=== PATIENT | male | born 1935 | race Two or more races ===

== ENCOUNTER 2022-12-10 08:25 | Outpatient (OUT) | payer MEDICARE, SELFPAY ==
[2022-12-10 10:14] LABS: Prostate Specific Antigen Dx <0.13 ng/mL (<=4.00)
== END 2022-12-10 08:26 | disposition home or self-care (01) ==
LOC: LAB 08:28
PROVIDERS: PCP Family Medicine; Visit Provider Urology
DX: R97.21 Rising PSA following treatment for malignant neoplasm of prostate (principal); C61 Malignant neoplasm of prostate; N40.1 Benign prostatic hyperplasia with lower urinary tract symptoms
CPT/HCPCS: 36415; 84153

== ENCOUNTER 2023-03-08 08:03 | Outpatient (OUT) | payer MEDICARE, SELFPAY ==
[2023-03-08 08:22] LABS: Basophils Percent Auto 0.7 % (0.2-2.0); Eosinophils Absolute Auto 0.4 10^3/uL (0.0-0.7); Eosinophils Percent Auto 6.9 % (0.9-7.0); Hematocrit 37.5 % (42.0-54.0); Hemoglobin 12.3 g/dL (14.0-18.0); Immature Granulocytes Abs Auto 0.01 10^3/uL (0.00-0.03); Immature Granulocytes Pct Auto 0.2 % (0.0-0.5); Lymphocytes Absolute Auto 2.3 10^3/uL (1.2-3.8); Lymphocytes Percent Auto 39.8 % (20.5-60.0); Mean Corpuscular HGB Conc 32.8 g/dL (29.9-35.2); Mean Corpuscular Hemoglobin 32.2 pg (25.9-34.0); Mean Corpuscular Volume 98.2 fL (80.0-94.0); Mean Platelet Volume 11.1 fL (9.5-13.5); Monocytes Absolute Auto 0.7 10^3/uL (0.3-0.8); Monocytes Percent Auto 11.4 % (1.7-12.0); Neutrophils Absolute Auto 2.4 10^3/uL (1.4-6.5); Platelet Count 177 10^3/uL (150-450); Red Blood Count 3.82 10^6/uL (4.70-6.10); White Blood Count 5.8 10^3/uL (4.0-11.0)
[2023-03-08 09:19] LABS: Estimated Average Glucose 117 mg/dL; Glycohemoglobin A1C 5.7 % (4.5-6.2)
[2023-03-08 09:24] LABS: Alanine Aminotransferase 24 U/L (16-63); Albumin Globulin Ratio 0.9; Albumin Level 3.8 g/dL (3.4-5.0); Alkaline Phosphatase 97 U/L (46-116); Anion Gap 10.1; Aspartate Amino Transferase 20 U/L (15-37); BUN Creatinine Ratio 24.7; Bilirubin Direct 0.2 mg/dL (0.0-0.2); Bilirubin Total 1.2 mg/dL (0.2-1.0); Calcium 9.7 mg/dL (8.5-10.1); Carbon Dioxide 29.9 mmol/L (21.0-32.0); Chloride 104 mmol/L (98-107); Chol HDL Ratio 4.2; Cholesterol 183 mg/dL (<=200); Estimated GFR (African America >60 (>=60); Estimated GFR (Non-African Ame >60 (>=60); Globulin 4.2 g/dL; Glucose 90 mg/dL (74-106); HDL Cholesterol 44 mg/dL (40-60); LDL Cholesterol Calculated 116.4 mg/dL; Sodium 140 mmol/L (136-145); Thyroid Stimulating Hormone 7.015 uIU/mL (0.358-3.740); Triglycerides 113 mg/dL (<=150); VLDL CHOLESTEROL 22.6 mg/dL
== END 2023-03-08 08:04 | disposition home or self-care (01) ==
LOC: LAB 08:04
PROVIDERS: PCP Family Medicine; Visit Provider Family Medicine
DX: R73.03 Prediabetes (principal); I10 Essential (primary) hypertension; Z79.899 Other long term (current) drug therapy; E78.5 Hyperlipidemia, unspecified; I48.0 Paroxysmal atrial fibrillation
CPT/HCPCS: 36415; 80048; 80061; 80076; 83036; 84443; 85025

== ENCOUNTER 2023-06-24 08:23 | Outpatient (OUT) | payer MEDICARE, SELFPAY ==
--- OUTSIDE RECORDS SUMMARY | 2023-06-24 08:29 | XMS_ITS | CCD ---
Author Name Unknown Address [address] [facility] [address] [place] [address] Organization [facility] Care Team Providers Care Licensing Director Name Role Phone ADALBERTO WHEATLEY Primary Care Physician [phone] DIONI, DR ADALBERTO Ramos Primary Care Unavailable JENNIFER, SHAIKH Eryn Admitting Unavailable SHAIKH Eryn RODRIGUEZ Attending Unavailable STEPHENIE, DR NOE Burt Consulting Unavailable DIONI, DR ADALBERTO Ramos Consulting Unavailable ROSALINE HERCULES Consulting Unavailable FABROOKLYNN, SHAIKH Eryn Consulting Unavailable RAVEN BENDER Consulting Unavailable COLIN ., DR ORTEGA Admitting Unavailable COLIN ., DR ORTEGA Attending Unavailable NADEREJaved, DR ADALBERTO Ramos Primary Care Unavailable COLIN ., DR ORTEGA Consulting Unavailable COLIN ., DR ORTEGA Admitting Unavailable COLIN ., DR ORTEGA Attending Unavailable DIONI, DR ADALBERTO Ramos Primary Care Unavailable COLIN ., DR ORTEGA Consulting Unavailable COLIN ., DR ORTEGA Admitting Unavailable COLIN ., DR ORTEGA Attending Unavailable DIONI, DR ADALBERTO Ramos Primary Care Unavailable COLIN ., DR ORTEGA Consulting Unavailable FRANCESHAYDEE FORD Consulting Unavailable COLIN ., DR ORTEGA Admitting Unavailable COLIN ., DR ORTEGA Attending Unavailable DIONI, DR ADALBERTO Ramos Primary Care Unavailable COLIN ., DR ORTEGA Consulting Unavailable COLIN, Felix Burt Attending Unavailable COLIN, Felix Burt Attending Unavailable COLIN, Felix R Attending Unavailable COLIN, Felix R Attending Unavailable COLIN, Felix R Attending Unavailable Allergies Allergy Classification Reported Allergen(s) Allergy Type Date of Onset Reaction(s) Facility (1 source) No Known Medication Allergies; Translations: [No Known Medication Allergies] Propensity to adverse reactions (disorder) [facility] Repository Medications Current Medications Medication Drug Class(es) Dates Sig (Normalized) Sig (Original) apixaban 5 mg oral tablet (3 sources) Factor Xa Inhibitor Start: 06-04-2022 Eliquis 5 mg oral tablet Refills(s) 0 Start Date: 06/04/22 Status: Ordered bicalutamide 50 mg oral tablet (4 sources) Androgen Receptor Inhibitor Start: 12-04-2021 take 1 tablet by mouth once daily Casodex 50 mg Tab 50 mg = 1 tab(s), Oral, Daily, # 90 tab(s), Refills(s) 3, Pharmacy: [id number], 182, cm, 12/04/21 10:02:00 EDT, Height/Length Dosing, 78.1, kg, 12/04/21 10:02:00 EDT, Weight Dosing Start Date: 12/04/21 Status: Ordered Fish Oils (4 sources) Start: 05-12-2020 Fish Oil Oral Start Date: 05/12/20 Status: Ordered Metoprolol (3 sources) beta-Adrenergic Sera Start: 06-04-2022 Metoprolol tartrate 50 mg Tab Refills(s) 0 Start Date: 06/04/22 Status: Ordered Multi Vitamin+ (4 sources) Start: 05-12-2020 Multi Vitamin+ Start Date: 05/12/20 Status: Ordered Completed/Discontinued Medications Medication Drug Class(es) Dates Sig (Normalized) Sig (Original) cephalexin 500 mg oral capsule (2 sources) Cephalosporin Antibacterial Start: 06-04-2022 take 1 capsule by mouth once daily Keflex 500 mg Cap 500 mg = 1 cap(s), Oral, Daily, Take 1 tab day before procedure and 1 after procedure, # 2 cap(s), Refills(s) 0, Pharmacy: [id number], 182, cm, 06/04/22 14:07:00 EST, Height/Length Dosing, 78.1, kg, 06/04/22 14:07:00 EST, Weight Dosing Start Date: 06/04/22 Status: Ordered Problems Problem Classification Problem Date Documented Date Episodic/Chronic Calculus of urinary tract (3 sources) Calculus of kidney; Translations: [Kidney stone] Onset: 06-25-2022 Episodic Cancer of prostate (9 sources) Malignant neoplasm of prostate; Translations: [Carcinoma of prostate] Onset: 12-01-2021 Chronic Cancer of prostate (1 source) Personal history of malignant neoplasm of prostate; Translations: [PERSONAL HX MALIG NEOPLASM PROSTATE] Onset: 07-03-2022 Episodic Cardiac dysrhythmias (1 source) Paroxysmal atrial fibrillation; Translations: [PAROXYSMAL ATRIAL FIBRILLATION] Onset: 05-30-2022 Chronic Diverticulosis and diverticulitis (1 source) Diverticulosis of intestine, part unspecified, without perforation or abscess without bleeding; Translations: [DVRTCLOS PRT UNS NO PERF/ABSC NO BL] Onset: 06-25-2022 Chronic Genitourinary symptoms and ill-defined conditions (15 sources) Microscopic hematuria; Translations: [Nocturia] Onset: 06-04-2022 05-12-2020 Episodic Heart valve disorders (1 source) Nonrheumatic aortic (valve) insufficiency; Translations: [NONRHEUMATIC AORTIC INSUFFICIENCY] Onset: 05-30-2022 Chronic Hyperplasia of prostate (13 sources) Benign prostatic hypertrophy with outflow obstruction; Translations: [Benign prostatic hyperplasia with lower urinary tract symptoms] Onset: 12-01-2021 Chronic Nonspecific chest pain (4 sources) Chest pain, unspecified; Translations: [Other chest pain] Onset: 05-26-2022 Episodic Other aftercare (1 source) long 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 care social worker (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) use of anticoagulants; Translations: [TEST AND BALANCE ENGINEER CURRNT USE ANTICOAGULANTS] Onset: 07-03-2022 Episodic Other aftercare (1 source) 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; Translations: [OTH TEST AND BALANCE ENGINEER CURRENT DRUG THERAPY] Onset: 07-03-2022 Episodic Other and ill-defined heart disease (1 source) Cardiomegaly; Translations: [CARDIOMEGALY] Onset: 05-30-2022 Chronic Other circulatory disease (1 source) Hypotension, unspecified; Translations: [HYPOTENSION UNSPECIFIED] Onset: 05-30-2022 Episodic Other diseases of bladder and urethra (1 source) Other specified disorders of bladder; Translations: [OTHER SPECIFIED DISORDERS BLADDER] Onset: 07-03-2022 Chronic Other diseases of kidney and ureters (1 source) Urinary tract obstruction; Translations: [Other obstructive and reflux uropathy] Onset: 12-01-2021 Episodic Other screening for suspected conditions (not mental disorders or infectious disease) (14 sources) Raised prostate specific antigen; Translations: [Rising PSA following treatment for malignant neoplasm of prostate] Onset: 12-01-2021 Episodic Unclassified (3 sources) Asymptomatic microscopic hematuria 06-04-2022 Unclassified (1 source) CONTACT W/AND (SUSP) EXPOS COVID-19; Translations: [CONTACT W/AND (SUSP) EXPOS COVID-19] Onset: 05-30-2022 Results Test Name Value Interpretation Reference Range Facility [facility] 01-06-2023 Lab Reports [id number] D:127 Normal [facility] Ambulatory Visit Summaryon 0 12-28-2022 Ambulatory Visit Summary TIFFANIE WELLS :1935 Visit Date:12/28/2022 Ambulatory Visit Instructions Your Diagnosis Rising PSA following treatment for malignant neoplasm of prostate Prostate cancer BPH with urinary obstruction Asymptomatic microscopic hematuria Kidney stone Your Care Team Attending Physician - BRANDIN LESLIE, Felix Burt Primary Care Physician - ADALBERTO WHEATLEY MD This Is Your Medications List bicalutamide (Casodex 50 mg Tab) Contact prescribing physician if questions or concerns apixaban (Eliquis 5 mg oral tablet) metoprolol (Metoprolol tartrate 50 mg Tab) multivitamin (Multi Vitamin+) omega-3 polyunsaturated fatty acids (Fish Oil) Procedures Performed Transrectal biopsy of prostate using ultrasound (US) guidance (11/11/2017), Implantation of radioactive seed into prostate (2002), Colonoscopy. Discharge Vitals Temperature (Tympanic) 36.5 ?C Heart Rate (Peripheral) 65 Respiratory Rate 16 Blood Pressure 135/71 Height 183 cm Height 72 in Weight 78 kg Weight 171.6 lb BMI 23.29 What to do next You Need to Schedule the Following Appointments Follow Up with BRANDIN LESLIE, Felix Burt, URL When: In 6 months Comments: w/ Lupron and PSA Where: [facility] [address], [facility] [place] [address]- Medications What How Much When Instructions Unchanged bicalutamide (Casodex 50 mg Tab) 1 Tablets By Mouth Every day Unchanged apixaban (Eliquis 5 mg oral tablet) Contact prescribing physician if questions or concerns Unchanged metoprolol (Metoprolol tartrate 50 mg Tab) Contact prescribing physician if questions or concerns Unchanged multivitamin (Multi Vitamin+) Contact prescribing physician if questions or concerns Unchanged omega-3 polyunsaturated fatty acids (Fish Oil) By Mouth Contact prescribing physician if questions or concerns Medications and Immunizations Administered Given Lupron Depot 45 mg/6 months intramuscular injection, extended release, 45 mg, IntraMuscular. For: Rising PSA following treatment for malignant neoplasm of prostate, Prostate cancer Allergies No Known Medication Allergies Problems Ongoing - Any problem that you are currently receiving treatment for. Asymptomatic microscopic hematuria BPH with urinary obstruction Kidney stone Microscopic hematuria Nocturia Prostate cancer Rising PSA following treatment for malignant neoplasm of prostate Historical - Any problem that you are no longer receiving treatment for. BPH with elevated PSA Education Materials Benign Prostatic Hyperplasia Benign prostatic hyperplasia (BPH) is an enlarged prostate gland that is caused by the normal aging process. The prostate may get bigger as a man gets older. The condition is not caused by cancer. The prostate is a walnut-sized gland that is involved in the production of semen. It is located in front of the rectum and below the bladder. The bladder stores urine. The urethra carries stored urine out of the body. An enlarged prostate can press on the urethra. This can make it harder to pass urine. The buildup of urine in the bladder can cause infection. Back pressure and infection may progress to bladder damage and kidney (renal) failure. What are the causes? This condition is part of the normal aging process. However, not all men develop problems from this condition. If the prostate enlarges away from the urethra, urine flow will not be blocked. If it enlarges toward the urethra and compresses it, there will be problems passing urine. What increases the risk? This condition is more likely to develop in men older than 50 years. What are the signs or symptoms? Symptoms of this condition include: ? Getting up often during the night to urinate. ? Needing to urinate frequently during the day. ? Difficulty starting urine flow. ? Decrease in size and strength of your urine stream. ? Leaking (dribbling) after urinating. ? Inability to pass urine. This needs immediate treatment. ? Inability to completely empty your bladder. ? Pain when you pass urine. This is more common if there is also an infection. ? Urinary tract infection (UTI). How is this diagnosed? This condition is diagnosed based on your medical history, a physical exam, and your symptoms. Tests will also be done, such as: ? A post-void bladder scan. This measures any amount of urine that may remain in your bladder after you finish urinating. ? A digital rectal exam. In a rectal exam, your health care provider checks your prostate by putting a lubricated, gloved finger into your rectum to feel the back of your prostate gland. This exam detects the size of your gland and any abnormal lumps or growths. ? An exam of your urine (urinalysis). ? A prostate specific antigen (PSA) screening. This is a blood test used to screen for prostate cancer. ? An ultrasound. This test uses sound waves to electronically produce a (more content not included)... Normal [facility] Patient Educationon 12-29-19 Patient Education Urology Benign Prostatic Hyperplasia Benign prostatic hyperplasia (BPH) is an enlarged prostate gland that is caused by the normal aging process. The prostate may get bigger as a man gets older. The condition is not caused by cancer. The prostate is a walnut-sized gland that is involved in the production of semen. It is located in front of the rectum and below the bladder. The bladder stores urine. The urethra carries stored urine out of the body. An enlarged prostate can press on the urethra. This can make it harder to pass urine. The buildup of urine in the bladder can cause infection. Back pressure and infection may progress to bladder damage and kidney (renal) failure. What are the causes? This condition is part of the normal aging process. However, not all men develop problems from this condition. If the prostate enlarges away from the urethra, urine flow will not be blocked. If it enlarges toward the urethra and compresses it, there will be problems passing urine. What increases the risk? This condition is more likely to develop in men older than 50 years. What are the signs or symptoms? Symptoms of this condition include: ? Getting up often during the night to urinate. ? Needing to urinate frequently during the day. ? Difficulty starting urine flow. ? Decrease in size and strength of your urine stream. ? Leaking (dribbling) after urinating. ? Inability to pass urine. This needs immediate treatment. ? Inability to completely empty your bladder. ? Pain when you pass urine. This is more common if there is also an infection. ? Urinary tract infection (UTI). How is this diagnosed? This condition is diagnosed based on your medical history, a physical exam, and your symptoms. Tests will also be done, such as: ? A post-void bladder scan. This measures any amount of urine that may remain in your bladder after you finish urinating. ? A digital rectal exam. In a rectal exam, your health care provider checks your prostate by putting a lubricated, gloved finger into your rectum to feel the back of your prostate gland. This exam detects the size of your gland and any abnormal lumps or growths. ? An exam of your urine (urinalysis). ? A prostate specific antigen (PSA) screening. This is a blood test used to screen for prostate cancer. ? An ultrasound. This test uses sound waves to electronically produce a picture of your prostate gland. Your health care provider may refer you to a specialist in kidney and prostate diseases (urologist). How is this treated? Once symptoms begin, your health care provider will monitor your condition (active surveillance or watchful waiting). Treatment for this condition will depend on the severity of your condition. Treatment may include: ? Observation and yearly exams. This may be the only treatment needed if your condition and symptoms are mild. ? Medicines to relieve your symptoms, including: ? Medicines to shrink the prostate. ? Medicines to relax the muscle of the prostate. ? Surgery in severe cases. Surgery may include: ? Prostatectomy. In this procedure, the prostate tissue is removed completely through an open incision or with a laparoscope or robotics. ? Transurethral resection of the prostate (TURP). In this procedure, a tool is inserted through the opening at the tip of the penis (urethra). It is used to cut away tissue of the inner core of the prostate. The pieces are removed through the same opening of the penis. This removes the blockage. ? Transurethral incision (TUIP). In this procedure, small cuts are made in the prostate. This lessens the prostate's pressure on the urethra. ? Transurethral microwave thermotherapy (TUMT). This procedure uses microwaves to create heat. The heat destroys and removes a small amount of prostate tissue. ? Transurethral needle ablation (TUNA). This procedure uses radio frequencies to destroy and remove a small amount of prostate tissue. ? Interstitial laser coagulation (ILC). This procedure uses a laser to destroy and remove a small amount of prostate tissue. ? Transurethral electrovaporization (TUVP). This procedure uses electrodes to destroy and remove a small amount of prostate tissue. ? Prostatic urethral lift. This procedure inserts an implant to push the lobes of the prostate away from the urethra. Follow these instructions at home: ? Take rxqz-thq-brgqtmp and prescription medicines only as told by your health care provider. ? Monitor your symptoms for any changes. Contact your health care provider with any changes. ? Avoid drinking large amounts of liquid before going to bed or out in public. ? Avoid or reduce how much caffeine or alcohol you drink. ? Give yourself time when you urinate. ? Keep all follow-up visits. This is important. Contact a health care provider if: ? You have unexplained back pain. ? Your symptoms do not get better with treatment. ? You develop side effects from the medicine (more content not included)... Normal [facility] Urology Office/Clinic Noteon 12-28-2022 Urology Office/Clinic Note Chief Complaint prostate cancer HPI Staff 6 month f/u with PSA and Lupron injection. Previous dx of rising PSA following treatment for malignant neoplasm of prostate, prostate cancer (Brachytherapy 2002), BPH with urinary obstruction and asymptomatic microhematuria. Continues Casodex 50mg qd therapy. Current PSA done 12/10/22 is <0.13 and previous done 05/24/22 was the same. Dysuria: no Incomplete bladder emptying: no Hematuria: no Frequency: no Urgency: no Nocturia: 1x Stream: no straining or intermittency Leaking: no Post void dripping: no Wearing pads/ Depends: no Urge incontinence: no Stress incontinence: no Incontinence without Sensory Awareness: no Abdominal pain: no Flank pain: no Sexual complaints: no History of Present Illness Tests reviewed: reviewed UA and PSA. I have reviewed the previous health record information and history for this patient from . I have reviewed and verified the staff HPI to be accurate for this encounter. There have been no associated fever, chills, flank pain, or blood in the urine. Denies any urinary infections since last encounter. Review of Systems PHQ Score Initial Depression Screen Score: 0 ROS - Provider Constitutional: denies weight loss, denies hot flashes. Eyes: denies eye problems. Gastrointestinal: denies nausea, denies vomiting. Cardiovascular: denies chest pain or angina. Integumentary: no dryness Musculoskeletal: denies musculoskeletal symptoms. ENMT: denies otolaryngeal symptoms. Respiratory: no shortness of breath. Heme/Lymph: denies easy bleeding tendency, denies easy bruising tendency. Psychiatric: no confusion, no anxiety. Genitourinary: See HPI. Physical Exam Vitals & Measurements T: 36.5 ?C(Tympanic) HR: 65(Peripheral) RR: 16 BP: 135/71 HT: 72 in HT: 183 cm WT: 78 kg WT: 171.6 lb BMI: 23.29 General Appearance: alert, no distress, well nourished, well developed male. Assessment/Plan 1. Rising PSA following treatment for malignant neoplasm of prostate (R97.21: Rising PSA following treatment for malignant neoplasm of prostate) PSA: 11/28/21 - 0.72 05/24/22 - <0.13 12/10/22 - <0.13 Last Lupron given 06/11/22. Pt continues taking Casodex 50 mg QD. Lupron was approved. Lupron 45 mgIM injection given today with no complications. Right glute. Pt. denies side effects at this time. Pt states that he is taking calcium and multi-vitamins. Advised pt that is it important he is getting a dose of Vitamin D. Follow up in 6 mos for Lupron and with PSA or sooner if needed. Pt understands and agrees with plan. -cont Casodex -Will order PSA. 2. Prostate cancer (C61: Malignant neoplasm of prostate) S/p brachytherapy done 2002. Path done 11/14/17 showed: Right mid - adenocarcinoma, Kennard 6 (3+3), tumor measure 0.09 cm in length, 6% of the core involved by tumor, 1/1 core. Right lateral - Kennard 7 (3+4), tumor measure 0.25 cm in length, 20% of the core involved, 1/1 core. Right lateral mid - Timothy 7 (3+4), tumor measure 0.25 cm in length, 19% of the core involved, 1/1 core. Grade group 2. 3. BPH with urinary obstruction (N40.1: Benign prostatic hyperplasia with lower urinary tract symptoms) Pt is not on any BPH medication at this time. Overall pt has no urinary complaints at this time. 4. Asymptomatic microscopic hematuria (R31.21: Asymptomatic microscopic hematuria) S/p Cysto 07/02/22 UA today shows trace-intact blood. Denies gross blood. Pt is on Eliquis therapy. 5. Kidney stone (N20.0: Calculus of kidney) CTU 06/21/22 - a punctate stone in the lower Lt pole of the kidney Discussed findings w/ pt, stone is very small, will continue to monitor. -Will need KUB in 1 yr. Follow-up With When Contact Information Felix COLIN MD, URL In 6 months [facility] [address], [place] [address]- Additional Instructions: w/ Lupron and PSA Patient Education Benign Prostatic Hyperplasia I, Mimi Donaldson , personally scribed for Dr. Colin on 12/28/2022 12:59:18. . Documentation recorded by the scribe, Mimi Donaldson, accurately reflects the services(s) I performed and decisions made by me. Problem List/Past Medical History Ongoing Asymptomatic microscopic hematuria BPH with urinary obstruction Kidney stone Microscopic hematuria Nocturia Prostate cancer Rising PSA following treatment for malignant neoplasm of prostate Historical BPH with elevated PSA Procedure/Surgical History Transrectal biopsy of prostate using ultrasound (US) guidance (11/11/2017), Implantation of radioactive seed into prostate (2002), Colonoscopy. Medications Casodex 50 mg Tab, 50 mg= 1 tab(s), Oral, Daily, 3 refills Eliquis 5 mg oral tablet Fish Oil, Oral Lupron Depot 45 mg/6 months intramuscular injection, extended release, 45 mg, IntraMuscular, Once Metoprolol tartrate 50 mg Tab Multi Vitamin+ Allergies No Known (more content not included)... Normal [facility] Comment on above: Result Comment: Elec tronically Signed By: Felix COLIN MD\.br\Date and Time Signed: 12/28/22 13:00 EDT\.br\Electronically Co-Signed By: Mimi Donaldson\.br\Date and Time Co-Signed: 12/28/22 12:59 EDT Pre-Certification Formon Pre-Certification Form [id number] CD:127 Normal [facility] Operative Reporton 3 Operative Report [id number] D:127 Normal [facility] Operative Reporton 3 Operative Report [id number] D:127 Normal [facility] RAD - CT Reporton 07-01-2022 RAD - CT Report [id number] D:127 Normal [facility] CT ABD/PELV WO W CONon 06-21 CT ABD/PELV WO W CON EXAMINATION: CT ABD/PELV WO W CON HISTORY: Microscopic hematuria COMPARISON: None. TECHNIQUE: Axial CT images were obtained of the abdomen and pelvis without and with intravenous contrast. Postcontrast images were obtained in the delayed phase. Multiplanar reconstructions were performed. Dose reduction techniques were achieved by using automated exposure control and/or adjustment of mA and/or kV according to patient size and/or use of iterative reconstruction technique. ABDOMEN/PELVIS FINDINGS: Lower Chest: Mild fibrotic changes are present in the lung bases. Liver: Normal enhancement and contour. Biliary/Gallbladder: Unremarkable. Pancreas: Unremarkable. Spleen: Unremarkable. Adrenal Glands: Unremarkable. Kidneys: There are a few small bilateral renal cysts present. A punctate calculus is present in the lower pole of the right kidney. There are a couple small parenchymal calcifications in the left kidney. No hydronephrosis. Gastrointestinal/Perito neum: No acute abnormality. Mild colonic diverticulosis is present. The appendix is unremarkable. No free air or free fluid. Vascular: Moderate scattered atherosclerotic calcifications are present. There is an infrarenal aortic aneurysm measuring 3.6 cm in diameter. Lymph Nodes: No enlarged lymph nodes by CT size criteria. Pelvic Organs: Radiation seeds are noted in the prostate gland. Bladder: Unremarkable. Bones: No acute osseous abnormality. Mild multilevel degenerative disc disease is present in the visualized spine. Extensive degenerative facet disease is present at L4-L5 where there is a slight anterolisthesis of L4 on L5. Soft tissues: Unremarkable. IMPRESSION: 1. Punctate calculus in the lower pole of the right kidney. 2. Mild colonic diverticulosis. 3. Infrarenal aortic aneurysm measuring up to 3.6 cm in diameter. 4. Brachytherapy seeds noted in the prostate gland. 5. Mild fibrotic changes in the lung bases. Electronically authenticated by: HAYDEE DANIELS Date: 2022-06-21 14:41 Normal [facility] Consent for Procedure/Surger yon 06-20-2022 Consent for Procedure/Surgery [id number] D:127 [facility] Ambulatory Visit Summaryon 0 06-11-2022 Ambulatory Visit Summary TIFFANIE WELLS :1935 Visit Date:06/11/2022 Ambulatory Visit Instructions Your Diagnosis Rising PSA following treatment for malignant neoplasm of prostate Prostate cancer BPH with urinary obstruction Asymptomatic microscopic hematuria Tests Performed Urnls Dip Stick Auto w/o Microscopy POC 90465 Your Care Team Attending Physician - Felix COLIN MD Primary Care Physician - ADALBERTO WHEATLEY MD This Is Your Medications List bicalutamide (Casodex 50 mg Tab) cephalexin (Keflex 500 mg Cap) Contact prescribing physician if questions or concerns apixaban (Eliquis 5 mg oral tablet) metoprolol (Metoprolol tartrate 50 mg Tab) multivitamin (Multi Vitamin+) omega-3 polyunsaturated fatty acids (Fish Oil) Procedures Performed Transrectal biopsy of prostate using ultrasound (US) guidance (11/11/2017), Implantation of radioactive seed into prostate (2002), Colonoscopy. What to do next Scheduled Follow-Up Appointments Saturday 10:45 AM EDT With: BRANDIN LESLIE, Felxi Burt Where: [facility] Patient Educationon 06-11-19 23 Patient Education Urology Benign Prostatic Hyperplasia Benign prostatic hyperplasia (BPH) is an enlarged prostate gland that is caused by the normal aging process and not by cancer. The prostate is a walnut-sized gland that is involved in the production of semen. It is located in front of the rectum and below the bladder. The bladder stores urine and the urethra is the tube that carries the urine out of the body. The prostate may get bigger as a man gets older. An enlarged prostate can press on the urethra. This can make it harder to pass urine. The build-up of urine in the bladder can cause infection. Back pressure and infection may progress to bladder damage and kidney (renal) failure. What are the causes? This condition is part of a normal aging process. However, not all men develop problems from this condition. If the prostate enlarges away from the urethra, urine flow will not be blocked. If it enlarges toward the urethra and compresses it, there will be problems passing urine. What increases the risk? This condition is more likely to develop in men over the age of 50 years. What are the signs or symptoms? Symptoms of this condition include: ? Getting up often during the night to urinate. ? Needing to urinate frequently during the day. ? Difficulty starting urine flow. ? Decrease in size and strength of your urine stream. ? Leaking (dribbling) after urinating. ? Inability to pass urine. This needs immediate treatment. ? Inability to completely empty your bladder. ? Pain when you pass urine. This is more common if there is also an infection. ? Urinary tract infection (UTI). How is this diagnosed? This condition is diagnosed based on your medical history, a physical exam, and your symptoms. Tests will also be done, such as: ? A post-void bladder scan. This measures any amount of urine that may remain in your bladder after you finish urinating. ? A digital rectal exam. In a rectal exam, your health care provider checks your prostate by putting a lubricated, gloved finger into your rectum to feel the back of your prostate gland. This exam detects the size of your gland and any abnormal lumps or growths. ? An exam of your urine (urinalysis). ? A prostate specific antigen (PSA) screening. This is a blood test used to screen for prostate cancer. ? An ultrasound. This test uses sound waves to electronically produce a picture of your prostate gland. Your health care provider may refer you to a specialist in kidney and prostate diseases (urologist). How is this treated? Once symptoms begin, your health care provider will monitor your condition (active surveillance or watchful waiting). Treatment for this condition will depend on the severity of your condition. Treatment may include: ? Observation and yearly exams. This may be the only treatment needed if your condition and symptoms are mild. ? Medicines to relieve your symptoms, including: ? Medicines to shrink the prostate. ? Medicines to relax the muscle of the prostate. ? Surgery in severe cases. Surgery may include: ? Prostatectomy. In this procedure, the prostate tissue is removed completely through an open incision or with a laparoscope or robotics. ? Transurethral resection of the prostate (TURP). In this procedure, a tool is inserted through the opening at the tip of the penis (urethra). It is used to cut away tissue of the inner core of the prostate. The pieces are removed through the same opening of the penis. This removes the blockage. ? Transurethral incision (TUIP). In this procedure, small cuts are made in the prostate. This lessens the prostate's pressure on the urethra. ? Transurethral microwave thermotherapy (TUMT). This procedure uses microwaves to create heat. The heat destroys and removes a small amount of prostate tissue. ? Transurethral needle ablation (TUNA). This procedure uses radio frequencies to destroy and remove a small amount of prostate tissue. ? Interstitial laser coagulation (ILC). This procedure uses a laser to destroy and remove a small amount of prostate tissue. ? Transurethral electrovaporization (TUVP). This procedure uses electrodes to destroy and remove a small amount of prostate tissue. ? Prostatic urethral lift. This procedure inserts an implant to push the lobes of the prostate away from the urethra. Follow these instructions at home: ? Take sdkn-hrc-bqzdtae and prescription medicines only as told by your health care provider. ? Monitor your symptoms for any changes. Contact your health care provider with any changes. ? Avoid drinking large amounts of liquid before going to bed or out in public. ? Avoid or reduce how much caffeine or alcohol you drink. ? Give yourself time when you urinate. ? Keep all follow-up visits as told by your health care provider. This is important. Contact a health care provider if: ? You have unexplained back pain. ? Your symptoms do not get better with treatment. ? You d (more content not included)... Normal [facility] Pre-Certification Formon Pre-Certification Form [id number] CD:127 Normal [facility] Urine Cytology ([facility])on 0 06-11-2022 Urine Cytology Diagnosis Info Invalid Interpretation Code [facility] Comment on above: Result Comment: A:Ur ine,Urine:Voided Interpretation - MicroScopic Description - Adequacy - Gross Description Site ID:A color Orangeish fixative Alcohol Specimen designated Urine received in alcohol preservative and labeled with the patient?s name, consists of 60ml slightly cloudy orangeish fluid. Electronically signed by : on: 06/11/2022 15:58:32 Performed By: #### 1 [id number] ####[facility] [id number] [place] [address] Urology Office/Clinic Noteon 06-11-2022 Urology Office/Clinic Note HPI Staff 6m Lupron Inj for Tx of Rising PSA following Prostate Cancer. (Authorization has been approved) Last Lupron given 12/04/21. S/P Brachytherapy done in 2002. Current PSA done 05/24/22- <0.13 *Casodex 50mg QD therapy. Pt had microscopic hematuria at last encounter, recently started on Eliquis therapy. Cysto ordered (not yet scheduled), CT is scheduled at [facility] first week of June, Cytology results are not finalized yet. History of Present Illness Tests reviewed: reviewed UA, PSA. I have reviewed the previous health record information and history for this patient from Dr. Colin. I have reviewed and verified the staff HPI to be accurate for this encounter. There have been no associated fever, chills, flank pain, or blood in the urine. Denies any urinary infections since last encounter. Review of Systems ROS - Provider Constitutional: denies weight loss, denies hot flashes. Eyes: denies eye problems. Gastrointestinal: denies nausea, denies vomiting. Cardiovascular: denies chest pain or angina. Integumentary: no dryness Musculoskeletal: denies musculoskeletal symptoms. ENMT: denies otolaryngeal symptoms. Respiratory: no shortness of breath. Heme/Lymph: denies easy bleeding tendency, denies easy bruising tendency. Psychiatric: no confusion, no anxiety. Genitourinary: See HPI. Physical Exam General Appearance: alert, no distress, well nourished, well developed male. Genitourinary: normal scrotum, normal testes, normal urethra, normal epididymis, normal vas deferens/spermatic cord. Flank Pain: none. Bladder: nonpalpable. Assessment/Plan 1. Rising PSA following treatment for malignant neoplasm of prostate (R97.21: Rising PSA following treatment for malignant neoplasm of prostate) PSA: 11/28/21 - 0.72 05/24/22 - <0.13 Last Lupron given 12/04/21. Pt continues taking Casodex 50 mg QD. Lupron was approved. Lupron 45 mgIM injection given today with no complications. Right glute. Pt. denies side effects at this time. Follow up in 6 mos for Lupron and with PSA or sooner if needed. Pt understands and agrees with plan. -cont Casodex 2. Prostate cancer (C61: Malignant neoplasm of prostate) S/p brachytherapy done 2002. Path done 11/14/17 showed: Right mid - adenocarcinoma, Timothy 6 (3+3), tumor measure 0.09 cm in length, 6% of the core involved by tumor, 1/1 core. Right lateral - Kennard 7 (3+4), tumor measure 0.25 cm in length, 20% of the core involved, 1/1 core. Right lateral mid - Timothy 7 (3+4), tumor measure 0.25 cm in length, 19% of the core involved, 1/1 core. Grade group 2. 3. BPH with urinary obstruction (N40.1: Benign prostatic hyperplasia with lower urinary tract symptoms) Pt is not on any BPH medication at this time. Overall pt has no urinary complaints at this time. 4. Asymptomatic microscopic hematuria (R31.21: Asymptomatic microscopic hematuria) UA done 06/04/22 showed small blood. UA today shows small blood. Denies gross blood. Was recently started on Eliquis therapy. Cysto ordered (not yet scheduled), CTU is scheduled at [facility] first week of June, cytology results are not finalized yet. Follow-up With When Contact Information BRANDIN LESLIE, Felix Burt, [facility] [address] [place] [address]- Additional Instructions: f/u 6 mos with Lupron, PSA after cysto and CTU Patient Education Benign Prostatic Hyperplasia IRomy, personally scribed for Dr. Colin on 06/11/2022 10:34:06. . Documentation recorded by the scribRomy howe, accurately reflects the services(s) I performed and decisions made by me. Authenticated by Dr. Colin on 06/11/2022 10:35:00. Problem List/Past Medical History Ongoing Asymptomatic microscopic hematuria BPH with urinary obstruction Microscopic hematuria Nocturia Prostate cancer Rising PSA following treatment for malignant neoplasm of prostate Historical BPH with elevated PSA Procedure/Surgical History Transrectal biopsy of prostate using ultrasound (US) guidance (11/11/2017), Implantation of radioactive seed into prostate (2002), Colonoscopy. Medications Casodex 50 mg Tab, 50 mg= 1 tab(s), Oral, Daily, 3 refills Eliquis 5 mg oral tablet Fish Oil, Oral Keflex 500 mg Cap, 500 mg= 1 cap(s), Oral, Daily Metoprolol tartrate 50 mg Tab Multi Vitamin+ Allergies No Known Medication Allergies Social History Tobacco Never (less than 100 in lifetime) Tobacco Use:. Never Smokeless Tobacco Use:., 06/04/2022 Family History Family history is unknown Immunizations Vaccine Date Status Comments influenza virus vaccine, inactivated 02/20/2022 Recorded SARS-CoV-2 (COVID-19) [id number] 02/20/2022 Recorded SARS-CoV-2 (COVID-19) mRNA-1273 vaccine 08/19/2021 Recorded influenza virus vaccine, inactivated 02/21/2021 Recorded SARS-CoV-2 (COVID-19) mRNA BNT-162b2 vax 01/24/2021 Recorded SARS-CoV-2 (COVID (more content not included)... [facility] Comment on above: Result Comment: Elec tronically Signed By: Felix COLIN MD\.br\Date and Time Signed: 06/11/22 10:35 EST\.br\Electronically Co-Signed By: Romy Angeles\.br\Date and Time Co-Signed: 06/11/22 10:34 EST 36on 06-07-2022 36 Spoke with patient t o schedule a follow up with Dr. Maloney after event monitor per Octavia Velez. He said he is leaving this up to his PCP, Dr. Wheatley. I told him if he needs us or changes his mind, he can always call us. He verbalized understanding. [facility] Historical Records Officeon 06-07-2022 Historical Records Office [id number] D:127 [facility] Ambulatory Visit Summaryon 0 06-04-2022 Ambulatory Visit Summary TIFFANIE WELLS :1935 Visit Date:06/04/2022 Ambulatory Visit Instructions Your Diagnosis Rising PSA following treatment for malignant neoplasm of prostate Prostate cancer BPH with urinary obstruction Asymptomatic microscopic hematuria Tests Performed Urnls Dip Stick Auto w/o Microscopy POC 26340 CT Abdomen/Pelvis w/ Contrast -- Results Pending -- Please visit your patient portal for your results or contact your primary care physician. Your Care Team Attending Physician - BRANDIN LESLIE, Felix Burt Primary Care Physician - ADALBERTO WHEATLEY MD This Is Your Medications List bicalutamide (Casodex 50 mg Tab) cephalexin (Keflex 500 mg Cap) Contact prescribing physician if questions or concerns apixaban (Eliquis 5 mg oral tablet) metoprolol (Metoprolol tartrate 50 mg Tab) multivitamin (Multi Vitamin+) omega-3 polyunsaturated fatty acids (Fish Oil) Procedures Performed Transrectal biopsy of prostate using ultrasound (US) guidance (11/11/2017), Implantation of radioactive seed into prostate (2002), Colonoscopy. Discharge Vitals Heart Rate (Peripheral) 61 Respiratory Rate 16 Blood Pressure 128/62 Height 182 cm Height 72 in Weight 78.1 kg Weight 171.82 lb BMI 23.58 What to do next You Need to Schedule the Following Appointments Follow Up with BRANDIN LESLIE, Felix Burt, RACHID When: Where: [facility] [address], [facility] [place] [address]- [phone] Medications What How Much When Instructions New cephalexin (Keflex 500 mg Cap) 1 Capsules By Mouth Every day Take 1 tab day before procedure and 1 after procedure Pickup at [facility] Unchanged bicalutamide (Casodex 50 mg Tab) 1 Tablets By Mouth Every day Unchanged apixaban (Eliquis 5 mg oral tablet) Contact prescribing physician if questions or concerns Unchanged metoprolol (Metoprolol tartrate 50 mg Tab) Contact prescribing physician if questions or concerns Unchanged multivitamin (Multi Vitamin+) Contact prescribing physician if questions or concerns Unchanged omega-3 polyunsaturated fatty acids (Fish Oil) By Mouth Contact prescribing physician if questions or concerns Pharmacy Information [facility]: [address] [place], [place] [id number] [phone] Test Results Urnls Dip Stick Auto w/o Microscopy POC 34676 (06/04/2022) Bilirubin Urine Dipstick - Negative Blood Urine Dipstick - 1+ Small Glucose Urine Dipstick - Negative Ketones Urine Dipstick - Trace - 5 mg/dl Leukocytes Urine Dipstick - Negative Nitrite Urine Dipstick - Negative Protein Urine Dipstick - Negative Specific [place] Urine Dipstick - >=1.030 Urine Appearance Urine Dipstick - Clear Urine Color Urine Dipstick - Yellow Urobilinogen Urine Dipstick - Normal 0.2-1 EU/dl pH Urine Dipstick - 6 Allergies No Known Medication Allergies Problems Ongoing - Any problem that you are currently receiving treatment for. Asymptomatic microscopic hematuria BPH with urinary obstruction Microscopic hematuria Nocturia Prostate cancer Rising PSA following treatment for malignant neoplasm of prostate Historical - Any problem that you are no longer receiving treatment for. BPH with elevated PSA Education Materials Brachytherapy for Prostate Cancer Brachytherapy for prostate cancer is radiation treatment that is placed inside of the prostate (prostate gland). There are several types of brachytherapy: ? Low-dose rate (LDR) therapy. This may involve temporary implants or permanent radioactive seed or pellet implants. The radiation does not travel far from the prostate, which means that healthy, noncancerous tissues around the prostate receive only a small dose of radiation. This helps to protect those tissues from injury. This type of treatment may be followed by a course of external beam radiation. ? Temporary low-dose implants are left in the prostate for 1?7 days. The implants are needles, applicators, or thin, plastic tubes (catheters) that contain radioactive material. You will need to stay in the hospital while the implant is in place. ? Permanent low-dose implants (seeds or pellets) are injected into the prostate, and they work for up to one year after they are inserted. They are left in place and are not removed. ? High-dose rate (HDR) therapy. This is given through needles, applicators, or catheters that contain radioactive material. The tubes are removed after treatment, and no radiation is left in the prostate. This type of treatment may be followed by a course of external beam radiation. Tell a health care provider about: ? Any allergies you have. ? All medicines you are taking, including vitamins, herbs, eye drops, creams, and yhxt-tjy-hxiekfj medicines. ? Any problems you or family members have had with anesthetic medicines. ? Any surgeries you have had. ? Any blood disorders you have. ? Any medical conditions y (more content not included)... Normal [facility] Patient Educationon 06-04-19 23 Patient Education Oncology Brachytherapy for Prostate Cancer Brachytherapy for prostate cancer is radiation treatment that is placed inside of the prostate (prostate gland). There are several types of brachytherapy: ? Low-dose rate (LDR) therapy. This may involve temporary implants or permanent radioactive seed or pellet implants. The radiation does not travel far from the prostate, which means that healthy, noncancerous tissues around the prostate receive only a small dose of radiation. This helps to protect those tissues from injury. This type of treatment may be followed by a course of external beam radiation. ? Temporary low-dose implants are left in the prostate for 1?7 days. The implants are needles, applicators, or thin, plastic tubes (catheters) that contain radioactive material. You will need to stay in the hospital while the implant is in place. ? Permanent low-dose implants (seeds or pellets) are injected into the prostate, and they work for up to one year after they are inserted. They are left in place and are not removed. ? High-dose rate (HDR) therapy. This is given through needles, applicators, or catheters that contain radioactive material. The tubes are removed after treatment, and no radiation is left in the prostate. This type of treatment may be followed by a course of external beam radiation. Tell a health care provider about: ? Any allergies you have. ? All medicines you are taking, including vitamins, herbs, eye drops, creams, and bbgz-pze-zauxgcl medicines. ? Any problems you or family members have had with anesthetic medicines. ? Any surgeries you have had. ? Any blood disorders you have. ? Any medical conditions you have. What are the risks? Generally, this is a safe procedure. However, problems may occur, including: ? Inflammation of the rectum. ? Problems getting or keeping an erection (erectile dysfunction). ? Trouble urinating. ? Diarrhea. ? Bleeding. ? Loss of bowel control. What happens before the procedure? Staying hydrated Follow instructions from your health care provider about hydration, which may include: ? Up to 2 hours before the procedure ? you may continue to drink clear liquids, such as water, clear fruit juice, black coffee, and plain tea. Eating and drinking Follow instructions from your health care provider about eating and drinking, which may include: ? 8 hours before the procedure ? stop eating heavy meals or foods such as meat, fried foods, or fatty foods. ? 6 hours before the procedure ? stop eating light meals or foods, such as toast or cereal. ? 6 hours before the procedure ? stop drinking milk or drinks that contain milk. ? 2 hours before the procedure ? stop drinking clear liquids. Medicines ? Ask your health care provider about: ? Changing or stopping your regular medicines. This is especially important if you are taking diabetes medicines or blood thinners. ? Taking medicines such as aspirin and ibuprofen. These medicines can thin your blood. Do not take these medicines before your procedure if your health care provider instructs you not to. ? You may be given antibiotic medicine to help prevent infection. General instructions ? Plan to have someone take you home from the hospital or clinic. ? If you will be going home right after the procedure, plan to have someone with you for 24 hours. ? You may have imaging tests done, including an ultrasound, CT scan, or MRI. ? You may have blood tests done. ? You may have a test to check the electrical signals in your heart (electrocardiogram). ? You may need to take medicine to clean out your bowel (bowel prep). What happens during the procedure? ? To lower your risk of infection: ? Your health care team will wash or sanitize their hands. ? Your skin will be washed with soap. ? Hair may be removed from the surgical area. ? An IV will be inserted into one of your veins. ? You will be given one or more of the following: ? A medicine to help you relax (sedative). ? A medicine to numb the area (local anesthetic). ? A medicine to make you fall asleep (general anesthetic). ? You may have a thin, plastic tube (catheter) inserted to drain your bladder. ? If you are receiving brachytherapy with implants: ? A needle, applicator, or catheter will be inserted into the prostate. It will be inserted through a body cavity, such as the rectum, or through the tissue between the testicles and the anus (perineum). ? An X-ray, ultrasound, MRI, or CT scan will be used to guide the catheter or applicator toward the prostate. ? Radioactive seeds, wires, or ribbons will be fed through the catheter or applicator. ? If the high-dose method is used: ? The radioactive wires or ribbons will be left in for a few minutes and then removed. ? Once the treatment is finished, the catheter or applicator will be removed. ? If the low-dose method is used, the implant will stay in place for 1?7 days. ? You w (more content not included)... Normal [facility] Urine Cytology ([facility])on 0 06-04-2022 Method of Extraction Voided Normal [facility] Comment on above: Performed By: #### 1 [id number] ####[facility] [id number] [place] [address] Number of Jars 1 Invalid Interpretation Code [facility] Comment on above: Performed By: #### 1 [id number] ####[facility] [id number] [place] [address] Specimen Urine Normal [facility] Comment on above: Performed By: #### 1 [id number] ####[facility] [id number] [place] [address] Type of Service Technical Only Normal [facility] Comment on above: Performed By: #### 1 [id number] ####[facility] [id number] [place] [address] Urology Office/Clinic Noteon 06-04-2022 Urology Office/Clinic Note Chief Complaint 6m PSA HPI Staff 6m PSA due to Prostate Cancer & Rising PSA following Tx for Prostate Cancer. S/P Brachytherapy done in 2002. PSA done 05/24/22- <0.13 Pt is on the schedule for Lupron Inj, however, no prior authorization was completed for today's encounter. Verified that Lupron will need precert prior to injection. *Casodex 50mg QD therapy. Pt recently DX'd with A fib and is now taking Eliquis therapy daily. Denies any urinary complaints at this time. History of Present Illness I have reviewed and verified the staff HPI to be accurate for this encounter. Review of Systems PHQ Score Initial Depression Screen Score: 0 ROS - Provider Constitutional: denies weight loss, denies hot flashes. Eyes: denies eye problems. Gastrointestinal: denies nausea, denies vomiting. Cardiovascular: denies chest pain or angina. Integumentary: no dryness Musculoskeletal: denies musculoskeletal symptoms. ENMT: denies otolaryngeal symptoms. Respiratory: no shortness of breath. Heme/Lymph: denies easy bleeding tendency, denies easy bruising tendency. Psychiatric: no confusion, no anxiety. Genitourinary: denies dysuria, denies hematuria, denies discharge, denies urinary frequency, denies urinary hesitancy, denies nocturia, denies incontinence, denies genital sores, denies decreased libido, and denies erectile dysfunction. Physical Exam Vitals & Measurements HR: 61(Peripheral) RR: 16 BP: 128/62 HT: 72 in HT: 182 cm WT: 78.1 kg WT: 171.82 lb BMI: 23.58 General Appearance: alert, no distress, well nourished, well developed male. Genitourinary: normal scrotum, normal testes, normal urethra, normal epididymis, normal vas deferens/spermatic cord. Flank Pain: none. Bladder: nonpalpable. Assessment/Plan 1. Rising PSA following treatment for malignant neoplasm of prostate (R97.21: Rising PSA following treatment for malignant neoplasm of prostate) Continue Casodex 50mg qd PSA done 05/24/22- <0.13 PSA done on 11/28/21 was 0.72. Pt's insurance switched and we are waiting for the approval to give him his next Lupron injection. When we receive the approval our office will call pt to schedule his injection. 2. Prostate cancer (C61: Malignant neoplasm of prostate) S/p Brachytherapy 2002. 3. BPH with urinary obstruction (N40.1: Benign prostatic hyperplasia with lower urinary tract symptoms) Pt is not on any BPH medication at this time Overall pt has no urinary complaints at this time. Will continue to monitor 4. Asymptomatic microscopic hematuria (R31.21: Asymptomatic microscopic hematuria) Small on UA today IO Pt just started Eliquis and takes Aspirin 81mg Pt denies Gross hematuria. Will schedule a Cystoscopy and CT of abdomen/Pelvis w/contrast. Discussed options. The patient is aware that a distinct etiology of the hematuria may not be clear upon conclusion of the workup. Will initiate hematuria workup to include upper urinary tract imaging, as well as evaluation of the urinary cells with urine cytology and possible a FISH test. A cystoscopy will be scheduled to rule out lower urinary tract pathology. The rationale for this workup has been discussed, and all questions have been answered. Informed consent will be obtained. Prophylactic antibiotics will be given. The risks and benefits for cystoscopy have been discussed. The risks include bleeding, infection, and irritation of the bladder and urinary channel, among others. The patient, after being informed of procedural details and after questions have been answered, wishes to proceed. Full informed consent has been obtained. Will order Local anesthesia. Follow-up With When Contact Information Felix COLIN MD, [facility] [address] [place] [address]- [phone] Additional Instructions: Pt will f/u after his cystoscopy Patient Education Brachytherapy for Prostate Cancer I, Genevieve Cabello, personally scribed for Dr. Colin on 06/04/2022 15:10:12. . Documentation recorded by the scribe, Genevieve Cabello, accurately reflects the services(s) I performed and decisions made by me. Problem List/Past Medical History Ongoing Asymptomatic microscopic hematuria BPH with urinary obstruction Microscopic hematuria Nocturia Prostate cancer Rising PSA following treatment for malignant neoplasm of prostate Historical BPH with elevated PSA Procedure/Surgical History Transrectal biopsy of prostate using ultrasound (US) guidance (11/11/2017), Implantation of radioactive seed into prostate (2002), Colonoscopy. Medications Casodex 50 mg Tab, 50 mg= 1 tab(s), Oral, Daily, 3 refills Eliquis 5 mg oral tablet Fish Oil, Oral Metoprolol tartrate 50 mg Tab Multi Vitamin+ Allergies No Known Medication Allergies Social History Tobacco Never (less than 100 in lifetime) Tobacco Use:. Never Smokeless Tobacco Use:., 06/04/2022 Family History Family history is unknown Immun (more content not included)... Normal [facility] Comment on above: Result Comment: Elec tronically Signed By: Felix COLIN MD\.br\Date and Time Signed: 06/04/22 15:12 EST\.br\Electronically Co-Signed By: Genevieve Cabello MA\.br\Date and Time Co-Signed: 06/04/22 15:10 EST ECHOCARDIO M/2D COMPLETEon 0 05-28-2022 ECHOCARDIO M/2D COMPLETE Patient: TIFFANIE WELLS Exam Date: 05/28/2022 : 1935 Gender:M Ordering : MITCHELL HJosiah RODRIGUEZ . Admission #: [id number] Family : DR ADALBERTO WHEATLEY . Order #: [id number] CLICK HERE TO VIEW EXAM ECHOCARDIOGRAM REPORT PROCEDURE: CARDIO PULMONARY ECHOCARDIO M/2D COMP INDICATIONS: Chest pain, Shortness of breath COMPARISON: None. DESCRIPTION: COMPLETE ECHOCARDIOGRAM Real-time transthoracic echocardiography with 2D, M-mode, spectral and color flow Doppler performed. QUALITY: Technical quality was good. LEFT VENTRICLE: Normal chamber size. Mild concentric left ventricular hypertrophy. Systolic function is normal. LV EF: Visual estimation of left ventricular ejection fraction is normal at 55-60%. DIASTOLIC: Normal diastolic function. ATRIAL SEPTUM: LEFT ATRIUM: Normal chamber size. RIGHT ATRIUM: Mild dilatation. RIGHT VENTRICLE: Normal chamber size. Normal right ventricular systolic function. TRICUSPID VALVE: Normal mobility and thickness. No stenosis with trivial regurgitation. No evidence of pulmonary hypertension. RVSP 31mmHg MITRAL VALVE: Normal mobility and thickness. No mitral valve prolapse. No evidence of mitral valve stenosis. There is no mitral annular calcification. Trivial mitral regurgitation. AORTIC VALVE: Normal trileaflet appearance. Mildly calcified aortic valve. Normal leaflet mobility. No evidence of aortic valve stenosis. Mild aortic regurgitation. AORTIC ROOT: Normal diameter and appearance. The ascending aorta is normal in diameter. PULMONIC VALVE: Normal thickness and mobility. No stenosis. Trivial regurgitation. PERICARDIUM: No evidence of pericardial effusion. IVC: Collapses with inspirations. Normal size PLEURA: CONCLUSION: 1. Normal ventricular systolic function. LVEF is 55 to 60%. 2. Mild aortic valve regurgitation. 3. Normal right-sided pressures. 4. No pericardial effusion. Adult Echocardiography Procedure Report Left Ventricle LVEDD (3.7 - 5.6 cm): 4.38 cm LVESD (2.2 - 4.0 cm): 3.12 cm LVIVS thickness (0.6 - 1.2 cm): 1.29 cm LVPW thickness (0.5 - 1.0 cm): 1.27 cm e': 0.08 m/s E - e': 7.16 LVOT Max Gradient: 2.66 mm[Hg] Peak Velocity (LVOT): 0.82 m/s Mean Velocity (LVOT): 0.58 m/s LVOT Diameter 2.47 cm Left Ventricular Ejection Fraction: 55-60% Left Atrium LA Volume Index (2D A2C): 63.05 ml, 63.05 ml Left Atrium Systolic Dimension: 3.66 cm Mitral Valve MV E to A Ratio: 0.90 Mitral Valve A-Wave Peak Velocity: 0.66 m/s Mitral Valve E-Wave Peak Velocity: 0.59 m/s Right Ventricle RV Internal Diastolic Dimension: 3.42 cm Aorta AO Root Diam: 3.74 cm Ascending Ao Diam: 3.45 cm Aortic Valve AoV Area (Peak [place]): 2.98 cm2, 2.98 cm2 AoV Area (VTI): 3.24 cm2, 3.24 cm2 Deceleration [place]: 2.89 m/s2 Pressure Half-Time: 532.36 ms Peak Velocity(Antegrade Flow): 1.31 m/s Peak Gradient(Antegrade Flow): 6.87 mm[Hg] Mean Velocity(Antegrade Flow): 0.97 m/s Mean Gradient(Antegrade Flow): 4.07 mm[Hg] Velocity Time Integral: 24.99 cm Tricuspid Valve Peak Velocity (Regurgitant Flow): 2.49 m/s, 2.66 m/s, 2.39 m/s Peak Velocity: 0.59 m/s Pulmonic Valve Peak Velocity: 0.83 m/s, 0.71 m/s Peak Gradient: 2.75 mm[Hg], 2.02 mm[Hg] Right Atrium Right Atrium Systolic Pressure: 28.59 ml, 28.59 ml Dictated by: Olu Royal M.D. on 05/28/2022 at 13:12 Approved by: Olu Royal M.D. on 05/28/2022 at 13:16 Normal [facility] STRESS/REST MULTIon 05-28 MI STRESS/REST MULTI Patient: TIFFANIE WELLS Exam Date: 05/28/2022 : 1935 Gender:M Ordering : SHAIKH Shaan RODRIGUEZ . Admission #: [id number] Family : DR ADALBERTO WHEATLEY . Order #: [id number] CLICK HERE TO VIEW EXAM RADIOLOGY REPORT PROCEDURE: RADIONUCLIDE IMAGING STRESS/REST MULTI COMPARISON: None. INDICATIONS: Chest pain, shortness of breath TECHNIQUE: Exam Description: Stress/Rest one day protocol gated SPECT Rest Imagin.1 mCi Tc-99m Cardiolite IV on 05/28/2022 Stress Imaging 31.4 mCi Tc-99m Cardiolite IV on 05/28/2022 Exercise Protocol: 0.4 mg Lexiscan given IV Heart Rate (bpm): Rest: 99 Max: 148 PMHR: 108 Blood Pressure: Rest: 130/72 Max: 136/58 Symptoms: atrial fibrillation for duration of study Rest and peak stress ECG findings were normal and the exercise portion of the study was normal per attending physician Dr. Stephens . For more details please see separate cardiac stress test report. FINDINGS: QUALITY OF STUDY: Excellent. PERFUSION DEFECT: None. LOCATION: N/A SIZE: N/A. SEVERITY: N/A. TYPE: N/A. WALL MOTION: Normal. LV SIZE: Normal. 76 mL. TID / TCD: Yes; 1.6 LVEF: Normal. Calculated EF 57%. SUMMARY: Myocardial perfusion imaging study has ABNORMAL findings. CONCLUSION: 1. No acute, reversible, or fixed ischemia. 2. Normal wall motion and ejection fraction. 3. Transient ischemic dilation, 1.6. Dictated by: Noe Bernardo M.D. on 05/29/2022 at 07:30 Approved by: Noe Bernardo M.D. on 05/29/2022 at 07:35 Normal [facility] MAGNESIUMon 05-27-2022 Magnesium [Mass/Vol] 1.8 mg/dL Normal 1.8-2.4 [facility] Comment on above: Performed By: #### P SAD #### [facility] [address] [place] [address] Dr. Otilio Rich PROF 14(COMP METB)on 023 Albumin [Mass/Vol] 3.1 g/dL Critically low 3.4-5.0 [facility] Comment on above: Performed By: #### T SH, CMP #### [facility] [address] [place] [address] Dr. Otilio Rich Albumin/Globulin [Mass ratio] 0.7 {ratio} Normal [facility] Comment on above: Performed By: #### T SH, CMP #### [facility] [address] [place] [address] Dr. Otilio Rich ALP [Catalytic activity/Vol] 87 U/L Normal 46-116 [facility] Comment on above: Performed By: #### T SH, CMP #### [facility] [address] [address] [address] Otilio Rich ALT [Catalytic activity/Vol] 26 U/L Normal 16-63 [facility] Comment on above: Performed By: #### T SH, CMP #### [facility] [address] [address] [address] Otilio Rich Anion gap [Moles/Vol] 13.6 mmol/L Normal [facility] Comment on above: Performed By: #### T SH, CMP #### [facility] [address] [place] [address] Dr. Otilio Rich AST [Catalytic activity/Vol] 16 U/L Normal 15-37 [facility] Comment on above: Performed By: #### T KIMMY, CMP #### [facility] [address] [place] [address] Dr. Otilio Rich Bilirubin [Mass/Vol] 1.5 mg/dL Critically high 0.2-1.0 [facility] Comment on above: Performed By: #### T SH, CMP #### [facility] [address] [place] [address] Dr. Otilio Rich Calcium [Mass/Vol] 9.7 mg/dL Normal 8.5-10.1 [facility] Comment on above: Performed By: #### T KIMMY, CMP #### [facility] [address] [place] [address] Dr. Otilio Rich Chloride [Moles/Vol] 102 mmol/L Normal 98-107 [facility] Comment on above: Performed By: #### T SH, CMP #### [facility] [address] [address] [address] Otilio Rich CO2 [Moles/Vol] 26.5 mmol/L Normal 21.0-32.0 [facility] Comment on above: Performed By: #### T SH, CMP #### [facility] [address] [address] [address] Otilio Rich Creatinine [Mass/Vol] 0.88 mg/dL Normal 0.70-1.30 [facility] Comment on above: Performed By: #### T SH, CMP #### [facility] [address] [place] [address] Dr. Otilio Rich EGFR-AF SAO TOMEAN >60 Normal >=60 [facility] Comment on above: Performed By: #### T SH, CMP #### [facility] [address] [address] [address] Otilio Rich EGFR-NON AF SAO TOMEAN >60 Normal >=60 [facility] Comment on above: Performed By: #### T SH, CMP #### [facility] [address] [address] [address] Otilio Rich Globulin (S) [Mass/Vol] 4.2 g/dL Normal [facility] Comment on above: Performed By: #### T SH, CMP #### [facility] [address] [place] [address] Dr. Otilio Rich Glucose [Mass/Vol] 105 mg/dL Normal 74-106 [facility] Comment on above: Performed By: #### T SH, CMP #### [facility] [address] [address] [address] Otilio Rich Potassium [Moles/Vol] 4.1 mmol/L Normal 3.5-5.1 [facility] Comment on above: Performed By: #### T SH, CMP #### [facility] [address] [place] [address] Dr. Otilio Rich Protein [Mass/Vol] 7.3 g/dL Normal 6.4-8.2 [facility] Comment on above: Performed By: #### T SH, CMP #### [facility] [address] [address] [address] Otilio Rich Sodium [Moles/Vol] 138 mmol/L Normal 136-145 [facility] Comment on above: Performed By: #### T SH, CMP #### [facility] [address] [place] [address] Dr. Otilio Rich Urea nitrogen [Mass/Vol] 19.0 mg/dL Critically high 7.0-18.0 [facility] Comment on above: Performed By: #### T SH, CMP #### [facility] [address] [place] [address] Dr. Otilio Rich Urea nitrogen/Creatinine [Mass ratio] 21.6 mg/mg Normal [facility] Comment on above: Performed By: #### T SH, CMP #### [facility] [address] [place] [address] Dr. Otilio Rich TSHon 05-27-2022 TSH 3.344 uIU/mL Normal 0.358-3.740 [facility] Comment on above: Performed By: #### P SAD #### [facility] [address] [place] [address] Dr. Otilio Rich CARDIAC RAMA 3-6on 3 CK [Catalytic activity/Vol] 60 U/L Normal 39-308 [facility] Comment on above: Performed By: #### C MREP #### [facility] [address] [place] [address] Dr. Otilio Rich CK.MB [Mass/Vol] ng/mL Normal <=3.60 [facility] Comment on above: Performed By: #### C MREP #### [facility] [address] [place] [address] Dr. Otilio Rich HSTROP 5.9 pg/mL Normal 4.0-76.1 [facility] Comment on above: Result Comment: CUT- OFF POINTS HAVE BEEN ESTABLISHED BASED ON THE FOURTH UNIVERSAL DEFINITIONS OF MYOCARDIAL INFARCTION. THE UPPER REFERENCE LIMIT (URL) OF TROPONIN, DEFINED THE 99TH PERCENTILE OF cTnI DISTRIBUTION IN A REFERENCE POPULATION, HAS BEEN CONFIRMED THE DECISION THRESHOLD FOR DE DIAGNOSIS. Performed By: #### C MREP #### [facility] [address] [place] [address] Dr. Otilio Rich CK [Catalytic activity/Vol] 65 U/L Normal 39-308 [facility] Comment on above: Performed By: #### C MREP #### [facility] [address] [place] [address] Dr. Otilio Rich CK.MB [Mass/Vol] ng/mL Normal <=3.60 [facility] Comment on above: Performed By: #### C MREP #### [facility] [address] [address] [address] Otilio Rich HSTROP 5.6 pg/mL Normal 4.0-76.1 [facility] Comment on above: Result Comment: CUT- OFF POINTS HAVE BEEN ESTABLISHED BASED ON THE FOURTH UNIVERSAL DEFINITIONS OF MYOCARDIAL INFARCTION. THE UPPER REFERENCE LIMIT (URL) OF TROPONIN, DEFINED THE 99TH PERCENTILE OF cTnI DISTRIBUTION IN A REFERENCE POPULATION, HAS BEEN CONFIRMED THE DECISION THRESHOLD FOR DE DIAGNOSIS. Performed By: #### C MREP #### [facility] [address] [address] [address] Otilio Rich CARDIAC RAMA ADMITon 023 CK [Catalytic activity/Vol] 65 U/L Normal 39-308 [facility] Comment on above: Performed By: #### B CASSIE, CMADM #### [facility] [address] [place] [address] Dr. Otilio Rich CK.MB [Mass/Vol] 0.53 ng/mL Normal <=3.60 [facility] Comment on above: Performed By: #### B CASSIE, CMADM #### [facility] [address] [place] [address] Dr. Otilio Rich HSTROP 6.8 pg/mL Normal 4.0-76.1 [facility] Comment on above: Result Comment: CUT- OFF POINTS HAVE BEEN ESTABLISHED BASED ON THE FOURTH UNIVERSAL DEFINITIONS OF MYOCARDIAL INFARCTION. THE UPPER REFERENCE LIMIT (URL) OF TROPONIN, DEFINED THE 99TH PERCENTILE OF cTnI DISTRIBUTION IN A REFERENCE POPULATION, HAS BEEN CONFIRMED THE DECISION THRESHOLD FOR DE DIAGNOSIS. Performed By: #### B CASSIE, CMADM #### [facility] [address] [place] [address] Dr. Otilio Rich ABNER 56 ng/mL Normal 16-96 [facility] Comment on above: Performed By: #### B CASSIE, CMADM #### [facility] [address] [place] [address] Dr. Otilio Rich CBC AUTO DIFFon 05-26-2022 BASO # 0.0 103/ul Normal 0.0-0.1 [facility] Comment on above: Performed By: #### P SAD #### [facility] [address] [address] [address] Otilio Rich Basophils/100 WBC (Bld) 0.3 % Normal 0.2-2.0 [facility] Comment on above: Performed By: #### P SAD #### [facility] [address] [address] [address] Otilio Rich EO # 0.4 103/ul Normal 0.0-0.7 [facility] Comment on above: Performed By: #### P SAD #### [facility] [address] [address] [address] Otilio Rich Eosinophils/100 WBC (Bld) 4.2 % Normal 0.9-7.0 [facility] Comment on above: Performed By: #### P SAD #### [facility] [address] [place] [address] Dr. Otilio Rich Erythrocyte distribution width (RBC) [Ratio] 11.9 % Normal 11.0-15.0 [facility] Comment on above: Performed By: #### P SAD #### [facility] [address] [place] [address] Dr. Otilio Rich Hematocrit (Bld) [Volume fraction] 37.3 % Critically low 42.0-54.0 [facility] Comment on above: Performed By: #### P SAD #### [facility] [address] [address] [address] Otilio Rich Hemoglobin (Bld) [Mass/Vol] 13.1 g/dL Critically low 14.0-18.0 [facility] Comment on above: Performed By: #### P SAD #### [facility] [address] [address] [address] Otilio Rich IG # 0.03 10e3/ul Normal 0.00-0.03 [facility] Comment on above: Performed By: #### P SAD #### [facility] [address] [address] [address] Otilio Rich IG % 0.3 % Normal 0.0-0.5 [facility] Comment on above: Performed By: #### P SAD #### [facility] [address] [address] [address] Otilio Rich LYMPH # 2.6 103/ul Normal 1.2-3.8 [facility] Comment on above: Performed By: #### P SAD #### [facility] [address] [place] [address] Dr. Otilio Rich Lymphocytes/100 WBC (Bld) 25.9 % Normal 20.5-60.0 [facility] Comment on above: Performed By: #### P SAD #### [facility] [address] [place] [address] Dr. Otilio Rich MANUAL DIFF REQ NO Normal [facility] Comment on above: Performed By: #### P SAD #### [facility] [address] [place] [address] Dr. Otilio Rich MCH (RBC) [Entitic mass] 31.6 pg Normal 25.9-34.0 [facility] Comment on above: Performed By: #### P SAD #### [facility] [address] [place] [address] Dr. Otilio Rich MCHC (RBC) [Mass/Vol] 35.1 g/dL Normal 29.9-35.2 [facility] Comment on above: Performed By: #### P SAD #### [facility] [address] [place] [address] Dr. Otilio Rich MCV (RBC) [Entitic vol] 89.9 fL Normal 80.0-94.0 [facility] Comment on above: Performed By: #### P SAD #### [facility] [address] [place] [address] Dr. Otilio Rich MONO # 1.0 103/ul Critically high 0.3-0.8 [facility] Comment on above: Performed By: #### P SAD #### [facility] [address] [place] [address] Dr. Otilio Rich Monocytes/100 WBC (Bld) 10.4 % Normal 1.7-12.0 [facility] Comment on above: Performed By: #### P SAD #### [facility] [address] [address] [address] Otilio Rich NEUT # 5.8 103/ul Normal 1.4-6.5 [facility] Comment on above: Performed By: #### P SAD #### [facility] [address] [address] [address] Otilio Rich Neutrophils/100 WBC (Bld) 58.9 % Normal 43.0-75.0 [facility] Comment on above: Performed By: #### P SAD #### [facility] [address] [address] [address] Otilio Rich Platelet mean volume (Bld) [Entitic vol] 10.2 fL Normal 9.5-13.5 [facility] Comment on above: Performed By: #### P SAD #### [facility] [address] [place] [address] Dr. Otilio Rich PLT 185 103/ul Normal 150-450 [facility] Comment on above: Performed By: #### P SAD #### [facility] [address] [address] [address] Otilio Rich RBC 4.15 106/ul Critically low 4.70-6.10 [facility] Comment on above: Performed By: #### P SAD #### [facility] [address] [place] [address] Dr. Otilio Rich WBC 9.8 103/ul Normal 4.0-11.0 [facility] Comment on above: Performed By: #### P SAD #### [facility] [address] [place] [address] Dr. Otilio Rihc CTA CHEST WO W CONon 023 CTA CHEST WO W CON EXAMINATION: CTA SHANA ST WO W CON, 05/26/2022 4:59 AM EST HISTORY: CHEST PAIN, UNSPECIFIED COMPARISON: Same day chest x-ray TECHNIQUE: CT angiography of the chest was performed with IV contrast. MIP (maximum intensity projection) images or 3D post processing was performed. CT dose reduction technique was used, including Automated Exposure Control. FINDINGS: PULMONARY ARTERIES: There is excellent opacification of the pulmonary vasculature. No abnormal vascular cutoffs or filling defects seen to suggest the presence of pulmonary emboli. Pulmonary trunk measures 2.8 CM. AORTA: Thoracic aorta appears somewhat tortuous. There is mild to moderate mixed atherosclerotic disease throughout, without evidence of aneurysm or dissection flap. MEDIASTINUM: Heart appears mildly enlarged. There are moderate coronary arterial calcifications throughout. Thyroid is grossly unremarkable. Trachea and central airways are patent. No visible mediastinal or hilar lymphadenopathy. Small sliding hiatal hernia suggested. PLEURAL CAVITY: No pneumothorax. No pleural effusion. LUNGS: Dependent opacities in the lung bases most suggestive of atelectasis. There may be an element of scarring/senescent changes. No acute pulmonary infiltrate is identified. CHEST WALL/AXILLA: No axillary lymphadenopathy. VISUALIZED UPPER ABDOMEN: No acute findings. BONES: No acute osseous abnormality. Mild degenerative changes. IMPRESSION: 1. No evidence of pulmonary embolus. 2. Mildly tortuous aorta, with mild/moderate atherosclerotic disease. No evidence of aortic dissection or aneurysm. 3. Mild cardiomegaly. Moderate atherosclerotic calcifications of the coronary arteries. 4. Mild scarring and/or atelectasis in the lung bases. No acute pulmonary infiltrate is identified. Electronically authenticated by: RAVEN BENDER Date: 2022-05-26 06:14 Normal [facility] Covid-19 PCR (CVDTB)on 04-30 SARS-CoV-2 (COVID-19) RNA MARCY+probe Ql (Unsp spec) Not detected Normal NOT DETECTED [facility] Comment on above: Result Comment: When diagnostic testing is negative, the possibility of a false negative should be considered in the context of a patient's recent exposures and the presence of clinical signs and symptoms consistent with SARS-CoV-2. This test is not yet approved or cleared by the [place] FDA. When there are no FDA-approved or cleared tests available, and other criteria are met, FDA can make tests available under an emergency access mechanism called an Emergency Use Authorization (EUA). The EUA for this test is supported by the Front Desk Agent of Health and Human Service's declaration that circumstances exist to justify the emergency use of in vitro diagnostics for the detection and/or diagnosis of the virus that causes COVID-19. This EUA will remain in effect for the duration of the COVID-19 declaration justifying emergency of IVDs, unless it is terminated or revoked by the FDA (after which the test may no longer be used). Performed By: #### C VDTBH #### [facility] [address] [place] [address] Dr. Otilio Rich D-DIMERon 05-26-2022 D-DIMER 1.05 mg/L FEU Critically high <=0.59 [facility] Comment on above: Performed By: #### P SAD #### [facility] [address] [place] [address] Dr. Otilio Rich D-DIMER COMMENTS SEE BELOW Normal [facility] Comment on above: Result Comment: Incr eases in D-Dimer concentration observed with thromboembolic events can be variable due to localization, size, and age of the thrombus. Therefore, a thromboembolic event cannot be diagnosed with certainty on the basis of the reference range. D-Dimers may also be elevated for a variety of disorders including: advanced age, , coronary disease, cancer, liver disease, infection, inflammation, hematoma, DIC, trauma, post-surgery, diabetes, thrombolytic or anticoagulant therapy, stress, and generalized hospitalization. Performed By: #### P SAD #### [facility] [address] [place] [address] Dr. Otilio Rich GLYCOHEMOGLOBIN A1Con 2022 ADA RECOMMENDATION SEE BELOW Normal [facility] Comment on above: Result Comment: ADA RECOMMENDED LIMIT 4.0 - 6.0 ADA THERAPEUTIC TARGET < 7.0 ACTION SUGGESTED > 7.0 Performed By: #### A 1C #### [facility] [address] [place] [address] Dr. Otilio Rich Glucose [Mass/Vol] 111 mg/dL Normal [facility] Comment on above: Performed By: #### A 1C #### [facility] [address] [place] [address] Dr. Otilio Rich HbA1c (Bld) [Mass fraction] 5.5 % Normal 4.5-6.2 [facility] Comment on above: Performed By: #### A 1C #### [facility] [address] [place] [address] Dr. Otilio Rich LIPID PROFILEon 05-26-2022 CHOL-HDL RATIO NORM SEE BELOW Normal [facility] Comment on above: Result Comment: 3.3 - 4.4 LOW RISK 4.4 - 7.1 AVERAGE RISK 7.1 - 11.0 MODERATE RISK >11.0 HIGH RISK Performed By: #### L IPID #### [facility] [address] [address] [address] Otilio Rich Cholesterol [Mass/Vol] 187 mg/dL Normal <=200 [facility] Comment on above: Performed By: #### L IPID #### [facility] [address] [address] [address] Otilio Rich Cholesterol in HDL [Mass/Vol] 49 mg/dL Normal 40-60 [facility] Comment on above: Performed By: #### L IPID #### [facility] [address] [address] [address] Otilio Rich Cholesterol in LDL [Mass/Vol] 116.2 mg/dL Normal [facility] Comment on above: Performed By: #### L IPID #### [facility] [address] [address] [address] Otilio Rich Cholesterol.total/C holesterol in HDL [Mass ratio] 3.8 {ratio} Normal [facility] Comment on above: Performed By: #### L IPID #### [facility] [address] [address] [address] Otilio Rich HDL NORMAL > or = 60 mg/dl - LO W CARDIOVASCULAR RISK <40 mg/dl - HIGH CARDIOVASCULAR RISK Normal [facility] Comment on above: Performed By: #### L IPID #### [facility] [address] [address] [address] Otilio Rich LDL CALC NORMAL SEE BELOW Normal [facility] Comment on above: Result Comment: <100 mg/dl OPTIMAL 100 - 129 mg/dl NEAR OR ABOVE OPTIMAL 130 - 159 mg/dl BORDERLINE HIGH 160 - 189 mg/dl HIGH >190 mg/dl VERY HIGH Performed By: #### L IPID #### [facility] [address] [address] [address] Otilio Rich Triglyceride [Mass/Vol] 109 mg/dL Normal <=150 [facility] Comment on above: Performed By: #### L IPID #### [facility] [address] [address] [address] Otilio Rich VLDL CALC 21.8 mg/dL Normal [facility] Comment on above: Performed By: #### L IPID #### [facility] [address] [address] [address] Otilio Rich PROF CHEM 8 (BAS METB)on Anion gap [Moles/Vol] 10.3 mmol/L Normal [facility] Comment on above: Performed By: #### B CASSIE, CMADM #### [facility] [address] [place] [address] Dr. Otilio Rich Calcium [Mass/Vol] 10.5 mg/dL Critically high 8.5-10.1 T [facility] Comment on above: Performed By: #### B CASSIE, CMADM #### [facility] [address] [place] [address] Dr. Otilio Rich Chloride [Moles/Vol] 101 mmol/L Normal 98-107 [facility] Comment on above: Performed By: #### B CASSIE, CMADM #### [facility] [address] [place] [address] Dr. Otilio Rich CO2 [Moles/Vol] 29.6 mmol/L Normal 21.0-32.0 [facility] Comment on above: Performed By: #### B CASSIE, CMADM #### [facility] [address] [place] [address] Dr. Otilio Rich Creatinine [Mass/Vol] 0.76 mg/dL Normal 0.70-1.30 [facility] Comment on above: Performed By: #### B CASSIE, CMADM #### [facility] [address] [place] [address] Dr. Otilio Rich EGFR-AF SAO TOMEAN >60 Normal >=60 [facility] Comment on above: Performed By: #### B CASSIE, CMADM #### [facility] [address] [place] [address] Dr. Otilio Rich EGFR-NON AF SAO TOMEAN >60 Normal >=60 [facility] Comment on above: Performed By: #### B MP, CMADM #### [facility] [address] [address] [address] Otilio Rich Glucose [Mass/Vol] 111 mg/dL Critically high 74-106 T [facility] Comment on above: Performed By: #### B MP, CMADM #### [facility] [address] [address] [address] Otilio Rich Potassium [Moles/Vol] 3.9 mmol/L Normal 3.5-5.1 [facility] Comment on above: Performed By: #### B CASSIE, CMADM #### [facility] [address] [address] [address] Otilio Rich Sodium [Moles/Vol] 137 mmol/L Normal 136-145 [facility] Comment on above: Performed By: #### B CASSIE, CMADM #### [facility] [address] [address] [address] Otilio Rich Urea nitrogen [Mass/Vol] 14.0 mg/dL Normal 7.0-18.0 [facility] Comment on above: Performed By: #### B CASSIE, CMADM #### [facility] [address] [address] [address] Otilio Rich Urea nitrogen/Creatinine [Mass ratio] 18.4 mg/mg Normal [facility] Comment on above: Performed By: #### B CASSIE, CMADM #### [facility] [address] [address] [address] Otilio Rich TROPONIN, HIGH SENSITIVITYon 05-26-2022 HSTROP 5.4 pg/mL Normal 4.0-76.1 [facility] Comment on above: Result Comment: CUT- OFF POINTS HAVE BEEN ESTABLISHED BASED ON THE FOURTH UNIVERSAL DEFINITIONS OF MYOCARDIAL INFARCTION. THE UPPER REFERENCE LIMIT (URL) OF TROPONIN, DEFINED THE 99TH PERCENTILE OF cTnI DISTRIBUTION IN A REFERENCE POPULATION, HAS BEEN CONFIRMED THE DECISION THRESHOLD FOR DE DIAGNOSIS. Performed By: #### P SAD #### [facility] [address] [address] [address] Otilio Rich XR CHEST 1 Von 01-28-2023 XR CHEST 1 V EXAM: XR CHEST 1 V HISTORY: CHEST PAIN, UNSPECIFIED COMPARISON: None. TECHNIQUE: Chest single view. FINDINGS: Lines/tubes/devices: EKG leads and other extrinsic structures overlie the chest. Cardiomediastinum: Cardiac silhouette appears upper normal in size. Mildly tortuous aorta with likely some atherosclerotic calcifications. Vasculature: No increased pulmonary vasculature. Lungs/pleura: No focal consolidation, sizeable effusion, or visible pneumothorax. Mildly coarsened interstitial lung markings, likely chronic changes. Bones/soft tissues: Bony thorax appears grossly intact as seen. IMPRESSION: Borderline cardiomegaly. Tortuous aorta. No clearly acute cardiopulmonary findings. FOLLOW-UP: Follow-up as clinically warranted. Electronically authenticated by: RAVEN BENDER Date: 2022-05-26 05:00 Normal [facility] Lab Reportson 05-25-2022 Lab Reports [id number] D:127 Normal [facility] Vital Signs Date Time Vital Sign Value Performing Clinician Sanya murphy 12-28-2022 12:13-0400 Blood Pressure Location Felix COLIN [facility] 12-28-2022 12:13-0400 Body temperature 97.7 [degF] Felix COLIN [facility] 12-28-2022 12:13-0400 Diastolic blood pressure 71 mm[Hg] Felix COLIN [facility] 12-28-2022 12:13-0400 Heart rate 65 /min Felix COLIN [facility] 12-28-2022 12:13-0400 Respiratory rate 16 /min Felix COLIN [facility] 12-28-2022 12:13-0400 Systolic blood pressure 135 mm[Hg] Felix COLIN [facility] 06-04-2022 14:06-0500 Blood Pressure Location Felix COLIN [facility] 06-04-2022 14:06-0500 Diastolic blood pressure 62 mm[Hg] Felix COLIN [facility] 06-04-2022 14:06-0500 Heart rate 61 /min Felix COLIN [facility] 06-04-2022 14:06-0500 Respiratory rate 16 /min Felix COLIN [facility] 06-04-2022 14:06-0500 Systolic blood pressure 128 mm[Hg] Felix COLIN [facility] 12-04-2021 10:00-0400 Blood Pressure Location Felix COLIN [facility] 12-04-2021 10:00-0400 Diastolic blood pressure 76 mm[Hg] Felix COLIN [facility] 12-04-2021 10:00-0400 Heart rate 72 /min Felix COLIN [facility] 12-04-2021 10:00-0400 Respiratory rate 16 /min Felix COLIN [facility] 12-04-2021 10:00-0400 Systolic blood pressure 139 mm[Hg] Felix COLIN [facility] Encounters Encounter Date Encounter Type Care Provider Facility Start: 07-12-2023 ambulatory Felix Gilman ty:[facility] Start: 12-28-2022 End: 12-29-2022 ambulatory Felix COLIN Facility:[facility] Start: 12-28-2022 End: 12-28-2022 Patient encounter procedure Felix COLIN [facility] Start: 07-02-2022 End: 07-03-[address] FELIX COLIN . Facility:[facility] Start: 06-21-2022 End: 06-22-[address] FELIX COLIN . Facility:[facility] Start: 06-11-2022 End: 06-12-2022 ambulatory Felix COLIN Facility:[facility] Start: 06-11-2022 End: 06-11-2022 Patient encounter procedure Felix COLIN [facility] Start: 06-04-2022 End: 06-05-2022 ambulatory Felix COLIN Facility:[facility] Start: 06-04-2022 End: 06-04-2022 Patient encounter procedure Felix COLIN [facility] Start: 05-26-2022 End: 05-28-[address] ADALBERTO WHEATLEY Facility:[facility] Start: 05-24-2022 End: 05-25-[address] FELIX COLIN . Facility:[facility] Start: 12-04-2021 End: 12-04-2021 Patient encounter procedure Felix COLIN [facility] Start: 11-28-2021 End: 11-29-[address] FELIX COLIN . Facility:[facility] Procedures Date Procedure Procedure Detail Performing Clinician Start: 05-24-[address] ADALBERTO DILLON Comment on above: Performed By: #### P SAD #### [facility] [address] [address] [address] Otilio Rich Start: 11-28-[address] ADALBERTO DILLON Comment on above: Performed By: #### P SAD #### [facility] [address] [address] [address] Otilio Rich Start: 11-11-2017 Transrectal biopsy o f prostate using ultrasound guidance Felix COLIN Start: 04-29-2002 Implantation of radioactive seed into prostate Felix COLIN Colonoscopy Felix COLIN Immunizations Immunization Date Immunization Notes Care Provider [facility] 02-20-2022 influenza virus vaccine, unspecified formulation Felix COLIN [facility] 02-20-2022 SARS-CoV-2 (COVID-19 ) [id number] Felix COLIN [facility] 08-19-2021 SARS-CoV-2 (COVID-19 ) mRNA-1273 vaccine Felix COLIN [facility] 02-21-2021 influenza virus vaccine, unspecified formulation Felix COLIN [facility] 01-24-2021 SARS-CoV-2 (COVID-19 ) mRNA BNT-162b2 vax Felix COLIN [facility] 06-15-2020 SARS-CoV-2 (COVID-19 ) mRNA BNT-162b2 vax Felix COLIN [facility] 05-23-2020 SARS-CoV-2 (COVID-19 ) mRNA BNT-162b2 vax Felix COLIN [facility] 04-29-2020 SARS-CoV-2 (COVID-19 ) mRNA BNT-162b2 vax Felix COLIN [facility] Comment on above: Result Comment: 3 sh ots but does not know the dates 02-02-2020 influenza virus vaccine, unspecified formulation Felix COLIN [facility] 02-10-2019 influenza virus vaccine, unspecified formulation Felixchano COLIN [facility] 02-11-2018 influenza virus vaccine, unspecified formulation Felixchano COLIN [facility] 09-20-2017 tetanus toxoid, redu mike diphtheria toxoid, and acellular pertussis vaccine, adsorbed Felix COLIN [facility] 02-19-2017 influenza virus vaccine, unspecified formulation Felixchano COLIN [facility] 12-27-2016 pneumococcal conjuga te vaccine, 13 valent Felix COLIN [facility] 02-07-2016 influenza virus vaccine, unspecified formulation Felixchano COLIN [facility] 02-22-2015 influenza virus vaccine, unspecified formulation Felix COLIN [facility] 02-04-2013 influenza virus vaccine, unspecified formulation Felix COLIN [facility] 02-08-2010 influenza, whole Felix KIM ERS [facility] Payers Date Payer Category Payer Medicare [id number] 1957 Medicare [id number] 1957 Medicare [id number] 1935 Unknown [id number] 2.16.84 [id number] 1935 Unknown [id number] 2.16.84 [id number] 1937 Unknown [id number] 2.16.84 [id number] 1937 Unknown [id number] 2.16.84 [id number] 1937 Unknown [id number] 2.16.84 [id number] 1937 Unknown [id number] 2.16.8 [id number] 1937 Unknown [id number] 2.16.8 [id number] 1937 Unknown [id number] 2.16.8 [id number] 1937 Unknown [id number] 2.16.8 [id number] 1937 Unknown [id number] 2.16.8 [id number] Social History Date Type Detail Facility Start: 12-04-2021 End: 06-04-2022 Tobacco smoking status Never smoked tobacco (finding) [facility] Sex Assigned At Male [facility] Tobacco smoking status Never [facility] Functional Status Date Assessment Result Facility 12-28-2022 Functional Status N/A [facility] 06-04-2022 Functional Status N/A [facility] 12-04-2021 Functional Status N/A [facility] Discharge instructions 12-28-2022 Note Date & Type Note Facility 12-28-2022 Hospital Discharge instructions Patient Education 12/28/2022 12:57:40 Benign Prostatic Hyperplasia Benign Prostatic Hyperplasia Benign prostatic hyperplasia (BPH) is an enlarged prostate gland that is caused by the normal aging process. The prostate may get bigger as a man gets older. The condition is not caused by cancer. The prostate is a walnut-sized gland that is involved in the production of semen. It is located in front of the rectum and below the bladder. The bladder stores urine. The urethra carries stored urine out of the body. An enlarged prostate can press on the urethra. This can make it harder to pass urine. The buildup of urine in the bladder can cause infection. Back pressure and infection may progress to bladder damage and kidney (renal) failure. What are the causes? This condition is part of the normal aging process. However, not all men develop problems from this condition. If the prostate enlarges away from the urethra, urine flow will not be blocked. If it enlarges toward the urethra and compresses it, there will be problems passing urine. What increases the risk? This condition is more likely to develop in men older than 50 years. What are the signs or symptoms? Symptoms of this condition include: Getting up often during the night to urinate. Needing to urinate frequently during the day. Difficulty starting urine flow. Decrease in size and strength of your urine stream. Leaking (dribbling) after urinating. Inability to pass urine. This needs immediate treatment. Inability to completely empty your bladder. Pain when you pass urine. This is more common if there is also an infection. Urinary tract infection (UTI). How is this diagnosed? This condition is diagnosed based on your medical history, a physical exam, and your symptoms. Tests will also be done, such as: A post-void bladder scan. This measures any amount of urine that may remain in your bladder after you finish urinating. A digital rectal exam. In a rectal exam, your health care provider checks your prostate by putting a lubricated, gloved finger into your rectum to feel the back of your prostate gland. This exam detects the size of your gland and any abnormal lumps or growths. An exam of your urine (urinalysis). A prostate specific antigen (PSA) screening. This is a blood test used to screen for prostate cancer. An ultrasound. This test uses sound waves to electronically produce a picture of your prostate gland. Your health care provider may refer you to a specialist in kidney and prostate diseases (urologist). How is this treated? Once symptoms begin, your health care provider will monitor your condition (active surveillance or watchful waiting). Treatment for this condition will depend on the severity of your condition. Treatment may include: Observation and yearly exams. This may be the only treatment needed if your condition and symptoms are mild. Medicines to relieve your symptoms, including: ?Medicines to shrink the prostate. ?Medicines to relax the muscle of the prostate. Surgery in severe cases. Surgery may include: ?Prostatectomy. In this procedure, the prostate tissue is removed completely through an open incision or with a laparoscope or robotics. ?Transurethral resection of the prostate (TURP). In this procedure, a tool is inserted through the opening at the tip of the penis (urethra). It is used to cut away tissue of the inner core of the prostate. The pieces are removed through the same opening of the penis. This removes the blockage. ?Transurethral incision (TUIP). In this procedure, small cuts are made in the prostate. This lessens the prostate's pressure on the urethra. ?Transurethral microwave thermotherapy (TUMT). This procedure uses microwaves to create heat. The heat destroys and removes a small amount of prostate tissue. ?Transurethral needle ablation (TUNA). This procedure uses radio frequencies to destroy and remove a small amount of prostate tissue. ?Interstitial laser coagulation (ILC). This procedure uses a laser to destroy and remove a small amount of prostate tissue. ?Transurethral electrovaporization (TUVP). This procedure uses electrodes to destroy and remove a small amount of prostate tissue. ?Prostatic urethral lift. This procedure inserts an implant to push the lobes of the prostate away from the urethra. Follow these instructions at home: Take shdw-lnh-dasujzy and prescription medicines only as told by your health care provider. Monitor your symptoms for any changes. Contact your health care provider with any changes. Avoid drinking large amounts of liquid before going to bed or out in public. Avoid or reduce how much caffeine or alcohol you drink. Give yourself time when you urinate. Keep all follow-up visits. This is important. Contact a health care provider if: You have unexplained back pain. Your symptoms do not get better with treatment. You develop side effects from the medicine you are taking. Your urine becomes very dark or has a bad smell. Your lower abdomen becomes distended and you have trouble passing urine. Get help right away if: You have a fever or chills. You suddenly cannot urinate. You feel light-headed or very dizzy, or you faint. There are large amounts of blood or clots in your urine. Your urinary problems become hard to manage. You develop moderate to severe low back or flank pain. The flank is the side of your body between the ribs and the hip. These symptoms may be an emergency. Get help right away. Call 911. Do not wait to see if the symptoms will go away. Do not drive yourself to the hospital. Summary Benign prostatic hyperplasia (BPH) is an enlarged prostate that is caused by the normal aging process. It is not caused by cancer. An enlarged prostate can press on the urethra. This can make it hard to pass urine. This condition is more likely to develop in men older than 50 years. Get help right away if you suddenly cannot urinate. This information is not intended to replace advice given to you by your health care provider. Make sure you discuss any questions you have with your health care provider. Document Revised: 11/01/2021 Document Reviewed: 11/01/2021 [employer] Patient Education 2022 [employer]. Follow Up Care 06/11/2022 10:38:13 With:BRANDIN LESLIE, Felix Burt, URL Address: [facility] [address] , [place] [address]- When:Within 6 Month(s) Comments:w/ Emir and JAIDEN [facility] Discharge instructions 06-11-2022 Note Date & Type Note Facility 06-11-2022 Hospital Discharge instructions Patient Education 06/11/2022 08:07:09 Benign Prostatic Hyperplasia Benign Prostatic Hyperplasia Benign prostatic hyperplasia (BPH) is an enlarged prostate gland that is caused by the normal aging process and not by cancer. The prostate is a walnut-sized gland that is involved in the production of semen. It is located in front of the rectum and below the bladder. The bladder stores urine and the urethra is the tube that carries the urine out of the body. The prostate may get bigger as a man gets older. An enlarged prostate can press on the urethra. This can make it harder to pass urine. The build-up of urine in the bladder can cause infection. Back pressure and infection may progress to bladder damage and kidney (renal) failure. What are the causes? This condition is part of a normal aging process. However, not all men develop problems from this condition. If the prostate enlarges away from the urethra, urine flow will not be blocked. If it enlarges toward the urethra and compresses it, there will be problems passing urine. What increases the risk? This condition is more likely to develop in men over the age of 50 years. What are the signs or symptoms? Symptoms of this condition include: Getting up often during the night to urinate. Needing to urinate frequently during the day. Difficulty starting urine flow. Decrease in size and strength of your urine stream. Leaking (dribbling) after urinating. Inability to pass urine. This needs immediate treatment. Inability to completely empty your bladder. Pain when you pass urine. This is more common if there is also an infection. Urinary tract infection (UTI). How is this diagnosed? This condition is diagnosed based on your medical history, a physical exam, and your symptoms. Tests will also be done, such as: A post-void bladder scan. This measures any amount of urine that may remain in your bladder after you finish urinating. A digital rectal exam. In a rectal exam, your health care provider checks your prostate by putting a lubricated, gloved finger into your rectum to feel the back of your prostate gland. This exam detects the size of your gland and any abnormal lumps or growths. An exam of your urine (urinalysis). A prostate specific antigen (PSA) screening. This is a blood test used to screen for prostate cancer. An ultrasound. This test uses sound waves to electronically produce a picture of your prostate gland. Your health care provider may refer you to a specialist in kidney and prostate diseases (urologist). How is this treated? Once symptoms begin, your health care provider will monitor your condition (active surveillance or watchful waiting). Treatment for this condition will depend on the severity of your condition. Treatment may include: Observation and yearly exams. This may be the only treatment needed if your condition and symptoms are mild. Medicines to relieve your symptoms, including: ?Medicines to shrink the prostate. ?Medicines to relax the muscle of the prostate. Surgery in severe cases. Surgery may include: ?Prostatectomy. In this procedure, the prostate tissue is removed completely through an open incision or with a laparoscope or robotics. ?Transurethral resection of the prostate (TURP). In this procedure, a tool is inserted through the opening at the tip of the penis (urethra). It is used to cut away tissue of the inner core of the prostate. The pieces are removed through the same opening of the penis. This removes the blockage. ?Transurethral incision (TUIP). In this procedure, small cuts are made in the prostate. This lessens the prostate's pressure on the urethra. ?Transurethral microwave thermotherapy (TUMT). This procedure uses microwaves to create heat. The heat destroys and removes a small amount of prostate tissue. ?Transurethral needle ablation (TUNA). This procedure uses radio frequencies to destroy and remove a small amount of prostate tissue. ?Interstitial laser coagulation (ILC). This procedure uses a laser to destroy and remove a small amount of prostate tissue. ?Transurethral electrovaporization (TUVP). This procedure uses electrodes to destroy and remove a small amount of prostate tissue. ?Prostatic urethral lift. This procedure inserts an implant to push the lobes of the prostate away from the urethra. Follow these instructions at home: Take cxvr-etr-ibvnsat and prescription medicines only as told by your health care provider. Monitor your symptoms for any changes. Contact your health care provider with any changes. Avoid drinking large amounts of liquid before going to bed or out in public. Avoid or reduce how much caffeine or alcohol you drink. Give yourself time when you urinate. Keep all follow-up visits as told by your health care provider. This is important. Contact a health care provider if: You have unexplained back pain. Your symptoms do not get better with treatment. You develop side effects from the medicine you are taking. Your urine becomes very dark or has a bad smell. Your lower abdomen becomes distended and you have trouble passing your urine. Get help right away if: You have a fever or chills. You suddenly cannot urinate. You feel lightheaded, or very dizzy, or you faint. There are large amounts of blood or clots in the urine. Your urinary problems become hard to manage. You develop moderate to severe low back or flank pain. The flank is the side of your body between the ribs and the hip. These symptoms may represent a serious problem that is an emergency. Do not wait to see if the symptoms will go away. Get medical help right away. Call your local emergency services (911 in the [place] Do not drive yourself to the hospital. Summary Benign prostatic hyperplasia (BPH) is an enlarged prostate that is caused by the normal aging process and not by cancer. An enlarged prostate can press on the urethra. This can make it hard to pass urine. This condition is part of a normal aging process and is more likely to develop in men over the age of 50 years. Get help right away if you suddenly cannot urinate. This information is not intended to replace advice given to you by your health care provider. Make sure you discuss any questions you have with your health care provider. Document Released: 04/15/2006 Document Revised: 03/10/2019 Document Reviewed: 05/20/2017 [employer] Patient Education 2020 [employer]. Follow Up Care 06/04/2022 15:22:48 With:BRANDIN LESLIE, Felix Burt, URL Address: [facility] [address] , [place] [address]- When: Unknown [facility] Hospital Discharge instructions 06-04-2022 Note Date & Type Note Facility 06-04-2022 Hospital Discharg e instructions Patient Education 06/04/2022 08:42:54 Brachytherapy for Prostate Cancer Brachytherapy for Prostate Cancer Brachytherapy for prostate cancer is radiation treatment that is placed inside of the prostate (prostate gland). There are several types of brachytherapy: Low-dose rate (LDR) therapy. This may involve temporary implants or permanent radioactive seed or pellet implants. The radiation does not travel far from the prostate, which means that healthy, noncancerous tissues around the prostate receive only a small dose of radiation. This helps to protect those tissues from injury. This type of treatment may be followed by a course of external beam radiation. ?Temporary low-dose implants are left in the prostate for 1 7 days. The implants are needles, applicators, or thin, plastic tubes (catheters) that contain radioactive material. You will need to stay in the hospital while the implant is in place. ?Permanent low-dose implants (seeds or pellets) are injected into the prostate, and they work for up to one year after they are inserted. They are left in place and are not removed. High-dose rate (HDR) therapy. This is given through needles, applicators, or catheters that contain radioactive material. The tubes are removed after treatment, and no radiation is left in the prostate. This type of treatment may be followed by a course of external beam radiation. Tell a health care provider about: Any allergies you have. All medicines you are taking, including vitamins, herbs, eye drops, creams, and sfdo-ohe-oziiefs medicines. Any problems you or family members have had with anesthetic medicines. Any surgeries you have had. Any blood disorders you have. Any medical conditions you have. What are the risks? Generally, this is a safe procedure. However, problems may occur, including: Inflammation of the rectum. Problems getting or keeping an erection (erectile dysfunction). Trouble urinating. Diarrhea. Bleeding. Loss of bowel control. What happens before the procedure? Staying hydrated Follow instructions from your health care provider about hydration, which may include: Up to 2 hours before the procedure you may continue to drink clear liquids, such as water, clear fruit juice, black coffee, and plain tea. Eating and drinking Follow instructions from your health care provider about eating and drinking, which may include: 8 hours before the procedure stop eating heavy meals or foods such as meat, fried foods, or fatty foods. 6 hours before the procedure stop eating light meals or foods, such as toast or cereal. 6 hours before the procedure stop drinking milk or drinks that contain milk. 2 hours before the procedure stop drinking clear liquids. Medicines Ask your health care provider about: ?Changing or stopping your regular medicines. This is especially important if you are taking diabetes medicines or blood thinners. ?Taking medicines such as aspirin and ibuprofen. These medicines can thin your blood. Do not take these medicines before your procedure if your health care provider instructs you not to. You may be given antibiotic medicine to help prevent infection. General instructions Plan to have someone take you home from the hospital or clinic. If you will be going home right after the procedure, plan to have someone with you for 24 hours. You may have imaging tests done, including an ultrasound, CT scan, or MRI. You may have blood tests done. You may have a test to check the electrical signals in your heart (electrocardiogram). You may need to take medicine to clean out your bowel (bowel prep). What happens during the procedure? To lower your risk of infection: ?Your health care team will wash or sanitize their hands. ?Your skin will be washed with soap. ?Hair may be removed from the surgical area. An IV will be inserted into one of your veins. You will be given one or more of the following: ?A medicine to help you relax (sedative). ?A medicine to numb the area (local anesthetic). ?A medicine to make you fall asleep (general anesthetic). You may have a thin, plastic tube (catheter) inserted to drain your bladder. If you are receiving brachytherapy with implants: ?A needle, applicator, or catheter will be inserted into the prostate. It will be inserted through a body cavity, such as the rectum, or through the tissue between the testicles and the anus (perineum). ?An X-ray, ultrasound, MRI, or CT scan will be used to guide the catheter or applicator toward the prostate. ?Radioactive seeds, wires, or ribbons will be fed through the catheter or applicator. ?If the high-dose method is used: ?The radioactive wires or ribbons will be left in for a few minutes and then removed. ?Once the treatment is finished, the catheter or applicator will be removed. ?If the low-dose method is used, the implant will stay in place for 1 7 days. ?You will remain in the hospital while the implant is in place. ?Once the treatment is finished, the radioactive material and catheter will be removed. If you are receiving permanent, low-dose brachytherapy: ?Small, radioactive seeds or pellets will be injected into your prostate. This may be done through a catheter, needle, or applicator. ?The catheter or applicator will be removed, leaving the seeds in the prostate. The procedure may vary among health care providers and hospitals. What happens after the procedure? Your blood pressure, heart rate, breathing rate, and blood oxygen level will be monitored until the medicines you were given have worn off. Do not drive for 24 hours if you were given a sedative. Summary Brachytherapy for prostate cancer is radiation treatment placed inside of the prostate (prostate gland). There are several types of brachytherapy for prostate cancer, including low-dose temporary treatment, low-dose permanent treatment, and high-dose temporary treatment. Temporary low-dose implants are left in the prostate for 1 7 days. Permanent low-dose implants are injected into the prostate and left in place. They work for up to one year after they are inserted. Permanent high-dose therapy is given through tubes that contain radioactive material. The tubes are removed after treatment, and no radiation is left in the prostate. This information is not intended to replace advice given to you by your health care provider. Make sure you discuss any questions you have with your health care provider. Document Released: 2006 Document Revised: 03/28/2018 Document Reviewed: 04/24/2017 [employer] Patient Education 2020 [employer] Follow Up Care 12/04/2021 11:01:41 With:BRANDIN LESLIE, Felix Burt, URL Address: [facility] [address] , [place] [address]- [phone] When: Unknown [facility] Hospital Discharge instructions 12-04-2021 Note Date & Type Note Facility 12-04-2021 Hospital Discharge instructions Patient Education 12/04/2021 10:45:55 Benign Prostatic Hyperplasia Benign Prostatic Hyperplasia Benign prostatic hyperplasia (BPH) is an enlarged prostate gland that is caused by the normal aging process and not by cancer. The prostate is a walnut-sized gland that is involved in the production of semen. It is located in front of the rectum and below the bladder. The bladder stores urine and the urethra is the tube that carries the urine out of the body. The prostate may get bigger as a man gets older. An enlarged prostate can press on the urethra. This can make it harder to pass urine. The build-up of urine in the bladder can cause infection. Back pressure and infection may progress to bladder damage and kidney (renal) failure. What are the causes? This condition is part of a normal aging process. However, not all men develop problems from this condition. If the prostate enlarges away from the urethra, urine flow will not be blocked. If it enlarges toward the urethra and compresses it, there will be problems passing urine. What increases the risk? This condition is more likely to develop in men over the age of 50 years. What are the signs or symptoms? Symptoms of this condition include: Getting up often during the night to urinate. Needing to urinate frequently during the day. Difficulty starting urine flow. Decrease in size and strength of your urine stream. Leaking (dribbling) after urinating. Inability to pass urine. This needs immediate treatment. Inability to completely empty your bladder. Pain when you pass urine. This is more common if there is also an infection. Urinary tract infection (UTI). How is this diagnosed? This condition is diagnosed based on your medical history, a physical exam, and your symptoms. Tests will also be done, such as: A post-void bladder scan. This measures any amount of urine that may remain in your bladder after you finish urinating. A digital rectal exam. In a rectal exam, your health care provider checks your prostate by putting a lubricated, gloved finger into your rectum to feel the back of your prostate gland. This exam detects the size of your gland and any abnormal lumps or growths. An exam of your urine (urinalysis). A prostate specific antigen (PSA) screening. This is a blood test used to screen for prostate cancer. An ultrasound. This test uses sound waves to electronically produce a picture of your prostate gland. Your health care provider may refer you to a specialist in kidney and prostate diseases (urologist). How is this treated? Once symptoms begin, your health care provider will monitor your condition (active surveillance or watchful waiting). Treatment for this condition will depend on the severity of your condition. Treatment may include: Observation and yearly exams. This may be the only treatment needed if your condition and symptoms are mild. Medicines to relieve your symptoms, including: ?Medicines to shrink the prostate. ?Medicines to relax the muscle of the prostate. Surgery in severe cases. Surgery may include: ?Prostatectomy. In this procedure, the prostate tissue is removed completely through an open incision or with a laparoscope or robotics. ?Transurethral resection of the prostate (TURP). In this procedure, a tool is inserted through the opening at the tip of the penis (urethra). It is used to cut away tissue of the inner core of the prostate. The pieces are removed through the same opening of the penis. This removes the blockage. ?Transurethral incision (TUIP). In this procedure, small cuts are made in the prostate. This lessens the prostate's pressure on the urethra. ?Transurethral microwave thermotherapy (TUMT). This procedure uses microwaves to create heat. The heat destroys and removes a small amount of prostate tissue. ?Transurethral needle ablation (TUNA). This procedure uses radio frequencies to destroy and remove a small amount of prostate tissue. ?Interstitial laser coagulation (ILC). This procedure uses a laser to destroy and remove a small amount of prostate tissue. ?Transurethral electrovaporization (TUVP). This procedure uses electrodes to destroy and remove a small amount of prostate tissue. ?Prostatic urethral lift. This procedure inserts an implant to push the lobes of the prostate away from the urethra. Follow these instructions at home: Take lyut-dzy-gfxjnrh and prescription medicines only as told by your health care provider. Monitor your symptoms for any changes. Contact your health care provider with any changes. Avoid drinking large amounts of liquid before going to bed or out in public. Avoid or reduce how much caffeine or alcohol you drink. Give yourself time when you urinate. Keep all follow-up visits as told by your health care provider. This is important. Contact a health care provider if: You have unexplained back pain. Your symptoms do not get better with treatment. You develop side effects from the medicine you are taking. Your urine becomes very dark or has a bad smell. Your lower abdomen becomes distended and you have trouble passing your urine. Get help right away if: You have a fever or chills. You suddenly cannot urinate. You feel lightheaded, or very dizzy, or you faint. There are large amounts of blood or clots in the urine. Your urinary problems become hard to manage. You develop moderate to severe low back or flank pain. The flank is the side of your body between the ribs and the hip. These symptoms may represent a serious problem that is an emergency. Do not wait to see if the symptoms will go away. Get medical help right away. Call your local emergency services (911 in the [place] Do not drive yourself to the hospital. Summary Benign prostatic hyperplasia (BPH) is an enlarged prostate that is caused by the normal aging process and not by cancer. An enlarged prostate can press on the urethra. This can make it hard to pass urine. This condition is part of a normal aging process and is more likely to develop in men over the age of 50 years. Get help right away if you suddenly cannot urinate. This information is not intended to replace advice given to you by your health care provider. Make sure you discuss any questions you have with your health care provider. Document Released: 04/15/2006 Document Revised: 03/10/2019 Document Reviewed: 05/20/2017 [employer] Patient Education 2020 [employer]. Follow Up Care 06/05/2021 10:59:07 With:Felix COLIN MD, URL Address: [facility] [address], [place] [address] [phone] When:Within 6 Month(s) [facility] Evaluation + Plan note Note Date & Type Note Facility Evaluation + Plan note Future Appointments Appointment Date:05/25/2022 09:45:00 AM Scheduled Provider:Felix COLIN MD Location:[facility] Appointment Type:URO Office Visit Diagnostic Tests PendingPSA Total 12/04/21 [facility] Evaluation + Plan note Note Date & Type Note Facility Evaluation + Plan note Future Appointments Appointment Date:06/11/2022 09:30:00 AM Scheduled Provider:Felix COLIN MD Location:[facility] Appointment Type:URO Office Visit Diagnostic Tests PendingCreatinine 06/04/22Urine Cytology ([facility]) 06/04/22 [facility] Evaluation + Plan note Note Date & Type Note Facility Evaluation + Plan note Future Appointments Appointment Date:12/17/2022 10:45:00 AM Scheduled Provider:Felix COLIN MD Location:[facility] Appointment Type:URO Office Visit Diagnostic Tests PendingPSA Total 06/11/22 [facility] Evaluation + Plan note Note Date & Type Note Facility Evaluation + Plan note Future Appointments Appointment Date:07/12/2023 08:30:00 AM Scheduled Provider:Felix COLIN MD Location:[facility] Appointment Type:URO Office Visit Diagnostic Tests PendingPSA Total 12/28/22 [facility] Hospital course Narrative Note Date & Type Note Facility Hospital course Narrative No data available for this section [facility] Progress note Note Date & Type Note Facility Progress note No data available for this section [facility] Summary Purpose Family History No Family History Records FoundNo Family History Records FoundNo Family History Records Found Advance Directives No Advanced Directives Records FoundNo Advanced Directives Records FoundNo Advanced Directives Records Found Additional Source Comments Care Team (unrecognized sect ion and content) Personnel Name: ADALBERTO WHEATLEY MD Address: [address] [place] [address] Personnel Name: ADALBERTO WHEATLEY MD Address: Address: [address] [place], [place] [address] Personnel Name: ADALBERTO WHEATLEY MD Address: Address: [address] [place] [address] Personnel Name: ADALBERTO WHEATLEY MD Address: Address: [address] [place] [address] (unrecognized sect ion and content) No Status Records FoundNo Status Records FoundNo Status Records Found INFORMATION SOURCE (unrecogn ized section and content) DATE CREATED AUTHOR 06/08/2022 [facility] DATE CREATED AUTHOR AUTHOR'S ORGANIZ ATION 07/04/2022 [facility] DATE CREATED AUTHOR AUTHOR'S ORGANIZ ATION 01/06/2023 [facility] FOR RECORDS PERTAINING TO PATIENTS WHO ARE OR HAVE BEEN ENROLLED IN A CHEMICAL DEPENDENCY/SUBSTANCEABUSE PROGRAM, SOME INFORMATION MAY BE OMITTED. This clinical summary was aggregated from multiple sources. Caution should be exercised in using it in the provision of clinical care. This summary normalizes information from multiple sources, and as a consequence, information in this document may materially change the coding, format and clinical context of patient data. In addition, data may be omitted in some cases. CLINICAL DECISIONS SHOULD BE BASED ON THE PRIMARY CLINICAL RECORDS. [facility] provides no warranty or guarantee of the accuracy or completeness of information in this document.
[2023-06-24 10:04] LABS: Prostate Specific Antigen Dx <0.13 ng/mL (<=4.00)
== END 2023-06-24 08:24 | disposition home or self-care (01) ==
LOC: LAB 08:25
PROVIDERS: PCP Family Medicine; Visit Provider Urology
DX: R97.21 Rising PSA following treatment for malignant neoplasm of prostate (principal); C61 Malignant neoplasm of prostate
CPT/HCPCS: 36415; 84153

== ENCOUNTER 2023-06-24 08:28 | Outpatient (OUT) | payer MEDICARE, SELFPAY ==
--- OUTSIDE RECORDS SUMMARY | 2023-06-24 08:32 | XMS_ITS | CCD ---
Author Name Unknown Address [address] [place] [address] Organization [facility] Care Team Providers Care Veterinary Medical Officer Name Role Phone ADALBERTO WHEATLEY Primary Care Physician DIONI, DR ADALBERTO Ramos Primary Care Unavailable [...] Attending Unavailable COLIN, Felix R Attending Unavailable CLOIN, Felix R Attending Unavailable Allergies Allergy Classification Reported Allergen(s) Allergy Type Date of Onset Reaction(s) Facility (1 source) No Known Medication Allergies; Translations: [No Known Medication Allergies] Propensity to adverse reactions (disorder) [facility] Repository Medications Current Medications Medication Drug [...] Daily, # 90 tab(s), Refills(s) 3, Pharmacy: [facility], 182, cm, 12/04/21 10:02:00 EDT, Height/Length [...] procedure, # 2 cap(s), Refills(s) 0, Pharmacy: [facility], 182, cm, 06/04/22 14:07:00 EST, Height/Length [...] Onset: 05-26-2022 Episodic Other aftercare (1 source) extermination inspector (current) use of anticoagulants; Translations: [BOG CUTTER CURRNT USE ANTICOAGULANTS] Onset: 07-03-2022 Episodic Other aftercare (1 source) Other extermination inspector (current) drug therapy; Translations: [OTH BOG CUTTER CURRENT DRUG THERAPY] Onset: 07-03-2022 Episodic Other [...] Range Facility Lab Reportson 01-06-2023 Lab Reports [id number]#1.00C D:127 Normal [facility] Ambulatory Visit Summaryon 0 12-28-2022 Ambulatory Visit [...] PSA Where: [facility] [address], [facility] [place] [address]- Medications What How Much When Instructions Unchanged [...] a (more content not included)... Normal [facility] Patient Educationon 12-29-19 Patient Education Urology Benign [...] Follow these instructions at home: ? Take ufgr-qop-kkqgptq and prescription medicines only as told by [...] medicine (more content not included)... Normal [facility] Urology Office/Clinic Noteon 12-28-2022 Urology Office/Clinic Note [...] done 11/14/17 showed: Right mid - adenocarcinoma, Armstrong 6 (3+3), tumor measure 0.09 cm in length, 6% of the core involved by tumor, 1/1 core. Right lateral - Armstrong 7 (3+4), tumor measure 0.25 cm in [...] [facility] [address], [place] [address]- Additional Instructions: w/ Lupron and PSA Patient [...] No Known (more content not included)... Normal [facility] Comment on above: Result Comment: Elec tronically Signed By: Felix COLIN MD\.br\Date and Time Signed: 12/28/22 13:00 EDT\.br\Electronically Co-Signed By: Mimi Donaldson\.br\Date and Time Co-Signed: 12/28/22 12:59 EDT Pre-Certification Formon Pre-Certification Form [id number]#1.00 CD:[address] [facility] Operative Reporton 3 Operative Report [id number]#1.00C D:[address] [facility] Operative Reporton 3 Operative Report [id number]#1.00C D:[address] [facility] RAD - CT Reporton 07-01-2022 RAD - CT Report [id number]#1.00C D:[address] [facility] CT ABD/PELV WO W CONon 06-21 [...] by: HAYDEE DANIELS Date: 2022-06-21 14:41 Normal [facility] Consent for Procedure/Surger yon 06-20-2022 Consent for Procedure/Surgery [id number]#1.00C D:127 [facility] Ambulatory Visit Summaryon 0 06-11-2022 Ambulatory Visit Summary TIFFANIE WELLS :1935 Visit Date:06/11/2022 Ambulatory Visit Instructions Your Diagnosis Rising PSA following treatment for malignant neoplasm of prostate Prostate cancer BPH with urinary obstruction Asymptomatic microscopic hematuria Tests Performed Urnls Dip Stick Auto w/o Microscopy POC 87413 Your Care Team Attending Physician - Felix [...] Saturday 10:45 AM EDT With: BRANDIN LESLIE, Felix Burt Where: [facility] Patient Educationon 06-11-19 23 Patient [...] Follow these instructions at home: ? Take qmsq-zie-cllfott and prescription medicines only as told by [...] You d (more content not included)... Normal [facility] Pre-Certification Formon Pre-Certification Form [id number]#1.00 CD:[address] [facility] Urine Cytology ([facility])on 0 06-11-2022 Urine Cytology Diagnosis Info Invalid Interpretation Code [facility] Comment on above: Result Comment: A:Ur ine,Urine:Voided Interpretation - MicroScopic Description - Adequacy - Gross Description Site ID:A color Orangeish fixative Alcohol Specimen designated Urine received in alcohol preservative and labeled with the patient?s name, consists of 60ml slightly cloudy orangeish fluid. Electronically signed by : on: 06/11/2022 15:58:32 Performed By: #### 1 [id number] ####[facility] [address] [place] [address] Urology Office/Clinic Noteon 06-11-2022 Urology Office/Clinic Note HPI Staff 6m Lupron Inj for Tx of Rising PSA following Prostate Cancer. (Authorization has been approved) Last Lupron given 12/04/21. S/P Brachytherapy done in 2002. Current PSA done 05/24/22- <0.13 *Casodex 50mg QD therapy. Pt had microscopic hematuria at last encounter, recently started on Eliquis therapy. Cysto ordered (not yet scheduled), CT is scheduled at [facility] first week of June, Cytology results are [...] by tumor, 1/1 core. Right lateral - Armstrong 7 (3+4), tumor measure 0.25 cm in [...] (not yet scheduled), CTU is scheduled at [facility] first week of June, cytology results are not finalized yet. Follow-up With When Contact Information BRANDIN LESLIE, Felix Burt, URL [facility] [address] [place] [address]- Additional Instructions: f/u 6 mos with Lupron, [...] virus vaccine, inactivated 02/20/2022 Recorded SARS-CoV-2 (COVID-19) mRNAMUL.[id number] 02/20/2022 Recorded SARS-CoV-2 (COVID-19) mRNA-1273 vaccine 08/19/2021 Recorded influenza virus vaccine, inactivated 02/21/2021 Recorded SARS-CoV-2 (COVID-19) mRNA BNT-162b2 vax 01/24/2021 Recorded SARS-CoV-2 (COVID (more content not included)... [facility] Comment on above: Result Comment: Elec [...] can always call us. He verbalized understanding. 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 Prostate cancer BPH with urinary obstruction Asymptomatic microscopic hematuria Tests Performed Urnls Dip Stick Auto w/o Microscopy POC [address] CT Abdomen/Pelvis w/ Contrast -- Results Pending [...] When: Where: [facility] [address], [facility] [place] [phone] Medications What How Much When Instructions New cephalexin (Keflex 500 mg Cap) 1 Capsules By Mouth Every day Take 1 tab day before procedure and 1 after procedure Pickup at [facility] Unchanged bicalutamide (Casodex 50 mg Tab) [...] physician if questions or concerns Pharmacy Information [facility]: [address] [place], [place] [id number] [phone] Test Results Urnls Dip Stick Auto w/o Microscopy POC 58428 (06/04/2022) Bilirubin Urine Dipstick - Negative Blood Urine Dipstick - 1+ Small Glucose Urine Dipstick - Negative Ketones Urine Dipstick - Trace - 5 mg/dl Leukocytes Urine Dipstick - Negative Nitrite Urine Dipstick - Negative Protein Urine Dipstick - Negative Specific [place] Urine Dipstick - >=1.030 Urine Appearance Urine [...] including vitamins, herbs, eye drops, creams, and zido-bhe-bdhsrum medicines. ? Any problems you or family members have had with anesthetic medicines. ? Any surgeries you have had. ? Any blood disorders you have. ? Any medical conditions y (more content not included)... Normal [facility] Patient Educationon 06-04-19 23 Patient Education [...] including vitamins, herbs, eye drops, creams, and bdcr-dyp-tfjwmjj medicines. ? Any problems you or family [...] You w (more content not included)... Normal [facility] Urine Cytology ([facility])on 0 06-04-2022 Method of Extraction Voided Normal [facility] Comment on above: Performed By: #### 1 [id number] ####[facility] [id number] [place] [address] Number of Jars [address] [facility] Comment on above: Performed By: #### 1 [id number] ####[facility] [address] [place] [address] [facility] Comment on above: Performed By: #### 1 [id number] ####[facility] [address] [place] [address] Type of Service Technical Only Normal [facility] Comment on above: Performed By: #### 1 [id number] ####[facility] [address] [place] [address] Urology Office/Clinic Noteon 06-04-2022 Urology Office/Clinic Note [...] [facility] [address] [place] [phone] Additional Instructions: Pt will f/u after his [...] unknown Immun (more content not included)... Normal [facility] Comment on above: Result Comment: Elec tronically Signed By: Felix COLIN MD\.br\Date and Time Signed: 06/04/22 15:12 EST\.br\Electronically Co-Signed By: Genevieve Cabello MA\.br\Date and Time Co-Signed: 06/04/22 15:10 EST ECHOCARDIO M/2D COMPLETEon 0 05-28-2022 ECHOCARDIO M/2D COMPLETE Patient: TIFFANIE WELLS Exam Date: 05/28/2022 : 1935 Gender:M Ordering : MITCHELL HJosiah RODRIGUEZ . Admission #: [id number] Family : DR ADALBERTO WHEATLEY . Order #: [id number] CLICK HERE TO VIEW EXAM ECHOCARDIOGRAM REPORT [...] Area (VTI): 3.24 cm2, 3.24 cm2 Deceleration Ramsey: 2.89 m/s2 Pressure Half-Time: 532.36 ms Peak [...] Royal M.D. on 05/28/2022 at 13:16 Normal [facility] STRESS/REST MULTIon 05-28 CT STRESS/REST MULTI Patient: TIFFANIE WELLS Exam Date: 05/28/2022 : 1935 Gender:M Ordering : SHAIKH Shaan RODRIGUEZ . Admission #: [id number] Family : DR ADALBERTO WHEATLEY . Order #: [id number] CLICK HERE TO VIEW EXAM RADIOLOGY REPORT [...] Bernardo M.D. on 05/29/2022 at 07:35 Normal [facility] MAGNESIUMon 05-27-2022 Magnesium [Mass/Vol] 1.8 mg/dL Normal 1.8-2.4 [facility] Comment on above: Performed By: #### P SAD #### [facility] [address] [place] [address] Dr. Otilio Rich PROF 14(COMP METB)on 023 Albumin [Mass/Vol] 3.1 g/dL Critically low 3.4-5.0 Th [facility] Comment on above: Performed By: #### T SH, CMP #### [facility] [address] [place] [address] Dr. Otilio Rich Albumin/Globulin [Mass ratio] 0.7 {ratio} Normal [facility] Comment on above: Performed By: #### T SH, CMP #### [facility] [address] [place] [address] Dr. Otilio Rich ALP [Catalytic activity/Vol] 87 U/L Normal 46-116 [facility] Comment on above: Performed By: #### T SH, CMP #### [facility] [address] [address] [address] Otilio Rich ALT [Catalytic activity/Vol] 26 U/L Normal 16-63 [facility] Comment on above: Performed By: #### T SH, CMP #### [facility] [address] [address] [address] Otilio Rich Anion gap [Moles/Vol] 13.6 mmol/L Normal [facility] Comment on above: Performed By: #### T SH, CMP #### [facility] [address] [place] [address] Dr. Otilio Rich AST [Catalytic activity/Vol] 16 U/L Normal 15-37 [facility] Comment on above: Performed By: #### T KIMMY, CMP #### [facility] [address] [place] [address] Dr. Otilio Rich Bilirubin [Mass/Vol] 1.5 mg/dL Critically high 0.2-1.0 [facility] Comment on above: Performed By: #### T SH, CMP #### [facility] [address] [place] [address] Dr. Otilio Rich Calcium [Mass/Vol] 9.7 mg/dL Normal 8.5-10.1 [facility] Comment on above: Performed By: #### T KIMMY, CMP #### [facility] [address] [place] [address] Dr. Otilio Rich Chloride [Moles/Vol] 102 mmol/L Normal 98-107 [facility] Comment on above: Performed By: #### T SH, CMP #### [facility] [address] [address] [address] Otilio Rich CO2 [Moles/Vol] 26.5 mmol/L Normal 21.0-32.0 [facility] Comment on above: Performed By: #### T SH, CMP #### [facility] [address] [address] [address] Otilio Rich Creatinine [Mass/Vol] 0.88 mg/dL Normal 0.70-1.30 [facility] Comment on above: Performed By: #### T SH, CMP #### [facility] [address] [place] [address] Dr. Otilio Rich EGFR-AF MAURITIAN >60 Normal >=60 [facility] Comment on above: Performed By: #### T SH, CMP #### [facility] [address] [address] [address] Otilio Rich EGFR-NON AF MAURITIAN >60 Normal >=60 [facility] Comment on above: Performed By: #### T SH, CMP #### [facility] [address] [address] [address] Otilio Rich Globulin (S) [Mass/Vol] 4.2 g/dL Normal [facility] Comment on above: Performed By: #### T SH, CMP #### [facility] [address] [place] [address] Dr. Otilio Rich Glucose [Mass/Vol] 105 mg/dL Normal 74-106 [facility] Comment on above: Performed By: #### T SH, CMP #### [facility] [address] [address] [address] Otilio Rich Potassium [Moles/Vol] 4.1 mmol/L Normal 3.5-5.1 [facility] Comment on above: Performed By: #### T SH, CMP #### [facility] [address] [place] [address] Dr. Otilio Rich Protein [Mass/Vol] 7.3 g/dL Normal 6.4-8.2 [facility] Comment on above: Performed By: #### T SH, CMP #### [facility] [address] [address] [address] Otilio Rich Sodium [Moles/Vol] 138 mmol/L Normal 136-145 [facility] Comment on above: Performed By: #### T SH, CMP #### [facility] [address] [place] [address] Dr. Otilio Rich Urea nitrogen [Mass/Vol] 19.0 mg/dL Critically high 7.0-18.0 [facility] Comment on above: Performed By: #### T SH, CMP #### [facility] [address] [place] [address] Dr. Otilio Rich Urea nitrogen/Creatinine [Mass ratio] 21.6 mg/mg Normal [facility] Comment on above: Performed By: #### T SH, CMP #### [facility] [address] [place] [address] Dr. Otilio Rich TSHon 05-27-2022 TSH 3.344 uIU/mL Normal 0.358-3.740 [facility] Comment on above: Performed By: #### P SAD #### [facility] [address] [place] [address] Dr. Otilio Rich CARDIAC RAMA 3-6on 3 CK [Catalytic activity/Vol] 60 U/L Normal 39-308 [facility] Comment on above: Performed By: #### C MREP #### [facility] [address] [place] [address] Dr. Otilio Rich CK.MB [Mass/Vol] ng/mL Normal <=3.60 [facility] Comment on above: Performed By: #### C MREP #### [facility] [address] [place] [address] Dr. Otilio Rich HSTROP 5.9 pg/mL Normal 4.0-76.1 [facility] Comment on above: Result Comment: CUT- OFF POINTS HAVE BEEN ESTABLISHED BASED ON THE FOURTH UNIVERSAL DEFINITIONS OF MYOCARDIAL INFARCTION. THE UPPER REFERENCE LIMIT (URL) OF TROPONIN, DEFINED THE 99TH PERCENTILE OF cTnI DISTRIBUTION IN A REFERENCE POPULATION, HAS BEEN CONFIRMED THE DECISION THRESHOLD FOR MT DIAGNOSIS. Performed By: #### C MREP #### [facility] [address] [place] [address] Dr. Otilio Rich CK [Catalytic activity/Vol] 65 U/L Normal 39-308 [facility] Comment on above: Performed By: #### C MREP #### [facility] [address] [place] [address] Dr. Otilio Rich CK.MB [Mass/Vol] ng/mL Normal <=3.60 [facility] Comment on above: Performed By: #### C MREP #### [facility] [address] [address] [address] Otilio Rich HSTROP 5.6 pg/mL Normal 4.0-76.1 [facility] Comment on above: Result Comment: CUT- OFF POINTS HAVE BEEN ESTABLISHED BASED ON THE FOURTH UNIVERSAL DEFINITIONS OF MYOCARDIAL INFARCTION. THE UPPER REFERENCE LIMIT (URL) OF TROPONIN, DEFINED THE 99TH PERCENTILE OF cTnI DISTRIBUTION IN A REFERENCE POPULATION, HAS BEEN CONFIRMED THE DECISION THRESHOLD FOR MT DIAGNOSIS. Performed By: #### C MREP #### [facility] [address] [address] [address] Otilio Rich CARDIAC RAMA ADMITon 023 CK [Catalytic activity/Vol] 65 U/L Normal 39-308 [facility] Comment on above: Performed By: #### B CASSIE, CMADM #### [facility] [address] [place] [address] Dr. Otilio Rich CK.MB [Mass/Vol] 0.53 ng/mL Normal <=3.60 [facility] Comment on above: Performed By: #### B CASSIE, CMADM #### [facility] [address] [place] [address] Dr. Otilio Rich HSTROP 6.8 pg/mL Normal 4.0-76.1 [facility] Comment on above: Result Comment: CUT- OFF POINTS HAVE BEEN ESTABLISHED BASED ON THE FOURTH UNIVERSAL DEFINITIONS OF MYOCARDIAL INFARCTION. THE UPPER REFERENCE LIMIT (URL) OF TROPONIN, DEFINED THE 99TH PERCENTILE OF cTnI DISTRIBUTION IN A REFERENCE POPULATION, HAS BEEN CONFIRMED THE DECISION THRESHOLD FOR MT DIAGNOSIS. Performed By: #### B CASSIE, CMADM #### [facility] [address] [place] [address] Dr. Otilio Rich ABNER 56 ng/mL Normal 16-96 [facility] Comment on above: Performed By: #### B CASSIE, CMADM #### [facility] [address] [place] [address] Dr. Otilio Rich CBC AUTO DIFFon 05-26-2022 BASO # 0.0 103/ul Normal 0.0-0.1 [facility] Comment on above: Performed By: #### P SAD #### [facility] [address] [address] [address] Otilio Rich Basophils/100 WBC (Bld) 0.3 % Normal 0.2-2.0 [facility] Comment on above: Performed By: #### P SAD #### [facility] [address] [address] [address] Otilio Rich EO # 0.4 103/ul Normal 0.0-0.7 [facility] Comment on above: Performed By: #### P SAD #### [facility] [address] [address] [address] Otilio Rich Eosinophils/100 WBC (Bld) 4.2 % Normal 0.9-7.0 [facility] Comment on above: Performed By: #### P SAD #### [facility] [address] [place] [address] Dr. Otilio Rich Erythrocyte distribution width (RBC) [Ratio] 11.9 % Normal 11.0-15.0 [facility] Comment on above: Performed By: #### P SAD #### [facility] [address] [place] [address] Dr. Otilio Rich Hematocrit (Bld) [Volume fraction] 37.3 % Critically low 42.0-54.0 [facility] Comment on above: Performed By: #### P SAD #### [facility] [address] [address] [address] Otilio Rich Hemoglobin (Bld) [Mass/Vol] 13.1 g/dL Critically low 14.0-18.0 [facility] Comment on above: Performed By: #### P SAD #### [facility] [address] [address] [address] Otilio Rich IG # 0.03 10e3/ul Normal 0.00-0.03 [facility] Comment on above: Performed By: #### P SAD #### [facility] [address] [address] [address] Otilio Rich IG % 0.3 % Normal 0.0-0.5 [facility] Comment on above: Performed By: #### P SAD #### [facility] [address] [address] [address] Otilio Rich LYMPH # 2.6 103/ul Normal 1.2-3.8 [facility] Comment on above: Performed By: #### P SAD #### [facility] [address] [place] [address] Dr. Otilio Rich Lymphocytes/100 WBC (Bld) 25.9 % Normal 20.5-60.0 [facility] Comment on above: Performed By: #### P SAD #### [facility] [address] [place] [address] Dr. Otilio Rich MANUAL DIFF REQ NO Normal [facility] Comment on above: Performed By: #### P SAD #### [facility] [address] [place] [address] Dr. Otilio Rich MCH (RBC) [Entitic mass] 31.6 pg Normal 25.9-34.0 [facility] Comment on above: Performed By: #### P SAD #### [facility] [address] [place] [address] Dr. Otilio Rich MCHC (RBC) [Mass/Vol] 35.1 g/dL Normal 29.9-35.2 [facility] Comment on above: Performed By: #### P SAD #### [facility] [address] [place] [address] Dr. Otilio Rich MCV (RBC) [Entitic vol] 89.9 fL Normal 80.0-94.0 [facility] Comment on above: Performed By: #### P SAD #### [facility] [address] [place] [address] Dr. Otilio Rich MONO # 1.0 103/ul Critically high 0.3-0.8 [facility] Comment on above: Performed By: #### P SAD #### [facility] [address] [place] [address] Dr. Otilio Rich Monocytes/100 WBC (Bld) 10.4 % Normal 1.7-12.0 [facility] Comment on above: Performed By: #### P SAD #### [facility] [address] [address] [address] Otilio Rich NEUT # 5.8 103/ul Normal 1.4-6.5 [facility] Comment on above: Performed By: #### P SAD #### [facility] [address] [address] [address] Otilio Rich Neutrophils/100 WBC (Bld) 58.9 % Normal 43.0-75.0 [facility] Comment on above: Performed By: #### P SAD #### [facility] [address] [address] [address] Otilio Rich Platelet mean volume (Bld) [Entitic vol] 10.2 fL Normal 9.5-13.5 [facility] Comment on above: Performed By: #### P SAD #### [facility] [address] [place] [address] Dr. Otilio Rich PLT 185 103/ul Normal 150-450 [facility] Comment on above: Performed By: #### P SAD #### [facility] [address] [address] [address] Otilio Rich RBC 4.15 106/ul Critically low 4.70-6.10 [facility] Comment on above: Performed By: #### P SAD #### [facility] [address] [place] [address] Dr. Otilio Rich WBC 9.8 103/ul Normal 4.0-11.0 [facility] Comment on above: Performed By: #### P SAD #### [facility] [address] [place] [address] Dr. Otilio Rich CTA CHEST WO W CONon 023 CTA [...] RAVEN BENDER Date: 2022-05-26 06:14 Normal [facility] Covid-19 PCR (CVDTB)on 04-30 SARS-CoV-2 (COVID-19) RNA MARCY+probe Ql (Unsp spec) Not detected Normal NOT DETECTED [facility] Comment on above: Result Comment: When diagnostic [...] for this test is supported by the [employer] of Health and Human Service's declaration that [...] used). Performed By: #### C VDTBH #### [facility] [address] [place] [address] Dr. Otilio Rich D-DIMERon 05-26-2022 D-DIMER 1.05 mg/L FEU Critically high <=0.59 [facility] Comment on above: Performed By: #### P SAD #### [facility] [address] [place] [address] Dr. Otilio Rich D-DIMER COMMENTS SEE BELOW Normal [facility] Comment on above: Result Comment: Incr eases [...] hospitalization. Performed By: #### P SAD #### [facility] [address] [place] [address] Dr. Otilio Rich GLYCOHEMOGLOBIN A1Con 2022 ADA RECOMMENDATION SEE BELOW Normal [facility] Comment on above: Result Comment: ADA RECOMMENDED LIMIT 4.0 - 6.0 ADA THERAPEUTIC TARGET < 7.0 ACTION SUGGESTED > 7.0 Performed By: #### A 1C #### [facility] [address] [place] [address] Dr. Otilio Rich Glucose [Mass/Vol] 111 mg/dL Normal [facility] Comment on above: Performed By: #### A 1C #### [facility] [address] [place] [address] Dr. Otilio Rich HbA1c (Bld) [Mass fraction] 5.5 % Normal 4.5-6.2 [facility] Comment on above: Performed By: #### A 1C #### [facility] [address] [place] [address] Dr. Otilio Rich LIPID PROFILEon 05-26-2022 CHOL-HDL RATIO NORM SEE BELOW Normal [facility] Comment on above: Result Comment: 3.3 - 4.4 LOW RISK 4.4 - 7.1 AVERAGE RISK 7.1 - 11.0 MODERATE RISK >11.0 HIGH RISK Performed By: #### L IPID #### [facility] [address] [address] [address] Otilio Rich Cholesterol [Mass/Vol] 187 mg/dL Normal <=200 [facility] Comment on above: Performed By: #### L IPID #### [facility] [address] [address] [address] Otilio Rich Cholesterol in HDL [Mass/Vol] 49 mg/dL Normal 40-60 [facility] Comment on above: Performed By: #### L IPID #### [facility] [address] [address] [address] Otilio Rich Cholesterol in LDL [Mass/Vol] 116.2 mg/dL Normal [facility] Comment on above: Performed By: #### L IPID #### [facility] [address] [address] [address] Otilio Rich Cholesterol.total/C holesterol in HDL [Mass ratio] 3.8 {ratio} Normal [facility] Comment on above: Performed By: #### L IPID #### [facility] [address] [address] [address] Otilio Rich HDL NORMAL > or = 60 mg/dl - LO W CARDIOVASCULAR RISK <40 mg/dl - HIGH CARDIOVASCULAR RISK Normal [facility] Comment on above: Performed By: #### L IPID #### [facility] [address] [address] [address] Otilio Rich LDL CALC NORMAL SEE BELOW Normal [facility] Comment on above: Result Comment: <100 mg/dl OPTIMAL 100 - 129 mg/dl NEAR OR ABOVE OPTIMAL 130 - 159 mg/dl BORDERLINE HIGH 160 - 189 mg/dl HIGH >190 mg/dl VERY HIGH Performed By: #### L IPID #### [facility] [address] [address] [address] Otilio Rich Triglyceride [Mass/Vol] 109 mg/dL Normal <=150 [facility] Comment on above: Performed By: #### L IPID #### [facility] [address] [address] [address] Otilio Rich VLDL CALC 21.8 mg/dL Normal [facility] Comment on above: Performed By: #### L IPID #### [facility] [address] [address] [address] Otilio Rich PROF CHEM 8 (BAS METB)on Anion gap [Moles/Vol] 10.3 mmol/L Normal [facility] Comment on above: Performed By: #### B CASSIE, CMADM #### [facility] [address] [place] [address] Dr. Otilio Rich Calcium [Mass/Vol] 10.5 mg/dL Critically high 8.5-10.1 T [facility] Comment on above: Performed By: #### B CASSIE, CMADM #### [facility] [address] [place] [address] Dr. Otilio Rich Chloride [Moles/Vol] 101 mmol/L Normal 98-107 [facility] Comment on above: Performed By: #### B CASSIE, CMADM #### [facility] [address] [place] [address] Dr. Otilio Rich CO2 [Moles/Vol] 29.6 mmol/L Normal 21.0-32.0 [facility] Comment on above: Performed By: #### B CASSIE, CMADM #### [facility] [address] [place] [address] Dr. Otilio Rich Creatinine [Mass/Vol] 0.76 mg/dL Normal 0.70-1.30 [facility] Comment on above: Performed By: #### B CASSIE, CMADM #### [facility] [address] [place] [address] Dr. Otilio Rich EGFR-AF MAURITIAN >60 Normal >=60 [facility] Comment on above: Performed By: #### B CASSIE, CMADM #### [facility] [address] [place] [address] Dr. Otilio Rich EGFR-NON AF MAURITIAN >60 Normal >=60 [facility] Comment on above: Performed By: #### B MP, CMADM #### [facility] [address] [address] [address] Otilio Rich Glucose [Mass/Vol] 111 mg/dL Critically high 74-106 T [facility] Comment on above: Performed By: #### B MP, CMADM #### [facility] [address] [address] [address] Otilio Rich Potassium [Moles/Vol] 3.9 mmol/L Normal 3.5-5.1 [facility] Comment on above: Performed By: #### B CASSIE, CMADM #### [facility] [address] [address] [address] Otilio Rich Sodium [Moles/Vol] 137 mmol/L Normal 136-145 [facility] Comment on above: Performed By: #### B CASSIE, CMADM #### [facility] [address] [address] [address] Otilio Rich Urea nitrogen [Mass/Vol] 14.0 mg/dL Normal 7.0-18.0 [facility] Comment on above: Performed By: #### B CASSIE, CMADM #### [facility] [address] [address] [address] Otilio Rich Urea nitrogen/Creatinine [Mass ratio] 18.4 mg/mg Normal [facility] Comment on above: Performed By: #### B CASSIE, CMADM #### [facility] [address] [address] [address] Otilio Rich TROPONIN, HIGH SENSITIVITYon 05-26-2022 HSTROP 5.4 pg/mL Normal 4.0-76.1 [facility] Comment on above: Result Comment: CUT- OFF POINTS HAVE BEEN ESTABLISHED BASED ON THE FOURTH UNIVERSAL DEFINITIONS OF MYOCARDIAL INFARCTION. THE UPPER REFERENCE LIMIT (URL) OF TROPONIN, DEFINED THE 99TH PERCENTILE OF cTnI DISTRIBUTION IN A REFERENCE POPULATION, HAS BEEN CONFIRMED THE DECISION THRESHOLD FOR MT DIAGNOSIS. Performed By: #### P SAD #### [facility] [address] [address] [address] Otilio Rich XR CHEST 1 Von [...] by: RAVEN BENDER Date: 2022-05-26 05:00 Normal [facility] Reportson 05-25-2022 Lab Reports [id number] D:[address] [facility] Vital Signs Date Time Vital Sign Value Performing Clinician Sanya murphy 12-28-2022 12:13-0400 Blood Pressure Location Felix COLIN [facility] 12-28-2022 12:13-0400 Body temperature 97.7 [degF] Felix COLIN [facility] 12-28-2022 12:13-0400 Diastolic blood pressure 71 mm[Hg] Felix COLIN [facility] 12-28-2022 12:13-0400 Heart rate 65 /min Felix COLIN [facility] 12-28-2022 12:13-0400 Respiratory rate 16 /min Felix COLIN [facility] 12-28-2022 12:13-0400 Systolic blood pressure 135 mm[Hg] Felix COLIN [facility] 06-04-2022 14:06-0500 Blood Pressure Location Felix COLIN [facility] 06-04-2022 14:06-0500 Diastolic blood pressure 62 mm[Hg] Felix COLIN [facility] 06-04-2022 14:06-0500 Heart rate 61 /min Felix COLIN [facility] 06-04-2022 14:06-0500 Respiratory rate 16 /min Felix COLIN [facility] 06-04-2022 14:06-0500 Systolic blood pressure 128 mm[Hg] Felix COLIN [facility] 12-04-2021 10:00-0400 Blood Pressure Location Felix COLIN [facility] 12-04-2021 10:00-0400 Diastolic blood pressure 76 mm[Hg] Felix COLIN [facility] 12-04-2021 10:00-0400 Heart rate 72 /min Felix COLIN [facility] 12-04-2021 10:00-0400 Respiratory rate 16 /min Felix COLIN [facility] 12-04-2021 10:00-0400 Systolic blood pressure 139 mm[Hg] Felix COLIN [facility] Encounters Encounter Date Encounter Type Care Provider Facility Start: 07-12-2023 ambulatory Felix Gilman ty:[facility] Start: 12-28-2022 End: 12-29-2022 ambulatory Felix COLIN Facility:[facility] Start: 12-28-2022 End: 12-28-2022 Patient encounter procedure Felix COLIN [facility] Start: 07-02-2022 End: 07-03-[address] FELIX COLIN . Facility:[facility] Start: 06-21-2022 End: 06-22-[address] FELIX COLIN . Facility:[facility] Start: 06-11-2022 End: 06-12-2022 ambulatory Felix COLIN Facility:[facility] Start: 06-11-2022 End: 06-11-2022 Patient encounter procedure Felix COLIN [facility] Start: 06-04-2022 End: 06-05-2022 ambulatory Felix COLIN Facility:[facility] Start: 06-04-2022 End: 06-04-2022 Patient encounter procedure Felix COLIN [facility] Start: 05-26-2022 End: 05-28-[address] ADALBERTO WHEATLEY Facility:[facility] Start: 05-24-2022 End: 05-25-[address] FELIX COLIN . Facility:[facility] Start: 12-04-2021 End: 12-04-2021 Patient encounter procedure Felix COLIN [facility] Start: 11-28-2021 End: 11-29-[address] FELIX COLIN . Facility:[facility] Procedures Date Procedure Procedure Detail Performing Clinician Start: 05-24-[address] ADALBERTO DILLON Comment on above: Performed By: #### P SAD #### [facility] [address] [address] [address] Otilio Rich Start: 11-28-[address] ADALBERTO DILLON Comment on above: Performed By: #### P SAD #### [facility] [address] [address] [address] Otilio Rich Start: 11-11-2017 Transrectal biopsy o f prostate using ultrasound guidance Felix COLIN Start: 04-29-2002 Implantation of radioactive seed into prostate Felix COLIN Colonoscopy Felix COLIN Immunizations Immunization Date Immunization Notes Care Provider [facility] 02-20-2022 influenza virus vaccine, unspecified formulation Felix COLIN [facility] 02-20-2022 SARS-CoV-2 (COVID-19 ) [id number] Felix COLIN [facility] 08-19-2021 SARS-CoV-2 (COVID-19 ) mRNA-1273 vaccine Felix COLIN [facility] 02-21-2021 influenza virus vaccine, unspecified formulation Felix COLIN [facility] 01-24-2021 SARS-CoV-2 (COVID-19 ) mRNA BNT-162b2 vax Felix COLIN [facility] 06-15-2020 SARS-CoV-2 (COVID-19 ) mRNA BNT-162b2 vax Felix COLIN [facility] 05-23-2020 SARS-CoV-2 (COVID-19 ) mRNA BNT-162b2 vax Felix COLIN [facility] 04-29-2020 SARS-CoV-2 (COVID-19 ) mRNA BNT-162b2 vax Felix COLIN [facility] Comment on above: Result Comment: 3 sh ots but does not know the dates 02-02-2020 influenza virus vaccine, unspecified formulation Felix COLIN [facility] 02-10-2019 influenza virus vaccine, unspecified formulation Felixchano COLIN [facility] 02-11-2018 influenza virus vaccine, unspecified formulation Felixchano COLIN [facility] 09-20-2017 tetanus toxoid, redu mike diphtheria toxoid, and acellular pertussis vaccine, adsorbed Felix COLIN [facility] 02-19-2017 influenza virus vaccine, unspecified formulation Felixchano COLIN [facility] 12-27-2016 pneumococcal conjuga te vaccine, 13 valent Felix COLIN [facility] 02-07-2016 influenza virus vaccine, unspecified formulation Felixchano COLIN [facility] 02-22-2015 influenza virus vaccine, unspecified formulation Felix COLIN [facility] 02-04-2013 influenza virus vaccine, unspecified formulation Felix COLIN [facility] 02-08-2010 influenza, whole Felix KIM ERS [facility] Payers Date Payer Category Payer Medicare [id number] 1957 Medicare [id number] 1957 Medicare [id number] 1935 Unknown [id number] 2.16.84 [id number] 1937 Unknown [id number] 2.16.84 [id number] 1937 Unknown [id number] 2.16.84 [id number] 1937 Unknown [id number] 2.16.84 [id number] 1937 Unknown [id number] 2.16.84 [id number] 1937 Unknown [id number] 2.16.8 [id number] 1937 Unknown [id number] 2.16.8 [id number] 1937 Unknown [id number] 2.16.8 [id number] 1937 Unknown [id number] 2.16.8 [id number] 1937 Unknown [id number] 2.16.8 [id number] Social History Date Type Detail Facility Start: 12-04-2021 End: 06-04-2022 Tobacco smoking status Never smoked tobacco (finding) [facility] Sex Assigned At Male [facility] Tobacco smoking status Never [facility] Functional Status Date Assessment Result Facility 12-28-2022 Functional Status N/A [facility] 06-04-2022 Functional Status N/A [facility] 12-04-2021 Functional Status N/A [facility] [place] [facility] Discharge instructions 12-28-2022 Note [...] urethra. Follow these instructions at home: Take kkyl-vqz-gyhtghd and prescription medicines only as told by [...] provider. Document Revised: 11/01/2021 Document Reviewed: 11/01/2021 [employer] Patient Education 2022 [employer]. Follow Up Care 06/11/2022 10:38:13 With:BRANDIN LESLIE, Felix Burt, URL Address: [facility] [address] , [place] [address]- When:Within 6 Month(s) Comments:w/ Emir and JAIDEN [facility] Discharge instructions 06-11-2022 Note Date & [...] urethra. Follow these instructions at home: Take urhg-fmc-egqntmv and prescription medicines only as told by [...] 04/15/2006 Document Revised: 03/10/2019 Document Reviewed: 05/20/2017 [employer] Patient Education 2020 [employer]. Follow Up Care 06/04/2022 15:22:48 With:BRANDIN LESLIE, Felix Burt, URL Address: [facility] [address] , [place] [address]- When: Unknown [facility] Hospital Discharge instructions 06-04-2022 Note Date & [...] including vitamins, herbs, eye drops, creams, and rhxv-ldf-dpnpnlc medicines. Any problems you or family members [...] 2006 Document Revised: 03/28/2018 Document Reviewed: 04/24/2017 [employer] Patient Education 2020 [employer] Follow Up Care 12/04/2021 11:01:41 With:BRANDIN LESLIE, Felix Burt, URL Address: [facility] [address] , [place] [address]- [phone] When: Unknown [facility] Hospital Discharge instructions 12-04-2021 Note Date & [...] urethra. Follow these instructions at home: Take eyut-hdh-ignrenc and prescription medicines only as told by [...] 04/15/2006 Document Revised: 03/10/2019 Document Reviewed: 05/20/2017 [employer] Patient Education 2020 [employer]. Follow Up Care 06/05/2021 10:59:07 With:Felix COLIN MD, URL Address: [facility] [address], [place] [address]- [phone] When:Within 6 Month(s) [facility] Evaluation + Plan note Note Date & Type Note Facility Evaluation + Plan note Future Appointments Appointment Date:05/25/2022 09:45:00 AM Scheduled Provider:Felix COLIN MD Location:[facility] Appointment Type:URO Office Visit Diagnostic Tests PendingPSA Total 12/04/21 [facility] Evaluation + Plan note Note Date & Type Note Facility Evaluation + Plan note Future Appointments Appointment Date:06/11/2022 09:30:00 AM Scheduled Provider:Felix COLIN MD Location:[facility] Appointment Type:URO Office Visit Diagnostic Tests PendingCreatinine 06/04/22Urine Cytology ([facility]) 06/04/22 [facility] Evaluation + Plan note Note Date & Type Note Facility Evaluation + Plan note Future Appointments Appointment Date:12/17/2022 10:45:00 AM Scheduled Provider:[facility] Type:[facility]O Office Visit Diagnostic Tests PendingPSA Total 06/11/22 [facility] Evaluation + Plan note Note Date & Type Note Facility Evaluation + Plan note Future Appointments Appointment Date:07/12/2023 08:30:00 AM Scheduled Provider:Felix COLIN MD Location:[facility] Appointment Type:URO Office Visit Diagnostic Tests PendingPSA Total 12/28/22 [facility] Hospital course Narrative Note Date & Type Note Facility Hospital course Narrative No data available for this section [facility] Progress note Note Date & Type Note Facility Progress note No data available for this section [facility] Summary Purpose Family History No Family History Records FoundNo Family History Records FoundNo Family History Records Found Advance Directives No Advanced Directives Records FoundNo Advanced Directives Records FoundNo Advanced Directives Records Found Additional Source Comments Care Team (unrecognized sect ion and content) Personnel Name: ADALBERTO WHEATLEY MD Address: [address] [place] [address] Personnel Name: ADALBERTO WHEATLEY MD Address: Address: [address] [place], [place] [address] Personnel Name: ADALBERTO WHEATLEY MD Address: Address: [address] [place] [address] Personnel Name: ADALBERTO WHEATLEY MD Address: Address: [address] [place] [address] (unrecognized sect ion and content) No Status Records FoundNo Status Records FoundNo Status Records Found INFORMATION SOURCE (unrecogn ized section and content) DATE CREATED AUTHOR 06/08/2022 [facility] DATE CREATED AUTHOR AUTHOR'S ORGANIZ ATION 07/04/2022 [facility] DATE CREATED AUTHOR AUTHOR'S ORGANIZ ATION 01/06/2023 [facility] FOR RECORDS PERTAINING TO PATIENTS WHO ARE [...] BE BASED ON THE PRIMARY CLINICAL RECORDS. [facility] provides no warranty or guarantee of the accuracy or completeness of information in this document.
[2023-06-24 09:17] LABS: Free T3 2.12 pg/mL (2.18-3.98); Thyroid Stimulating Hormone 0.747 uIU/mL (0.358-3.740)
[2023-06-24 09:56] LABS: Free T4 1.11 ng/dL (0.76-1.46)
== END 2023-06-24 08:29 | disposition home or self-care (01) ==
LOC: LAB 08:29
PROVIDERS: PCP Family Medicine; Visit Provider Family Medicine
DX: R97.21 Rising PSA following treatment for malignant neoplasm of prostate (principal); C61 Malignant neoplasm of prostate; E03.9 Hypothyroidism, unspecified
CPT/HCPCS: 36415; 84153; 84439; 84443; 84481

== ENCOUNTER 2023-12-08 10:21 | Observation (INO) | payer MEDICARE, SELFPAY ==
[2023-12-08] VITALS (30 sets, daily range): BP systolic 109–168; BP diastolic 64–84; PULSE 56–119; TEMP 36.5–37.7; O2SAT 87–99; BMI 23.1; BMI 22.6
--- OUTSIDE RECORDS SUMMARY | 2023-12-08 10:26 | XMS_ITS | CCD ---
Author Organization [facility] Care Team Providers Care Tree Care Foreman Name Role Phone ADALBERTO WHEATLEY Primary Care Physician DIONI, DR ADALBERTO Ramos Primary Care Unavailable FAWREBECCA, MITCHELL H Admitting Unavailable FAWREBECCA, MITCHELL H Attending Unavailable STEPHENIE, DR NOE Burt Consulting Unavailable DIONI, DR ADALBERTO Ramos Consulting Unavailable ROSALINE HERCULES Consulting Unavailable FAWREBECCA, SHAIKH Eryn Consulting Unavailable RAVEN BENDER Consulting Unavailable COLIN ., DR ORTEGA Admitting Unavailable COLIN ., DR ORTEGA Attending Unavailable DIONI, DR ADALBERTO Ramos Primary Care Unavailable COLIN ., DR ORTEGA Consulting Unavailable COLIN ., DR ORTEGA Admitting Unavailable COLIN ., DR ORTEGA Attending Unavailable NADCARLTON, DR ADALBERTO Ramos Primary Care Unavailable COLIN ., DR ORTEGA Consulting Unavailable COLIN ., DR ORTEGA Admitting Unavailable COLIN ., DR ORTEGA Attending Unavailable DIONI, DR ADALBERTO Ramos Primary Care Unavailable COLIN ., DR ORTEGA Consulting Unavailable FRANCES, HAYDEE Consulting Unavailable COLIN ., DR ORTEGA Admitting Unavailable COLIN ., DR ORTEGA Attending Unavailable DIONI, DR ADALBERTO Ramos Primary Care Unavailable COLIN ., DR ORTEGA Consulting Unavailable COLINFelix Attending Unavailable COLIN, Felix Burt Attending Unavailable COLIN, Felix Burt Attending Unavailable COLIN, Felix Burt Attending Unavailable Allergies Allergy Classification Reported Allergen(s) Allergy Type Date of Onset Reaction(s) Facility (1 source) No Known Medication Allergies; Translations: [No Known Medication Allergies] Propensity to adverse reactions (disorder) [facility] Repository Medications Current Medications Medication Drug Class(es) Dates Sig (Normalized) Sig (Original) apixaban 5 mg oral tablet (4 sources) Factor Xa Inhibitor Start: 06-04-2022 Eliquis 5 mg oral tablet Refills(s) 0 Start Date: 06/04/22 Status: Ordered bicalutamide 50 mg oral tablet (4 sources) Androgen Receptor Inhibitor Start: 12-04-2021 take 1 tablet by mouth once daily Casodex 50 mg Tab 50 mg = 1 tab(s), Oral, Daily, # 90 tab(s), Refills(s) 3, Pharmacy: [id number], 182, cm, 12/04/21 10:02:00 EDT, Height/Length Dosing, 78.1, kg, 12/04/21 10:02:00 EDT, Weight Dosing Start Date: 12/04/21 Status: Ordered Fish Oils (5 sources) Start: 05-12-2020 Fish Oil Oral Start Date: 05/12/20 Status: Ordered levothyroxine sodium 0.075 mg oral tablet (1 source) l-Thyroxine Start: 07-01-2023 levothyroxine 75 mcg (0.075 mg) Tab Refills(s) 0 Start Date: 07/01/23 Status: Ordered Metoprolol (4 sources) beta-Adrenergic Sera Start: 06-04-2022 Metoprolol tartrate 50 mg Tab Refills(s) 0 Start Date: 06/04/22 Status: Ordered Multi Vitamin+ (5 sources) Start: 05-12-2020 Multi Vitamin+ Start Date: [...] procedure, # 2 cap(s), Refills(s) 0, Pharmacy: [id number], 182, cm, 06/04/22 14:07:00 EST, Height/Length Dosing, 78.1, kg, 06/04/22 14:07:00 EST, Weight Dosing Start Date: 06/04/22 Status: Ordered Problems Problem Classification Problem Date Documented Date Episodic/Chronic Calculus of urinary tract (4 sources) Calculus of kidney; Translations: [Kidney stone] Onset: 06-25-2022 Episodic Cancer of prostate (11 sources) Malignant neoplasm of prostate; Translations: [Carcinoma [...] 06-25-2022 Chronic Genitourinary symptoms and ill-defined conditions (17 sources) Microscopic hematuria; Translations: [Nocturia] Onset: 06-04-2022 05-12-2020 Episodic Heart valve disorders (1 source) Nonrheumatic aortic (valve) insufficiency; Translations: [NONRHEUMATIC AORTIC INSUFFICIENCY] Onset: 05-30-2022 Chronic Hyperplasia of prostate (16 sources) Benign prostatic hypertrophy with outflow obstruction; Translations: [Benign prostatic hyperplasia with lower urinary tract symptoms] Onset: 12-01-2021 Chronic Nonmalignant breast conditions (1 source) Hypertrophy of breast; Translations: [Hypertrophy of breast] Onset: 07-01-2023 Episodic Nonspecific chest pain (4 sources) Chest pain, unspecified; Translations: [Other chest pain] Onset: 05-26-2022 Episodic Other aftercare (1 source) intermediate (current) use of anticoagulants; Translations: [SENIOR CARE CURRNT USE ANTICOAGULANTS] Onset: 07-03-2022 Episodic Other aftercare (1 source) Other longwall foreman (current) drug therapy; Translations: [OTH FLOORWALKER CURRENT DRUG THERAPY] Onset: 07-03-2022 Episodic Other and ill-defined heart disease (1 source) Cardiomegaly; Translations: [CARDIOMEGALY] Onset: 05-30-2022 Chronic Other circulatory disease (1 source) Hypotension, unspecified; Translations: [HYPOTENSION UNSPECIFIED] Onset: 05-30-2022 Episodic Other diseases of bladder and urethra (1 source) Other specified disorders of bladder; Translations: [OTHER SPECIFIED DISORDERS BLADDER] Onset: 07-03-2022 Chronic Other diseases of kidney and ureters (2 sources) Urinary tract obstruction; Translations: [Other obstructive and reflux uropathy] Onset: 12-01-2021 Episodic Other screening for suspected conditions (not mental disorders or infectious disease) (16 sources) Raised prostate specific antigen; Translations: [Rising PSA following treatment for malignant neoplasm of prostate] Onset: 12-01-2021 Episodic Unclassified (4 sources) Asymptomatic microscopic hematuria 06-04-2022 Unclassified (1 source) CONTACT W/AND (SUSP) EXPOS COVID-19; Translations: [CONTACT W/AND (SUSP) EXPOS COVID-19] Onset: 05-30-2022 Results Test Name Value Interpretation Reference Range Facility Ambulatory Visit Summaryon 0 07-01-2023 Ambulatory Visit Summary TIFFANIE WELLS R :1935 Visit Date:11/17/2018 Ambulatory Visit Instructions Your Care Team Primary Care Physician - ADALBERTO WHEATLEY MD This Is Your Medications List apixaban (Eliquis 5 mg oral tablet) levothyroxine (levothyroxine 75 mcg (0.075 mg) Tab) metoprolol (Metoprolol tartrate 50 mg Tab) multivitamin (Multi Vitamin+) omega-3 polyunsaturated fatty acids (Fish Oil) Procedures Performed Transrectal biopsy of prostate using ultrasound (US) guidance (11/11/2017), Implantation of radioactive seed into prostate (2002), Colonoscopy. What to do next Scheduled Follow-Up Appointments Saturday 9:30 AM EDT With: Felix COLIN MD Where: [facility] Ambulatory Visit Summary TIFFANIE WELLS R :1935 Visit Date:07/01/2023 Ambulatory Visit Instructions Your Diagnosis Rising PSA following treatment for malignant neoplasm of prostate, Rising PSA following treatment for malignant neoplasm of prostate Prostate cancer BPH with urinary obstruction Gynecomastia Other obstructive and reflux uropathy Your Care Team Attending Physician - Felix COLIN MD Primary Care Physician - ADALBERTO WHEATLEY MD This Is Your Medications List bicalutamide (Casodex 50 mg Tab) Contact prescribing physician if questions or concerns apixaban (Eliquis 5 mg oral tablet) levothyroxine (levothyroxine 75 mcg (0.075 mg) Tab) metoprolol (Metoprolol tartrate 50 mg Tab) multivitamin (Multi Vitamin+) omega-3 polyunsaturated fatty acids (Fish Oil) Procedures Performed Transrectal biopsy of prostate using ultrasound (US) guidance (11/11/2017), Implantation of radioactive seed into prostate (2002), Colonoscopy. Discharge Vitals Temperature (Temporal Artery) 36.8 ?C Heart Rate (Peripheral) 69 Respiratory Rate 16 Blood Pressure 132/78 Height 183 cm Height 72 in Weight 77.2 kg Weight 169.84 lb BMI 23.05 What to do next You Need to Schedule the Following Appointments Follow Up with BRANDIN LESLIE, RACHID Gunderson When: In 6 months Comments: 6 mo fu with Emir HWANG Where: [facility] [address], [place] [address]- [phone] Medications What How Much When Instructions Unchanged bicalutamide (Casodex 50 mg Tab) 1 Tablets By Mouth Every day Unchanged apixaban (Eliquis 5 mg oral tablet) Contact prescribing physician if questions or concerns Unchanged levothyroxine (levothyroxine 75 mcg (0.075 mg) Tab) Contact prescribing physician if questions or concerns Unchanged metoprolol (Metoprolol tartrate 50 mg Tab) Contact prescribing physician if questions or concerns Unchanged multivitamin (Multi Vitamin+) Contact prescribing physician if questions or concerns Unchanged omega-3 polyunsaturated fatty acids (Fish Oil) By Mouth Contact prescribing physician if questions or concerns Allergies No Known Medication Allergies Problems Ongoing - Any problem that you are currently receiving treatment for. Asymptomatic microscopic hematuria BPH with urinary obstruction Kidney stone Microscopic hematuria Nocturia Prostate cancer Rising PSA following treatment for malignant neoplasm of prostate Historical - Any problem that you are no longer receiving treatment for. BPH with elevated PSA Patient Survey You may receive a survey via text or e-mail asking about your office visit. Please share your experience with us by completing your survey. We appreciate your feedback and thank you for choosing us for your care. Education Materials Prostate Cancer The prostate is a small gland that produces fluid that makes up semen (seminal fluid). It is located below the bladder in men, in front of the rectum. Prostate cancer is the abnormal growth of cells in the prostate gland. What are the causes? The exact cause of this condition is not known. What increases the risk? You are more likely to develop this condition if: ? You are 65 years of age or older. ? You have a family history of prostate cancer. ? You have a family history of breast and ovarian cancer. ? You have genes that are passed from parent to child (inherited), such as BRCA1 and BRCA2. ? You have De La Fuente syndrome. men and men of descent are diagnosed with prostate cancer at higher rates than other men. The reasons for this are not well understood and are likely due to a combination of genetic and environmental factors. What are the signs or symptoms? Symptoms of this condition include: ? Problems with urination. This may include: ? A weak or interrupted flow of urine. ? Trouble starting or stopping urination. ? Trouble emptying the bladder all the way. ? The need to urinate more often, especially at night. ? Blood in urine or semen. ? Persistent pain or discomfort in the lower back, lower abdomen, or hips. ? Trouble getting an erection. ? Weakness or numbness in the legs or feet. How is this diagnosed? This condition can be diagnosed with: ? A digital rectal exam. For this exam, a health care provider inserts a gloved finger into the rectum to feel the prostate gland. ? A blood test called a prostate-specific antigen (PSA) test. ? A procedure in which a sample of tissue is taken from the prostate and checked under a microscope (prostate biopsy). ? An imaging test called transrectal ultrasonography. Once the condition is diagnosed, tests will be done to determine how far the cancer has spread. This is called staging the cancer. Staging may involve imaging tests, such as a bone scan, CT scan, PET scan, or MRI. Stages of prostate cancer The stages of prostate ca (more content not included)... Normal [facility] Patient Educationon 07-01-19 24 Patient Education Oncology Prostate Cancer The prostate is a small gland that produces fluid that makes up semen (seminal fluid). It is located below the bladder in men, in front of the rectum. Prostate cancer is the abnormal growth of cells in the prostate gland. What are the causes? The exact cause of this condition is not known. What increases the risk? You are more likely to develop this condition if: ? You are 65 years of age or older. ? You have a family history of prostate cancer. ? You have a family history of breast and ovarian cancer. ? You have genes that are passed from parent to child (inherited), such as BRCA1 and BRCA2. ? You have De La Fuente syndrome. men and men of descent are diagnosed with prostate cancer at higher rates than other men. The reasons for this are not well understood and are likely due to a combination of genetic and environmental factors. What are the signs or symptoms? Symptoms of this condition include: ? Problems with urination. This may include: ? A weak or interrupted flow of urine. ? Trouble starting or stopping urination. ? Trouble emptying the bladder all the way. ? The need to urinate more often, especially at night. ? Blood in urine or semen. ? Persistent pain or discomfort in the lower back, lower abdomen, or hips. ? Trouble getting an erection. ? Weakness or numbness in the legs or feet. How is this diagnosed? This condition can be diagnosed with: ? A digital rectal exam. For this exam, a health care provider inserts a gloved finger into the rectum to feel the prostate gland. ? A blood test called a prostate-specific antigen (PSA) test. ? A procedure in which a sample of tissue is taken from the prostate and checked under a microscope (prostate biopsy). ? An imaging test called transrectal ultrasonography. Once the condition is diagnosed, tests will be done to determine how far the cancer has spread. This is called staging the cancer. Staging may involve imaging tests, such as a bone scan, CT scan, PET scan, or MRI. Stages of prostate cancer The stages of prostate cancer are as follows: ? Stage 1 (I). At this stage, the cancer is found in the prostate only. The cancer is not visible on imaging tests, and it is usually found by accident, such as during prostate surgery. ? Stage 2 (II). At this stage, the cancer is more advanced than it is in stage 1, but the cancer has not spread outside the prostate. ? Stage 3 (III). At this stage, the cancer has spread beyond the outer layer of the prostate to nearby tissues. The cancer may be found in the seminal vesicles, which are near the bladder and the prostate. ? Stage 4 (IV). At this stage, the cancer has spread to other parts of the body, such as the lymph nodes, bones, bladder, rectum, liver, or lungs. Prostate cancer grading Prostate cancer is also graded according to how the cancer cells look under a microscope. This is called the Timothy score and the total score can range from 6?10, indicating how likely it is that the cancer will spread (metastasize) to other parts of the body. The higher the score, the greater the likelihood that the cancer will spread. ? Timothy 6 or lower: This indicates that the cancer cells look similar to normal prostate cells (well differentiated). ? Timothy 7: This indicates that the cancer cells look somewhat similar to normal prostate cells (moderately differentiated). ? Preston 8, 9, or 10: This indicates that the cancer cells look very different than normal prostate cells (poorly differentiated). How is this treated? Treatment for this condition depends on several factors, including the stage of the cancer, your age, personal preferences, and your overall health. Talk with your health care provider about treatment options that are recommended for you. Common treatments include: ? Observation for early stage prostate cancer (active surveillance). This involves having exams, blood tests, and in some cases, more biopsies. For some men, this is the only treatment needed. ? Surgery. Types of surgeries include: ? Open surgery (radical prostatectomy). In this surgery, a larger incision is made to remove the prostate. ? A laparoscopic radical prostatectomy. This is a surgery to remove the prostate and lymph nodes through several small incisions. It is often referred to as a minimally invasive surgery. ? A robotic radical prostatectomy. This is laparoscopic surgery to remove the prostate and lymph nodes with the help of robotic arms that are controlled by the surgeon. ? Cryoablation. This is surgery to freeze and destroy cancer cells. ? Radiation treatment. Types of radiation treatment include: ? External beam radiation. This type aims beams of radiation from outside the body at the prostate to destroy cancerous cells. ? Brachytherapy. This type uses radioactive needles, seeds, wires, or tubes that are implanted into the prostate gland. Like external be (more content not included)... Normal [facility] Urology Office/Clinic Noteon 07-01-2023 Urology Office/Clinic Note Chief Complaint rising PSA after treatment for malignant neoplasm of the prostate HPI Staff 6 month f/u with PSA and Lupron injection. Dx: Rising PSA following treatment for malignant neoplasm of prostate, prostate cancer (Brachytherapy 2002), BPH with urinary obstruction, asymptomatic microhematuria and kidney stone. PSA done 06/24/23 is <0.13 Casodex 50mg QD Dysuria: no Incomplete bladder emptying: no Hematuria: no Frequency: no Urgency: no Nocturia: 0-1x Stream: no straining or intermittency Leaking: no Post void dripping: no Wearing pads/ Depends: no Urge incontinence: no Stress incontinence: no Incontinence without Sensory Awareness: no Abdominal pain: none Flank pain: none Sexual complaints: no History of Present Illness Tests Reviewed: Reviewed UA. I have reviewed and verified the staff HPI to be accurate for this encounter. I have reviewed the previous health record information and history for this patient from Dr. Colin There have been no associated fever, chills, flank pain, or blood in the urine. Denies any urinary infections since last encounter. Review of Systems PHQ Score Initial Depression Screen Score: 0 SCORE ROS - Provider Constitutional: denies weight loss, [...] discharge, denies urinary frequency, denies urinary hesitancy, mild nocturia, denies incontinence, denies genital sores, denies decreased libido, and denies erectile dysfunction. Physical Exam Vitals & Measurements T: 36.8 ?C(Temporal Artery) HR: 69(Peripheral) RR: 16 BP: 132/78 HT: 72 in HT: 183 cm WT: 77.2 kg WT: 169.84 lb BMI: 23.05 General Appearance: alert, no distress, well nourished, well developed male. Flank Pain: none. Bladder: nonpalpable. Assessment/Plan 1. Rising PSA following treatment for malignant neoplasm of prostate, (R97.21: Rising PSA following treatment for malignant neoplasm of prostate)Rising PSA following treatment for malignant neoplasm of prostate PSA: 11/28/21 - 0.72 05/24/22 - <0.13 12/10/22 - <0.13 06/24/23 is <0.13 Last Lupron given 06/11/22. Pt continues taking Casodex 50 mg QD. Lupron was approved. Lupron 45 mgIM injection given today with no complications. Right glute. Pt. denies side effects at this time. Pt states that he is taking calcium and multi-vitamins. Advised pt that is it important he is getting a dose of Vitamin D. Patient will stop Casodex therapy. Pt is doing well, he does c/o of hot flashes. He can tolerate them at this time. 2. Prostate cancer (C61: Malignant neoplasm of prostate) S/p brachytherapy done 2002. Path done 11/14/17 showed: Right mid - adenocarcinoma, Timothy 6 (3+3), tumor measure 0.09 cm in length, 6% of the core involved by tumor, 1/1 core. Right lateral - Timothy 7 (3+4), tumor measure 0.25 cm in length, 20% of the core involved, 1/1 core. Right lateral mid - Preston 7 (3+4), tumor measure 0.25 cm in length, 19% of the core involved, 1/1 core. Grade group 2. 3. BPH with urinary obstruction (N40.1: Benign prostatic hyperplasia with lower urinary tract symptoms) Good stream, feels empty. UA done today is negative for infection. 4. Gynecomastia (N62: Hypertrophy of breast) Patient having breast tenderness and swelling. He will stop Casodex therapy for now. Continue to monitor. Other obstructive and reflux uropathy (N13.8: Other obstructive and reflux uropathy) Plan 6 mo fu with PSA/Lupron Follow-up With When Contact Information BRANDIN LESLIE, Felix Burt, RACHID In 6 months [facility] [address], [place] [address] [phone] Additional Instructions: 6 mo fu with PSA, Lupron Patient Education Prostate Cancer Elza Roldan, personally scribed for Dr. Colin on 07/01/2023 10:48:14. . Documentation recorded by the ivette brewer, accurately reflects the services(s) I performed and decisions made by me. Authenticated by Dr. Colin on 07/01/2023 10:49:21. Problem List/Past Medical History Ongoing Asymptomatic microscopic [...] mg= 1 tab(s), Oral, Daily, 3 refills Ryanne (more content not included)... Normal [facility] Comment on above: Result Comment: Elec tronically Signed By: Felix COLIN MD\.br\Date and Time Signed: 07/01/23 10:49 EST\.br\Electronically Co-Signed By: Elza Gunn\.br\Date and Time Co-Signed: 07/01/23 10:48 EST Lab [facility] 06-25-2023 Lab Reports [id number] IFF Normal [facility] Report[facility] 01-06-2023 Lab Reports [id number] D:127 Normal [facility] Ambulatory Visit Summaryon 0 12-28-2022 Ambulatory Visit Summary TIFFANIE WELLS :1935 Visit Date:12/28/2022 Ambulatory Visit Instructions Your Diagnosis Rising PSA following treatment for malignant neoplasm of prostate Prostate cancer BPH with urinary obstruction Asymptomatic microscopic hematuria Kidney stone Your Care Team Attending Physician - Felix [...] with BRANDIN LESLIE, Felix Burt, RACHID When: In 6 months Comments: w/ Lupron and PSA Where: [facility] [address] , [place] [address]- Medications What How Much When Instructions Unchanged [...] produce a (more content not included)... Normal [facility] Patient Educationon 12-29-19 Patient Education Urology Benign [...] Follow these instructions at home: ? Take [id number] and prescription medicines only as told by [...] the medicine (more content not included)... Normal [facility] Urology Office/Clinic Noteon 12-28-2022 Urology Office/Clinic Note [...] by tumor, 1/1 core. Right lateral - Timothy 7 (3+4), tumor measure 0.25 cm in length, 20% of the core involved, 1/1 core. Right lateral mid - Preston 7 (3+4), tumor measure 0.25 cm in [...] 1 yr. Follow-up With When Contact Information BRANDIN LESLIE, Felix Burt, URL In 6 months [facility] [address], [place] [address]- Additional Instructions: w/ Lupron and PSA Patient [...] No Known (more content not included)... Normal [facility] Comment on above: Result Comment: Elec tronically Signed By: Felix COLIN MD\.br\Date and Time Signed: 12/28/22 13:00 EDT\.br\Electronically Co-Signed By: Mimi Donaldsonbr\Date and Time Co-Signed: 12/28/22 12:59 EDT Pre-Certification Formon Pre-Certification Form [id number] CD:127 Normal [facility] Operative Reporton 3 Operative Report [id number] D:127 Normal [facility] Operative Reporton 3 Operative Report [id number] D:127 Normal [facility] CT ABD/PELV WO W CONon 06-21 CT [...] by: HAYDEE DANIELS Date: 2022-06-21 14:41 Normal [facility] 36on 06-07-2022 36 Spoke with patient t o schedule a follow up with Dr. Maloney after event monitor per Octavia Velez. He said he is leaving this up to his PCP, Dr. Wheatley. I told him if he needs us or changes his mind, he can always call us. He verbalized understanding. Normal [facility] ECHOCARDIO M/2D COMPLETEon 0 05-28-2022 ECHOCARDIO M/2D COMPLETE Patient: TIFFANIE WELLS Exam Date: 05/28/2022 : 1935 Gender:M Ordering : SHAIKH Shaan RODRIGUEZ . Admission #: [id number] Family : DR ADALBERTO WHEATLEY . Order #: [id number] CLICK HERE TO VIEW EXAM ECHOCARDIOGRAM REPORT [...] Area (VTI): 3.24 cm2, 3.24 cm2 Deceleration [place]: 2.89 m/s2 Pressure Half-Time: 532.36 ms Peak [...] Royal M.D. on 05/28/2022 at 13:16 Normal [facility] NM STRESS/REST MULTIon 05-28 NM STRESS/REST MULTI Patient: TIFFANIE WELLS Exam Date: 05/28/2022 : 1935 Gender:M Ordering : SHAIKH Shaan RODRIGUEZ . Admission #: [id number] Family : DR ADALBERTO WHEATLEY . Order #: [id number] CLICK HERE TO VIEW EXAM RADIOLOGY REPORT [...] Bernardo M.D. on 05/29/2022 at 07:35 Normal [facility] MAGNESIUMon 05-27-2022 Magnesium [Mass/Vol] 1.8 mg/dL Normal 1.8-2.4 [facility] Comment on above: Performed By: #### P SAD #### [facility] [address] [address] [address] Otilio Rich PROF 14(COMP METB)on 023 Albumin [Mass/Vol] 3.1 g/dL Critically low 3.4-5.0 [facility] Comment on above: Performed By: #### T SH, CMP #### [facility] [address] [place] [address] Dr. Otilio Rich Albumin/Globulin [Mass ratio] 0.7 {ratio} Normal [facility] Comment on above: Performed By: #### T SH, CMP #### [facility] [address] [place] [address] Dr. Otilio Rich ALP [Catalytic activity/Vol] 87 U/L Normal 46-116 [facility] Comment on above: Performed By: #### T SH, CMP #### [facility] [address] [place] [address] Dr. Otilio Rich ALT [Catalytic activity/Vol] 26 U/L Normal 16-63 [facility] Comment on above: Performed By: #### T SH, CMP #### [facility] [address] [place] [address] Dr. Otilio Rich Anion gap [Moles/Vol] 13.6 mmol/L Normal [facility] Comment on above: Performed By: #### T SH, CMP #### [facility] [address] [place] [address] Dr. Otilio Rich AST [Catalytic activity/Vol] 16 U/L Normal 15-37 [facility] Comment on above: Performed By: #### T SH, CMP #### [facility] [address] [place] [address] Dr. Otilio Rich Bilirubin [Mass/Vol] 1.5 mg/dL Critically high 0.2-1.0 [facility] Comment on above: Performed By: #### T SH, CMP #### [facility] [address] [place] [address] Dr. Otilio Rich Calcium [Mass/Vol] 9.7 mg/dL Normal 8.5-10.1 [facility] Comment on above: Performed By: #### T SH, CMP #### [facility] [address] [address] [address] Otilio Rich Chloride [Moles/Vol] 102 mmol/L Normal 98-107 [facility] Comment on above: Performed By: #### T SH, CMP #### [facility] [address] [address] [address] Otilio Rich CO2 [Moles/Vol] 26.5 mmol/L Normal 21.0-32.0 [facility] Comment on above: Performed By: #### T SH, CMP #### [facility] [address] [place] [address] Dr. Otilio Rich Creatinine [Mass/Vol] 0.88 mg/dL Normal 0.70-1.30 [facility] Comment on above: Performed By: #### T SH, CMP #### [facility] [address] [place] [address] Dr. Otilio Rich EGFR-AF MEXICAN >60 Normal >=60 [facility] Comment on above: Performed By: #### T SH, CMP #### [facility] [address] [place] [address] Dr. Otilio Rich EGFR-NON AF MEXICAN >60 Normal >=60 [facility] Comment on above: Performed By: #### T SH, CMP #### [facility] [address] [place] [address] Dr. Otilio Rich Globulin (S) [Mass/Vol] 4.2 g/dL Normal [facility] Comment on above: Performed By: #### T SH, CMP #### [facility] [address] [place] [address] Dr. Otilio Rich Glucose [Mass/Vol] 105 mg/dL Normal 74-106 [facility] Comment on above: Performed By: #### T SH, CMP #### [facility] [address] [place] [address] Dr. Otilio Rich Potassium [Moles/Vol] 4.1 mmol/L Normal 3.5-5.1 [facility] Comment on above: Performed By: #### T SH, CMP #### [facility] [address] [address] [address] Otilio Rich Protein [Mass/Vol] 7.3 g/dL Normal 6.4-8.2 [facility] Comment on above: Performed By: #### T SH, CMP #### [facility] [address] [place] [address] Dr. Otilio Rich Sodium [Moles/Vol] 138 mmol/L Normal 136-145 [facility] Comment on above: Performed By: #### T SH, CMP #### [facility] [address] [place] [address] Dr. Otilio Rich Urea nitrogen [Mass/Vol] 19.0 mg/dL Critically high 7.0-18.0 [facility] Comment on above: Performed By: #### T SH, CMP #### [facility] [address] [place] [address] Dr. Otilio Rich Urea nitrogen/Creatinine [Mass ratio] 21.6 mg/mg Normal [facility] Comment on above: Performed By: #### T SH, CMP #### [facility] [address] [place] [address] Dr. Otilio Rich TSHon 05-27-2022 TSH 3.344 uIU/mL Normal 0.358-3.740 [facility] Comment on above: Performed By: #### P SAD #### [facility] [address] [place] [address] Dr. Otilio Rich CARDIAC RAMA 3-6on 3 CK [Catalytic activity/Vol] 60 U/L Normal 39-308 [facility] Comment on above: Performed By: #### C MREP #### [facility] [address] [place] [address] Dr. Otilio Rich CK.MB [Mass/Vol] ng/mL Normal <=3.60 [facility] Comment on above: Performed By: #### C MREP #### [facility] [address] [place] [address] Dr. Otilio Rich HSTROP 5.9 pg/mL Normal 4.0-76.1 [facility] Comment on above: Result Comment: CUT- OFF POINTS HAVE BEEN ESTABLISHED BASED ON THE FOURTH UNIVERSAL DEFINITIONS OF MYOCARDIAL INFARCTION. THE UPPER REFERENCE LIMIT (URL) OF TROPONIN, DEFINED THE 99TH PERCENTILE OF cTnI DISTRIBUTION IN A REFERENCE POPULATION, HAS BEEN CONFIRMED THE DECISION THRESHOLD FOR ID DIAGNOSIS. Performed By: #### C MREP #### [facility] [address] [address] [address] Otilio Rich CK [Catalytic activity/Vol] 65 U/L Normal 39-308 [facility] Comment on above: Performed By: #### C MREP #### [facility] [address] [address] [address] Otilio DEGROOT.MB [Mass/Vol] ng/mL Normal <=3.60 [facility] Comment on above: Performed By: #### C MREP #### [facility] [address] [address] [address] Otilio Rich HSTROP 5.6 pg/mL Normal 4.0-76.1 [facility] Comment on above: Result Comment: CUT- OFF POINTS HAVE BEEN ESTABLISHED BASED ON THE FOURTH UNIVERSAL DEFINITIONS OF MYOCARDIAL INFARCTION. THE UPPER REFERENCE LIMIT (URL) OF TROPONIN, DEFINED THE 99TH PERCENTILE OF cTnI DISTRIBUTION IN A REFERENCE POPULATION, HAS BEEN CONFIRMED THE DECISION THRESHOLD FOR ID DIAGNOSIS. Performed By: #### C MREP #### [facility] [address] [place] [address] Dr. Otilio Rich CARDIAC RAMA ADMITon 023 CK [Catalytic activity/Vol] 65 U/L Normal 39-308 [facility] Comment on above: Performed By: #### B CASSIE CMADM #### [facility] [address] [address] [address] Otilio DEGROOT.MB [Mass/Vol] 0.53 ng/mL Normal <=3.60 [facility] Comment on above: Performed By: #### B CASSIE, CMADM #### [facility] [address] [address] [address] Otilio Rich HSTROP 6.8 pg/mL Normal 4.0-76.1 [facility] Comment on above: Result Comment: CUT- OFF POINTS HAVE BEEN ESTABLISHED BASED ON THE FOURTH UNIVERSAL DEFINITIONS OF MYOCARDIAL INFARCTION. THE UPPER REFERENCE LIMIT (URL) OF TROPONIN, DEFINED THE 99TH PERCENTILE OF cTnI DISTRIBUTION IN A REFERENCE POPULATION, HAS BEEN CONFIRMED THE DECISION THRESHOLD FOR ID DIAGNOSIS. Performed By: #### B CASSIE, CORIDM #### [facility] [address] [place] [address] Dr. Otilio Rich ABNER 56 ng/mL Normal 16-96 [facility] Comment on above: Performed By: #### B CASSIE, CORIDM #### [facility] [address] [place] [address] Dr. Otilio Rich CBC AUTO DIFFon 05-26-2022 BASO # 0.0 103/ul Normal 0.0-0.1 [facility] Comment on above: Performed By: #### P SAD #### [facility] [address] [place] [address] Dr. Otilio Rich Basophils/100 WBC (Bld) 0.3 % Normal 0.2-2.0 [facility] Comment on above: Performed By: #### P SAD #### [facility] [address] [place] [address] Dr. Otilio Rich EO # 0.4 103/ul Normal 0.0-0.7 [facility] Comment on above: Performed By: #### P SAD #### [facility] [address] [place] [address] Dr. Otilio Rich Eosinophils/100 WBC (Bld) 4.2 % Normal 0.9-7.0 [facility] Comment on above: Performed By: #### P SAD #### [facility] [address] [place] [address] Dr. Otilio Rich Erythrocyte distribution width (RBC) [Ratio] 11.9 % Normal 11.0-15.0 [facility] Comment on above: Performed By: #### P SAD #### [facility] [address] [place] [address] Dr. Otilio Rich Hematocrit (Bld) [Volume fraction] 37.3 % Critically low 42.0-54.0 [facility] Comment on above: Performed By: #### P SAD #### [facility] [address] [address] [address] Otilio Rich Hemoglobin (Bld) [Mass/Vol] 13.1 g/dL Critically low 14.0-18.0 [facility] Comment on above: Performed By: #### P SAD #### [facility] [address] [address] [address] Otilio Rich IG # 0.03 10e3/ul Normal 0.00-0.03 [facility] Comment on above: Performed By: #### P SAD #### [facility] [address] [place] [address] Dr. Otilio Rich IG % 0.3 % Normal 0.0-0.5 [facility] Comment on above: Performed By: #### P SAD #### [facility] [address] [place] [address] Dr. Otilio Rich LYMPH # 2.6 103/ul Normal 1.2-3.8 [facility] Comment on above: Performed By: #### P SAD #### [facility] [address] [place] [address] Dr. Otilio Rich Lymphocytes/100 WBC (Bld) 25.9 % Normal 20.5-60.0 [facility] Comment on above: Performed By: #### P SAD #### [facility] [address] [place] [address] Dr. Otilio Rich MANUAL DIFF REQ NO Normal [facility] Comment on above: Performed By: #### P SAD #### [facility] [address] [place] [address] Dr. Otilio Rich MCH (RBC) [Entitic mass] 31.6 pg Normal 25.9-34.0 [facility] Comment on above: Performed By: #### P SAD #### [facility] [address] [place] [address] Dr. Otilio Rich MCHC (RBC) [Mass/Vol] 35.1 g/dL Normal 29.9-35.2 [facility] Comment on above: Performed By: #### P SAD #### [facility] [address] [address] [address] Otilio Rich MCV (RBC) [Entitic vol] 89.9 fL Normal 80.0-94.0 [facility] Comment on above: Performed By: #### P SAD #### [facility] [address] [address] [address] Otilio Rich MONO # 1.0 103/ul Critically high 0.3-0.8 [facility] Comment on above: Performed By: #### P SAD #### [facility] [address] [address] [address] Otilio Rich Monocytes/100 WBC (Bld) 10.4 % Normal 1.7-12.0 [facility] Comment on above: Performed By: #### P SAD #### [facility] [address] [address] [address] Otilio Rich NEUT # 5.8 103/ul Normal 1.4-6.5 [facility] Comment on above: Performed By: #### P SAD #### [facility] [address] [address] [address] Otilio Rich Neutrophils/100 WBC (Bld) 58.9 % Normal 43.0-75.0 [facility] Comment on above: Performed By: #### P SAD #### [facility] [address] [address] [address] Otilio Rich Platelet mean volume (Bld) [Entitic vol] 10.2 fL Normal 9.5-13.5 [facility] Comment on above: Performed By: #### P SAD #### [facility] [address] [address] [address] Otilio Rich PLT 185 103/ul Normal 150-450 [facility] Comment on above: Performed By: #### P SAD #### [facility] [address] [address] [address] Otilio Rich RBC 4.15 106/ul Critically low 4.70-6.10 [facility] Comment on above: Performed By: #### P SAD #### [facility] [address] [place], [place] [address] Dr. Otilio Rich WBC 9.8 103/ul Normal 4.0-11.0 [facility] Comment on above: Performed By: #### P SAD #### [facility] [address] [place], [place] [address] Dr. Otilio Rich CTA CHEST WO W [...] RAVEN BENDER Date: 2022-05-26 06:14 Normal [facility] Covid-19 PCR (CVDTB)on 04-30 SARS-CoV-2 (COVID-19) RNA MARCY+probe Ql (Unsp spec) Not detected Normal NOT DETECTED [facility] Comment on above: Result Comment: When [...] for this test is supported by the [place] of [employer] and [employer]'s declaration that [...] used). Performed By: #### C VDTBH #### [facility] [address] [place] [address] Dr. Otilio Rich D-DIMERon 05-26-2022 D-DIMER 1.05 mg/L FEU Critically high <=0.59 [facility] Comment on above: Performed By: #### P SAD #### [facility] [address] [place] [address] Dr. Otilio Rich D-DIMER COMMENTS SEE BELOW Normal [facility] Comment on above: Result Comment: Incr [...] hospitalization. Performed By: #### P SAD #### [facility] [address] [place] [address] Dr. Otilio Rich GLYCOHEMOGLOBIN A1Con 2022 ADA RECOMMENDATION SEE BELOW Normal [facility] Comment on above: Result Comment: ADA RECOMMENDED LIMIT 4.0 - 6.0 ADA THERAPEUTIC TARGET < 7.0 ACTION SUGGESTED > 7.0 Performed By: #### A 1C #### [facility] [address] [address] [address] Otilio Rich Glucose [Mass/Vol] 111 mg/dL Normal [facility] Comment on above: Performed By: #### A 1C #### [facility] [address] [address] [address] Otilio Rich HbA1c (Bld) [Mass fraction] 5.5 % Normal 4.5-6.2 [facility] Comment on above: Performed By: #### A 1C #### [facility] [address] [place] [address] Dr. Otilio Rich LIPID PROFILEon 05-26-2022 CHOL-HDL RATIO NORM SEE BELOW Normal [facility] Comment on above: Result Comment: 3.3 - 4.4 LOW RISK 4.4 - 7.1 AVERAGE RISK 7.1 - 11.0 MODERATE RISK >11.0 HIGH RISK Performed By: #### L IPID #### [facility] [address] [place] [address] Dr. Otilio Rich Cholesterol [Mass/Vol] 187 mg/dL Normal <=200 [facility] Comment on above: Performed By: #### L IPID #### [facility] [address] [place] [address] Dr. Otilio Rich Cholesterol in HDL [Mass/Vol] 49 mg/dL Normal 40-60 [facility] Comment on above: Performed By: #### L IPID #### [facility] [address] [address] [address] Otilio Rich Cholesterol in LDL [Mass/Vol] 116.2 mg/dL Normal [facility] Comment on above: Performed By: #### L IPID #### [facility] [address] [place] [address] Dr. Otilio Rich Cholesterol.total/C holesterol in HDL [Mass ratio] 3.8 {ratio} Normal [facility] Comment on above: Performed By: #### L IPID #### [facility] [address] [place] [address] Dr. Otilio Rich HDL NORMAL > or = 60 mg/dl - LO W CARDIOVASCULAR RISK <40 mg/dl - HIGH CARDIOVASCULAR RISK Normal [facility] Comment on above: Performed By: #### L IPID #### [facility] [address] [address] [address] Otilio Rich LDL CALC NORMAL SEE BELOW Normal [facility] Comment on above: Result Comment: <100 mg/dl OPTIMAL 100 - 129 mg/dl NEAR OR ABOVE OPTIMAL 130 - 159 mg/dl BORDERLINE HIGH 160 - 189 mg/dl HIGH >190 mg/dl VERY HIGH Performed By: #### L IPID #### [facility] [address] [address] [address] Otilio Rich Triglyceride [Mass/Vol] 109 mg/dL Normal <=150 [facility] Comment on above: Performed By: #### L IPID #### [facility] [address] [address] [address] Otilio Rich VLDL CALC 21.8 mg/dL Normal [facility] Comment on above: Performed By: #### L IPID #### [facility] [address] [address] [address] Otilio Rich PROF CHEM 8 (BAS METB)on Anion gap [Moles/Vol] 10.3 mmol/L Normal [facility] Comment on above: Performed By: #### B CORI MATTHEWSDM #### [facility] [address] [address] [address] Otilio Rich Calcium [Mass/Vol] 10.5 mg/dL Critically high 8.5-10.1 [facility] Comment on above: Performed By: #### B CASSIE CMADM #### [facility] [address] [address] [address] Otilio Rich Chloride [Moles/Vol] 101 mmol/L Normal 98-107 [facility] Comment on above: Performed By: #### B CASSIE, CMADM #### [facility] [address] [address] [address] Otilio Rich CO2 [Moles/Vol] 29.6 mmol/L Normal 21.0-32.0 [facility] Comment on above: Performed By: #### B MP, CMADM #### [facility] [address] [address] [address] Otilio Rich Creatinine [Mass/Vol] 0.76 mg/dL Normal 0.70-1.30 [facility] Comment on above: Performed By: #### B MP, CMADM #### [facility] [address] [address] [address] Otilio Rich EGFR-AF MEXICAN >60 Normal >=60 [facility] Comment on above: Performed By: #### B MP, CMADM #### [facility] [address] [address] [address] Otilio Rich EGFR-NON AF MEXICAN >60 Normal >=60 [facility] Comment on above: Performed By: #### B CASSIE, CMADM #### [facility] [address] [address] [address] Otilio Rich Glucose [Mass/Vol] 111 mg/dL Critically high 74-106 [facility] Comment on above: Performed By: #### B CASSIE, CMADM #### [facility] [address] [address] [address] Otilio Rich Potassium [Moles/Vol] 3.9 mmol/L Normal 3.5-5.1 [facility] Comment on above: Performed By: #### B CASSIE, CMADM #### [facility] [address] [address] [address] Otilio Rich Sodium [Moles/Vol] 137 mmol/L Normal 136-145 [facility] Comment on above: Performed By: #### B MP, CMADM #### [facility] [address] [address] [address] Otilio Rich Urea nitrogen [Mass/Vol] 14.0 mg/dL Normal 7.0-18.0 [facility] Comment on above: Performed By: #### B MP, CMADM #### [facility] [address] [address] [address] Otilio Rich Urea nitrogen/Creatinine [Mass ratio] 18.4 mg/mg Normal [facility] Comment on above: Performed By: #### B MP, CMADM #### [facility] [address] [place], [place] [address] Dr. Otilio Rich TROPONIN, HIGH SENSITIVITYon 05-26-2022 HSTROP 5.4 pg/mL Normal 4.0-76.1 [facility] Comment on above: Result Comment: CUT- OFF POINTS HAVE BEEN ESTABLISHED BASED ON THE FOURTH UNIVERSAL DEFINITIONS OF MYOCARDIAL INFARCTION. THE UPPER REFERENCE LIMIT (URL) OF TROPONIN, DEFINED THE 99TH PERCENTILE OF cTnI DISTRIBUTION IN A REFERENCE POPULATION, HAS BEEN CONFIRMED THE DECISION THRESHOLD FOR ID DIAGNOSIS. Performed By: #### P SAD #### [facility] [address] [place], [place] [address] Dr. Otilio Rich XR CHEST 1 Von 05-26-2022 XR CHEST 1 V EXAM: XR CHEST [...] by: RAVEN BENDER Date: 2022-05-26 05:00 Normal [facility] Vital Signs Date Time Vital Sign Value Performing Clinician Facility 07-01-2023 09:56-0500 Blood Pressure Location Felix COLIN [facility] 07-01-2023 09:56-0500 Body temperature 98.24 [degF] Felix COLIN [facility] 07-01-2023 09:56-0500 Diastolic blood pressure 78 mm[Hg] Felix COLIN [facility] 07-01-2023 09:56-0500 Heart rate 69 /min Felix COLIN [facility] 07-01-2023 09:56-0500 Respiratory rate 16 /min Felix COLIN [facility] 07-01-2023 09:56-0500 Systolic blood pressure 132 mm[Hg] Felix COLIN [facility] 12-28-2022 12:13-0400 Blood Pressure Location Felix COLIN [facility] 12-28-2022 12:13-0400 Body temperature 97.7 [degF] Felix COLIN [facility] 12-28-2022 12:13-0400 Diastolic blood pressure 71 mm[Hg] Felix COLIN [facility] 12-28-2022 12:13-0400 Heart rate 65 /min Felix COLIN [facility] 12-28-2022 12:13-0400 Respiratory rate 16 /min Felix COLIN [facility] 12-28-2022 12:13-0400 Systolic blood pressure 135 mm[Hg] Felix COLIN [facility] 06-04-2022 14:06-0500 Blood Pressure Location Felix COLIN [facility] 06-04-2022 14:06-0500 Diastolic blood pressure 62 mm[Hg] Felix COLIN [facility] 06-04-2022 14:06-0500 Heart rate 61 /min Felix COLIN [facility] 06-04-2022 14:06-0500 Respiratory rate 16 /min Felix COLIN [facility] 06-04-2022 14:06-0500 Systolic blood pressure 128 mm[Hg] Felix COLIN [facility] 12-04-2021 10:00-0400 Blood Pressure Location Felixchano COLIN [facility] 12-04-2021 10:00-0400 Diastolic blood pressure 76 mm[Hg] Felix COLIN [facility] 12-04-2021 10:00-0400 Heart rate 72 /min Felixchano COLIN [facility] 12-04-2021 10:00-0400 Respiratory rate 16 /min Felixchano COLIN [facility] 12-04-2021 10:00-0400 Systolic blood pressure 139 mm[Hg] Felix COLIN [facility] Encounters Encounter Date Encounter Type Care Provider Facility Start: 12-20-2023 ambulatory Felix Mayoi ty:[facility] Start: 07-01-2023 ambulatory Felix Mayoi ty:[facility] Start: 07-01-2023 End: 07-01-2023 Patient encounter procedure Felix COLIN [facility] Start: 12-28-2022 End: 12-29-2022 ambulatory Felix COLIN Facility:[facility] Start: 12-28-2022 End: 12-28-2022 Patient encounter procedure Felix COLIN [facility] Start: 07-02-2022 End: 07-03-[address] FELIX COLIN . Facility:[facility] Start: 06-21-2022 End: 06-22-[address] FELIX COLIN . Facility:[facility] Start: 06-11-2022 End: 06-11-2022 Patient encounter procedure Felix COLIN [facility] Start: 06-04-2022 End: 06-04-2022 Patient encounter procedure Felix COLIN [facility] [employer] Start: 05-26-2022 End: 05-28-[address] ADALBERTO WHEATLEY Facility:[facility] Start: 05-24-2022 End: 05-25-[address] FELIX COLIN . Facility: Start: 12-04-2021 End: 12-04-2021 Patient encounter procedure Felix COLIN [facility] Start: 11-28-2021 End: 11-29-[address] FELIX COLIN . Facility: Procedures Date Procedure Procedure Detail Performing Clinician Start: 05-24-[address] ADALBERTO DILLON Comment on above: Performed By: #### P SAD #### [facility] [address] [place] [address] Dr. Otilio Rich Start: 11-28-[address] ADALBERTO DILLON Comment on above: Performed By: #### P SAD #### [facility] [address] [address] [address] Oitlio Rich Start: 11-11-2017 Transrectal biopsy o f prostate using ultrasound guidance Felix COLIN Start: 04-29-2002 Implantation of radioactive seed into prostate Felix COLIN Colonoscopy Felix COLIN Immunizations Immunization Date Immunization Notes Care Provider [facility] 02-20-2022 influenza virus vaccine, unspecified formulation Felix COLIN [facility] 02-20-2022 SARS-CoV-2 (COVID-19 ) [id number] Felix COLIN [facility] 08-19-2021 SARS-CoV-2 (COVID-19 ) [id number] vaccine Felix COLIN [facility] 02-21-2021 influenza virus vaccine, unspecified formulation Felix BRANDIN [facility] 01-24-2021 SARS-CoV-2 (COVID-19 ) mRNA BNT-162b2 vax Felix BRANDIN [facility] 06-15-2020 SARS-CoV-2 (COVID-19 ) mRNA BNT-162b2 vax Felix BRANDIN [facility] 05-23-2020 SARS-CoV-2 (COVID-19 ) mRNA BNT-162b2 vax Felix COLIN [facility] 04-29-2020 SARS-CoV-2 (COVID-19 ) mRNA BNT-162b2 vax Felix COLIN [facility] Comment on above: Result Comment: 3 sh ots but does not know the dates 02-02-2020 influenza virus vaccine, unspecified formulation Felix COLIN [facility] 02-10-2019 influenza virus vaccine, unspecified formulation Felixchano COILN [facility] 02-11-2018 influenza virus vaccine, unspecified formulation Felix COLIN [facility] 09-20-2017 tetanus toxoid, redu mike diphtheria toxoid, and acellular pertussis vaccine, adsorbed Felix COLIN [facility] 02-19-2017 influenza virus vaccine, unspecified formulation [facility] [facility] 12-27-2016 pneumococcal conjuga te vaccine, 13 valent Felix COLIN [facility] 02-07-2016 influenza virus vaccine, unspecified formulation Felix COLIN [facility] 02-22-2015 influenza virus vaccine, unspecified formulation Felixchano COLIN [facility] 02-04-2013 influenza virus vaccine, unspecified formulation Fleixchano COLIN [facility] 02-08-2010 influenza, whole Felixchano ALVAREZ CHIQUITA [facility] Payers Date Payer Category Payer Medicare [id number] 1957 Medicare [id number] 1957 Medicare [id number] 1935 Unknown [id number] 2.16.84 [id number] 1935 Unknown [id number] 2.16.84 [id number] 1935 Unknown [id number] 2.16.84 [id number] 1937 Unknown [id number] 2.16.84 [id number] 1937 Unknown [id number] 2.16.84 [id number] 1937 Unknown [id number] 2.16.8 [id number] 1937 Unknown [id number] 2.16.8 [id number] 1937 Unknown [id number] 2.16.8 [id number] 1935 Unknown [id number] 2.16.8 [id number] Social History Date Type Detail Facility Start: 12-04-2021 End: 07-01-2023 Tobacco smoking status Never smoked tobacco (finding) [facility] Sex Assigned At Male [facility] Tobacco smoking status Never [facility] Functional Status Date Assessment Result Facility 07-01-2023 Functional Status N/A [facility] 12-28-2022 Functional Status N/A [facility] 06-04-2022 Functional Status N/A [facility] 12-04-2021 Functional Status N/A [facility] Clinical Notes 12-04-2021 to 07-01-2023 Note Date & Type Note Facility 07-01-2023 Hospital Discharge instructions Patient Education 07/01/2023 10:36:06 Prostate Cancer Prostate Cancer The prostate is a small gland that produces fluid that makes up semen (seminal fluid). It is located below the bladder in men, in front of the rectum. Prostate cancer is the abnormal growth of cells in the prostate gland. What are the causes? The exact cause of this condition is not known. What increases the risk? You are more likely to develop this condition if: You are 65 years of age or older. You have a family history of prostate cancer. You have a family history of breast and ovarian cancer. You have genes that are passed from parent to child (inherited), such as BRCA1 and BRCA2. You have De La Fuente syndrome. men and men of descent are diagnosed with prostate cancer at higher rates than other men. The reasons for this are not well understood and are likely due to a combination of genetic and environmental factors. What are the signs or symptoms? Symptoms of this condition include: Problems with urination. This may include: ?A weak or interrupted flow of urine. ?Trouble starting or stopping urination. ?Trouble emptying the bladder all the way. ?The need to urinate more often, especially at night. Blood in urine or semen. Persistent pain or discomfort in the lower back, lower abdomen, or hips. Trouble getting an erection. Weakness or numbness in the legs or feet. How is this diagnosed? This condition can be diagnosed with: A digital rectal exam. For this exam, a health care provider inserts a gloved finger into the rectum to feel the prostate gland. A blood test called a prostate-specific antigen (PSA) test. A procedure in which a sample of tissue is taken from the prostate and checked under a microscope (prostate biopsy). An imaging test called transrectal ultrasonography. Once the condition is diagnosed, tests will be done to determine how far the cancer has spread. This is called staging the cancer. Staging may involve imaging tests, such as a bone scan, CT scan, PET scan, or MRI. Stages of prostate cancer The stages of prostate cancer are as follows: Stage 1 (I). At this stage, the cancer is found in the prostate only. The cancer is not visible on imaging tests, and it is usually found by accident, such as during prostate surgery. Stage 2 (II). At this stage, the cancer is more advanced than it is in stage 1, but the cancer has not spread outside the prostate. Stage 3 (III). At this stage, the cancer has spread beyond the outer layer of the prostate to nearby tissues. The cancer may be found in the seminal vesicles, which are near the bladder and the prostate. Stage 4 (IV). At this stage, the cancer has spread to other parts of the body, such as the lymph nodes, bones, bladder, rectum, liver, or lungs. Prostate cancer grading Prostate cancer is also graded according to how the cancer cells look under a microscope. This is called the Preston score and the total score can range from 6 10, indicating how likely it is that the cancer will spread (metastasize) to other parts of the body. The higher the score, the greater the likelihood that the cancer will spread. Timothy 6 or lower: This indicates that the cancer cells look similar to normal prostate cells (well differentiated). Timothy 7: This indicates that the cancer cells look somewhat similar to normal prostate cells (moderately differentiated). Preston 8, 9, or 10: This indicates that the cancer cells look very different than normal prostate cells (poorly differentiated). How is this treated? Treatment for this condition depends on several factors, including the stage of the cancer, your age, personal preferences, and your overall health. Talk with your health care provider about treatment options that are recommended for you. Common treatments include: Observation for early stage prostate cancer (active surveillance). This involves having exams, blood tests, and in some cases, more biopsies. For some men, this is the only treatment needed. Surgery. Types of surgeries include: ?Open surgery (radical prostatectomy). In this surgery, a larger incision is made to remove the prostate. ?A laparoscopic radical prostatectomy. This is a surgery to remove the prostate and lymph nodes through several small incisions. It is often referred to as a minimally invasive surgery. ?A robotic radical prostatectomy. This is laparoscopic surgery to remove the prostate and lymph nodes with the help of robotic arms that are controlled by the surgeon. ?Cryoablation. This is surgery to freeze and destroy cancer cells. Radiation treatment. Types of radiation treatment include: ?External beam radiation. This type aims beams of radiation from outside the body at the prostate to destroy cancerous cells. ?Brachytherapy. This type uses radioactive needles, seeds, wires, or tubes that are implanted into the prostate gland. Like external beam radiation, brachytherapy destroys cancerous cells. An advantage is that this type of radiation limits the damage to surrounding tissue and has fewer side effects. Chemotherapy. This treatment kills cancer cells or stops them from multiplying. It kills both cancer cells and normal cells. Targeted therapy. This treatment uses medicines to kill cancer cells without damaging normal cells. Hormone treatment. This treatment involves taking medicines that act on testosterone, one of the male hormones, by: ?Stopping your body from producing testosterone. ?Blocking testosterone from reaching cancer cells. Follow these instructions at home: Lifestyle Do not use any products that contain nicotine or tobacco. These products include cigarettes, chewing tobacco, and vaping devices, such as e-cigarettes. If you need help quitting, ask your health care provider. Eat a healthy diet. To do this: ?Eat foods that are high in fiber. These include beans, whole grains, and fresh fruits and vegetables. ?Limit foods that are high in fat and sugar. These include fried or sweet foods. Treatment for prostate cancer may affect sexual function. If you have a partner, continue to have intimate moments. This may include touching, holding, hugging, and caressing your partner. Get plenty of sleep. Consider joining a support group for men who have prostate cancer. Meeting with a support group may help you learn to manage the stress of having cancer. General instructions Take ngyk-vyx-qidtfgu and prescription medicines only as told by your health care provider. If you have to go to the hospital, notify your cancer specialist (oncologist). Keep all follow-up visits. This is important. Where to find more information [place] [employer]: www.cancer.org [place] [employer] Oncology: www.cancer.net National Cancer [place]: www.cancer.gov Contact a health care provider if: You have new or increasing trouble urinating. You have new or increasing blood in your urine. You have new or increasing pain in your hips, back, or chest. Get help right away if: You have weakness or numbness in your legs. You cannot control urination or your bowel movements (incontinence). You have chills or a fever. Summary The prostate is a small gland that is involved in the production of semen. It is located below a man's bladder, in front of the rectum. Prostate cancer is the abnormal growth of cells in the prostate gland. Treatment for this condition depends on the stage of the cancer, your age, personal preferences, and your overall health. Talk with your health care provider about treatment options that are recommended for you. Consider joining a support group for men who have prostate cancer. Meeting with a support group may help you learn to manage the stress of having cancer. This information is not intended to replace advice given to you by your health care provider. Make sure you discuss any questions you have with your health care provider. Document Revised: 07/12/2021 Document Reviewed: 07/12/2021 [email or web address] Patient Education 2022 [employer]. Follow Up Care 12/28/2022 13:08:18 With:BRANDIN LESLIE, Felix Burt, URL Address: [facility] [address] , [place] [address]- [phone] When:Within 6 Month(s) Comments:6 mo fu with Emir HWANG [facility] 12-28-2022 Hospital Discharge instructions Patient Education 12/28/2022 [...] urethra. Follow these instructions at home: Take aptp-bgu-vxbiszz and prescription medicines only as told by [...] provider. Document Revised: 11/01/2021 Document Reviewed: 11/01/2021 [email or web address] Patient Education 2022 [employer]. Follow Up Care 06/11/2022 10:38:13 With:BRANDIN LESLIE, Felix Burt, URL Address: [facility] [address] [place] [address]- When:Within 6 Month(s) Comments:w/ Emir and PSA [facility] [place] 06-11-2022 Hospital Discharge instructions Patient Education 06/11/2022 [...] urethra. Follow these instructions at home: Take txzd-sqe-krjmmtx and prescription medicines only as told by [...] 04/15/2006 Document Revised: 03/10/2019 Document Reviewed: 05/20/2017 [email or web address] Patient Education 2020 [employer]. Follow Up Care 06/04/2022 15:22:48 With:BRANDIN LESLIE, Felix Burt, URL Address: [facility] [address] , [place] [address]- When: Unknown [facility] 06-04-2022 Hospital Discharge instructions Patient Education 06/04/2022 08:42:54 Brachytherapy for [...] including vitamins, herbs, eye drops, creams, and ajxk-yhw-cihvuxg medicines. Any problems you or family members [...] 2006 Document Revised: 03/28/2018 Document Reviewed: 04/24/2017 [email or web address] Patient Education 2020 [employer]. Follow Up Care 12/04/2021 11:01:41 With:BRANDIN LESLIE, Felix Burt, URL Address: [facility] [address] [place] [address] [phone] When: Unknown [facility] 12-04-2021 Hospital Discharge instructions Patient Education 12/04/2021 [...] urethra. Follow these instructions at home: Take bwan-aln-cnibmib and prescription medicines only as told by [...] 04/15/2006 Document Revised: 03/10/2019 Document Reviewed: 05/20/2017 [email or web address] Patient Education 2020 [employer]. Follow Up Care 06/05/2021 10:59:07 With:Felix COLIN MD, URL Address: [facility] [address] , [place] [address]- [phone] When:Within 6 Month(s) [facility] Evaluation + Plan note Future Appointments Appointment Date:05/25/2022 09:45:00 AM Scheduled Provider:Felix COLIN MD Location:[facility] Appointment Type:URO Office Visit Diagnostic Tests PendingPSA Total 12/04/21 [facility] Evaluation + Plan note Future Appointments Appointment Date:06/11/2022 09:30:00 AM Scheduled Provider:[facility]IN MD [facility] App[facility] Type:URO Office Visit Diagnostic Tests PendingCreatinine 06/04/22Urine Cytology ([facility]) 06/04/22 [facility] Evaluation + Plan note Future Appointments Appointment Date:12/17/2022 10:45:00 AM Scheduled Provider:Felix COLIN MD Location:[facility] Appointment Type:URO Office Visit Diagnostic Tests PendingPSA Total 06/11/22 [facility] Evaluation + Plan note Future Appointments Appointment Date:07/12/2023 08:30:00 AM Scheduled Provider:Felix COLIN MD Location:[facility] Appointment Type:URO Office Visit Diagnostic Tests PendingPSA Total 12/28/22 [facility] [employer] Evaluation + Plan note Future Appointments Appointment Date:12/20/2023 09:30:00 AM Scheduled Provider:Felix COLIN MD Location:[facility] Appointment Type:URO Office Visit Diagnostic Tests PendingPSA Total 07/01/23 [facility] Hospital course Narrative No data available for this section [facility] [employer] Progress note No data available for this section [facility] [employer] Summary Purpose Family History No Family History Records FoundNo Family History Records FoundNo Family History Records Found No data available for this section Advance Directives No Advanced Directives Records FoundNo Advanced Directives Records FoundNo Advanced Directives Records Found Additional Source Comments Care Team (unrecognized sect ion and content) Personnel Name: ADALBERTO WHEATLEY MD Address: [address] [place] [address] Personnel Name: ADALBERTO WHEATLEY MD Address: Address: [address] [place] [address] Personnel Name: ADALBERTO WHEATLEY MD Address: Address: [address] [place] [address] Personnel Name: ADALBERTO WHEATLEY MD Address: Address: [address] [place] [address] Personnel Name: ADALBERTO WHEATLEY MD Address: Address: [address] [place] [address] (unrecognized sect ion and content) No Status Records FoundNo Status Records FoundNo Status Records Found INFORMATION SOURCE (unrecogn ized section and content) DATE CREATED AUTHOR 06/08/2022 [facility] DATE CREATED AUTHOR AUTHOR'S ORGANIZ ATION 07/04/2022 [facility] [place] [facility] DATE CREATED AUTHOR AUTHOR'S ORGANIZ ATION 07/01/2023 [place] FOR RECORDS PERTAINING TO PATIENTS WHO ARE [...] BE BASED ON THE PRIMARY CLINICAL RECORDS. [facility]. provides no warranty or guarantee of the accuracy or completeness of information in this document.
--- NOTE | 2023-12-08 10:38 | XR_ITS ---
The [address] [address] Patient Name: TIFFANIE WELLS MRN: [id number] date: 1935 Sex: M Assigned Patient Location: ER Current Patient Location: ER Accession/Order Number: [id number] Exam Date: 12/08/2023 10:48 Report Date: 12/08/2023 11:37 At the request of: CALVIN MCKENZIE Procedure: XR chest 1V PROCEDURE: XR chest 1V DATE: 12/08/2023 9:48 AM CDT COMPARISONS: Chest x-ray and CT chest 05/26/2022 CLINICAL INDICATION: 88 years Male Chest pain FINDINGS: The heart is mild to moderately prominent and stable. There is mild diffuse increased interstitial markings throughout all lung salcedo similar to previous exam likely representing some chronic lung changes. There is no consolidating infiltrates to suggest pneumonia. There is no evidence of pleural effusion or pneumothorax. XR/XR chest 1V IMPRESSION: Chest has a similar appearance to a chest x-ray and CT dating back to 05/26/2022 Electronically authenticated by: DIOGENES WILSON Date: 12/08/2023 11:37
--- NOTE | 2023-12-08 10:38 | ECG_ITS ---
[facility] Test Date: 2023-12-08 Pat Name: TIFFANIE WELLS Department: Room: - Gender: Male Inspector Wreath: : 1935 Requested By: ADALBERTO WHEATLEY Order Number: [id number] Reading MD: JORGE SHEPARD Measurements Intervals [place] Rate: 67 P: 47 IN: 178 QRS: 37 QRSD: 114 T: 42 QT: 402 QTc: 417 Interpretive Statements 1100 Sinus rhythm 1570 with occasional ventricular premature complexes 2320 Nonspecific intraventricular conduction delay 9140 abnormal rhythm ECG Compared to ECG 05/27/2022 15:15:12 Ventricular premature complex(es) now present Intraventricular conduction delay now present Atrial fibrillation no longer present ST (T wave) deviation no longer present Electronically Signed On 12-09-2023 8:31:54 EDT by JORGE SHEPARD
--- NOTE | 2023-12-08 10:38 | ED_ITS ---
HPI - Chest Pain General Chief Complaint: Chest Pain Stated Complaint: CHEST PAIN Time Seen by Provider: 12/08/23 10:34 Source: patient Mode of arrival: Wheelchair Limitations: no limitations History of Present Illness HPI narrative: 88-year-old male presented for chest pain. It has been continuously all over his chest since about 4:00 this morning. It woke him up. No fever or cough. He does not complain of back pain. He has no history of CAD. It feels like a pressure. Related Data Home Medications ?Medication ?Instructions ?Recorded ?Confirmed apixaban 5 mg tablet (Eliquis) 5 mg PO BID 12/08/23 12/08/23 levothyroxine 75 mcg tablet 75 mcg PO DAILY 12/08/23 12/08/23 metoprolol tartrate 25 mg tablet 25 mg PO BID 12/08/23 12/08/23 Allergies Allergy/AdvReac Type Severity Reaction Status Date / Time No Known Drug Allergies Allergy Verified 12/08/23 10:33 Review of Systems ROS Narrative A ten point review of systems is negative except as noted above. Exam Narrative Exam Narrative: Nurses note and vital signs reviewed and patient is not hypoxic. General: The patient appears well and in no apparent distress. Patient is resting comfortably on cart. Skin: Warm, dry, no pallor noted. There is no rash noted. Head: Normocephalic, atraumatic Eye: Normal conjunctiva, no drainage Ears, Nose, Mouth, and Throat: oral mucosa is moist. Nares patent. Cardiovascular: Regular rate and rhythm Respiratory: Patient is in no distress, no accessory muscle use, lungs are clear to auscultation, no wheezing, rales or rhonchi Back: non-tender GI: Soft and nontender Musculoskeletal: The patient has no evidence of calf tenderness, no pitting edema, symmetrical pulses noted bilaterally Neurological: Awake and alert Psychiatric: Cooperative Constitutional Vital Signs, click to edit/add: Last Vital Signs Temp 98.4 F 12/08/23 10:29 Pulse 68 12/08/23 13:00 Resp 21 H 12/08/23 13:00 BP 156/68 H 12/08/23 11:32 Pulse Ox 87 L 12/08/23 13:00 Course Vital Signs Vital signs: Vital Signs Pulse Rate 70 12/08/23 10:28 Respiratory Rate 27 H 12/08/23 10:28 Pulse Oximetry 94 L 12/08/23 10:28 Temperature 98.4 F 12/08/23 10:29 Pulse Rate 68 12/08/23 13:00 Respiratory Rate 21 H 12/08/23 13:00 Blood Pressure 156/68 H 12/08/23 11:32 Pulse Oximetry 87 L 12/08/23 13:00 MDM - Chest Pain MDM Narrative Medical decision making narrative: 2 troponins are negative and CTA is negative. His symptoms are concerning and he will be admitted for observation. Findings are discussed with the patient. Differential Diagnosis Differential diagnosis: Likely pneumothorax, unstable angina pectoris, atypical chest pain, st elevation myocardial infarction and other (Pulmonary embolus) Lab Data Attestation: I reviewed the patient's lab results. Labs: Lab Results 12/08/23 12/08/23 12/08/23 Range/Units 10:40 11:35 13:18 WBC 11.6 H (4.0-11.0) 10^3/uL RBC 3.95 L (4.70-6.10) 10^6/uL Hgb 12.7 L (14.0-18.0) g/dL Hct 38.8 L (42.0-54.0) % MCV 98.2 H (80.0-94.0) fL MCH 32.2 (25.9-34.0) pg MCHC 32.7 (29.9-35.2) g/dL RDW 13.2 (11.0-15.0) % Plt Count 183 (150-450) 10^3/uL MPV 11.3 (9.5-13.5) fL Neut % (Auto) 69.1 (43.0-75.0) % Lymph % (Auto) 18.4 L (20.5-60.0) % Mcduffie % (Auto) 9.1 (1.7-12.0) % Eos % (Auto) 2.8 (0.9-7.0) % Baso % (Auto) 0.3 (0.2-2.0) % Neut # (Auto) 8.0 H (1.4-6.5) 10^3/uL Lymph # (Auto) 2.1 (1.2-3.8) 10^3/uL Mcduffie # (Auto) 1.1 H (0.3-0.8) 10^3/uL Eos # (Auto) 0.3 (0.0-0.7) 10^3/uL Baso # (Auto) 0.0 (0.0-0.1) 10^3/uL Abs Immat Gran (auto) 0.03 (0.00-0.03) 10^3/uL Imm/Tot Granulo (auto) 0.3 (0.0-0.5) % D-Dimer 0.91 H* (<=0.59) mg/L FEU Sodium 140 (136-145) mmol/L Potassium 4.2 (3.5-5.1) mmol/L Chloride 103 (98-107) mmol/L Carbon Dioxide 27.7 (21.0-32.0) mmol/L Anion Gap 13.5 BUN 23.0 H (7.0-18.0) mg/dL Creatinine 0.86 (0.70-1.30) mg/dL Est GFR ( Amer) >60 (>=60) Est GFR (Non-Af Amer) >60 (>=60) BUN/Creatinine Ratio 26.7 Glucose 105 (74-106) mg/dL Calcium 10.0 (8.5-10.1) mg/dL Total Bilirubin 1.0 (0.2-1.0) mg/dL Direct Bilirubin 0.2 (0.0-0.2) mg/dL AST 23 (15-37) U/L ALT 36 (16-63) U/L Alkaline Phosphatase 100 (46-116) U/L Troponin I High Sens 5.7 4.7 (4.0-76.1) pg/mL NT-Pro-B Natriuret Pep 290.0 (<=1800.0) pg/mL Total Protein 7.7 (6.4-8.2) g/dL Albumin 3.7 (3.4-5.0) g/dL Globulin 4.0 g/dL Albumin/Globulin Ratio 0.9 TSH 1.700 (0.358-3.740) uIU/mL Thyroxine (T4) 7.40 (4.50-12.10) ug/dL Urine Color Lt. yellow (YELLOW) Urine Clarity Clear (CLEAR) Urine pH 6.5 (5.0-9.0) Ur Specific Callahan 1.015 (1.005-1.025) Urine Protein Negative (NEG/TRACE) mg/dL Urine Glucose (UA) Negative (NEGATIVE) mg/dL Urine Ketones Negative (NEGATIVE) mg/dL Urine Occult Blood Trace-i (NEGATIVE) Urine Nitrite Negative (NEGATIVE) Urine Bilirubin Negative (NEGATIVE) Urine Urobilinogen 0.2 (0.2-1.0) EU/dL Ur Leukocyte Esterase Negative (NEGATIVE) Urine RBC 0-2 (0-2) #/HPF Urine WBC None seen (NONE SEEN) #/HPF Ur Squamous Epith Cells Rare (NONE/RARE) #/LPF Urine Crystals None seen (None Seen) #/HPF Urine Bacteria None seen (NONE SEEN) #/HPF Urine Casts None seen (NONE SEEN) #/LPF Urine Mucus None seen (NONE SEEN) Imaging Data Chest x-ray: Radiologist's impression: ITS Impressions Chest X-Ray 12/08/23 10:38 IMPRESSION: Chest has a similar appearance to a chest x-ray and CT dating back to 05/26/2022 Electronically authenticated by: DIOGENES WILSON Date: 12/08/2023 11:37 Chest CTA 12/08/23 12:24 IMPRESSION: 1. No evidence of acute pulmonary embolic disease. 2. No pulmonary infiltrate. Probable element of pulmonary fibrosis. 3. No pleural effusion. Electronically authenticated by: JAVI ESTRADA Date: 12/08/2023 14:14 ECG Data Attestation: I personally reviewed and interpreted this ECG as follows: (EKG on my interpretation shows sinus rhythm with PVCs. No ST segment changes.) Heart Score History: Highly Suspicious ECG: Normal Age: >65 years Risk Factors: >3 Risk Factors/ HX of CAD:2 Troponin: <Normal Limit Total Heart Score Recommendations & Risks:: 6 Discharge Plan Discharge Chief Complaint: Chest Pain Clinical Impression: Chest pain Patient Disposition: Admitted as Observation Time of Disposition Decision: 14:30 Condition: Good Prescriptions / Home Meds: No Action Eliquis 5 mg tablet 5 mg PO BID levothyroxine 75 mcg tablet 75 mcg PO DAILY metoprolol tartrate 25 mg tablet 25 mg PO BID Print Language: Lithuanian Referrals: Santiago Castañeda MD [Primary Care Provider] - 1 week
--- NOTE | 2023-12-08 10:46 | PC.NURSE ---
patient here with c/o chest pain that woke him up from sleep at 0400 today. patient noted to be shaking. patient reports that he does have history of atrial fibrillation, patient currently on eliquis.
[2023-12-08 11:01] LABS: Basophils Percent Auto 0.3 % (0.2-2.0); Eosinophils Absolute Auto 0.3 10^3/uL (0.0-0.7); Eosinophils Percent Auto 2.8 % (0.9-7.0); Hematocrit 38.8 % (42.0-54.0); Hemoglobin 12.7 g/dL (14.0-18.0); Immature Granulocytes Abs Auto 0.03 10^3/uL (0.00-0.03); Immature Granulocytes Pct Auto 0.3 % (0.0-0.5); Lymphocytes Absolute Auto 2.1 10^3/uL (1.2-3.8); Lymphocytes Percent Auto 18.4 % (20.5-60.0); Mean Corpuscular HGB Conc 32.7 g/dL (29.9-35.2); Mean Corpuscular Hemoglobin 32.2 pg (25.9-34.0); Mean Corpuscular Volume 98.2 fL (80.0-94.0); Mean Platelet Volume 11.3 fL (9.5-13.5); Monocytes Absolute Auto 1.1 10^3/uL (0.3-0.8); Monocytes Percent Auto 9.1 % (1.7-12.0); Neutrophils Percent Auto 69.1 % (43.0-75.0); Platelet Count 183 10^3/uL (150-450); Red Blood Count 3.95 10^6/uL (4.70-6.10); Red Cell Distribution Width 13.2 % (11.0-15.0); White Blood Count 11.6 10^3/uL (4.0-11.0)
[2023-12-08 11:16] LABS: Anion Gap 13.5; BUN Creatinine Ratio 26.7; Carbon Dioxide 27.7 mmol/L (21.0-32.0); Chloride 103 mmol/L (98-107); Estimated GFR (African America >60 (>=60); Estimated GFR (Non-African Ame >60 (>=60); Glucose 105 mg/dL (74-106); Potassium 4.2 mmol/L (3.5-5.1); Sodium 140 mmol/L (136-145); Troponin I High Sensitivity 5.7 pg/mL (4.0-76.1)
[2023-12-08] MEDS: ASPIRIN 81 MG TAB.CHEW PO (11:32)
[2023-12-08 12:00] LABS: Troponin I High Sensitivity 4.7 pg/mL (4.0-76.1)
--- NOTE | 2023-12-08 12:04 | P.HP_ITS ---
HPI H&P: HPI History of Present Illness Chief complaint: CHEST PAIN Narrative: Patient woke this morning with a fairly acute onset of chest pain and shortness of breath. No diaphoresis no nausea, pain did radiate into the left shoulder and arm When I saw patient in the emergency room, he states that shoulder pain is better still pain, worse with deep breathing, more pressure type has not had any building up type symptoms. He has been able to do his normal activities the last several days. He did state a couple days ago he did have some swelling in his legs but he thought that was from being outside and more on his feet Opioid HPI Opioid Management Most Recent Pain and Opioid Data: No Data to Display Review of Systems ROS Status of ROS 10 or more systems reviewed and unremark able except as noted in history and below Meds Home Medications and Allergies Home Medications ?Medication ?Instructions ?Recorded ?Confirmed ?Type apixaban 5 mg tablet (Eliquis) 5 mg PO BID 12/08/23 12/08/23 History levothyroxine 75 mcg tablet 75 mcg PO DAILY 12/08/23 12/08/23 History metoprolol tartrate 25 mg tablet 25 mg PO BID 12/08/23 12/08/23 History Allergies Allergy/AdvReac Type Severity Reaction Status Date / Time No Known Drug Allergies Allergy Verified 12/08/23 10:33 Exam Constitutional Vital Signs, click to edit/add: Last Vital Signs Temp 98.4 F 12/08/23 10:29 Pulse 66 12/08/23 10:29 Resp 24 H 12/08/23 10:29 BP 168/80 H 12/08/23 10:29 Pulse Ox 98 12/08/23 10:29 Documenting provider has reviewed patient's vital signs: yes Common normals: no apparent distress Chest Common normals: inspection of chest normal and palpation of chest normal Respiratory Common normals: normal respiratory effort, no retractions and clear to auscultation bilaterally Cardio Common normals: regular rate, regular rhythm and no murmurs GI Common normals: Normal to inspection, nondistended, normoactive bowel sounds present, soft to palpation and non-tender Extremity Common normals: normal to inspection, full ROM, normal capillary refill and no clubbing, cyanosis or edema Results Labs Labs: Short CBC 12/08/23 Range/Units 10:40 WBC 11.6 H (4.0-11.0) 10^3/uL Hgb 12.7 L (14.0-18.0) g/dL Hct 38.8 L (42.0-54.0) % Plt Count 183 (150-450) 10^3/uL [facility] 12/08/23 10:40 Sodium 140 Potassium 4.2 Chloride 103 Carbon Dioxide 27.7 BUN 23.0 H Creatinine 0.86 Glucose 105 Calcium 10.0 Assessment and Plan Assessment and Plan (1) Hyperbilirubinemia: (2) Hypothyroidism: (3) Atrial fibrillation: (4) Chest pain: Plan Admission findings: EKG with multiple PVCs, respiratory distress, uncontrolled hypertension-resulting in chest pain. With symptoms consistent with coronary artery disease, patient will be admitted to the medical surgical floor on telemetry. Chest pain-pressure type with left arm pain and shortness of breath. So far is improving once blood pressure is improved. Adjust blood pressure medication, cardiac markers, echocardiogram in a.m., place patient on telemetry, with pleuritic nature, would give 1 dose of Decadron Frequent PVCs-so far unifocal-monitor on telemetry Hypertension-blood pressure elevated on admission and this is after taking his morning blood pressure medication, will give 25 mg extra metoprolol now and then 50 twice daily Edema-this was a couple days ago and is essentially resolved now, check BNP Atrial fibrillation by history-rate controlled and is currently in normal sinus rhythm-maintain oacqlliezawnvoa-C-jvaxn is pending, if positive will do CTA, patient already anticoagulated Hyperbilirubinemia-check liver profile Hypothyroidism recent medication dose adjustment-check TSH and T4 to ensure normal levels Iron deficiency anemia-monitor daily Mild leukocytosis without URI type symptoms-monitor daily Admission status: So far cardiac testing has been unremarkable other than his symptomatology, will admit him overnight, serial markers, echocardiogram, if improved tomorrow possible discharge, medically necessary treatment currently looks like will only span 1 midnight, and observation status
[2023-12-08 12:22] LABS: D Dimer 0.91 mg/L FEU (<=0.59)
--- NOTE | 2023-12-08 12:24 | CT_ITS ---
[address] [address] Patient Name: TIFFANIE WELLS MRN: [id number] date: 1935 Sex: M Assigned Patient Location: ER Current Patient Location: ED.MAIN Accession/Order Number: [id number] Exam Date: 12/08/2023 12:40 Report Date: 12/08/2023 14:14 At the request of: CALVIN MCKENZIE Procedure: CT angio chest CT CHEST ANGIOGRAPHY FOR PULMONARY EMBOLUS: 12/08/2023 12:40 PM EDT Clinical Data: Chest pain, elevated D-dimer Comparison: No previous Contrast enhanced helically acquired data per pulmonary CTA protocol. Volumetric recons in MIP mode were generated and reviewed. FINDINGS: AXILLAE: No acute finding. SUPRACLAVICULAR: No acute finding. MEDIASTINUM: Small amount of fluid superior pericardial recess. A few nonenlarged anterior mediastinal nodes. YOLY: Tg tissue bilaterally is a little greater on the right than the left. HEART: Mild cardiomegaly. No pericardial effusion. VASCULAR: SYSTEMIC: No thoracic aortic aneurysm. PULMONARY: Main pulmonary artery is clear. Right and left pulmonary arteries are clear. Their proximal through mid branches are free of meniscal filling defects LUNGS: Mild thin increased markings peripherally in both lungs. Mild hypoventilatory changes towards the bases. PLEURA: No pleural effusion. No pneumothorax. CHEST WALL: No focal soft tissue prominence. BONES: No acute finding. UPPER ABD: No acute finding OTHER: None CT/CT angio chest IMPRESSION: 1. No evidence of acute pulmonary embolic disease. 2. No pulmonary infiltrate. Probable element of pulmonary fibrosis. 3. No pleural effusion. Electronically authenticated by: JAVI ESTRADA Date: 12/08/2023 14:14
[2023-12-08 12:38] LABS: Alanine Aminotransferase 36 U/L (16-63); Albumin Globulin Ratio 0.9; Albumin Level 3.7 g/dL (3.4-5.0); Alkaline Phosphatase 100 U/L (46-116); Aspartate Amino Transferase 23 U/L (15-37); Bilirubin Direct 0.2 mg/dL (0.0-0.2); Total Protein 7.7 g/dL (6.4-8.2)
[2023-12-08 13:48] LABS: Bilirubin Urine NEGATIVE (NEGATIVE); Blood Urine TRACE-I (NEGATIVE); Clarity Urine CLEAR (CLEAR); Color Urine LT. YELLOW (YELLOW); Glucose Urine UA NEGATIVE (NEGATIVE); Ketones Urine NEGATIVE (NEGATIVE); Leukocyte Esterase Urine NEGATIVE (NEGATIVE); Nitrite Urine NEGATIVE (NEGATIVE); Protein Urine NEGATIVE (NEG/TRACE); Specific Gravity Urine 1.015 (1.005-1.025); Urobilinogen Urine 0.2 EU/dL (0.2-1.0); pH Urine 6.5 (5.0-9.0)
[2023-12-08 13:56] LABS: RBC Urine 0-2 #/HPF (0-2); WBC Urine NONE SEEN #/HPF (NONE SEEN)
[2023-12-08 13:57] LABS: Bacteria Urine NONE SEEN #/HPF (NONE SEEN); Cast Seen? NONE SEEN #/LPF (NONE SEEN); Crystals Seen? None Seen #/HPF (None Seen); Mucus Urine NONE SEEN (NONE SEEN); Squamous Epithelial Cell Urine RARE #/LPF (NONE/RARE)
--- OUTSIDE RECORDS SUMMARY | 2023-12-08 14:45 | XMS_ITS | CCD ---
Author Organization [facility] Care Team Providers Care Business Librarian Name Role Phone ADALBERTO WHEATLEY Primary Care Physician [phone] DIONI, DR ADALBERTO Ramos Primary Care Unavailable [...] Ramos Primary Care Unavailable COLIN ., DR OTREGA Consulting Unavailable FRANCES, HAYDEE Consulting Unavailable COLIN [...] Medication Allergies] Propensity to adverse reactions (disorder) [facility] Repository Medications Current Medications Medication Drug [...] Daily, # 90 tab(s), Refills(s) 3, Pharmacy: [facility], 182, cm, 12/04/21 10:02:00 EDT, Height/Length [...] procedure, # 2 cap(s), Refills(s) 0, Pharmacy: [facility], 182, cm, 06/04/22 14:07:00 EST, Height/Length [...] Onset: 05-26-2022 Episodic Other aftercare (1 source) senior living (current) use of anticoagulants; Translations: [MCC CURRNT USE ANTICOAGULANTS] Onset: 07-03-2022 Episodic Other aftercare (1 source) Other houseman (current) drug therapy; Translations: [OTH DECORATING CONSULTANT CURRENT DRUG THERAPY] Onset: 07-03-2022 Episodic Other [...] Felix COLIN MD Where: [facility] Ambulatory Visit Summary TIFFANIE WELLS R [...] [facility] [address], [place] [address]- [phone] Medications What How Much When Instructions Unchanged [...] prostate ca (more content not included)... Normal [facility] Patient Educationon 07-01-19 24 Patient Education Oncology [...] to normal prostate cells (moderately differentiated). ? [place] 8, 9, or 10: This indicates that [...] external be (more content not included)... Normal [facility] Urology Office/Clinic Noteon 07-01-2023 Urology Office/Clinic Note [...] involved, 1/1 core. Right lateral mid - [place] 7 (3+4), tumor measure 0.25 cm in [...] [facility] [address], [place] [phone] Additional Instructions: 6 mo fu with PSA, [...] refills Ryanne (more content not included)... Normal [facility] Comment on above: Result Comment: Elec tronically Signed By: Felix COLIN MD\.br\Date and Time Signed: 07/01/23 10:49 EST\.br\Electronically Co-Signed By: Elza uGnn\.br\Date and Time Co-Signed: 07/01/23 10:48 EST Lab Reportson 06-25-2023 Lab Reports [id number] IFF Normal [facility] Lab Reportson 01-06-2023 Lab Reports [id number] D:127 Normal [facility] Ambulatory Visit Summaryon 0 12-28-2022 Ambulatory [...] Where: [facility] [address] , [place] [address]- Medications What How Much When Instructions Unchanged [...] produce a (more content not included)... Normal [facility] Patient Educationon 12-29-19 Patient Education Urology [...] Follow these instructions at home: ? Take syik-aba-xzhcyae and prescription medicines only as told by [...] the medicine (more content not included)... Normal [facility] Urology Office/Clinic Noteon 12-28-2022 Urology Office/Clinic [...] involved, 1/1 core. Right lateral mid - [place] 7 (3+4), tumor measure 0.25 cm in [...] [facility] [address], [place] [address]- Additional Instructions: w/ Lupron and PSA Patient [...] No Known (more content not included)... Normal [facility] Comment on above: Result Comment: Elec tronically Signed By: Felix COLIN MD\.br\Date and Time Signed: 12/28/22 13:00 EDT\.br\Electronically Co-Signed By: Mimi Donaldsonbr\Date and Time Co-Signed: 12/28/22 12:59 EDT Pre-Certification Formon Pre-Certification Form [id number] CD:127 Normal [facility] Operative Reporton 3 Operative Report [id number] D:127 Normal [facility] Operative Reporton 3 Operative Report [id number] D:127 Normal [facility] [address] ABD/PELV WO W CONon 06-21 [...] by: HAYDEE DANIELS Date: 2022-06-21 14:41 Normal [facility] 36on 06-07-2022 36 Spoke with patient t o schedule a follow up with Dr. Maloney after event monitor per Octavia Velez. He said he is leaving this up to his PCP, Dr. Wheatley. I told him if he needs us or changes his mind, he can always call us. He verbalized understanding. Normal [facility] ECHOCARDIO M/2D COMPLETEon 0 05-28-2022 ECHOCARDIO M/2D COMPLETE Patient: TIFFANIE WELLS Exam Date: 05/28/2022 : 1935 Gender:M Ordering : SHAIKH Shaan RODRIGUEZ . Admission #: [id number] Family : DR ADALBERTO WHEATLEY . Order #: [id number] CLICK HERE TO VIEW EXAM ECHOCARDIOGRAM REPORT [...] Area (VTI): 3.24 cm2, 3.24 cm2 Deceleration Dawson: 2.89 m/s2 Pressure Half-Time: 532.36 ms Peak [...] Royal M.D. on 05/28/2022 at 13:16 Normal [facility] NM STRESS/REST MULTIon 05-28 NM STRESS/REST MULTI Patient: TIFFANIE WELLS Exam Date: 05/28/2022 : 1935 Gender:M Ordering : SHAIKH Shaan RODRIGUEZ . Admission #: [id number] Family : DR ADALBERTO WHEATLEY . Order #: [id number] CLICK HERE TO VIEW EXAM RADIOLOGY REPORT [...] on 05/29/2022 at 07:30 Approved by: Noe Bernarod M.D. on 05/29/2022 at 07:35 Normal [facility] MAGNESIUMon 05-27-2022 Magnesium [Mass/Vol] 1.8 mg/dL Normal 1.8-2.4 [facility] Comment on above: Performed By: #### P SAD #### [facility] [address] [address] [address] Otilio Rich PROF 14(COMP METB)on 023 Albumin [Mass/Vol] 3.1 g/dL Critically low 3.4-5.0 [facility] Comment on above: Performed By: #### T SH, CMP #### [facility] [address] [place] [address] Dr. Otilio Rich Albumin/Globulin [Mass ratio] 0.7 {ratio} Normal [facility] Comment on above: Performed By: #### T SH, CMP #### [facility] [address] [place] [address] Dr. Otilio Rich ALP [Catalytic activity/Vol] 87 U/L Normal 46-116 [facility] Comment on above: Performed By: #### T SH, CMP #### [facility] [address] [place] [address] Dr. Otilio Rich ALT [Catalytic activity/Vol] 26 U/L Normal 16-63 [facility] Comment on above: Performed By: #### T SH, CMP #### [facility] [address] [place] [address] Dr. Otilio Rich Anion gap [Moles/Vol] 13.6 mmol/L Normal [facility] Comment on above: Performed By: #### T SH, CMP #### [facility] [address] [place] [address] Dr. Otilio Rich AST [Catalytic activity/Vol] 16 U/L Normal 15-37 [facility] Comment on above: Performed By: #### T SH, CMP #### [facility] [address] [place] [address] Dr. Otilio Rich Bilirubin [Mass/Vol] 1.5 mg/dL Critically high 0.2-1.0 [facility] Comment on above: Performed By: #### T SH, CMP #### [facility] [address] [place] [address] Dr. Otilio Rich Calcium [Mass/Vol] 9.7 mg/dL Normal 8.5-10.1 [facility] Comment on above: Performed By: #### T SH, CMP #### [facility] [address] [address] [address] Otilio Rich Chloride [Moles/Vol] 102 mmol/L Normal 98-107 [facility] Comment on above: Performed By: #### T SH, CMP #### [facility] [address] [address] [address] Otilio Rich CO2 [Moles/Vol] 26.5 mmol/L Normal 21.0-32.0 [facility] Comment on above: Performed By: #### T SH, CMP #### [facility] [address] [place] [address] Dr. Otilio Rich Creatinine [Mass/Vol] 0.88 mg/dL Normal 0.70-1.30 [facility] Comment on above: Performed By: #### T SH, CMP #### [facility] [address] [place] [address] Dr. Otilio Rich EGFR-AF MARTINIQUAIS >60 Normal >=60 [facility] Comment on above: Performed By: #### T SH, CMP #### [facility] [address] [place] [address] Dr. Otilio Rich EGFR-NON AF MARTINIQUAIS >60 Normal >=60 [facility] Comment on above: Performed By: #### T SH, CMP #### [facility] [address] [place] [address] Dr. Otilio Rich Globulin (S) [Mass/Vol] 4.2 g/dL Normal [facility] Comment on above: Performed By: #### T SH, CMP #### [facility] [address] [place] [address] Dr. Otilio Rich Glucose [Mass/Vol] 105 mg/dL Normal 74-106 [facility] Comment on above: Performed By: #### T SH, CMP #### [facility] [address] [place] [address] Dr. Otilio Rich Potassium [Moles/Vol] 4.1 mmol/L Normal 3.5-5.1 [facility] Comment on above: Performed By: #### T SH, CMP #### [facility] [address] [address] [address] Otilio Rich Protein [Mass/Vol] 7.3 g/dL Normal 6.4-8.2 [facility] Comment on above: Performed By: #### T SH, CMP #### [facility] [address] [place] [address] Dr. Otilio Rich Sodium [Moles/Vol] 138 mmol/L Normal 136-145 [facility] Comment on above: Performed By: #### T SH, CMP #### [facility] [address] [place] [address] Dr. Otilio Rich Urea nitrogen [Mass/Vol] 19.0 mg/dL Critically high 7.0-18.0 [facility] Comment on above: Performed By: #### T SH, CMP #### [facility] [address] [place] [address] Dr. Otilio Rich Urea nitrogen/Creatinine [Mass ratio] 21.6 mg/mg Normal [facility] Comment on above: Performed By: #### T SH, CMP #### [facility] [address] [place] [address] Dr. Otilio Rich TSHon 05-27-2022 TSH 3.344 uIU/mL Normal 0.358-3.740 [facility] Comment on above: Performed By: #### P SAD #### [facility] [address] [place] [address] Dr. Otilio Rich CARDIAC RAMA 3-6on 3 CK [Catalytic activity/Vol] 60 U/L Normal 39-308 [facility] Comment on above: Performed By: #### C MREP #### [facility] [address] [place] [address] Dr. Otilio Rich CK.MB [Mass/Vol] ng/mL Normal <=3.60 [facility] Comment on above: Performed By: #### C MREP #### [facility] [address] [place] [address] Dr. Otilio Rich HSTROP 5.9 pg/mL Normal 4.0-76.1 [facility] Comment on above: Result Comment: CUT- OFF POINTS HAVE BEEN ESTABLISHED BASED ON THE FOURTH UNIVERSAL DEFINITIONS OF MYOCARDIAL INFARCTION. THE UPPER REFERENCE LIMIT (URL) OF TROPONIN, DEFINED THE 99TH PERCENTILE OF cTnI DISTRIBUTION IN A REFERENCE POPULATION, HAS BEEN CONFIRMED THE DECISION THRESHOLD FOR [place] DIAGNOSIS. Performed By: #### C MREP #### [facility] [address] [address] [address] Otilio Rich CK [Catalytic activity/Vol] 65 U/L Normal 39-308 [facility] Comment on above: Performed By: #### C MREP #### [facility] [address] [address] [address] Otilio DEGROOT.MB [Mass/Vol] ng/mL Normal <=3.60 [facility] Comment on above: Performed By: #### C MREP #### [facility] [address] [address] [address] Otilio Rich HSTROP 5.6 pg/mL Normal 4.0-76.1 [facility] Comment on above: Result Comment: CUT- OFF POINTS HAVE BEEN ESTABLISHED BASED ON THE FOURTH UNIVERSAL DEFINITIONS OF MYOCARDIAL INFARCTION. THE UPPER REFERENCE LIMIT (URL) OF TROPONIN, DEFINED THE 99TH PERCENTILE OF cTnI DISTRIBUTION IN A REFERENCE POPULATION, HAS BEEN CONFIRMED THE DECISION THRESHOLD FOR [place] DIAGNOSIS. Performed By: #### C MREP #### [facility] [address] [place] [address] Dr. Otilio Rich CARDIAC RAMA ADMITon 023 CK [Catalytic activity/Vol] 65 U/L Normal 39-308 [facility] Comment on above: Performed By: #### B CASSIE CMADM #### [facility] [address] [address] [address] Otilio DEGROOT.MB [Mass/Vol] 0.53 ng/mL Normal <=3.60 [facility] Comment on above: Performed By: #### B CASSIE, CMADM #### [facility] [address] [address] [address] Otilio Rich HSTROP 6.8 pg/mL Normal 4.0-76.1 [facility] Comment on above: Result Comment: CUT- OFF POINTS HAVE BEEN ESTABLISHED BASED ON THE FOURTH UNIVERSAL DEFINITIONS OF MYOCARDIAL INFARCTION. THE UPPER REFERENCE LIMIT (URL) OF TROPONIN, DEFINED THE 99TH PERCENTILE OF cTnI DISTRIBUTION IN A REFERENCE POPULATION, HAS BEEN CONFIRMED THE DECISION THRESHOLD FOR [place] DIAGNOSIS. Performed By: #### B CASSIE, CORIDM #### [facility] [address] [place] [address] Dr. Otilio Rich ABNER 56 ng/mL Normal 16-96 [facility] Comment on above: Performed By: #### B CASSIE, CORIDM #### [facility] [address] [place] [address] Dr. Otilio Rich CBC AUTO DIFFon 05-26-2022 BASO # 0.0 103/ul Normal 0.0-0.1 [facility] Comment on above: Performed By: #### P SAD #### [facility] [address] [place] [address] Dr. Otilio Rich Basophils/100 WBC (Bld) 0.3 % Normal 0.2-2.0 [facility] Comment on above: Performed By: #### P SAD #### [facility] [address] [place] [address] Dr. Otilio Rich EO # 0.4 103/ul Normal 0.0-0.7 [facility] Comment on above: Performed By: #### P SAD #### [facility] [address] [place] [address] Dr. Otilio Rich Eosinophils/100 WBC (Bld) 4.2 % Normal 0.9-7.0 [facility] Comment on above: Performed By: #### P SAD #### [facility] [address] [place] [address] Dr. Otilio Rich Erythrocyte distribution width (RBC) [Ratio] 11.9 % Normal 11.0-15.0 [facility] Comment on above: Performed By: #### P SAD #### [facility] [address] [place] [address] Dr. Otilio Rich Hematocrit (Bld) [Volume fraction] 37.3 % Critically low 42.0-54.0 [facility] Comment on above: Performed By: #### P SAD #### [facility] [address] [address] [address] Otilio Rich Hemoglobin (Bld) [Mass/Vol] 13.1 g/dL Critically low 14.0-18.0 [facility] Comment on above: Performed By: #### P SAD #### [facility] [address] [address] [address] Otilio Rich IG # 0.03 10e3/ul Normal 0.00-0.03 [facility] Comment on above: Performed By: #### P SAD #### [facility] [address] [place] [address] Dr. Otilio Rich IG % 0.3 % Normal 0.0-0.5 [facility] Comment on above: Performed By: #### P SAD #### [facility] [address] [place] [address] Dr. Otilio Rich LYMPH # 2.6 103/ul Normal 1.2-3.8 [facility] Comment on above: Performed By: #### P SAD #### [facility] [address] [place] [address] Dr. Otilio Rich Lymphocytes/100 WBC (Bld) 25.9 % Normal 20.5-60.0 [facility] Comment on above: Performed By: #### P SAD #### [facility] [address] [place] [address] Dr. Otilio Rihc MANUAL DIFF REQ NO Normal [facility] Comment on above: Performed By: #### P SAD #### [facility] [address] [place] [address] Dr. Otilio Rich MCH (RBC) [Entitic mass] 31.6 pg Normal 25.9-34.0 [facility] Comment on above: Performed By: #### P SAD #### [facility] [address] [place] [address] Dr. Otilio Rich MCHC (RBC) [Mass/Vol] 35.1 g/dL Normal 29.9-35.2 [facility] Comment on above: Performed By: #### P SAD #### [facility] [address] [address] [address] Otilio Rich MCV (RBC) [Entitic vol] 89.9 fL Normal 80.0-94.0 [facility] Comment on above: Performed By: #### P SAD #### [facility] [address] [address] [address] Otilio Rich MONO # 1.0 103/ul Critically high 0.3-0.8 [facility] Comment on above: Performed By: #### P SAD #### [facility] [address] [address] [address] Otilio Rich Monocytes/100 WBC (Bld) 10.4 % Normal 1.7-12.0 [facility] Comment on above: Performed By: #### P SAD #### [facility] [address] [address] [address] Otilio Rich NEUT # 5.8 103/ul Normal 1.4-6.5 [facility] Comment on above: Performed By: #### P SAD #### [facility] [address] [address] [address] Otilio Rich Neutrophils/100 WBC (Bld) 58.9 % Normal 43.0-75.0 [facility] Comment on above: Performed By: #### P SAD #### [facility] [address] [address] [address] Otilio Rich Platelet mean volume (Bld) [Entitic vol] 10.2 fL Normal 9.5-13.5 [facility] Comment on above: Performed By: #### P SAD #### [facility] [address] [address] [address] Otilio Rich PLT 185 103/ul Normal 150-450 [facility] Comment on above: Performed By: #### P SAD #### [facility] [address] [address] [address] Otilio Rich RBC 4.15 106/ul Critically low 4.70-6.10 [facility] Comment on above: Performed By: #### P SAD #### [facility] [address] [place], [place] [address] Dr. Otilio Rich WBC 9.8 103/ul Normal 4.0-11.0 [facility] Comment on above: Performed By: #### P SAD #### [facility] [address] [place], [place] [address] Dr. Otilio Rich CTA CHEST WO W [...] RAVEN BENDER Date: 2022-05-26 06:14 Normal [facility] Covid-19 PCR (CVDTB)on 04-30 SARS-CoV-2 (COVID-19) RNA MARCY+probe Ql (Unsp spec) Not detected Normal NOT DETECTED [facility] Comment on above: Result Comment: When [...] for this test is supported by the [place] of Health and Human Service's declaration that [...] used). Performed By: #### C VDTBH #### [facility] [address] [place] [address] Dr. Otilio Rich D-DIMERon 05-26-2022 D-DIMER 1.05 mg/L FEU Critically high <=0.59 [facility] Comment on above: Performed By: #### P SAD #### [facility] [address] [place] [address] Dr. Otilio Rich D-DIMER COMMENTS SEE BELOW Normal [facility] Comment on above: Result Comment: Incr [...] hospitalization. Performed By: #### P SAD #### [facility] [address] [place] [address] Dr. Otilio Rich GLYCOHEMOGLOBIN A1Con 2022 ADA RECOMMENDATION SEE BELOW Normal [facility] Comment on above: Result Comment: ADA RECOMMENDED LIMIT 4.0 - 6.0 ADA THERAPEUTIC TARGET < 7.0 ACTION SUGGESTED > 7.0 Performed By: #### A 1C #### [facility] [address] [address] [address] Otilio Rich Glucose [Mass/Vol] 111 mg/dL Normal [facility] Comment on above: Performed By: #### A 1C #### [facility] [address] [address] [address] Otilio Rich HbA1c (Bld) [Mass fraction] 5.5 % Normal 4.5-6.2 [facility] Comment on above: Performed By: #### A 1C #### [facility] [address] [place] [address] Dr. Otilio Rich LIPID PROFILEon 05-26-2022 CHOL-HDL RATIO NORM SEE BELOW Normal [facility] Comment on above: Result Comment: 3.3 - 4.4 LOW RISK 4.4 - 7.1 AVERAGE RISK 7.1 - 11.0 MODERATE RISK >11.0 HIGH RISK Performed By: #### L IPID #### [facility] [address] [place] [address] Dr. Otilio Rich Cholesterol [Mass/Vol] 187 mg/dL Normal <=200 [facility] Comment on above: Performed By: #### L IPID #### [facility] [address] [place] [address] Dr. Otilio Rich Cholesterol in HDL [Mass/Vol] 49 mg/dL Normal 40-60 [facility] Comment on above: Performed By: #### L IPID #### [facility] [address] [address] [address] Otilio Rich Cholesterol in LDL [Mass/Vol] 116.2 mg/dL Normal [facility] Comment on above: Performed By: #### L IPID #### [facility] [address] [place] [address] Dr. Otilio Rich Cholesterol.total/C holesterol in HDL [Mass ratio] 3.8 {ratio} Normal [facility] Comment on above: Performed By: #### L IPID #### [facility] [address] [place] [address] Dr. Otilio Rich HDL NORMAL > or = 60 mg/dl - LO W CARDIOVASCULAR RISK <40 mg/dl - HIGH CARDIOVASCULAR RISK Normal [facility] Comment on above: Performed By: #### L IPID #### [facility] [address] [address] [address] Otilio Rich LDL CALC NORMAL SEE BELOW Normal [facility] Comment on above: Result Comment: <100 mg/dl OPTIMAL 100 - 129 mg/dl NEAR OR ABOVE OPTIMAL 130 - 159 mg/dl BORDERLINE HIGH 160 - 189 mg/dl HIGH >190 mg/dl VERY HIGH Performed By: #### L IPID #### [facility] [address] [address] [address] Otilio Rich Triglyceride [Mass/Vol] 109 mg/dL Normal <=150 [facility] Comment on above: Performed By: #### L IPID #### [facility] [address] [address] [address] Otilio Rich VLDL CALC 21.8 mg/dL Normal [facility] Comment on above: Performed By: #### L IPID #### [facility] [address] [address] [address] Otilio Rich PROF CHEM 8 (BAS METB)on Anion gap [Moles/Vol] 10.3 mmol/L Normal [facility] Comment on above: Performed By: #### B CORI MATTHEWSDM #### [facility] [address] [address] [address] Otilio Rich Calcium [Mass/Vol] 10.5 mg/dL Critically high 8.5-10.1 [facility] Comment on above: Performed By: #### B CASSIE CMADM #### [facility] [address] [address] [address] Otilio Rich Chloride [Moles/Vol] 101 mmol/L Normal 98-107 [facility] Comment on above: Performed By: #### B CASSIE, CMADM #### [facility] [address] [address] [address] Otilio Rich CO2 [Moles/Vol] 29.6 mmol/L Normal 21.0-32.0 [facility] Comment on above: Performed By: #### B MP, CMADM #### [facility] [address] [address] [address] Otilio Rich Creatinine [Mass/Vol] 0.76 mg/dL Normal 0.70-1.30 [facility] Comment on above: Performed By: #### B MP, CMADM #### [facility] [address] [address] [address] Otilio Rich EGFR-AF MARTINIQUAIS >60 Normal >=60 [facility] Comment on above: Performed By: #### B MP, CMADM #### [facility] [address] [address] [address] Otilio Rich EGFR-NON AF MARTINIQUAIS >60 Normal >=60 [facility] Comment on above: Performed By: #### B CASSIE, CMADM #### [facility] [address] [address] [address] Otilio Rich Glucose [Mass/Vol] 111 mg/dL Critically high 74-106 [facility] Comment on above: Performed By: #### B CASSIE, CMADM #### [facility] [address] [address] [address] Otilio Rich Potassium [Moles/Vol] 3.9 mmol/L Normal 3.5-5.1 [facility] Comment on above: Performed By: #### B CASSIE, CMADM #### [facility] [address] [address] [address] Otilio Rich Sodium [Moles/Vol] 137 mmol/L Normal 136-145 [facility] Comment on above: Performed By: #### B MP, CMADM #### [facility] [address] [address] [address] Otilio Rich Urea nitrogen [Mass/Vol] 14.0 mg/dL Normal 7.0-18.0 [facility] Comment on above: Performed By: #### B MP, CMADM #### [facility] [address] [address] [address] Otilio Rich Urea nitrogen/Creatinine [Mass ratio] 18.4 mg/mg Normal [facility] Comment on above: Performed By: #### B MP, CMADM #### [facility] [address], [place] [address] Dr. Otilio Rich TROPONIN, HIGH SENSITIVITYon 05-26-2022 HSTROP 5.4 pg/mL Normal 4.0-76.1 [facility] Comment on above: Result Comment: CUT- OFF POINTS HAVE BEEN ESTABLISHED BASED ON THE FOURTH UNIVERSAL DEFINITIONS OF MYOCARDIAL INFARCTION. THE UPPER REFERENCE LIMIT (URL) OF TROPONIN, DEFINED THE 99TH PERCENTILE OF cTnI DISTRIBUTION IN A REFERENCE POPULATION, HAS BEEN CONFIRMED THE DECISION THRESHOLD FOR [place] DIAGNOSIS. Performed By: #### P SAD #### [facility] [address], [place] [address] Dr. Otilio Rich XR CHEST 1 Von [...] by: RAVEN BENDER Date: 2022-05-26 05:00 Normal [facility] Vital Signs Date Time Vital Sign Value Performing Clinician Facility 07-01-2023 09:56-0500 Blood Pressure Location Felix COLIN [facility] 07-01-2023 09:56-0500 Body temperature 98.24 [degF] Felix COLIN [facility] 07-01-2023 09:56-0500 Diastolic blood pressure 78 mm[Hg] Felix COLIN [facility] 07-01-2023 09:56-0500 Heart rate 69 /min Felix COLIN [facility] 07-01-2023 09:56-0500 Respiratory rate 16 /min Felix COLIN [facility] 07-01-2023 09:56-0500 Systolic blood pressure 132 mm[Hg] Felix COLIN [facility] 12-28-2022 12:13-0400 Blood Pressure Location Felix COLIN [facility] 12-28-2022 12:13-0400 Body temperature 97.7 [degF] Felix COLIN [facility] 12-28-2022 12:13-0400 Diastolic blood pressure 71 mm[Hg] Felix COLIN [facility] 12-28-2022 12:13-0400 Heart rate 65 /min Felix COLIN [facility] 12-28-2022 12:13-0400 Respiratory rate 16 /min Felix COLIN [facility] 12-28-2022 12:13-0400 Systolic blood pressure 135 mm[Hg] Felix COLIN [facility] 06-04-2022 14:06-0500 Blood Pressure Location Felix COLIN [facility] 06-04-2022 14:06-0500 Diastolic blood pressure 62 mm[Hg] Felix COLIN [facility] 06-04-2022 14:06-0500 Heart rate 61 /min Felix COLIN [facility] 06-04-2022 14:06-0500 Respiratory rate 16 /min Felix COLIN [facility] 06-04-2022 14:06-0500 Systolic blood pressure 128 mm[Hg] Felix COLIN [facility] 12-04-2021 10:00-0400 Blood Pressure Location Felixchano COLIN [facility] 12-04-2021 10:00-0400 Diastolic blood pressure 76 mm[Hg] Felix COLIN [facility] 12-04-2021 10:00-0400 Heart rate 72 /min Felixchano COLIN [facility] 12-04-2021 10:00-0400 Respiratory rate 16 /min Felixchano COLIN [facility] 12-04-2021 10:00-0400 Systolic blood pressure 139 mm[Hg] Felix COLIN [facility] Encounters Encounter Date Encounter Type Care Provider Facility Start: 12-20-2023 ambulatory Felix Mayoi ty:[facility] Start: 07-01-2023 ambulatory Felix Mayoi ty:[facility] Start: 07-01-2023 End: 07-01-2023 Patient encounter procedure Felix COLIN [facility] Start: 12-28-2022 End: 12-29-2022 ambulatory Felix COLIN Facility:[facility] Start: 12-28-2022 End: 12-28-2022 Patient encounter procedure Felix COLIN [facility] Start: 07-02-2022 End: 07-03-[address] FELIX COLIN . Facility:[facility] Start: 06-21-2022 End: 06-22-[address] FELIX COLIN . Facility:[facility] Start: 06-11-2022 End: 06-11-2022 Patient encounter procedure Felix COLIN [facility] Start: 06-04-2022 End: 06-04-2022 Patient encounter procedure Felix COLIN [facility] Start: 05-26-2022 End: 05-28-[address] ADALBERTO WHEATLEY Facility:[facility] Start: 05-24-2022 End: 05-25-[address] FELIX COLIN . Facility: Start: 12-04-2021 End: 12-04-2021 Patient encounter procedure Felix COLIN [facility] Start: 11-28-2021 End: 11-29-[address] FELIX COLIN . Facility: Procedures Date Procedure Procedure Detail Performing Clinician Start: 05-24-[address] ADALBERTO DILLON Comment on above: Performed By: #### P SAD #### [facility] [address] [place] [address] Dr. Otilio Rich Start: 11-28-[address] ADALBERTO DILLON Comment on above: Performed By: #### P SAD #### [facility] [address] [place] [address] [address] Otilio Rich Start: 11-11-2017 Transrectal biopsy o f prostate using ultrasound guidance Felix COLIN Start: 04-29-2002 Implantation of radioactive seed into prostate Felix COLIN Colonoscopy Felix COLIN Immunizations Immunization Date Immunization Notes Care Provider [facility] 02-20-2022 influenza virus vaccine, unspecified formulation Felix COLIN [facility] 02-20-2022 SARS-CoV-2 (COVID-19 ) [id number] Felix COLIN [facility] 08-19-2021 SARS-CoV-2 (COVID-19 ) mRNA-1273 vaccine Felix COLIN [facility] 02-21-2021 influenza virus vaccine, unspecified formulation Felix BRANDIN [facility] 01-24-2021 SARS-CoV-2 (COVID-19 ) mRNA BNT-162b2 vax Felix BRANDIN [facility] 06-15-2020 SARS-CoV-2 (COVID-19 ) mRNA BNT-162b2 vax Felix BRANDIN [facility] 05-23-2020 SARS-CoV-2 (COVID-19 ) mRNA BNT-162b2 vax Felix COLIN [facility] 04-29-2020 SARS-CoV-2 (COVID-19 ) mRNA BNT-162b2 vax Felix COLIN [facility] Comment on above: Result Comment: 3 sh ots but does not know the dates 02-02-2020 influenza virus vaccine, unspecified formulation Felix COLIN [facility] 02-10-2019 influenza virus vaccine, unspecified formulation Felixchano COLIN [facility] 02-11-2018 influenza virus vaccine, unspecified formulation Felix COLIN [facility] 09-20-2017 tetanus toxoid, redu mike diphtheria toxoid, and acellular pertussis vaccine, adsorbed Felix COLIN [facility] 02-19-2017 influenza virus vaccine, unspecified formulation Felix COLIN [facility] 12-27-2016 pneumococcal conjuga te vaccine, 13 valent Felix COLIN [facility] 02-07-2016 influenza virus vaccine, unspecified formulation Felix COLIN [facility] 02-22-2015 influenza virus vaccine, unspecified formulation Felixchano COLIN [facility] 02-04-2013 influenza virus vaccine, unspecified formulation Felixchano COLIN [facility] 02-08-2010 influenza, whole Felixchano ALVAREZ CHIQUITA [facility] Payers Date Payer Category Payer Medicare [id number] 1957 Medicare [id number] 1957 Medicare [id number] 1935 Unknown [id number] 2.16.84 [id number] 1935 Unknown [id number] 2.16.84 [id number] 1935 Unknown [id number] 2.16.84 [id number] 1935 Unknown [id number] 2.16.84 [id number] 1935 Unknown [id number] 2.16.84 [id number] 1935 Unknown [id number] 2.16.8 [id number] 1935 Unknown [id number] 2.16.8 [id number] 1935 Unknown [id number] 2.16.8 [id number] 1935 Unknown [id number] 2.16.8 [id number] Social History Date Type Detail Facility Start: 12-04-2021 End: 07-01-2023 Tobacco smoking status Never smoked tobacco (finding) [facility] Sex Assigned At Male [facility] Tobacco smoking status Never [facility] Functional Status Date Assessment Result Facility 07-01-2023 Functional Status N/A [facility] 12-28-2022 Functional Status N/A [facility] 06-04-2022 Functional Status N/A [facility] 12-04-2021 Functional Status N/A [facility] Clinical Notes 12-04-2021 to 07-01-2023 Note [...] under a microscope. This is called the [place] score and the total score can range [...] similar to normal prostate cells (moderately differentiated). [place] 8, 9, or 10: This indicates that [...] stress of having cancer. General instructions Take wccb-xgm-wjtzrba and prescription medicines only as told by your health care provider. If you have to go to the hospital, notify your cancer specialist (oncologist). Keep all follow-up visits. This is important. Where to find more information [place] [employer]: www.cancer.org [place] [employer]: www.cancer.net National Cancer [place]: www.cancer.gov Contact a health care provider if: [...] provider. Document Revised: 07/12/2021 Document Reviewed: 07/12/2021 [employer] Patient Education 2022 delicious. Follow Up Care 12/28/2022 13:08:18 With:BRANDIN LESLIE, Felix Burt, URL Address: [facility] [address] , [place] [address]- [phone] When:Within 6 Month(s) Comments:6 mo fu with Emir HWANG [facility] 12-28-2022 Hospital Discharge instructions Patient Education [...] urethra. Follow these instructions at home: Take ytws-ehi-whxbazz and prescription medicines only as told by [...] provider. Document Revised: 11/01/2021 Document Reviewed: 11/01/2021 [employer] Patient Education 2022 delicious. Follow Up Care 06/11/2022 10:38:13 With:BRANDIN LESLIE, Felix Burt, URL Address: [facility] [address] [place] [address]- When:Within 6 Month(s) Comments:w/ Emir and PSA [facility] [place] 06-11-2022 Hospital Discharge instructions Patient [...] urethra. Follow these instructions at home: Take whkj-fms-awrsbdi and prescription medicines only as told by [...] 04/15/2006 Document Revised: 03/10/2019 Document Reviewed: 05/20/2017 [employer] Patient Education 2020 delicious. Follow Up Care 06/04/2022 15:22:48 With:BRANDIN LESLIE, Felix Burt, URL Address: [facility] [address] , [place] [address]- When: Unknown [facility] 06-04-2022 Hospital Discharge instructions Patient Education [...] including vitamins, herbs, eye drops, creams, and vtsx-brg-utmyzol medicines. Any problems you or family members [...] 2006 Document Revised: 03/28/2018 Document Reviewed: 04/24/2017 [employer] Patient Education 2020 delicious. Follow Up Care 12/04/2021 11:01:41 With:BRANDIN LESLIE, Felix Burt, URL Address: [facility] [address] [place] [address] [phone] When: Unknown [facility] 12-04-2021 Hospital Discharge instructions Patient Education [...] urethra. Follow these instructions at home: Take pnxa-jtx-caugimx and prescription medicines only as told by [...] 04/15/2006 Document Revised: 03/10/2019 Document Reviewed: 05/20/2017 [employer] Patient Education 2020 delicious. Follow Up Care 06/05/2021 10:59:07 With:Felix COLIN MD, URL Address: [facility] [address] , [place] [address]- [phone] When:Within 6 Month(s) [facility] Evaluation + Plan note Future Appointments Appointment Date:05/25/2022 09:45:00 AM Scheduled Provider:Felix COLIN MD Location:[facility] Appointment Type:URO Office Visit Diagnostic Tests PendingPSA Total 12/04/21 [facility] Evaluation + Plan note Future Appointments Appointment Date:06/11/2022 09:30:00 AM Scheduled Provider:Felix COLIN MD [facility] Appointment Type:URO Office Visit Diagnostic Tests PendingCreatinine 06/04/22Urine Cytology ([facility]) 06/04/22 [facility] Evaluation + Plan note Future Appointments Appointment Date:12/17/2022 10:45:00 AM Scheduled Provider:Felix COLIN MD Location:[facility] Appointment Type:URO Office Visit Diagnostic Tests PendingPSA Total 06/11/22 [facility] Evaluation + Plan note Future Appointments Appointment Date:07/12/2023 08:30:00 AM Scheduled Provider:Felix COLIN MD Location:[facility] Appointment Type:URO Office Visit Diagnostic Tests PendingPSA Total 12/28/22 [facility] Evaluation + Plan note Future Appointments Appointment Date:12/20/2023 09:30:00 AM Scheduled Provider:Felix COLIN MD Location:[facility] Appointment Type:URO Office Visit Diagnostic Tests PendingPSA Total 07/01/23 [facility] Hospital course Narrative No data available for this section [facility] Progress note No data available for this section [facility] Summary Purpose Family History No Family History Records FoundNo Family History Records FoundNo Family History Records Found No data available for this section Advance Directives No Advanced Directives Records FoundNo Advanced Directives Records FoundNo Advanced Directives Records Found Additional Source Comments Care Team (unrecognized sect ion and content) Personnel Name: ADALBERTO WHEATLEY MD Address: [address] [place] [address] Personnel Name: ADALBERTO WHEATLEY MD Address: Address: [address] [place] [address] Personnel Name: ADALBERTO WHEATLEY MD Address: Address: [address] [place] [address] Personnel Name: ADALBERTO WHEATLEY MD Address: Address: [address] [place] [address] Personnel Name: ADALBERTO WHEATLEY MD Address: Address: [address] [place] [address] (unrecognized sect ion and content) No Status Records FoundNo Status Records FoundNo Status Records Found INFORMATION SOURCE (unrecogn ized section and content) DATE CREATED AUTHOR 06/08/2022 [facility] DATE CREATED AUTHOR AUTHOR'S ORGANIZ ATION 07/04/2022 [facility] [place] [facility] DATE CREATED AUTHOR AUTHOR'S ORGANIZ ATION 07/01/2023 [facility] FOR RECORDS PERTAINING TO PATIENTS WHO ARE [...] BE BASED ON THE PRIMARY CLINICAL RECORDS. [employer] [facility]. provides no warranty or guarantee of the accuracy or completeness of information in this document.
[2023-12-08 16:02] LABS: Troponin I High Sensitivity 6.2 pg/mL (4.0-76.1)
[2023-12-08] MEDS: DEXAMETHASONE SOD PHOS 10 MG/ML VIAL IV (16:41)
--- NOTE | 2023-12-08 18:04 | ECG_ITS ---
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
[2023-12-08 18:40] LABS: Troponin I High Sensitivity 5.5 pg/mL (4.0-76.1)
[2023-12-08] MEDS: APIXABAN 5 MG TABLET PO (20:12)
[2023-12-08] MEDS: METOPROLOL TARTRATE 50 MG TABLET PO (21:24)
--- NOTE | 2023-12-08 21:54 | ECG_ITS ---
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
[2023-12-08] MEDS: METOPROLOL TARTRATE 5 MG/5 ML VIAL IVP (22:08)
[2023-12-08 22:53] LABS: Magnesium 1.6 mg/dL (1.8-2.4)
[2023-12-09] VITALS (9 sets, daily range): BP systolic 111–148; BP diastolic 54–72; PULSE 62–80; TEMP 36.6–36.9; O2SAT 92–100
[2023-12-09] MEDS: MAGNESIUM SULFATE IN WATER 2 GM/50 ML PREMIX IV (00:18)
[2023-12-09 05:30] LABS: Basophils Percent Auto 0.1 % (0.2-2.0); Hematocrit 36.7 % (42.0-54.0); Hemoglobin 12.3 g/dL (14.0-18.0); Immature Granulocytes Abs Auto 0.03 10^3/uL (0.00-0.03); Immature Granulocytes Pct Auto 0.3 % (0.0-0.5); Lymphocytes Absolute Auto 1.2 10^3/uL (1.2-3.8); Lymphocytes Percent Auto 11.4 % (20.5-60.0); Mean Corpuscular HGB Conc 33.5 g/dL (29.9-35.2); Mean Corpuscular Hemoglobin 31.9 pg (25.9-34.0); Mean Corpuscular Volume 95.3 fL (80.0-94.0); Mean Platelet Volume 11.2 fL (9.5-13.5); Monocytes Absolute Auto 0.9 10^3/uL (0.3-0.8); Monocytes Percent Auto 8.3 % (1.7-12.0); Neutrophils Absolute Auto 8.5 10^3/uL (1.4-6.5); Neutrophils Percent Auto 79.9 % (43.0-75.0); Platelet Count 176 10^3/uL (150-450); Red Blood Count 3.85 10^6/uL (4.70-6.10); Red Cell Distribution Width 13.1 % (11.0-15.0); White Blood Count 10.7 10^3/uL (4.0-11.0)
[2023-12-09] MEDS: LEVOTHYROXINE SODIUM 75 MCG TABLET PO (05:34)
[2023-12-09 05:54] LABS: Alanine Aminotransferase 32 U/L (16-63); Albumin Globulin Ratio 0.7; Albumin Level 3.2 g/dL (3.4-5.0); Alkaline Phosphatase 88 U/L (46-116); Anion Gap 13.1; Aspartate Amino Transferase 17 U/L (15-37); BUN Creatinine Ratio 26.1; Bilirubin Total 1.4 mg/dL (0.2-1.0); Carbon Dioxide 25.9 mmol/L (21.0-32.0); Chloride 101 mmol/L (98-107); Estimated GFR (African America >60 (>=60); Estimated GFR (Non-African Ame >60 (>=60); Globulin 4.4 g/dL; Glucose 150 mg/dL (74-106); Sodium 136 mmol/L (136-145); Total Protein 7.6 g/dL (6.4-8.2); Troponin I High Sensitivity <4.0 pg/mL (4.0-76.1)
--- NOTE | 2023-12-09 07:12 | CA_ITS ---
Patient Name: TIFFANIE WELLS MR#: [id number] : 1935 Exam Date: 12/09/2023 Ordering Doctor: DR JORGE SHEPARD . ECHOCARDIOGRAM REPORT PROCEDURE: CA ECHO DOPPLER COMPLETE INDICATIONS: Dyspnea, Chest pain, Afib/flutter COMPARISON: None. DESCRIPTION: COMPLETE ECHOCARDIOGRAM Real-time transthoracic echocardiography with 2D, M-mode, spectral and color flow Doppler performed. QUALITY: Technical quality was good. LEFT VENTRICLE: Normal chamber size. Mild left ventricular hypertrophy. LV EF: Global left ventricular systolic function is normal. Visual estimation of left ventricular ejection fraction is 60-65%. No significant wall motion abnormalities. DIASTOLIC: Normal diastolic function. ATRIAL SEPTUM: Inadequately seen. LEFT ATRIUM: Moderate dilatation. RIGHT ATRIUM: Moderate dilatation. RIGHT VENTRICLE: Normal chamber size. Normal right ventricular systolic function. TRICUSPID VALVE: Normal mobility and thickness. No stenosis with mild regurgitation. No evidence of pulmonary hypertension. RVSP 29mmHg MITRAL VALVE: Normal mobility and thickness. No evidence of mitral valve stenosis. There is no mitral annular calcification. Mild to moderate mitral regurgitation. AORTIC VALVE: Normal trileaflet appearance. Mildly calcified aortic valve. No evidence of aortic valve stenosis. Mild aortic regurgitation. AORTIC ROOT: Normal diameter and appearance. PULMONIC VALVE: Normal thickness and mobility. No stenosis. Trivial regurgitation. PERICARDIUM: No evidence of pericardial effusion. IVC: Collapses with inspirations. Normal size. CONCLUSION: 1. Global left ventricular systolic function is normal; visually estimated ejection fraction is 60 to 65% 2. Normal right ventricular size and systolic function 3. Biatrial dilatation 4. Mild left ventricular hypertrophy 5. Normal diastolic function 6. Mild tricuspid regurgitation 7. Mild to moderate mitral regurgitation 8. Mild aortic valve regurgitation Adult Echocardiography Procedure Report Left Ventricle LVEDD (3.7 - 5.6 cm): 4.74 cm LVESD (2.2 - 4.0 cm): 2.96 cm LVIVS thickness (0.6 - 1.2 cm): 1.16 cm LVPW thickness (0.5 - 1.0 cm): 1.08 cm e': 0.10 m/s E - e': 7.67 LVOT Max Gradient: 1.96 mm[Hg] LVOT Area (cm2): 0.70 m/s Peak Velocity (LVOT): 0.70 m/s Mean Velocity (LVOT): 0.51 m/s LVOT Diameter 2.14 cm Left Ventricular Ejection Fraction: 72.72 % Left Atrium LA Volume Index (2D A2C): 54.66 ml/m2 Left Atrium Systolic Dimension: 4.22 cm Mitral Valve MV E to A Ratio: 1.26, 1.08 Mitral Valve A-Wave Peak Velocity: 0.65 m/s Mitral Valve E-Wave Peak Velocity: 0.76 m/s Right Ventricle RV Internal Diastolic Dimension: 3.62 cm Aorta AO Root Diam: 3.38 cm Ascending Ao Diam: 3.29 cm Aortic Valve AoV Area (Peak Tristin): 1.71 cm2, 1.71 cm2 AoV Area (VTI): 1.70 cm2, 1.70 cm2 Deceleration [place]: 2.77 m/s2 Pressure Half-Time: 476.03 ms Peak Velocity(Antegrade Flow): 1.47 m/s Peak Gradient(Antegrade Flow): 8.69 mm[Hg] Mean Velocity(Antegrade Flow): 1.10 m/s Mean Gradient(Antegrade Flow): 5.28 mm[Hg] Velocity Time Integral: 36.96 cm Tricuspid Valve Peak Velocity (Regurgitant Flow): 2.56 m/s, 2.29 m/s, 2.48 m/s Pulmonic Valve Peak Velocity: 0.92 m/s Peak Gradient: 3.33 mm[Hg], 3.40 mm[Hg] Right Atrium Right Atrium Systolic Pressure: 52.92 ml, 52.92 ml Dictated by: Nadira Tucker M.D. on 12/09/2023 at 12:47 Approved by: Nadira Tucker M.D. on 12/09/2023 at 12:52
--- NOTE | 2023-12-09 07:48 | P.DS_ITS ---
DS: Providers Provider Date of admission: 12/08/23 14:39 Primary care physician: Santiago Castañeda MD Consults: 12/08/23 12:04 Occupational Therapy Eval and Treat Routine Reason for consultation: Only if needed for Rehab Has provider been notified: No Physical Therapy Eval and Treat Routine Reason for consultation: Eval and Treat Has provider been notified: No DS: Diagnosis Discharge Diagnosis (1) Hyperbilirubinemia: (2) Hypothyroidism: (3) Atrial fibrillation: (4) Chest pain: Plan Admission findings: EKG with multiple PVCs, respiratory distress, uncontrolled hypertension-resulting in chest pain. With symptoms consistent with coronary artery disease, patient will be admitted to the medical surgical floor on telemetry. Chest pain-pressure type with left arm pain and shortness of breath. No further episodes of chest pain. Breathing feels easier. Improving at the time of discharge Frequent PVCs-resolved at the time of discharge, placing Holter Hypertension-improving at the time of discharge Edema-none at the time of discharge or admission Atrial fibrillation by history-episode of atrial flutter while in the hospital, converted back to normal sinus rhythm, Holter monitor Hyperbilirubinemia-slightly elevated on discharge Hypothyroidism recent medication dose adjustment-stable at the time of discharge Iron deficiency anemia-down slightly on the day of discharge Mild leukocytosis without URI type symptoms-resolved at the time of discharge without treatment Admission status: So far cardiac testing has been unremarkable other than his symptomatology, will admit him overnight, serial markers, echocardiogram, if improved tomorrow possible discharge, medically necessary treatment currently looks like will only span 1 midnight, and observation status DS: Summary Hospital Course Hospital Course: Patient was seen and evaluated in the emergency room with progressive shortness of breath. Chest pressure with pain in the left arm. Cardiac markers were done on 6 occasions all normal, BNP done on admission and are normal as well. Echocardiogram currently is pending. Patient has no further chest pain and no shortness of breath this morning. He did have an episode overnight of atrial flutter. Converted back to normal sinus rhythm. If his echocardiogram shows no pericardial effusion and fairly normal ejection fraction for an 88-year-old likely discharge to home, Holter monitor at discharge to evaluate for in and out of the atrial flutter/fibrillation. Medications see list. Follow-up with PCP and cardiology within the next week. echo with excellent EF - if remains stable will d/c to home Status at Discharge Overall status at discharge: patient is back to baseline Time Spent with Patient Time attestation: Total time spent providing and/or coordinating discharge services: Time spent: greater than 30 minutes Exam Constitutional Vital Signs, click to edit/add: Last Vital Signs Temp 98.5 F 12/09/23 07:23 Pulse 71 12/09/23 07:45 Resp 16 12/09/23 07:23 BP 130/63 12/09/23 07:23 Pulse Ox 95 12/09/23 07:23 O2 Del Method Room Air 12/09/23 07:23 O2 Flow Rate 1 12/09/23 04:00 Documenting provider has reviewed patient's vital signs: yes Common normals: no apparent distress Chest Common normals: inspection of chest normal and palpation of chest normal Respiratory Common normals: normal respiratory effort, no retractions and clear to auscultation bilaterally Cardio Common normals: regular rate, regular rhythm and no murmurs GI Common normals: Normal to inspection, nondistended, normoactive bowel sounds present, soft to palpation and non-tender Extremity Common normals: normal to inspection, full ROM, normal capillary refill and no clubbing, cyanosis or edema DS: Data Data Completed and Pending Labs on day of discharge: Labs from last 24 hours 12/09/23 12/08/23 12/08/23 05:14 22:27 18:14 WBC 10.7 RBC 3.85 L Hgb 12.3 L Hct 36.7 L MCV 95.3 H MCH 31.9 MCHC 33.5 RDW 13.1 Plt Count 176 MPV 11.2 Neut % (Auto) 79.9 H Lymph % (Auto) 11.4 L [place] % (Auto) 8.3 Eos % (Auto) 0.0 L Baso % (Auto) 0.1 L Neut # (Auto) 8.5 H Lymph # (Auto) 1.2 [place] # (Auto) 0.9 H Eos # (Auto) 0.0 Baso # (Auto) 0.0 Abs Immat Gran (auto) 0.03 Imm/Tot Granulo (auto) 0.3 D-Dimer Sodium 136 Potassium 4.0 Chloride 101 Carbon Dioxide 25.9 Anion Gap 13.1 BUN 24.0 H Creatinine 0.92 Est GFR ( Amer) >60 Est GFR (Non-Af Amer) >60 BUN/Creatinine Ratio 26.1 Glucose 150 H Calcium 10.0 Magnesium 1.6 L Total Bilirubin 1.4 H Direct Bilirubin AST 17 ALT 32 Alkaline Phosphatase 88 Troponin I High Sens <4.0 L 6.0 5.5 NT-Pro-B Natriuret Pep 875.0 Total Protein 7.6 Albumin 3.2 L Globulin 4.4 Albumin/Globulin Ratio 0.7 TSH Thyroxine (T4) Urine Color Urine Clarity Urine pH Ur Specific [place] Urine Protein Urine Glucose (UA) Urine Ketones Urine Occult Blood Urine Nitrite Urine Bilirubin Urine Urobilinogen Ur Leukocyte Esterase Urine RBC Urine WBC Ur Squamous Epith Cells Urine Crystals Urine Bacteria Urine Casts Urine Mucus 12/08/23 12/08/23 12/08/23 15:41 13:18 11:35 WBC RBC Hgb Hct MCV MCH MCHC RDW Plt Count MPV Neut % (Auto) Lymph % (Auto) [place] % (Auto) Eos % (Auto) Baso % (Auto) Neut # (Auto) Lymph # (Auto) [place] # (Auto) Eos # (Auto) Baso # (Auto) Abs Immat Gran (auto) Imm/Tot Granulo (auto) D-Dimer Sodium Potassium Chloride Carbon Dioxide Anion Gap BUN Creatinine Est GFR ( Amer) Est GFR (Non-Af Amer) BUN/Creatinine Ratio Glucose Calcium Magnesium Total Bilirubin 1.0 Direct Bilirubin 0.2 AST 23 ALT 36 Alkaline Phosphatase 100 Troponin I High Sens 6.2 4.7 NT-Pro-B Natriuret Pep 290.0 Total Protein 7.7 Albumin 3.7 Globulin 4.0 Albumin/Globulin Ratio 0.9 TSH 1.700 Thyroxine (T4) 7.40 Urine Color Lt. yellow Urine Clarity Clear Urine pH 6.5 Ur Specific [place] 1.015 Urine Protein Negative Urine Glucose (UA) Negative Urine Ketones Negative Urine Occult Blood Trace-i Urine Nitrite Negative Urine Bilirubin Negative Urine Urobilinogen 0.2 Ur Leukocyte Esterase Negative Urine RBC 0-2 Urine WBC None seen Ur Squamous Epith Cells Rare Urine Crystals None seen Urine Bacteria None seen Urine Casts None seen Urine Mucus None seen 12/08/23 10:40 WBC 11.6 H RBC 3.95 L Hgb 12.7 L Hct 38.8 L MCV 98.2 H MCH 32.2 MCHC 32.7 RDW 13.2 Plt Count 183 MPV 11.3 Neut % (Auto) 69.1 Lymph % (Auto) 18.4 L [place] % (Auto) 9.1 Eos % (Auto) 2.8 Baso % (Auto) 0.3 Neut # (Auto) 8.0 H Lymph # (Auto) 2.1 [place] # (Auto) 1.1 H Eos # (Auto) 0.3 Baso # (Auto) 0.0 Abs Immat Gran (auto) 0.03 Imm/Tot Granulo (auto) 0.3 D-Dimer 0.91 H* Sodium 140 Potassium 4.2 Chloride 103 Carbon Dioxide 27.7 Anion Gap 13.5 BUN 23.0 H Creatinine 0.86 Est GFR ( Amer) >60 Est GFR (Non-Af Amer) >60 BUN/Creatinine Ratio 26.7 Glucose 105 Calcium 10.0 Magnesium Total Bilirubin Direct Bilirubin AST ALT Alkaline Phosphatase Troponin I High Sens 5.7 NT-Pro-B Natriuret Pep Total Protein Albumin Globulin Albumin/Globulin Ratio TSH Thyroxine (T4) Urine Color Urine Clarity Urine pH Ur Specific [place] Urine Protein Urine Glucose (UA) Urine Ketones Urine Occult Blood Urine Nitrite Urine Bilirubin Urine Urobilinogen Ur Leukocyte Esterase Urine RBC Urine WBC Ur Squamous Epith Cells Urine Crystals Urine Bacteria Urine Casts Urine Mucus Discharge Plan Discharge Disposition: Home, Self-Care Condition: Good Discharge Medications: Continued Eliquis 5 mg tablet 5 mg PO BID levothyroxine 75 mcg tablet 75 mcg PO DAILY metoprolol tartrate 25 mg tablet 50 mg PO BID Print Language: Yoruba Forms: Portal Instructions Follow Up Appointments: Dr Castañeda , December 17 at 10:45
--- NOTE | 2023-12-09 08:06 | CM.NOTE ---
Rounds made with Dr. Kahn, pt will have cardiac echo today and possible discharge to home this afternoon.
--- NOTE | 2023-12-09 08:27 | CM.NOTE ---
Medicare Outpatient Observation Notice discussed with pt, pt verbalizes understanding and signs paper. Original given to pt and copy placed on pt's chart.
[2023-12-09] MEDS: METOPROLOL TARTRATE 50 MG TABLET PO (09:26)
[2023-12-09] MEDS: APIXABAN 5 MG TABLET PO (09:26)
--- NOTE | 2023-12-09 10:18 | SWNOTE1 ---
SW reviewed therapy notes and pt was independent, no needs at discharge. Pt lives at home with his . At this time no anticipated discharge needs.
--- NOTE | 2023-12-10 10:59 | CM.DCFOLLOWU ---
1st attempt 12/10/23
--- NOTE | 2023-12-11 12:59 | CM.DCFOLLOWU ---
Person spoke with: patient How are you feeling? well How is your pain? none Did you understand your discharge instructions? yes Do you have any questions about your discharge instructions? no Were you given any prescriptions at discharge? no Were you able to get your prescriptions filled? N/A Do you understand how to take your medications as ordered? yes Do you have any questions about your follow up appointment and do you plan to keep your follow up appointment? no questions, follow up with Dr. Castañeda on December 17 Is there anything else that you would like to discuss? no Questions/Comments/Concerns/Other: none
== END 2023-12-09 13:40 | disposition home or self-care (01) ==
LOC: ER 14:30 → MS 14:40
PROVIDERS: Registered Nurse; Admitting Provider Family Medicine; Emergency Provider Emergency Medicine; PCP Family Medicine; Visit Provider Family Medicine
DX: I25.10 Atherosclerotic heart disease of native coronary artery without angina pectoris (principal); R07.89 Other chest pain; I10 Essential (primary) hypertension; I49.3 Ventricular premature depolarization; R06.03 Acute respiratory distress; R06.02 Shortness of breath; R60.9 Edema, unspecified; I48.91 Unspecified atrial fibrillation; Z79.01 Long term (current) use of anticoagulants; E80.6 Other disorders of bilirubin metabolism; E03.9 Hypothyroidism, unspecified; D50.9 Iron deficiency anemia, unspecified; D72.829 Elevated white blood cell count, unspecified; I48.92 Unspecified atrial flutter; R82.89 Other abnormal findings on cytological and histological examination of urine
CPT/HCPCS: 36415; 71045; 71275; 80048; 80053; 80076; 81001; 83735; 83880; 84436; 84443; 84484; 85025; 85378; 87086; 93005; 93246; 93306; 94667; 94668; 94761; 96365; 96375; 97161; 99285; G0378; J1100; J3475; Q9967

== ENCOUNTER 2023-12-16 10:06 | Outpatient (OUT) | payer MEDICARE, SELFPAY ==
[2023-12-16 12:21] LABS: Prostate Specific Antigen Dx <0.13 ng/mL (<=4.00)
== END 2023-12-16 10:07 | disposition home or self-care (01) ==
LOC: LAB 10:07
PROVIDERS: PCP Family Medicine; Visit Provider Urology
DX: R31.21 Asymptomatic microscopic hematuria (principal); R97.21 Rising PSA following treatment for malignant neoplasm of prostate
CPT/HCPCS: 36415; 84153

== ENCOUNTER 2024-02-26 08:10 | Outpatient (OUT) | payer MEDICARE, SELFPAY ==
--- OUTSIDE RECORDS SUMMARY | 2024-02-26 08:16 | XMS_ITS | CCD ---
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 Name Role Phone SANTIAGO WHEATLEY Primary Care Physician [phone] DIONI, DR SANTIAGO Ramos Primary Care Unavailable FAWLISAD, MITCHELL H Admitting Unavailable FAWREBECCA, MITCHELL H Attending Unavailable STEPHENIE, DR NOE Burt Consulting Unavailable DIONI, DR SANTIAOG Ramos Consulting Unavailable DIOMEDES, ROSALINE Consulting Unavailable FAWREBECCA, SHAIKH Eryn Consulting Unavailable RAVEN BENDER Consulting Unavailable COLIN ., DR ORTEGA Admitting Unavailable COLIN ., DR ORTEGA Attending Unavailable DIONI, DR SANTIAGO Ramos Primary Care Unavailable COLIN ., DR ORTEGA Consulting Unavailable COLIN ., DR ORTEGA Admitting Unavailable COLIN ., DR ORTEGA Attending Unavailable NADCARLTON, DR SANTIAGO Ramos Primary Care Unavailable COLIN ., DR ORTEGA Consulting Unavailable COLIN ., DR ORTEGA Admitting Unavailable COLIN ., DR ORTEGA Attending Unavailable DIONI, DR SANTIAGO Ramos Primary Care Unavailable COLIN ., DR ORTEGA Consulting Unavailable FRANCES, HAYDEE Consulting Unavailable COLIN ., DR ORTEGA Admitting Unavailable COLIN ., DR ORTEGA Attending Unavailable DIONI, DR SANTIAGO Ramos Primary Care Unavailable OCLIN ., DR ORTEGA Consulting Unavailable Felix COLIN Attending Unavailable COLIN, Felix Burt Attending Unavailable COLIN, Felix R Attending Unavailable COLIN, Felix R Attending Unavailable Santiago Wheatley MD Primary Care Provider [phone] SANTIAGO WHEATLEY Attending Unavailable SANTIAGO WHEATLEY Attending Unavailable SANTIAGO WHEATLEY Attending Unavailable Allergies Allergy Classification Reported Allergen(s) Allergy Type Date of Onset Reaction(s) Facility (1 source) No Known Medication Allergies; Translations: [No Known Medication Allergies] Propensity to adverse reactions (disorder) [facility] Repository Medications Current Medications Medication Drug Class(es) Dates Sig (Normalized) Sig (Original) apixaban 5 mg oral tablet (8 sources) Factor Xa Inhibitor Start: 02-06-2023 take 1 tablet by mouth twice daily Eliquis 5 MG tablet Indications: PAF (paroxysmal atrial fibrillation) (CMS/HCC) TAKE 1 TABLET BY MOUTH TWICE DAILY 180 tablet 3 05/16/2023 Active bicalutamide 50 mg oral tablet (4 sources) Androgen Receptor Inhibitor Start: 12-04-2021 take 1 tablet by mouth once daily Casodex 50 mg Tab 50 mg = 1 tab(s), Oral, Daily, # 90 tab(s), Refills(s) 3, Pharmacy: [id number], 182, cm, 12/04/21 10:02:00 EDT, Height/Length Dosing, 78.1, kg, 12/04/21 10:02:00 EDT, Weight Dosing Start Date: 12/04/21 Status: Ordered Fish Oils (6 sources) Start: 05-12-2020 Fish Oil Oral Start Date: 05/12/20 Status: Ordered levothyroxine sodium 0.075 mg oral tablet (5 sources) l-Thyroxine Start: 07-01-2023 levothyroxine 75 mcg (0.075 mg) Tab Refills(s) 0 Start Date: 07/01/23 Status: Ordered Start: 05-30-2023 End: 05-29-2024 take 1 tablet by mouth before mealtime levothyroxine (Synthroid, Levoxyl) 75 MCG tablet Indications: Hypothyroidism, unspecified type (CMS/HCC) Take 1 tablet (75 mcg) by mouth in the morning. Take before meals. 30 tablet 11 05/30/2023 05/29/2024 Active metoprolol tartrate 25 mg oral tablet (8 sources) beta-Adrenergic Sera Start: 09-26-2023 take 1 tablet by mouth in the morning metoprolol tartrate (Lopressor) 25 MG tablet Indications: Paroxysmal atrial fibrillation (CMS/HCC) Take 1 tablet (25 mg) by mouth in the morning and 1 tablet (25 mg) before bedtime. 180 tablet 3 09/26/2023 Active Start: 06-04-2022 Metoprolol tar trate 50 mg Tab Refills(s) 0 Start Date: 06/04/22 Status: Ordered Multi Vitamin+ (6 sources) Start: 05-12-2020 Multi Vitamin+ Start Date: [...] procedure, # 2 cap(s), Refills(s) 0, Pharmacy: [id number], 182, cm, 06/04/22 14:07:00 EST, Height/Length Dosing, 78.1, kg, 06/04/22 14:07:00 EST, Weight Dosing Start Date: 06/04/22 Status: Ordered Problems Active Problems Problem Classification Problem Date Documented Date Episodic/Chronic Calculus of urinary tract (5 sources) Calculus of kidney; Translations: [Kidney stone] Onset: 06-25-2022 Episodic Cancer of prostate (13 sources) Malignant neoplasm of prostate; Translations: [Carcinoma of prostate] Onset: 12-01-2021 Chronic Cardiac dysrhythmias (4 sources) Paroxysmal atrial fibrillation; Translations: [Paroxysmal atrial fibrillation] Onset: 05-30-2022 09-26-2023 Chronic Disorders of lipid metabolism (5 sources) Hyperlipidemia; Translations: [Hyperlipidemia, unspecified] Onset: 09-25-2023 09-25-2023 Chronic Diverticulosis and diverticulitis (1 source) Diverticulosis of intestine, part unspecified, without perforation or abscess without bleeding; Translations: [DVRTCLOS PRT UNS NO PERF/ABSC NO BL] Onset: 06-25-2022 Chronic Essential hypertension (5 sources) Benign essential hypertension; Translations: [Essential (primary) hypertension] Onset: 09-25-2023 09-25-2023 Chronic Genitourinary symptoms and ill-defined conditions (19 sources) Microscopic hematuria; Translations: [Nocturia] Onset: 06-04-2022 05-12-2020 Episodic Heart valve disorders (1 source) Nonrheumatic aortic (valve) insufficiency; Translations: [NONRHEUMATIC AORTIC INSUFFICIENCY] Onset: 05-30-2022 Chronic Hyperplasia of prostate (19 sources) Benign prostatic hypertrophy with outflow obstruction; Translations: [Benign prostatic hyperplasia with lower urinary tract symptoms] Onset: 12-01-2021 Chronic Nonmalignant breast conditions (1 source) Hypertrophy of breast; Translations: [Hypertrophy of breast] Onset: 07-01-2023 Episodic Nonspecific chest pain (7 sources) Chest pain, unspecified; Translations: [Other chest pain] Onset: 05-26-2022 Resolved: 02-24-2024 Episodic Other aftercare (1 source) senior care (current) use of anticoagulants; Translations: [SOFTWARE DEVELOPER MID LEVEL CURRNT USE ANTICOAGULANTS] Onset: 07-03-2022 Episodic Other aftercare (1 source) Other care home (current) drug therapy; Translations: [OTH SOFTWARE DEVELOPER MID LEVEL CURRENT DRUG THERAPY] Onset: 07-03-2022 Episodic Other aftercare (1 source) Long-term current use of anticoagulant; Translations: [senior care (current) use of anticoagulants] Onset: 12-20-2023 Episodic Other aftercare (4 sources) Long-term current use of drug therapy; Translations: [Other exterminator termite (current) drug therapy] Onset: 02-24-2024 02-24-2024 Episodic Other and ill-defined heart disease (1 [...] conditions (not mental disorders or infectious disease) (17 sources) Raised prostate specific antigen; Translations: [Rising PSA following treatment for malignant neoplasm of prostate] Onset: 12-01-2021 Episodic Thyroid disorders (5 sources) Hypothyroidism; Translations: [Hypothyroidism, unspecified] Onset: 09-25-2023 09-25-2023 Chronic Unclassified (5 sources) Asymptomatic microscopic hematuria 06-04-2022 Unclassified (1 source) CONTACT W/AND (SUSP) EXPOS COVID-19; Translations: [CONTACT W/AND (SUSP) EXPOS COVID-19] Onset: 05-30-2022 Unclassified (1 source) Drug therapy finding 12-20-2023 Past or Other Problems Problem Classification Problem Date Documented Da te Episodic/Chronic Cancer of prostate (4 sources) Personal history of malignant neoplasm of prostate; Translations: [History of malignant neoplasm of prostate] Onset: 07-03-2022 12-18-2023 Episodic Mood disorders (2 sources) Mood disorders Onset: 02-24-2024 02-24-2024 Results Test Name Value Interpretation Reference Range Facility Ambulatory Visit Summaryon 0 12-20-2023 Ambulatory Visit Summary Ambulatory Visit Summary TIFFANIE WELLS :1935 Visit Date:12/20/2023 Ambulatory Visit Instructions Your Diagnosis Prostate cancer BPH with urinary obstruction Anticoagulated Your Care Team Attending Physician - BRANDIN LESLIE, Felix Burt Primary Care Physician - SANTIAGO WHEATLEY MD This Is Your Medications List Contact prescribing physician if questions or concerns apixaban (Eliquis 5 mg oral tablet) levothyroxine (levothyroxine 75 mcg (0.075 mg) Tab) metoprolol (Metoprolol tartrate 50 mg Tab) multivitamin (Multi Vitamin+) omega-3 polyunsaturated fatty acids (Fish Oil) Procedures Performed Transrectal biopsy of prostate using ultrasound (US) guidance (11/11/2017), Implantation of radioactive seed into prostate (2002), Colonoscopy. Discharge Vitals Temperature (Temporal Artery) 37 ?C Heart Rate (Peripheral) 65 Respiratory Rate 16 Blood Pressure 135/72 Height 183 cm Height 72 in Weight 77 kg Weight 169.4 lb BMI 22.99 What to do next You Need to Schedule the Following Appointments Follow Up with BRANDIN LESLIE, Felix Burt, RACHID When: Where: [facility] [address] , [place] [address] [phone] Medications What How Much When Instructions Unchanged apixaban (Eliquis 5 mg oral tablet) Contact prescribing physician if questions or concerns Unchanged levothyroxine (levothyroxine 75 mcg (0.075 mg) Tab) Contact prescribing physician if questions or concerns Unchanged metoprolol (Metoprolol tartrate 50 mg Tab) Contact prescribing physician if questions or concerns Unchanged multivitamin (Multi Vitamin+) Contact prescribing physician if questions or concerns Unchanged omega-3 polyunsaturated fatty acids (Fish Oil) Contact prescribing physician if questions or concerns Medications and Immunizations Administered Given Lupron Depot 45 mg/6 months intramuscular injection, extended release, 45 mg, IntraMuscular. For: Prostate cancer Allergies No Known Medication Allergies Problems Ongoing - Any problem that you are currently receiving treatment for. Anticoagulated Asymptomatic microscopic hematuria BPH with urinary obstruction [...] choosing us for your care. Education Materials Hormone Suppression Therapy for Prostate Cancer Hormone suppression therapy is a treatment for prostate cancer that can help slow the growth of cancer cells in the prostate gland. It is also called androgen deprivation therapy (ADT) or androgen suppression therapy. Hormone suppression therapy targets male sex hormones (androgens) in the body that help cancer cells grow. Hormone suppression therapy alone will not cure prostate cancer, but it can slow the growth of cancer cells and may shrink tumors over time. Your health care provider can help you find the best treatment that fits your lifestyle. Hormone suppression therapy may be used in the following cases: ? When prostate cancer has spread too far to other places in the body and cannot be cured by surgery or radiation. ? When a person has health problems that prevent the use of surgery or radiation. ? Before radiation to help shrink the size of the cancer and make the radiation treatment more effective. ? If the prostate cancer remains or comes back following treatment with surgery or radiation. What are the types of hormone suppression therapy? Orchiectomy Orchiectomy, also called surgical castration, is a surgery to remove one or both testicles. The testicles make the two main androgens?testosterone and dihydrotestosterone (DHT). This surgery reduces the levels of testosterone in the blood, leading to decreased androgen production. Medicine therapy Medicine therapy, also called medical or chemical castration, involves taking medicines to keep your body from making or using androgens. Medicines can do this in one of three ways: 1. Reducing androgen production by the testicles. ? Luteinizing hormone-releasing hormone (LHRH) agonists. These medicines are injected or implanted under your skin to lower the amount of androgens that your testicles make. Depending on the medicine, they can be given monthly or up to every 3 to 6 months. If you take these medicines, you may also be prescribed other medicines to help with side effects. ? LHRH antagonists. These medicines also work to lower the amount of androgens made in the testicles, but they work faster than LHRH agonist medicines and have less severe side effects. They are given as a monthly i (more content not included)... Normal [facility] Urology Office/Clinic Noteon 12-20-2023 Urology Office/Clinic Note Urology Office/Clinic Note Chief Complaint prostate cancer, rising PSA following treatment HPI Staff 6 month f/u with PSA and Lupron injection. Dx: Rising PSA following treatment for malignant neoplasm of prostate, prostate cancer (Brachytherapy 2002), BPH with urinary obstruction, asymptomatic microhematuria and kidney stone. PSA done 06/24/23 was <0.13 and current done 12/16/23 is the same. Casodex 50mg QD was discontinued at last OV. Dysuria: no Incomplete bladder emptying: no Hematuria: no Frequency: no Urgency: no Nocturia: 0-1x Stream: good steady Leaking: no Post void dripping: no Wearing pads/ Depends: no Urge incontinence: no Stress incontinence: no Incontinence without Sensory Awareness: no Abdominal pain: no Flank pain: no Sexual complaints: no History of Present Illness Tests reviewed: reviewed UA, PSA I have reviewed the previous health record [...] HPI. Physical Exam Vitals & Measurements T: 37 ?C(Temporal Artery) HR: 65(Peripheral) RR: 16 BP: 135/72 HT: 72 in HT: 183 cm WT: 77 kg WT: 169.4 lb BMI: 22.99 General Appearance: alert, no distress, well nourished, well developed male. Assessment/Plan 1. Prostate cancer (C61: Malignant neoplasm of prostate) PSA: 11/28/21 - 0.72 05/24/22 - <0.13 12/10/22 - <0.13 06/24/23 - <0.13 12/16/23 - <0.13 Prostate bx 11/14/17 - Levels 6 (3+3) x1 core, Timothy 7 (3+4) x2 cores with 20% of the core involved. Grade group 2. S/p Brachytherapy 2002. Last Lupron given 07/01/23. Stopped Casodex 50mg qd at prior OV 07/01/23 due to breast tenderness and swelling. PSA remains undetectable. Will cont to monitor. Lupron 45 mgIM injection given today with no complications. Right glute. Pt. denies side effects at this time. -PSA and Lupron in 6 mos 2. BPH with urinary obstruction (N40.1: Benign prostatic hyperplasia with lower urinary tract symptoms) UA today shows trace-intact blood, negative for infection. Not taking any BPH medes. Voiding well. 3. Anticoagulated (Z79.01: senior care (current) use of anticoagulants) States he recently went to [facility] ER due to a-fib. Was started on Eliquis. Follow-up With When Contact Information BRANDIN LESLIE, Felix Burt, URL [facility] [address], [place] [address]- [phone] Additional Instructions: 6 mos w/ PSA and Lupron Patient Education Hormone Suppression Therapy for Prostate Cancer IHanna, personally scribed for Dr. Colin on 12/20/2023 10:20:08. . Documentation recorded by the scribe, Hanna Sinha, accurately reflects the services(s) I performed and decisions made by me. Authenticated by Dr. Colin on 12/20/2023 10:21:40. Problem List/Past Medical History Ongoing Anticoagulated Asymptomatic microscopic hematuria BPH with urinary obstruction Kidney stone Microscopic hematuria Nocturia Prostate cancer Rising PSA following treatment for malignant neoplasm of prostate Historical BPH with elevated PSA Procedure/Surgical History Transrectal biopsy of prostate using ultrasound (US) guidance (11/11/2017), Implantation of radioactive seed into prostate (2002), Colonoscopy. Medications Eliquis 5 mg oral tablet Fish Oil, Oral levothyroxine 75 mcg (0.075 mg) Tab Metoprolol tartrate 50 mg Tab Multi Vitamin+ Allergies No Known Medication Allergies Social History Tobacco Never (less than 100 in lifetime) Tobacco Use:. Never Smokeless Tobacco Use:. Household tobacco concerns: No. Yes, 12/20/2023 Immunizations Vaccine Date Status Comments influenza virus vaccine, inactivated 02/20/2022 Recorded SARS-CoV-2 (COVID-19) [id number] 02/20/2022 Recorded SARS-CoV-2 (COVID-19) mRNA-1273 vaccine 08/19/2021 Recorded influenza virus vaccine, inactivated 02/21/2021 Recorded SARS-CoV-2 (COVID-19) mRNA BNT-162b2 vax 01/24/2021 Recorded SARS-CoV-2 (COVID-19) mRNA BNT-162b2 vax 06/15/2020 Recorded SARS-CoV-2 (COVID-19) mRNA BNT-162b2 vax 05/23/2020 Recorded SARS-CoV-2 (COVID-19) mRNA BNT-162b2 vax 2020 Recorded 3 shots but does not know the dates influenza virus vaccine, inactivated 02/02/2020 Recorded influenza virus vaccine, inactivated 02/10/2019 Recorded influenza virus vaccine, inactivated 02/12/20 (more content not included)... [facility] Comment on above: Result Comment: Elec tronically Signed By: Felix COLIN MD\.br\Date and Time Signed: 12/20/23 10:21 EDT\.br\Electronically Co-Signed By: Hanna Sinha\.br\Date and Time Co-Signed: 12/20/23 10:20 EDT Ambulatory Visit Summaryon 0 07-01-2023 Ambulatory Visit Summary TIFFANIE WELLS :1935 Visit Date:11/17/2018 Ambulatory Visit Instructions Your Care Team Primary Care Physician - SANTIAGO WHEATLEY MD This Is Your Medications List [...] With: Felix COLIN MD Where: [facility] Ambulatory Visit Summary TIFFANIE WELLS :1935 Visit Date:07/01/2023 Ambulatory Visit Instructions Your Diagnosis Rising PSA following treatment for malignant neoplasm of prostate, Rising PSA following treatment for malignant neoplasm of prostate Prostate cancer BPH with urinary obstruction Gynecomastia Other obstructive and reflux uropathy Your Care Team Attending Physician - Felix COLIN MD Primary Care Physician - SANTIAGO WHEATLEY MD This Is Your Medications List [...] Burt, URL When: In 6 months Comments: 6 mo fu with Emir HWANG Where: [facility] [address] [place] [address] [phone] Medications What How Much When Instructions Unchanged [...] prostate ca (more content not included)... Normal [facility] Patient Educationon 07-01-19 24 Patient Education [...] likelihood that the cancer will spread. ? Levels 6 or lower: This indicates that the cancer cells look similar to normal prostate cells (well differentiated). ? Levels 7: This indicates that the cancer cells look somewhat similar to normal prostate cells (moderately differentiated). ? Levels 8, 9, or 10: This indicates that [...] external be (more content not included)... Normal [facility] Urology Office/Clinic Noteon 07-01-2023 Urology Office/Clinic Note [...] involved, 1/1 core. Right lateral mid - Levels 7 (3+4), tumor measure 0.25 cm in [...] In 6 months [facility] [address] [place] [address]- [phone] Additional Instructions: 6 mo fu with PSA, Lupron Patient Education Prostate Cancer IElza, personally scribed for Dr. Colin on 07/01/2023 10:48:14. . Documentation recorded by the scribivette howe, accurately reflects the services(s) I performed [...] refills Ryanne (more content not included)... Normal [facility] Comment on above: Result Comment: Elec tronically Signed By: Felix COLIN MD\.br\Date and Time Signed: 07/01/23 10:49 EST\.br\Electronically Co-Signed By: Elza Gunn\.br\Date and Time Co-Signed: 07/01/23 10:48 EST Lab Reportson 06-25-2023 Lab Reports [id number] IFF Normal [facility] Ambulatory Visit Summaryon 0 12-28-2022 Ambulatory Visit Summary TIFFANIE WELLS :1935 Visit Date:12/28/2022 Ambulatory Visit Instructions Your Diagnosis Rising PSA following treatment for malignant neoplasm of prostate Prostate cancer BPH with urinary obstruction Asymptomatic microscopic hematuria Kidney stone Your Care Team Attending Physician - Felix COLIN MD Primary Care Physician - SANTIAGO WHEATLEY MD This Is Your Medications List [...] RACHID Gunderson When: In 6 months Comments: w/ Lupron and PSA Where: [facility] [address] [place] [address]- Medications What How Much When Instructions Unchanged [...] produce a (more content not included)... Normal [facility] Patient Educationon 12-29-19 23 Patient Education Urology Benign Prostatic Hyperplasia [...] Follow these instructions at home: ? Take [id number] and prescription medicines only as told by [...] the medicine (more content not included)... Normal [facility] Urology Office/Clinic Noteon 12-28-2022 Urology [...] involved, 1/1 core. Right lateral mid - Levels 7 (3+4), tumor measure 0.25 cm in [...] [facility] [address], [place] [address]- Additional Instructions: w/ Lupron and PSA Patient [...] No Known (more content not included)... Normal [facility] Comment on above: Result Comment: Elec tronically Signed By: Felix COLIN MD\.br\Date and Time Signed: 12/28/22 13:00 EDT\.br\Electronically Co-Signed By: Mimi Donaldson\.br\Date and Time Co-Signed: 12/28/22 12:[address] ABD/PELV WO W CONon 06-21 CT [...] by: HAYDEE DANIELS Date: 2022-06-21 14:41 Normal [facility] 36on 06-07-2022 36 Spoke with patient t o schedule a follow up with Dr. Maloney after event monitor per Octavia Velez. He said he is leaving this up to his PCP, Dr. Wheatley. I told him if he needs us or changes his mind, he can always call us. He verbalized understanding. Normal [facility] ECHOCARDIO M/2D COMPLETEon 0 05-28-2022 ECHOCARDIO M/2D COMPLETE Patient: TIFFANIE WELLS Exam Date: 05/28/2022 : 1935 Gender:M Ordering : SHAIKH Shaan RODRIGUEZ . Admission #: [id number] Family : DR SANTIAGO WHEATLEY . Order #: [id number] CLICK HERE TO VIEW EXAM ECHOCARDIOGRAM REPORT [...] Area (VTI): 3.24 cm2, 3.24 cm2 Deceleration Dare: 2.89 m/s2 Pressure Half-Time: 532.36 ms Peak [...] Royal M.D. on 05/28/2022 at 13:16 Normal [facility] NM STRESS/REST MULTIon 05-28 NM STRESS/REST MULTI Patient: TIFFANIE WELLS Exam Date: 05/28/2022 : 1935 Gender:M Ordering : SHAIKH Shaan RODRIGUEZ . Admission #: [id number] Family : DR SANTIAGO WHEATLEY . Order #: [id number] CLICK HERE TO VIEW EXAM RADIOLOGY REPORT [...] Bernardo M.D. on 05/29/2022 at 07:35 Normal [facility] MAGNESIUMon 05-27-2022 Magnesium [Mass/Vol] 1.8 mg/dL Normal 1.8-2.4 [facility] Comment on above: Performed By: #### P SAD #### [facility] [address] [place] [address] Dr. Otilio Rich PROF 14(COMP METB)on 023 Albumin [Mass/Vol] 3.1 g/dL Critically low 3.4-5.0 Th e [facility] Comment on above: Performed By: #### T SH, CMP #### [facility] [address] [place] [address] Dr. Otilio Rich Albumin/Globulin [Mass ratio] 0.7 {ratio} Normal [facility] Comment on above: Performed By: #### T SH, CMP #### [facility] [address] [place] [address] Dr. Otilio Rcih ALP [Catalytic activity/Vol] 87 U/L Normal 46-116 [facility] Comment on above: Performed By: #### T SH, CMP #### [facility] [address] [place] [address] Dr. Otilio Rich ALT [Catalytic activity/Vol] 26 U/L Normal 16-63 [facility] Comment on above: Performed By: #### T SH, CMP #### [facility] [address] [place] [address] Dr. Otilio Rich Anion gap [Moles/Vol] 13.6 mmol/L Normal [facility] Comment on above: Performed By: #### T SH, CMP #### [facility] [address] [place] [address] Dr. Otilio Rich AST [Catalytic activity/Vol] 16 U/L Normal 15-37 [facility] Comment on above: Performed By: #### T SH, CMP #### [facility] [address] [place] [address] Dr. Otilio Rich Bilirubin [Mass/Vol] 1.5 mg/dL Critically high 0.2-1.0 [facility] Comment on above: Performed By: #### T SH, CMP #### [facility] [address] [place] [address] Dr. Otilio Rich Calcium [Mass/Vol] 9.7 mg/dL Normal 8.5-10.1 [facility] Comment on above: Performed By: #### T SH, CMP #### [facility] [address] [place] [address] Dr. Otilio Rihc Chloride [Moles/Vol] 102 mmol/L Normal 98-107 [facility] Comment on above: Performed By: #### T SH, CMP #### [facility] [facility] [address] [place] [address] Dr. Otilio Rich CO2 [Moles/Vol] 26.5 mmol/L Normal 21.0-32.0 [facility] Comment on above: Performed By: #### T SH, CMP #### [facility] [address] [place] [address] Dr. Otilio Rich Creatinine [Mass/Vol] 0.88 mg/dL Normal 0.70-1.30 [facility] Comment on above: Performed By: #### T SH, CMP #### [facility] [address] [place] [address] Dr. Otilio Rich EGFR-AF TURKMEN >60 Normal >=60 [facility] Comment on above: Performed By: #### T SH, CMP #### [facility] [address] [place] [address] Dr. Otilio Rich EGFR-NON AF TURKMEN >60 Normal >=60 [facility] Comment on above: Performed By: #### T SH, CMP #### [facility] [address] [place] [address] Dr. Otilio Rich Globulin (S) [Mass/Vol] 4.2 g/dL Normal [facility] Comment on above: Performed By: #### T SH, CMP #### [facility] [address] [place] [address] Dr. Otilio Rich Glucose [Mass/Vol] 105 mg/dL Normal 74-106 [facility] [place] [facility] Comment on above: Performed By: #### T SH, CMP #### [facility] [address] [address] [address] Otilio Rich Potassium [Moles/Vol] 4.1 mmol/L Normal 3.5-5.1 [facility] Comment on above: Performed By: #### T SH, CMP #### [facility] [address] [place] [address] Dr. Otilio Rich Protein [Mass/Vol] 7.3 g/dL Normal 6.4-8.2 [facility] Comment on above: Performed By: #### T SH, CMP #### [facility] [address] [place] [address] Dr. Otilio Rich Sodium [Moles/Vol] 138 mmol/L Normal 136-145 [facility] Comment on above: Performed By: #### T SH, CMP #### [facility] [address] [place] [address] Dr. Otilio Rich Urea nitrogen [Mass/Vol] 19.0 mg/dL Critically high 7.0-18.0 [facility] Comment on above: Performed By: #### T SH, CMP #### [facility] [address] [place] [address] Dr. Otilio Rich Urea nitrogen/Creatinine [Mass ratio] 21.6 mg/mg Normal [facility] Comment on above: Performed By: #### T SH, CMP #### [facility] [address] [place] [address] Dr. Otilio Rich TSHon 05-27-2022 TSH 3.344 uIU/mL Normal 0.358-3.740 [facility] Comment on above: Performed By: #### P SAD #### [facility] [address] [place] [address] Dr. Otilio Rich CARDIAC RAMA 3-6on 3 CK [Catalytic activity/Vol] 60 U/L Normal 39-308 [facility] Comment on above: Performed By: #### C MREP #### [facility] [address] [place] [address] Dr. Otilio Rich CK.MB [Mass/Vol] ng/mL Normal <=3.60 [facility] Comment on above: Performed By: #### C MREP #### [facility] [address] [place] [address] Dr. Otilio Rich HSTROP 5.9 pg/mL Normal 4.0-76.1 [facility] Comment on above: Result Comment: CUT- OFF POINTS HAVE BEEN ESTABLISHED BASED ON THE FOURTH UNIVERSAL DEFINITIONS OF MYOCARDIAL INFARCTION. THE UPPER REFERENCE LIMIT (URL) OF TROPONIN, DEFINED THE 99TH PERCENTILE OF cTnI DISTRIBUTION IN A REFERENCE POPULATION, HAS BEEN CONFIRMED THE DECISION THRESHOLD FOR TN DIAGNOSIS. Performed By: #### C MREP #### [facility] [address] [place] [address] Dr. Otilio Rich CK [Catalytic activity/Vol] 65 U/L Normal 39-308 [facility] Comment on above: Performed By: #### C MREP #### [facility] [address] [place] [address] Dr. Otilio Rich CK.MB [Mass/Vol] ng/mL Normal <=3.60 [facility] Comment on above: Performed By: #### C MREP #### [facility] [address] [place] [address] Dr. Otilio Rich HSTROP 5.6 pg/mL Normal 4.0-76.1 [facility] Comment on above: Result Comment: CUT- OFF POINTS HAVE BEEN ESTABLISHED BASED ON THE FOURTH UNIVERSAL DEFINITIONS OF MYOCARDIAL INFARCTION. THE UPPER REFERENCE LIMIT (URL) OF TROPONIN, DEFINED THE 99TH PERCENTILE OF cTnI DISTRIBUTION IN A REFERENCE POPULATION, HAS BEEN CONFIRMED THE DECISION THRESHOLD FOR TN DIAGNOSIS. Performed By: #### C MREP #### [facility] [address] [address] [address] Otilio Rich CARDIAC RAMA ADMITon 023 CK [Catalytic activity/Vol] 65 U/L Normal 39-308 [facility] Comment on above: Performed By: #### B MP, CMADM #### [facility] [address] [address] [address] Otilio Rich CK.MB [Mass/Vol] 0.53 ng/mL Normal <=3.60 [facility] Comment on above: Performed By: #### B CASSIE, CMADM #### [facility] [address] [place] [address] Dr. Otilio Rich HSTROP 6.8 pg/mL Normal 4.0-76.1 [facility] Comment on above: Result Comment: CUT- OFF POINTS HAVE BEEN ESTABLISHED BASED ON THE FOURTH UNIVERSAL DEFINITIONS OF MYOCARDIAL INFARCTION. THE UPPER REFERENCE LIMIT (URL) OF TROPONIN, DEFINED THE 99TH PERCENTILE OF cTnI DISTRIBUTION IN A REFERENCE POPULATION, HAS BEEN CONFIRMED THE DECISION THRESHOLD FOR TN DIAGNOSIS. Performed By: #### B CASSIE, CMADM #### [facility] [address] [place] [address] Dr. Otilio Rich ABNER 56 ng/mL Normal 16-96 [facility] Comment on above: Performed By: #### B CASSIE, CORIDM #### [facility] [address] [place] [address] Dr. Otilio Rich CBC AUTO DIFFon 05-26-2022 BASO # 0.0 103/ul Normal 0.0-0.1 [facility] Comment on above: Performed By: #### P SAD #### [facility] [address] [place] [address] Dr. Otilio Rich Basophils/100 WBC (Bld) 0.3 % Normal 0.2-2.0 [facility] Comment on above: Performed By: #### P SAD #### [facility] [address] [place] [address] Dr. Otilio Rich EO # 0.4 103/ul Normal 0.0-0.7 [facility] Comment on above: Performed By: #### P SAD #### [facility] [address] [address] [address] Otilio Rich Eosinophils/100 WBC (Bld) 4.2 % Normal 0.9-7.0 [facility] Comment on above: Performed By: #### P SAD #### [facility] [address] [place] [address] Dr. Otilio Rich Erythrocyte distribution width (RBC) [Ratio] 11.9 % Normal 11.0-15.0 [facility] Comment on above: Performed By: #### P SAD #### [facility] [address] [address] [address] Otilio Rich Hematocrit (Bld) [Volume fraction] 37.3 % Critically low 42.0-54.0 [facility] Comment on above: Performed By: #### P SAD #### [facility] [address] [address] [address] Otilio Rich Hemoglobin (Bld) [Mass/Vol] 13.1 g/dL Critically low 14.0-18.0 [facility] Comment on above: Performed By: #### P SAD #### [facility] [address] [place] [address] Dr. Otilio Rich IG # 0.03 10e3/ul Normal 0.00-0.03 [facility] Comment on above: Performed By: #### P SAD #### [facility] [address] [place] [address] Dr. Otilio Rich IG % 0.3 % Normal 0.0-0.5 [facility] Comment on above: Performed By: #### P SAD #### [facility] [address] [place] [address] Dr. Otilio Rich LYMPH # 2.6 103/ul Normal 1.2-3.8 [facility] Comment on above: Performed By: #### P SAD #### [facility] [address] [place] [address] Dr. Otilio Rich Lymphocytes/100 WBC (Bld) 25.9 % Normal 20.5-60.0 [facility] Comment on above: Performed By: #### P SAD #### [facility] [address] [place] [address] Dr. Otilio Rich MANUAL DIFF REQ NO Normal [facility] Comment on above: Performed By: #### P SAD #### [facility] [address] [place] [address] Dr. Otilio Rich MCH (RBC) [Entitic mass] 31.6 pg Normal 25.9-34.0 [facility] Comment on above: Performed By: #### P SAD #### [facility] [address] [address] [address] Otilio Rich MCHC (RBC) [Mass/Vol] 35.1 g/dL Normal 29.9-35.2 [facility] Comment on above: Performed By: #### P SAD #### [facility] [address] [address] [address] Otilio Rich MCV (RBC) [Entitic vol] 89.9 fL Normal 80.0-94.0 [facility] Comment on above: Performed By: #### P SAD #### [facility] [address] [address] [address] Otilio Rich MONO # 1.0 103/ul Critically high 0.3-0.8 [facility] Comment on above: Performed By: #### P SAD #### [facility] [address] [place] [address] Dr. Otilio Rich Monocytes/100 WBC (Bld) 10.4 % Normal 1.7-12.0 [facility] Comment on above: Performed By: #### P SAD #### [facility] [address] [address] [address] Otilio Rich NEUT # 5.8 103/ul Normal 1.4-6.5 [facility] Comment on above: Performed By: #### P SAD #### [facility] [address] [address] [address] Otilio Rich Neutrophils/100 WBC (Bld) 58.9 % Normal 43.0-75.0 [facility] Comment on above: Performed By: #### P SAD #### [facility] [address] [address] [address] Otilio Rich Platelet mean volume (Bld) [Entitic vol] 10.2 fL Normal 9.5-13.5 [facility] Comment on above: Performed By: #### P SAD #### [facility] [address] [address] [address] Otilio Rich PLT 185 103/ul Normal 150-450 [facility] Comment on above: Performed By: #### P SAD #### [facility] [address] [place], [place] [address] Dr. Otilio Rich RBC 4.15 106/ul Critically low 4.70-6.10 [facility] Comment on above: Performed By: #### P SAD #### [facility] [address] [place], [place] [address] Dr. Otilio Rich WBC 9.8 103/ul Normal 4.0-11.0 [facility] Comment on above: Performed By: #### P SAD #### [facility] [address] [place], [place] [address] Dr. Otilio Rich CTA CHEST WO W [...] RAVEN BENDER Date: 2022-05-26 06:14 Normal [facility] Covid-19 PCR (CVDTBH)on 04-30 SARS-CoV-2 (COVID-19) RNA MARCY+probe Ql (Unsp spec) Not detected Normal NOT DETECTED [facility] Comment on above: Result Comment: When diagnostic [...] for this test is supported by the [place] of Health and Human Service's declaration that [...] used). Performed By: #### C VDTBH #### [facility] [address] [place] [address] Dr. Otilio Rich D-DIMERon 05-26-2022 D-DIMER 1.05 mg/L FEU Critically high <=0.59 [facility] Comment on above: Performed By: #### P SAD #### [facility] [address] [place] [address] Dr. Otilio Rich D-DIMER COMMENTS SEE BELOW Normal [facility] Comment on above: Result Comment: [...] hospitalization. Performed By: #### P SAD #### [facility] [address] [address] [address] Otilio Rich GLYCOHEMOGLOBIN A1Con 2022 ADA RECOMMENDATION SEE BELOW Normal [facility] Comment on above: Result Comment: ADA RECOMMENDED LIMIT 4.0 - 6.0 ADA THERAPEUTIC TARGET < 7.0 ACTION SUGGESTED > 7.0 Performed By: #### A 1C #### [facility] [address] [address] [address] Otilio Rich Glucose [Mass/Vol] 111 mg/dL Normal [facility] Comment on above: Performed By: #### A 1C #### [facility] [address] [place] [address] Dr. Otilio Rich HbA1c (Bld) [Mass fraction] 5.5 % Normal 4.5-6.2 [facility] Comment on above: Performed By: #### A 1C #### [facility] [address] [place] [address] Dr. Otilio Rich LIPID PROFILEon 05-26-2022 CHOL-HDL RATIO NORM SEE BELOW Normal [facility] [place] [facility] Comment on above: Result Comment: 3.3 - 4.4 LOW RISK 4.4 - 7.1 AVERAGE RISK 7.1 - 11.0 MODERATE RISK >11.0 HIGH RISK Performed By: #### L IPID #### [facility] [address] [place] [address] Dr. Otilio Rich Cholesterol [Mass/Vol] 187 mg/dL Normal <=200 [facility] Comment on above: Performed By: #### L IPID #### [facility] [address] [place] [address] Dr. Otilio Rich Cholesterol in HDL [Mass/Vol] 49 mg/dL Normal 40-60 [facility] Comment on above: Performed By: #### L IPID #### [facility] [address] [place] [address] Dr. Otilio Rich Cholesterol in LDL [Mass/Vol] 116.2 mg/dL Normal [facility] Comment on above: Performed By: #### L IPID #### [facility] [address] [place] [address] Dr. Otilio Rich Cholesterol.total/C holesterol in HDL [Mass ratio] 3.8 {ratio} Normal [facility] Comment on above: Performed By: #### L IPID #### [facility] [address] [address] [address] Otilio Rich HDL NORMAL > or = 60 mg/dl - LO W CARDIOVASCULAR RISK <40 mg/dl - HIGH CARDIOVASCULAR RISK Normal [facility] Comment on above: Performed By: #### L IPID #### [facility] [address] [address] [address] Otilio Rich LDL CALC NORMAL SEE BELOW Normal [facility] Comment on above: Result Comment: <100 mg/dl OPTIMAL 100 - 129 mg/dl NEAR OR ABOVE OPTIMAL 130 - 159 mg/dl BORDERLINE HIGH 160 - 189 mg/dl HIGH >190 mg/dl VERY HIGH Performed By: #### L IPID #### [facility] [address] [address] [address] Otilio Rich Triglyceride [Mass/Vol] 109 mg/dL Normal <=150 [facility] Comment on above: Performed By: #### L IPID #### [facility] [address] [address] [address] Otilio Rich VLDL CALC 21.8 mg/dL Normal [facility] Comment on above: Performed By: #### L IPID #### [facility] [address] [address] [address] Otilio Rich PROF CHEM 8 (BAS METB)on Anion gap [Moles/Vol] 10.3 mmol/L Normal [facility] Comment on above: Performed By: #### B MP, CMADM #### [facility] [address] [address] [address] Otilio Rich Calcium [Mass/Vol] 10.5 mg/dL Critically high 8.5-10.1 T [facility] Comment on above: Performed By: #### B MP, CMADM #### [facility] [address] [address] [address] Otilio Rich Chloride [Moles/Vol] 101 mmol/L Normal 98-107 [facility] Comment on above: Performed By: #### B CASSIE, CMADM #### [facility] [address] [address] [address] Otilio Rich CO2 [Moles/Vol] 29.6 mmol/L Normal 21.0-32.0 [facility] Comment on above: Performed By: #### B CASSIE, CMADM #### [facility] [address] [address] [address] Otilio Rich Creatinine [Mass/Vol] 0.76 mg/dL Normal 0.70-1.30 [facility] Comment on above: Performed By: #### B CASSIE, CMADM #### [facility] [address] [address] [address] Otilio Rich EGFR-AF TURKMEN >60 Normal >=60 [facility] Comment on above: Performed By: #### B CASSIE, CMADM #### [facility] [address] [address] [address] Otilio Rich EGFR-NON AF TURKMEN >60 Normal >=60 [facility] Comment on above: Performed By: #### B CASSIE, CMADM #### [facility] [address] [address] [address] Otilio Rich Glucose [Mass/Vol] 111 mg/dL Critically high 74-106 [facility] Comment on above: Performed By: #### B CASSIE, CMADM #### [facility] [address] [address] [address] Otilio Rich Potassium [Moles/Vol] 3.9 mmol/L Normal 3.5-5.1 [facility] Comment on above: Performed By: #### B CASSIE, CMADM #### [facility] [address] [address] [address] Otilio Rich Sodium [Moles/Vol] 137 mmol/L Normal 136-145 [facility] Comment on above: Performed By: #### B CASSIE, CMADM #### [facility] [address] [address] [address] Otilio Rich Urea nitrogen [Mass/Vol] 14.0 mg/dL Normal 7.0-18.0 [facility] Comment on above: Performed By: #### B CASSIE, GLEN #### [facility] [address] [address] [address] Otilio Rich Urea nitrogen/Creatinine [Mass ratio] 18.4 mg/mg Normal [facility] Comment on above: Performed By: #### B CASSIE, GLEN #### [facility] [address] [address] [address] Otilio Rich TROPONIN, HIGH SENSITIVITYon 05-26-2022 HSTROP 5.4 pg/mL Normal 4.0-76.1 [facility] Comment on above: Result Comment: CUT- OFF POINTS HAVE BEEN ESTABLISHED BASED ON THE FOURTH UNIVERSAL DEFINITIONS OF MYOCARDIAL INFARCTION. THE UPPER REFERENCE LIMIT (URL) OF TROPONIN, DEFINED THE 99TH PERCENTILE OF cTnI DISTRIBUTION IN A REFERENCE POPULATION, HAS BEEN CONFIRMED THE DECISION THRESHOLD FOR TN DIAGNOSIS. Performed By: #### P SAD #### [facility] [address] [address] [address] Otilio Rich XR CHEST 1 Von [...] by: RAVEN BENDER Date: 2022-05-26 05:00 Normal [facility] Vital Signs Date Time Vital Sign Value Performing Clinician Facility 02-24-2024 10:10 Body height 182.9 cm Santiago Wheatley MD Work Phone: [facility] 02-24-2024 [id number] Body mass index (BMI) [Ratio] 23.06 kg/m2 Santiago Wheatley MD Work Phone: [facility] 02-24-2024 10:10-0400 Body temperature 97.11 [degF] Santiago Wheatley MD Work Phone: [facility] 02-24-2024 10:10-0400 Body weight 77.11 kg Santiago Wheatley MD Work Phone: [facility] 02-24-2024 10:10-0400 Diastolic blood pressure 68 mm[Hg] Santiago Wheatley MD Work Phone: [facility] 02-24-2024 10:10-0400 Heart rate 59 /min Santiago Wheatley MD Work Phone: [facility] 02-24-2024 10:10-0400 Respiratory rate 18 /min Santiago Wheatley MD Work Phone: [facility] 02-24-2024 10:10-0400 SaO2% (BldA) [Mass fraction] 97 % Santiago Wheatley MD Work Phone: [facility] 02-24-2024 10:10-0400 Systolic blood pressure 140 mm[Hg] Santiago Wheatley MD Work Phone: [facility] 12-20-2023 09:36-0400 Blood Pressure Location [facility] 12-20-2023 09:36-0400 Body temperature 98.6 [degF] Felix COLIN [facility] 12-20-2023 09:36-0400 Diastolic blood pressure 72 mm[Hg] Felix COLIN [facility] 12-20-2023 09:36-0400 Heart rate 65 /min Felix COLIN [facility] 12-20-2023 09:36-0400 Respiratory rate 16 /min Felix COLIN [facility] 12-20-2023 09:36-0400 Systolic blood pressure 135 mm[Hg] Felix COLIN [facility] 07-01-2023 09:56-0500 Blood Pressure Location Felix COLIN [facility] 07-01-2023 09:56-0500 Body temperature 98.24 [degF] Felix COLIN [facility] 07-01-2023 09:56-0500 Diastolic blood pressure 78 mm[Hg] Felix COLIN [facility] 07-01-2023 09:56-0500 Heart rate 69 /min Felix COLIN [facility] 07-01-2023 09:56-0500 Respiratory rate 16 /min Felix COLIN [facility] 07-01-2023 09:56-0500 Systolic blood pressure 132 mm[Hg] Felix COLIN [facility] 12-28-2022 12:13-0400 Blood Pressure Location Felix COLIN [facility] 12-28-2022 12:13-0400 Body temperature 97.7 [degF] Felix COLIN [facility] 12-28-2022 12:13-0400 Diastolic blood pressure 71 mm[Hg] Felix COLIN [facility] 12-28-2022 12:13-0400 Heart rate 65 /min Felix COLIN [facility] 12-28-2022 12:13-0400 Respiratory rate 16 /min Felix COLIN [facility] 12-28-2022 12:13-0400 Systolic blood pressure 135 mm[Hg] Felix COLIN [facility] 06-04-2022 14:06-0500 Blood Pressure Location Felix COLIN [facility] 06-04-2022 14:06-0500 Diastolic blood pressure 62 mm[Hg] Felix COLIN [facility] 06-04-2022 14:06-0500 Heart rate 61 /min Felix COLIN [facility] 06-04-2022 14:06-0500 Respiratory rate 16 /min Felix COLIN [facility] 06-04-2022 14:06-0500 Systolic blood pressure 128 mm[Hg] Felix COLIN [facility] 12-04-2021 10:00-0400 Blood Pressure Location Felix COLIN [facility] 12-04-2021 10:00-0400 Diastolic blood pressure 76 mm[Hg] Felix COLIN [facility] 12-04-2021 10:00-0400 Heart rate 72 /min Felix COLIN [facility] 12-04-2021 10:00-0400 Respiratory rate 16 /min [facility] 12-04-2021 10:00-0400 Systolic blood pressure 139 mm[Hg] [facility] Encounters Encounter Date Encounter Type Care Provider Facility Start: 06-08-2024 ambulatory Felix COLIN Facili ty:[facility] [place] [facility] Start: 02-24-2024 End: 02-24-2024 Bamboo flowsheet Santiago Wheatley MD Work Phone: [facility] Start: 02-24-2024 End: 02-24-2024 [employer] Santiago Wheatley MD Work Phone: [facility] Start: 02-24-2024 End: 02-24-2024 Patient encounter procedure Santiago Wheatley MD Work Phone: [facility] Work Phone: Start: 02-24-2024 End: 02-24-2024 Postop follow up visit related to original px Santiago Wheatley MD Work Phone: [facility] Comment on above: Medicare annual well ness visit, subsequent (Primary Dx); Mixed hyperlipidemia (CMS/HCC); Encounter for long-term (current) use of medications; Essential hypertension, benign (CMS/HCC); Adult hypothyroidism (CMS/HCC) Start: 02-24-2024 End: 02-24-2024 ambulatory SANTIAGO WHEATLEY Not Available Start: 12-20-2023 End: 12-20-2023 ambulatory Felix COLIN Facility:[facility] [place] [facility] Start: 12-20-2023 End: 12-20-2023 Patient encounter procedure [facility] Start: 12-18-2023 End: 12-18-2023 ambulatory SANTIAGO WHEATLEY Not Available Start: 09-26-2023 End: 09-26-2023 ambulatory SANTIAGO WHEATLEY Not Available Start: 07-01-2023 End: 07-01-2023 ambulatory Felix COLIN Facility:[facility] [place] [facility] Start: 07-01-2023 End: 07-01-2023 Patient encounter procedure Felix COLIN [facility] Start: 12-28-2022 End: 12-28-2022 ambulatory Felix COLIN Facility:[facility] Start: 12-28-2022 End: 12-28-2022 Patient encounter procedure Felix COLIN [facility] Start: 07-02-2022 End: 07-02-[address] FELIX COLIN . Facility:[facility] Start: 06-21-2022 End: 06-22-[address] FELIX COLIN . Facility:[facility] Start: 06-11-2022 End: 06-11-2022 Patient encounter procedure Felix COLIN [facility] Start: 06-04-2022 End: 06-04-2022 Patient encounter procedure Felix COLIN [facility] Start: 05-26-2022 End: 05-28-[address] SANTIAGO WHEATLEY Facility:[facility] Start: 05-24-2022 End: 05-25-[address] FELIX COLIN . Facility:[facility] Start: 12-04-2021 End: 12-04-2021 Patient encounter procedure Felix COLIN [facility] Start: 11-28-2021 End: 11-29-[address] FELIX COLIN . Facility:[facility] Procedures Date Procedure Procedure Detail Performing Clinician Start: 05-24-[address] SANTIAGO DILLON Comment on above: Performed By: #### P SAD #### [facility] [address] [place] [address] Dr. Otilio Rich Start: 11-28-[address] SANTIAGO DILLON Comment on above: Performed By: #### P SAD #### [facility] [address] [place] [address] Dr. Otilio Rich Start: 11-11-2017 Transrectal biopsy o f prostate using ultrasound guidance Felix COLIN Start: 04-29-2002 Implantation of radioactive seed into prostate Felix COLIN Colonoscopy Felix COLIN Plan of Treatment Date Care Activity Detail Author Start: 08-24-2024 End: 08-24-2024 Patient encounter procedure 08/24/2024 10:00 AM EDT Office Visit [facility] [address] [place] [address] Santiago Wheatley MD [address] [place] [phone] [facility] Start: 03-31-2024 End: 03-31-2024 Patient encounter procedure 03/31/2024 9:00 AM EST Office Visit [facility] [address] [place] [address] Santiago Wheatley MD [address] [place] [phone] [facility] Start: 02-24-2024 End: 02-23-2025 Basic metabolic 1998 panel - Serum or Plasma Basic metabolic panel Lab Routine Essential hypertension, benign (CMS/HCC) Expected: 02/24/2024 (Approximate), [facility] Comment on above: Expected: 02/24/2024 (Approximate), Expires: 02/23/2025 Start: 02-24-2024 End: 02-23-2025 CBC W Auto Differential panel - Blood CBC and differential Lab Routine Encounter for long-term (current) use of medications Expected: 02/24/2024 (Approximate), Expires: 02/23/2025 [facility] Comment on above: Expected: 02/24/2024 (Approximate), Expires: 02/23/2025 Start: 02-24-2024 End: 02-23-2025 Hepatic function 2000 panel - Serum or Plasma Hepatic function panel Lab Routine Encounter for long-term (current) use of medications Expected: 02/24/2024 (Approximate), Expires: 02/23/2025 [facility] Comment on above: Expected: 02/24/2024 (Approximate), Expires: 02/23/2025 Start: 02-24-2024 End: 02-23-2025 Lipid 1996 panel - Serum or Plasma Lipid panel Lab Routine Mixed hyperlipidemia (CMS/HCC) Expected: 02/24/2024 (Approximate), Expires: 02/23/2025 [facility] Comment on above: Expected: 02/24/2024 (Approximate), Expires: 02/23/2025 Start: 02-24-2024 End: 02-23-2025 Thyrotropin [Units/volume] in Serum or Plasma TSH Lab Routine Adult hypothyroidism (CMS/HCC) Expected: 02/24/2024 (Approximate), Expires: 02/23/2025 [facility] Comment on above: Expected: 02/24/2024 (Approximate), Expires: 02/23/2025 Start: 02-24-2024 End: 02-23-2025 Thyroxine (T4) free [Mass/volume] in Serum or Plasma T4, free Lab Routine Adult hypothyroidism (CMS/HCC) Expected: 02/24/2024 (Approximate), Expires: 02/23/2025 [facility] Comment on above: Expected: 02/24/2024 (Approximate), Expires: 02/23/2025 Start: 02-24-2024 End: 02-24-2024 Patient encounter procedure 02/24/2024 10:00 AM EDT Office Visit [facility] [address] [place] [address] Santiago Wheatley MD [address] [place] [phone] Arrived [facility] Comment on above: Arrived Start: 12-29-2023 Influenza vaccination Influenza Vacc ine (#1) [facility] Start: 12-27-2017 Pneumococcal Vaccine : 65+ Years (2 of 2 - PPSV23 or PCV20) Pneumococcal Vaccine: 65+ Years (2 of 2 - PPSV23 or PCV20) [facility] Start: 1935 Medicare Annual Wellness (AWV) Medicare Annual Wellness (AWV) [facility] Immunizations Immunization Date Immunization Notes Care Provider Fa cility 02-11-2024 influenza virus vaccine, unspecified formulation Santiago Wheatley MD Work Phone: [facility] 02-20-2022 influenza virus vaccine, unspecified formulation Felix COLIN [facility] 02-20-2022 SARS-CoV-2 (COVID-19 ) [id number] Felix COLIN [facility] 08-19-2021 SARS-CoV-2 (COVID-19 ) mRNA-[id number] vaccine Felix COLIN [facility] 02-21-2021 influenza virus vaccine, unspecified formulation Felix COLIN [facility] 01-24-2021 SARS-CoV-2 (COVID-19 ) mRNA BNT-162b2 vax Felix COLIN [facility] 06-15-2020 SARS-CoV-2 (COVID-19 ) mRNA BNT-162b2 vax Felix COLIN [facility] 05-23-2020 SARS-CoV-2 (COVID-19 ) mRNA BNT-162b2 vax Felixchano COLIN [facility] 04-29-2020 SARS-CoV-2 (COVID-19 ) mRNA BNT-162b2 vax Felixchano COLIN [facility] Comment on above: Result Comment: 3 sh ots but does not know the dates 02-02-2020 influenza virus vaccine, unspecified formulation Felix COLIN [facility] 02-10-2019 influenza virus vaccine, unspecified formulation Felix COLIN [facility] 02-11-2018 influenza virus vaccine, unspecified formulation Felixchano COLIN [facility] 09-20-2017 tetanus toxoid, redu miek diphtheria toxoid, and acellular pertussis vaccine, adsorbed Felix COLIN [facility] 02-19-2017 influenza virus vaccine, unspecified formulation Felix COLIN [facility] 12-27-2016 pneumococcal conjuga te vaccine, 13 valent Felix COLIN [facility] 02-07-2016 influenza virus vaccine, unspecified formulation Felix COLIN [facility] 02-22-2015 influenza virus vaccine, unspecified formulation Felix COLIN [facility] 02-04-2013 influenza virus vaccine, unspecified formulation Felix COLIN [facility] 02-08-2010 influenza, whole Felix KIM PORRAS [facility] Payers Date Payer Category Payer Medicare (Managed Care) [facility] [id number] 1957 Medicare [id number] 1959 Medicare [id number] 1957 Medicare [id number] 1937 Unknown [id number]. 593 1937 Unknown [id number]. 593 1937 Unknown [id number] [id number]. 593 1937 Unknown [id number] [id number]. 593 1937 Unknown [id number] [id number]. 593 1937 Unknown [id number] [id number]. 727 1937 Unknown [id number] [id number]. 727 1937 Unknown [id number] [id number]. 727 1937 Unknown [id number] [id number]. 727 1937 Unknown [id number] [id number]. 1259 1937 Unknown [id number] [id number]. 1259 1937 Unknown [id number] [id number]. 1259 Social History Date Type Detail Facility Start: 12-04-2021 End: 09-26-2023 Tobacco smoking status Never smoked tobacco (finding) [facility] Start: 12-18-2023 End: 02-24-2024 Sex Assigned At Male [facility] Tobacco smoking status Never [facility] Start: 09-26-2023 Tobacco use and exposure Smokeless tobacco non-user [facility] Start: 12-18-2023 End: 02-24-2024 Alcoholic beverage intake Lifetime non-drinker (finding) [facility] Start: 12-18-2023 End: 02-24-2024 History of Social function [facility] Start: 1935 Sex assigned at Not on file [facility] Functional Status Date Assessment Result Facility 12-20-2023 Functional Status N/A [facility] 07-01-2023 Functional Status N/A [facility] 12-28-2022 Functional Status N/A [facility] 06-04-2022 Functional Status N/A [facility] 12-04-2021 Functional Status N/A [facility] Clinical Notes 12-04-2021 to 02-24-2024 Santiago Wheatley MD - 02/24/2024 10:27 AM Bipin Wheatley MD - 02/24/2024 10:00 AM EDT Note Date & Type Note Facility 02-24-2024 History of Present illness Narrative Associated Problem(s): Medicare annual wellness visit, subsequent Due for labs. Discussed proper diet and regular aerobic exercise. Need aerobic exercise 5-6 days a week for 30 minutes at a time. Smaller portions and limit total calories. Tetanus every 10 years. Advised not to smoke. Images from the original note were not included. Subjective Patient ID: Tiffanie Wells is a 88 y.o. male who presents for Medicare Annual Wellness Visit Subsequent (wellness). Presents for medicare annual wellness visit. Patient feels well today. Weight unchanged over the past year. Tries to stay active and exercise several days a week. Active around house and walks regularly. Tries to watch diet and eat healthy. Increased fruits and vegetables. Smaller portions and limits snacking. Tries to limit total daily calories. Due for labs. Review of Systems Constitutional: Negative for fatigue. Respiratory: Negative for cough, shortness of breath and wheezing. Cardiovascular: Negative for chest pain and palpitations. Gastrointestinal: Negative for abdominal pain, diarrhea, nausea and vomiting. Genitourinary: Negative for dysuria. Objective Physical Exam Constitutional: General: He is not in acute distress. Appearance: Normal appearance. HENT: Head: Normocephalic. Right Ear: Tympanic membrane and ear canal normal. Left Ear: Tympanic membrane and ear canal normal. Eyes: Extraocular Movements: Extraocular movements intact. Pupils: Pupils are equal, round, and reactive to light. Cardiovascular: Rate and Rhythm: Normal rate and regular rhythm. Heart sounds: No murmur heard. No friction rub. No gallop. Pulmonary: Breath sounds: Normal breath sounds. No wheezing, rhonchi or rales. Abdominal: General: Bowel sounds are normal. There is no distension. Palpations: Abdomen is soft. Tenderness: There is no abdominal tenderness. There is no guarding or rebound. Musculoskeletal: General: Normal range of motion. Left lower leg: No edema. Neurological: General: No focal deficit present. Mental Status: He is alert. Cranial Nerves: No cranial nerve deficit. Deep Tendon Reflexes: Reflexes normal. Assessment/Plan Problem List Items Addressed This Visit Adult hypothyroidism (CMS/HCC) Relevant Orders TSH T4, free Essential hypertension, benign (CMS/HCC) Relevant Orders Basic metabolic panel Hyperlipemia (CMS/HCC) Relevant Orders Lipid panel Medicare annual wellness visit, subsequent - Primary Due for labs. Discussed proper diet and regular aerobic exercise. Need aerobic exercise 5-6 days a week for 30 minutes at a time. Smaller portions and limit total calories. Tetanus every 10 years. Advised not to smoke. Encounter for long-term (current) use of medications Relevant Orders CBC and differential Hepatic function panel documented in this encounter [facility] 12-20-2023 Hospital Discharge instructions Patient Education 12/20/2023 10:16:54 Hormone Suppression Therapy for Prostate Cancer Hormone Suppression Therapy for Prostate Cancer Hormone suppression therapy is a treatment for prostate cancer that can help slow the growth of cancer cells in the prostate gland. It is also called androgen deprivation therapy (ADT) or androgen suppression therapy. Hormone suppression therapy targets male sex hormones (androgens) in the body that help cancer cells grow. Hormone suppression therapy alone will not cure prostate cancer, but it can slow the growth of cancer cells and may shrink tumors over time. Your health care provider can help you find the best treatment that fits your lifestyle. Hormone suppression therapy may be used in the following cases: When prostate cancer has spread too far to other places in the body and cannot be cured by surgery or radiation. When a person has health problems that prevent the use of surgery or radiation. Before radiation to help shrink the size of the cancer and make the radiation treatment more effective. If the prostate cancer remains or comes back following treatment with surgery or radiation. What are the types of hormone suppression therapy? Orchiectomy Orchiectomy, also called surgical castration, is a surgery to remove one or both testicles. The testicles make the two main androgens testosterone and dihydrotestosterone (DHT). This surgery reduces the levels of testosterone in the blood, leading to decreased androgen production. Medicine therapy Medicine therapy, also called medical or chemical castration, involves taking medicines to keep your body from making or using androgens. Medicines can do this in one of three ways: 1.Reducing androgen production by the testicles. Luteinizing hormone-releasing hormone (LHRH) agonists. These medicines are injected or implanted under your skin to lower the amount of androgens that your testicles make. Depending on the medicine, they can be given monthly or up to every 3 to 6 months. If you take these medicines, you may also be prescribed other medicines to help with side effects. LHRH antagonists. These medicines also work to lower the amount of androgens made in the testicles, but they work faster than LHRH agonist medicines and have less severe side effects. They are given as a monthly injection under the skin, and they are used when prostate cancer is in an advanced stage. Estrogens. These medicines are female hormones that help to reduce androgen production by the testicles. Estrogens are not used as commonly as other types of hormone suppression therapy due to their side effects. However, they may be used if other treatments do not work. 2.Blocking androgen attachment throughout the body. Anti-androgen medicines, also called androgen receptor antagonists, block areas on the body where androgens attach. These are pills that are usually used in combination with other types of hormone suppression therapy, like orchiectomy and other medicines. 3.Blocking androgen production throughout the body. Androgen synthesis inhibitor medicines. These medicines help to stop other areas of the body from making androgens. They are taken as pills. They may be used if the prostate cancer is advanced and has not gotten better with surgery or other medicines. A steroid medicine may be given with this type of medicine to help with side effects. What are the risks? Hormone suppression therapy may cause side effects, including: Hot flashes. Diarrhea and nausea. Itching. Sexual side effects, such as: ?Decrease or lack of sexual desire. ?Decrease in size of the penis or testicles. ?Inability to get an erection (erectile dysfunction, or impotence). ?Breast tenderness or increase in breast size. Fatigue. Weight gain. Anemia. Thinning of the bones (osteoporosis) and loss of muscle mass. Depression, mood swings, and trouble with thinking or focusing. Hormone suppression therapy may also increase your risk of high blood pressure, increased cholesterol levels, stroke, heart attack, or diabetes. What are the benefits? One of the main benefits of hormone suppression therapy is having additional treatment options. You may have only one type of treatment, or two or more types at the same time. Treatments may be combined to: Help with side effects. Treat advanced cancer. Where to find more information [employer]: www.cancer.org National Cancer [place]: www.cancer.gov Contact a health care provider if: You have pain or side effects that do not get better with treatment. You have trouble urinating. You have new side effects that do not go away. Get help right away if: You have severe chest pain. You have trouble breathing. You have an irregular heartbeat. You have numbness or paralysis in the lower half of your body. You are confused. You have trouble talking or understanding speech. These symptoms may be an emergency. Do not wait to see if the symptoms will go away. Get medical help right away. Call your local emergency services (911 in the [place] Do not drive yourself to the hospital. Summary Hormone suppression therapy is a treatment for prostate cancer that can help to slow the growth of cancer cells in the prostate gland. Hormone suppression therapy alone will not cure prostate cancer, but it can slow the growth of prostate cancer and may shrink tumors over time. Treatment to suppress hormones may include surgery or medicines. Side effects such as hot flashes, changes in sexual function or desire, and weakened bones can result from hormone suppression therapy. This information is not intended to replace advice given to you by your health care provider. Make sure you discuss any questions you have with your health care provider. Document Revised: 07/27/2021 Document Reviewed: 07/27/2021 [employer] Patient Education 2022 [employer]. Follow Up Care 07/01/2023 10:50:23 With:BRANDIN LESLIE, Felix Burt, URL Address: [facility] [address] [place] [phone] When: Unknown [facility] 12-20-2023 Note Patient Education Oncology Hormone Suppression Therapy for Prostate Cancer Hormone suppression therapy is a treatment for prostate cancer that can help slow the growth of cancer cells in the prostate gland. It is also called androgen deprivation therapy (ADT) or androgen suppression therapy. Hormone suppression therapy targets male sex hormones (androgens) in the body that help cancer cells grow. Hormone suppression therapy alone will not cure prostate cancer, but it can slow the growth of cancer cells and may shrink tumors over time. Your health care provider can help you find the best treatment that fits your lifestyle. Hormone suppression therapy may be used in the following cases: ? When prostate cancer has spread too far to other places in the body and cannot be cured by surgery or radiation. ? When a person has health problems that prevent the use of surgery or radiation. ? Before radiation to help shrink the size of the cancer and make the radiation treatment more effective. ? If the prostate cancer remains or comes back following treatment with surgery or radiation. What are the types of hormone suppression therapy? Orchiectomy Orchiectomy, also called surgical castration, is a surgery to remove one or both testicles. The testicles make the two main androgens?testosterone and dihydrotestosterone (DHT). This surgery reduces the levels of testosterone in the blood, leading to decreased androgen production. Medicine therapy Medicine therapy, also called medical or chemical castration, involves taking medicines to keep your body from making or using androgens. Medicines can do this in one of three ways: 1. Reducing androgen production by the testicles. ? Luteinizing hormone-releasing hormone (LHRH) agonists. These medicines are injected or implanted under your skin to lower the amount of androgens that your testicles make. Depending on the medicine, they can be given monthly or up to every 3 to 6 months. If you take these medicines, you may also be prescribed other medicines to help with side effects. ? LHRH antagonists. These medicines also work to lower the amount of androgens made in the testicles, but they work faster than LHRH agonist medicines and have less severe side effects. They are given as a monthly injection under the skin, and they are used when prostate cancer is in an advanced stage. ? Estrogens. These medicines are female hormones that help to reduce androgen production by the testicles. Estrogens are not used as commonly as other types of hormone suppression therapy due to their side effects. However, they may be used if other treatments do not work. 2. Blocking androgen attachment throughout the body. ? Anti-androgen medicines, also called androgen receptor antagonists, block areas on the body where androgens attach. These are pills that are usually used in combination with other types of hormone suppression therapy, like orchiectomy and other medicines. 3. Blocking androgen production throughout the body. ? Androgen synthesis inhibitor medicines. These medicines help to stop other areas of the body from making androgens. They are taken as pills. They may be used if the prostate cancer is advanced and has not gotten better with surgery or other medicines. A steroid medicine may be given with this type of medicine to help with side effects. What are the risks? Hormone suppression therapy may cause side effects, including: ? Hot flashes. ? Diarrhea and nausea. ? Itching. ? Sexual side effects, such as: ? Decrease or lack of sexual desire. ? Decrease in size of the penis or testicles. ? Inability to get an erection (erectile dysfunction, or impotence). ? Breast tenderness or increase in breast size. ? Fatigue. ? Weight gain. ? Anemia. ? Thinning of the bones (osteoporosis) and loss of muscle mass. ? Depression, mood swings, and trouble with thinking or focusing. Hormone suppression therapy may also increase your risk of high blood pressure, increased cholesterol levels, stroke, heart attack, or diabetes. What are the benefits? One of the main benefits of hormone suppression therapy is having additional treatment options. You may have only one type of treatment, or two or more types at the same time. Treatments may be combined to: ? Help with side effects. ? Treat advanced cancer. Where to find more information ? [employer]: www.cancer.org ? National Cancer [place]: www.cancer.gov Contact a health care provider if: ? You have pain or side effects that do not get better with treatment. ? You have trouble urinating. ? You have new side effects that do not go away. Get help right away if: ? You have severe chest pain. ? You have trouble breathing. ? You have an irregular heartbeat. ? You have numbness or paralysis in the lower half of your body. ? You are confused. ? You have trouble talking or understanding speech. These symptom (more content not included)... [facility] 07-01-2023 Hospital Discharge instructions Patient Education 07/01/2023 [...] under a microscope. This is called the Levels score and the total score can range [...] similar to normal prostate cells (moderately differentiated). Levels 8, 9, or 10: This indicates that [...] stress of having cancer. General instructions Take rhem-fka-erqetlb and prescription medicines only as told by your health care provider. If you have to go to the hospital, notify your cancer specialist (oncologist). Keep all follow-up visits. This is important. Where to find more information [employer]: www.cancer.org [employer] Society of Clinical Oncology: www.cancer.net National Cancer [place]: www.cancer.gov Contact a health care provider if: [...] provider. Document Revised: 07/12/2021 Document Reviewed: 07/12/2021 [employer] Patient Education 2022 [employer]. Follow Up Care 12/28/2022 13:08:18 With:BRANDIN LESLIE, Felix Burt, URL Address: [facility] [address], [place] [address]- [phone] When:Within 6 Month(s) Comments:6 mo fu with Emir HWANG [facility] 12-28-2022 Hospital Discharge instructions Patient Education 12/28/2022 [...] urethra. Follow these instructions at home: Take cdok-uus-hstujep and prescription medicines only as told by [...] provider. Document Revised: 11/01/2021 Document Reviewed: 11/01/2021 [employer] Patient Education 2022 [employer]. Follow Up Care 06/11/2022 10:38:13 With:BRANDIN LESLIE, Felix Burt, URL Address: [facility] [address] [place] [address]- When:Within 6 Month(s) Comments:w/ Emir and PSA [facility] [place] 06-11-2022 Hospital Discharge instructions Patient Education [...] urethra. Follow these instructions at home: Take ofub-dku-rasvwur and prescription medicines only as told by [...] 04/15/2006 Document Revised: 03/10/2019 Document Reviewed: 05/20/2017 [employer] Patient Education 2020 [employer]. Follow Up Care 06/04/2022 15:22:48 With:BRANDIN LESLIE, Felix Burt, URL Address: [facility] [address] , [place] [address]- When: Unknown [facility] 06-04-2022 Hospital Discharge instructions Patient Education [...] including vitamins, herbs, eye drops, creams, and rlyt-ixn-oicnybi medicines. Any problems you or family members [...] 2006 Document Revised: 03/28/2018 Document Reviewed: 04/24/2017 [employer] Patient Education 2020 [employer]. Follow Up Care 12/04/2021 11:01:41 With:BRANDIN LESLIE, Felix Burt, URIvette Address: [facility] [address] , [place] [address]- [phone] When: Unknown [facility] 12-04-2021 Hospital Discharge instructions Patient Education [...] urethra. Follow these instructions at home: Take igxu-lfd-asniivc and prescription medicines only as told by [...] 04/15/2006 Document Revised: 03/10/2019 Document Reviewed: 05/20/2017 [employer] Patient Education 2020 [employer]. Follow Up Care 06/05/2021 10:59:07 With:Felix COLIN MD, URL Address: [facility] [address], [place] [address]- [phone] When:Within 6 Month(s) [facility] Evaluation + Plan note Future Appointments Appointment Date:05/25/2022 09:45:00 AM Scheduled Provider:Felix COLIN [facility] App[facility] Type:URO Office Visit Diagnostic Tests PendingPSA Total 12/04/21 [facility] Evaluation + Plan note Future Appointments Appointment Date:06/11/2022 09:30:00 AM Scheduled Provider:[facility] App[facility] Type:URO Office Visit Diagnostic Tests PendingCreatinine 06/04/22Urine Cytology ([facility]) 06/04/22 [facility] Evaluation + Plan note Future Appointments Appointment Date:12/17/2022 10:45:00 AM Scheduled Provider:Felix COLIN MD [facility] Appointment Type:URO Office Visit Diagnostic Tests PendingPSA Total 06/11/22 [facility] Evaluation + Plan note Future Appointments Appointment Date:07/12/2023 08:30:00 AM Scheduled Provider:Felix COLIN MD [facility] Appointment Type:URO Office Visit Diagnostic Tests PendingPSA Total 12/28/22 [facility] Evaluation + Plan note Future Appointments Appointment Date:12/20/2023 09:30:00 AM Scheduled Provider:Felix COLIN MD Location:[facility] Appointment Type:URO Office Visit Diagnostic Tests PendingPSA Total 07/01/23 [facility] Evaluation + Plan note Future Appointments Appointment Date:06/08/2024 08:45:00 AM Scheduled Provider:Felix COLIN MD Location:[facility] Appointment Type:URO Office Visit Diagnostic Tests PendingPSA Total 12/20/23 [facility] Evaluation note Diagnosis Essential hypertension, benign (CMS/HCC)- Primary Essential hypertension, benign Paroxysmal atrial fibrillation (CMS/HCC) Atrial fibrillation Adult hypothyroidism (CMS/HCC) Unspecified hypothyroidism Prostate cancer (CMS/HCC) Malignant neoplasm of prostate Other chest pain- Primary Paroxysmal atrial fibrillation (CMS/HCC) Atrial fibrillation Medicare annual wellness visit, subsequent- Primary Mixed hyperlipidemia (CMS/HCC) Mixed hyperlipidemia Encounter for long-term (current) use of medications Encounter for long-term (current) use of other medications Essential hypertension, benign (CMS/HCC) Essential hypertension, benign Adult hypothyroidism (CMS/HCC) Unspecified hypothyroidism [facility] Narrative No data available for this section [facility] progress note No data available for this section [facility] Summary Purpose Family History No Family History Records FoundNo Family History Records Found No data available for this section No data available for this section No Family History Records FoundNo Family History Records Found Advance Directives No Advanced Directives Records FoundNo Advanced Directives Records FoundNo Advanced Directives Records FoundNo Advanced Directives Records Found Additional Source Comments 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 Team (unrecognized sect 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 content) 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 Specialty Start Date End Date Santiago Wheatley MD [address] [place] [id number] PCP - General Family Medicine 09/26/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 Specialty Start Date End Date Santiago Wheatley MD [address] [place] [id number] PCP - General Family Medicine 09/26/23 (unrecognized sect ion and content) No Status Records FoundNo Status Records FoundNo Status Records FoundNo Status Records Found INFORMATION SOURCE (unrecogn ized section and content) DATE CREATED AUTHOR 06/08/2022 [facility] DATE CREATED AUTHOR AUTHOR'S ORGANIZ ATION 07/04/2022 [facility] DATE CREATED AUTHOR AUTHOR'S ORGANIZ ATION 12/22/2023 [facility] DATE CREATED AUTHOR AUTHOR'S ORGANIZ ATION 02/24/2024 [facility] EPIC Reason for Visit (unrecogniz ed section and content) Reason Comments Medicare Annual Wellness Visit Subsequen t wellness FOR RECORDS PERTAINING TO PATIENTS WHO ARE [...] BE BASED ON THE PRIMARY CLINICAL RECORDS. [email or web address] provides no warranty or guarantee of the accuracy or completeness of information in this document.
[2024-02-26 09:37] LABS: Basophils Percent Auto 0.8 % (0.2-2.0); Eosinophils Absolute Auto 0.3 10^3/uL (0.0-0.7); Eosinophils Percent Auto 5.5 % (0.9-7.0); Hematocrit 38.2 % (42.0-54.0); Hemoglobin 12.6 g/dL (14.0-18.0); Immature Granulocytes Abs Auto 0.02 10^3/uL (0.00-0.03); Immature Granulocytes Pct Auto 0.4 % (0.0-0.5); Lymphocytes Absolute Auto 1.8 10^3/uL (1.2-3.8); Lymphocytes Percent Auto 35.1 % (20.5-60.0); Mean Corpuscular Hemoglobin 31.8 pg (25.9-34.0); Mean Corpuscular Volume 96.5 fL (80.0-94.0); Mean Platelet Volume 10.9 fL (9.5-13.5); Monocytes Absolute Auto 0.6 10^3/uL (0.3-0.8); Monocytes Percent Auto 11.6 % (1.7-12.0); Neutrophils Absolute Auto 2.4 10^3/uL (1.4-6.5); Neutrophils Percent Auto 46.6 % (43.0-75.0); Platelet Count 223 10^3/uL (150-450); Red Blood Count 3.96 10^6/uL (4.70-6.10); Red Cell Distribution Width 12.1 % (11.0-15.0); White Blood Count 5.2 10^3/uL (4.0-11.0)
[2024-02-26 10:24] LABS: Free T4 1.15 ng/dL (0.76-1.46)
[2024-02-26 10:29] LABS: Alanine Aminotransferase 34 U/L (16-63); Albumin Globulin Ratio 0.8; Albumin Level 3.4 g/dL (3.4-5.0); Alkaline Phosphatase 114 U/L (46-116); Anion Gap 11.5; Aspartate Amino Transferase 22 U/L (15-37); BUN Creatinine Ratio 20.4; Bilirubin Direct 0.1 mg/dL (0.0-0.2); Bilirubin Total 0.4 mg/dL (0.2-1.0); Chloride 106 mmol/L (98-107); Chol HDL Ratio 3.6; Cholesterol 167 mg/dL (<=200); Estimated GFR (African America >60 (>=60 mL/min/1.73m^2); Estimated GFR (Non-African Ame >60 (>=60 mL/min/1.73m^2); Globulin 4.5 g/dL; Glucose 95 mg/dL (74-106); HDL Cholesterol 46 mg/dL (40-60); LDL Cholesterol Calculated 94.8 mg/dL; Potassium 4.5 mmol/L (3.5-5.1); Sodium 142 mmol/L (136-145); Thyroid Stimulating Hormone 1.862 uIU/mL (0.358-3.740); Total Protein 7.9 g/dL (6.4-8.2); Triglycerides 131 mg/dL (<=150); VLDL CHOLESTEROL 26.2 mg/dL
== END 2024-02-26 08:11 | disposition home or self-care (01) ==
LOC: LAB 08:11
PROVIDERS: PCP Family Medicine; Visit Provider Family Medicine
DX: E78.2 Mixed hyperlipidemia (principal); I10 Essential (primary) hypertension; Z79.899 Other long term (current) drug therapy; E03.9 Hypothyroidism, unspecified
CPT/HCPCS: 36415; 80048; 80061; 80076; 84439; 84443; 85025

== ENCOUNTER 2024-06-01 08:23 | Outpatient (OUT) | payer MEDICARE, SELFPAY ==
--- OUTSIDE RECORDS SUMMARY | 2024-06-01 08:41 | XMS_ITS | CCD ---
Author Organization [facility] Care Team Providers Care Senior Interactive Producer Name Role Phone SANTIAGO WHEATLEY Primary Care Physician [phone] DIONI, DR SANTIAGO Ramos Primary Care Unavailable FAWLISAD, MITCHELL H Admitting Unavailable FAWREBECCA, MITCHELL H Attending Unavailable STEPHENIE, DR NOE Burt Consulting Unavailable DIONI, DR SANTIAGO Ramos Consulting Unavailable DIOMEDES, ROSALINE Consulting Unavailable FAWREBECCA, SHAIKH Eryn Consulting Unavailable RAVEN BENDER Consulting Unavailable COLIN ., DR ORTEGA Admitting Unavailable COLIN ., DR ORTEGA Attending Unavailable IDONI, DR SANTIAGO Ramos Primary Care Unavailable COLIN [...] Unavailable Santiago Wheatley MD Primary Care Provider SANTIAGO WHEATLEY Attending Unavailable SANTIAGO WHEATLEY Attending Unavailable SANTIAGO WHEATLEY Attending Unavailable Allergies Allergy Classification Reported Allergen(s) Allergy Type Date of Onset Reaction(s) Facility (1 source) No Known Medication Allergies; Translations: [No Known Medication Allergies] Propensity to adverse reactions (disorder) [facility] Medications Current Medications Medication Drug Class(es) Dates Sig (Normalized) Sig (Original) apixaban 5 mg oral tablet (12 sources) Factor Xa Inhibitor Start: 02-06-2023 take [...] Daily, # 90 tab(s), Refills(s) 3, Pharmacy: [facility] #72, 182, cm, 12/04/21 10:02:00 EDT, Height/Length Dosing, 78.1, kg, 12/04/21 10:02:00 EDT, Weight Dosing Start Date: 12/04/21 Status: Ordered Fish Oils (6 sources) Start: 05-12-2020 Fish Oil Oral Start Date: 05/12/20 Status: Ordered levothyroxine sodium 0.075 mg oral tablet (9 sources) l-Thyroxine Start: 07-01-2023 levothyroxine 75 mcg [...] Active metoprolol tartrate 25 mg oral tablet (12 sources) beta-Adrenergic Sera Start: 09-26-2023 take 1 [...] procedure, # 2 cap(s), Refills(s) 0, Pharmacy: [facility] #72, 182, cm, 06/04/22 14:07:00 EST, Height/Length Dosing, 78.1, kg, 06/04/22 14:07:00 EST, Weight Dosing Start Date: 06/04/22 Status: Ordered Problems Active Problems Problem Classification Problem Date Documented Date Episodic/Chronic Calculus of urinary tract (5 sources) Calculus of kidney; Translations: [Kidney stone] Onset: 06-25-2022 Episodic Cancer of prostate (14 sources) Malignant neoplasm of prostate; Translations: [Carcinoma of prostate] Onset: 12-01-2021 Chronic Cardiac dysrhythmias (10 sources) Paroxysmal atrial fibrillation; Translations: [Paroxysmal atrial fibrillation] Onset: 05-30-2022 09-26-2023 Chronic Disorders of lipid metabolism (9 sources) Hyperlipidemia; Translations: [Hyperlipidemia, unspecified] Onset: 09-25-2023 09-25-2023 Chronic Diverticulosis and diverticulitis (1 source) Diverticulosis of intestine, part unspecified, without perforation or abscess without bleeding; Translations: [DVRTCLOS PRT UNS NO PERF/ABSC NO BL] Onset: 06-25-2022 Chronic Essential hypertension (9 sources) Benign essential hypertension; Translations: [Essential (primary) [...] Translations: [Hypertrophy of breast] Onset: 07-01-2023 Episodic Other aftercare (1 source) senior care (current) use of anticoagulants; 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] Onset: 07-03-2022 Episodic Other aftercare (1 source) 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; Translations: [OTH 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 CURRENT DRUG THERAPY] Onset: 07-03-2022 Episodic Other aftercare (1 source) Long-term current use of anticoagulant; Translations: [senior care (current) use of anticoagulants] Onset: 12-20-2023 Episodic Other aftercare (5 sources) Long-term current use of drug therapy; Translations: [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] Onset: 02-24-2024 02-24-2024 Episodic [...] of prostate] Onset: 12-01-2021 Episodic Thyroid disorders (9 sources) Hypothyroidism; Translations: [Hypothyroidism, unspecified] Onset: 09-25-2023 09-25-2023 Chronic Unclassified (5 sources) Asymptomatic microscopic hematuria 06-04-2022 Unclassified (1 source) CONTACT W/AND (SUSP) EXPOS COVID-19; Translations: [CONTACT W/AND (SUSP) EXPOS COVID-19] Onset: 05-30-2022 Unclassified (1 source) Drug therapy finding 12-20-2023 Past or Other Problems Problem Classification Problem Date Documented Da te Episodic/Chronic Cancer of prostate (7 sources) Personal history of malignant neoplasm of prostate; Translations: [History of malignant neoplasm of prostate] Onset: 07-03-2022 12-18-2023 Episodic Mood disorders (3 sources) Mood disorders Onset: 02-24-2024 02-24-2024 Nonspecific chest pain (12 sources) Chest pain, unspecified; Translations: [Other chest pain] Onset: 05-26-2022 Resolved: 02-24-2024 Episodic Results Test Name Value Interpretation Reference Range Facility ALL CBC WITH AUTO DIFFon BASOPHILS ABSOLUTE AUTO [address] [facility] Basophils/100 WBC (Bld) 0.8 % 0.2 - 2.0 % [facility] Eosinophils/100 WBC (Bld) 5.5 % 0.9 - 7.0 % [facility] Erythrocyte distribution width (RBC) [Ratio] 12.1 % 11.0 - 15.0 % [facility] Hematocrit (Bld) [Volume fraction] 38.2 % Low 42.0 - 54.0 % [facility] Hemoglobin (Bld) [Mass/Vol] 12.6 g/dL Low 14.0 - 18.0 g/dL [facility] IMMATURE GRANULOCYTES ABS AUTO 0.[address] [facility] Immature granulocytes/100 WBC (Bld) 0.4 % 0.0 - 0.5 % [facility] Interpretation and review of laboratory results Abnormal [facility] LYMPHOCYTES ABSOLUTE AUTO 1.[address] [facility] Lymphocytes/100 WBC (Bld) 35.1 % 20.5 - 60.0 % [facility] MCH (RBC) [Entitic mass] 31.8 pg 25.9 - 34.[address] [facility] MCHC (RBC) [Mass/Vol] 33 g/dL 29.9 - 35.2 g/dL [facility] MCV (RBC) [Entitic vol] 96.5 fL High 80.0 - 94.[address] [facility] MONOCYTES ABSOLUTE AUTO 0.[address] [facility] Monocytes/100 WBC (Bld) 11.6 % 1.7 - 12.0 % [facility] NEUTROPHILS ABSOLUTE AUTO 2.[address] [facility] Neutrophils/100 WBC (Bld) 46.6 % 43.0 - 75.0 % [facility] Platelet mean volume (Bld) [Entitic vol] 10.9 fL 9.5 - 13.[address] [facility] TBH EO # 0.[address] [facility] TBH PLT [address] [facility] TB RBC 3.[address] [facility] TB WBC 5.[address] [facility] Ambulatory Visit Summaryon 0 8-23-2024 Ambulatory Visit Summary Ambulatory Visit Summary TIFFANIE WELLS :1935 Visit Date:12/20/2023 Ambulatory Visit Instructions Your Diagnosis Prostate cancer BPH with urinary obstruction Anticoagulated Your Care Team Attending Physician - Felix [...] When: Where: [facility] [address] , [place] [address]- [phone] Medications What How Much When Instructions Unchanged [...] monthly i (more content not included)... Normal [facility] Urology Office/Clinic Noteon 12-20-2023 Urology Office/Clinic Note [...] 12/16/23 - <0.13 Prostate bx 11/14/17 - Winkelman 6 (3+3) x1 core, Winkelman 7 (3+4) x2 cores with 20% of [...] of anticoagulants) States he recently went to [facility] ER due to a-fib. Was started on Eliquis. Follow-up With When Contact Information BRANDIN LESLIE, Felix Burt, URL [facility] [address], [place] [address] [phone] Additional Instructions: 6 mos w/ PSA and Lupron Patient Education Hormone Suppression Therapy for Prostate Cancer I, Hanna Sinha, personally scribed for Dr. Colin on 12/20/2023 [...] virus vaccine, inactivated 02/20/2022 Recorded SARS-CoV-2 (COVID-19) [id number] 02/20/2022 Recorded SARS-CoV-2 (COVID-19) mRNA-1273 vaccine 08/19/2021 [...] vaccine, inactivated 02/12/20 (more content not included)... [facility] Comment on [...] Felix COLIN MD Where: [facility] Ambulatory Visit Summary TIFFANIE WELLS :1935 [...] Emir HWANG Where: [facility] [address] , [place] [address] [phone] Medications What How Much When Instructions Unchanged [...] prostate ca (more content not included)... Normal [facility] Patient Educationon 07-01-19 24 Patient Education [...] likelihood that the cancer will spread. ? Winkelman 6 or lower: This indicates that the cancer cells look similar to normal prostate cells (well differentiated). ? Timothy 7: This indicates that the cancer cells look somewhat similar to normal prostate cells (moderately differentiated). ? Winkelman 8, 9, or 10: This indicates that [...] external be (more content not included)... Normal [facility] Urology Office/Clinic Noteon 07-01-2023 Urology [...] by tumor, 1/1 core. Right lateral - Winkelman 7 (3+4), tumor measure 0.25 cm in [...] Follow-up With When Contact Information BRANDIN LESLIE, RACHID Gunderson In 6 months [facility] [address] , [place] [address]- [phone] Additional Instructions: 6 mo fu with PSA, Lupron Patient Education Prostate Cancer I, Elza Gunn, personally scribed for Dr. Colin on 07/01/2023 10:48:14. . Documentation recorded by the scribe, ivette Gunn, accurately reflects the services(s) I performed and [...] refills Ryanne (more content not included)... Normal [facility] Comment on above: Result Comment: Elec tronically Signed By: Felix COLIN MD\.br\Date and Time Signed: 07/01/23 10:49 EST\.br\Electronically Co-Signed By: Elza Gunn\.br\Date and Time Co-Signed: 07/01/23 10:48 EST Lab [facility] 06-25-2023 Lab Reports [id number] IFF Normal [facility] Ambulatory Visit Summaryon 0 12-28-2022 Ambulatory [...] PSA Where: [facility] [address] [place] [address]- Medications What How Much When Instructions Unchanged [...] produce a (more content not included)... Normal [facility] Patient Educationon 12-29-19 23 Patient Education Urology [...] Follow these instructions at home: ? Take fdep-ins-nicdunz and prescription medicines only as told by [...] the medicine (more content not included)... 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 Right lateral - Timothy 7 (3+4), tumor measure 0.25 cm in length, 20% of the core involved, 1/1 core. Right lateral mid - Winkelman 7 (3+4), tumor measure 0.25 cm in [...] months [facility] [address], [place] [address]- Additional Instructions: w/ Lupron and PSA Patient [...] No Known (more content not included)... Normal [facility] Comment on above: Result Comment: Elec [...] by: HAYDEE DANIELS Date: 2022-06-21 14:41 Normal [facility] 36on 06-07-2022 36 Spoke with patient t o schedule a follow up with Dr. Maloney after event monitor per Octavia Velez. He said he is leaving this up to his PCP, Dr. Wheatley. I told him if he needs us or changes his mind, he can always call us. He verbalized understanding. Normal [facility] ECHOCARDIO M/2D COMPLETEon 0 05-28-2022 ECHOCARDIO M/2D COMPLETE Patient: TIFFANIE WELLS Exam Date: 05/28/2022 : 1935 Gender:M Ordering : SHAIKH Shaan RODRIGUEZ . Admission #: [id number] Family : DR SANTIAGO WHEATLEY . Order #: [id number] CLICK HERE TO VIEW EXAM ECHOCARDIOGRAM REPORT [...] Area (VTI): 3.24 cm2, 3.24 cm2 Deceleration Mckean: 2.89 m/s2 Pressure Half-Time: 532.36 ms Peak [...] Royal M.D. on 05/28/2022 at 13:16 Normal [facility] NM STRESS/REST MULTIon 05-28 NM STRESS/REST MULTI Patient: TIFFANIE WELLS Exam Date: 05/28/2022 : 1935 Gender:M Ordering : SHAIKH Shaan RODRIGUEZ . Admission #: [id number] Family : DR SANTIAGO WHEATLEY . Order #: [id number] CLICK HERE TO VIEW EXAM RADIOLOGY REPORT [...] Bernardo M.D. on 05/29/2022 at 07:35 Normal [facility] MAGNESIUMon 05-27-2022 Magnesium [Mass/Vol] 1.8 mg/dL Normal 1.8-2.4 [facility] Comment on above: Performed By: #### P SAD #### [facility] [address] [address] [address] Otilio Rich PROF 14(COMP METB)on 023 Albumin [Mass/Vol] 3.1 g/dL Critically low 3.4-5.0 [facility] Comment on above: Performed By: #### T SH, CMP #### [facility] [address] [address] [address] Otilio Rich Albumin/Globulin [Mass ratio] 0.7 {ratio} Normal [facility] Comment on above: Performed By: #### T SH, CMP #### [facility] [address] [place] [address] Dr. Otilio Rich ALP [Catalytic activity/Vol] 87 U/L Normal 46-116 [facility] Comment on above: Performed By: #### T SH, CMP #### [facility] [address] [place] [address] Dr. Otilio Rich ALT [Catalytic activity/Vol] 26 U/L Normal 16-63 [facility] Comment on above: Performed By: #### T SH, CMP #### [facility] [address] [place] [address] Dr. Otilio Rich Anion gap [Moles/Vol] 13.6 mmol/L Normal [facility] Comment on above: Performed By: #### T SH, CMP #### [facility] [address] [place] [address] Dr. Otilio Rich AST [Catalytic activity/Vol] 16 U/L Normal 15-37 [facility] Comment on above: Performed By: #### T SH, CMP #### [facility] [address] [place] [address] Dr. Otilio Rich Bilirubin [Mass/Vol] 1.5 mg/dL Critically high 0.2-1.0 [facility] Comment on above: Performed By: #### T SH, CMP #### [facility] [address] [place] [address] Dr. Otilio Rich Calcium [Mass/Vol] 9.7 mg/dL Normal 8.5-10.1 [facility] Comment on above: Performed By: #### T SH, CMP #### [facility] [address] [address] [address] Otilio Rich Chloride [Moles/Vol] 102 mmol/L Normal 98-107 [facility] Comment on above: Performed By: #### T SH, CMP #### [facility] [address] [address] [address] Otilio Rich CO2 [Moles/Vol] 26.5 mmol/L Normal 21.0-32.0 [facility] Comment on above: Performed By: #### T SH, CMP #### [facility] [address] [address] [address] Otilio Rich Creatinine [Mass/Vol] 0.88 mg/dL Normal 0.70-1.30 [facility] Comment on above: Performed By: #### T SH, CMP #### [facility] [address] [place] [address] Dr. Otilio Rich EGFR-AF SENEGALESE >60 Normal >=60 [facility] Comment on above: Performed By: #### T SH, CMP #### [facility] [address] [place] [address] Dr. Otilio Rich EGFR-NON AF SENEGALESE >60 Normal >=60 [facility] Comment on above: Performed By: #### T SH, CMP #### [facility] [address] [place] [address] Dr. Otilio Rich Globulin (S) [Mass/Vol] 4.2 g/dL Normal [facility] Comment on above: Performed By: #### T SH, CMP #### [facility] [address] [place] [address] Dr. Otilio Rich Glucose [Mass/Vol] 105 mg/dL Normal 74-106 [facility] Comment on above: Performed By: #### T SH, CMP #### [facility] [address] [address] [address] Otilio Rich Potassium [Moles/Vol] 4.1 mmol/L Normal 3.5-5.1 [facility] Comment on above: Performed By: #### T SH, CMP #### [facility] [address] [address] [address] Otilio Rich Protein [Mass/Vol] 7.3 g/dL Normal 6.4-8.2 [facility] Comment on above: Performed By: #### T SH, CMP #### [facility] [address] [place] [address] Dr. Otilio Rich Sodium [Moles/Vol] 138 mmol/L Normal 136-145 [facility] Comment on above: Performed By: #### T SH, CMP #### [facility] [address] [place] [address] Dr. Otilio Rich Urea nitrogen [Mass/Vol] 19.0 mg/dL Critically high 7.0-18.0 [facility] Comment on above: Performed By: #### T SH, CMP #### [facility] [address] [place] [address] Dr. Otilio Rich Urea nitrogen/Creatinine [Mass ratio] 21.6 mg/mg Normal [facility] Comment on above: Performed By: #### T SH, CMP #### [facility] [address] [place] [address] Dr. Otilio Rich TSHon 05-27-2022 TSH 3.344 uIU/mL Normal 0.358-3.740 [facility] Comment on above: Performed By: #### P SAD #### [facility] [address] [place] [address] Dr. Otilio Rich CARDIAC RAMA 3-6on 3 CK [Catalytic activity/Vol] 60 U/L Normal 39-308 [facility] Comment on above: Performed By: #### C MREP #### [facility] [address] [place] [address] Dr. Otiloi Rich CK.MB [Mass/Vol] ng/mL Normal <=3.60 [facility] Comment on above: Performed By: #### C MREP #### [facility] [address] [place] [address] Dr. Otilio Rich HSTROP 5.9 pg/mL Normal 4.0-76.1 [facility] Comment on above: Result Comment: CUT- OFF POINTS HAVE BEEN ESTABLISHED BASED ON THE FOURTH UNIVERSAL DEFINITIONS OF MYOCARDIAL INFARCTION. THE UPPER REFERENCE LIMIT (URL) OF TROPONIN, DEFINED THE 99TH PERCENTILE OF cTnI DISTRIBUTION IN A REFERENCE POPULATION, HAS BEEN CONFIRMED THE DECISION THRESHOLD FOR ND DIAGNOSIS. Performed By: #### C MREP #### [facility] [address] [address] [address] Otilio Rich CK [Catalytic activity/Vol] 65 U/L Normal 39-308 [facility] Comment on above: Performed By: #### C MREP #### [facility] [address] [address] [address] Otilio DEGROOT.MB [Mass/Vol] ng/mL Normal <=3.60 [facility] Comment on above: Performed By: #### C MREP #### [facility] [address] [place] [address] Dr. Otilio Rich HSTROP 5.6 pg/mL Normal 4.0-76.1 [facility] Comment on above: Result Comment: CUT- OFF POINTS HAVE BEEN ESTABLISHED BASED ON THE FOURTH UNIVERSAL DEFINITIONS OF MYOCARDIAL INFARCTION. THE UPPER REFERENCE LIMIT (URL) OF TROPONIN, DEFINED THE 99TH PERCENTILE OF cTnI DISTRIBUTION IN A REFERENCE POPULATION, HAS BEEN CONFIRMED THE DECISION THRESHOLD FOR ND DIAGNOSIS. Performed By: #### C MREP #### [facility] [address] [place] [address] Dr. Otilio Rich CARDIAC RAMA ADMITon 023 CK [Catalytic activity/Vol] 65 U/L Normal 39-308 [facility] Comment on above: Performed By: #### B CASSIE CMADM #### [facility] [address] [address] [address] Otilio DEGROOT.MB [Mass/Vol] 0.53 ng/mL Normal <=3.60 [facility] Comment on above: Performed By: #### B CASSIE, CMADM #### [facility] [address] [address] [address] Otilio Rich HSTROP 6.8 pg/mL Normal 4.0-76.1 [facility] Comment on above: Result Comment: CUT- OFF POINTS HAVE BEEN ESTABLISHED BASED ON THE FOURTH UNIVERSAL DEFINITIONS OF MYOCARDIAL INFARCTION. THE UPPER REFERENCE LIMIT (URL) OF TROPONIN, DEFINED THE 99TH PERCENTILE OF cTnI DISTRIBUTION IN A REFERENCE POPULATION, HAS BEEN CONFIRMED THE DECISION THRESHOLD FOR ND DIAGNOSIS. Performed By: #### B CASSIE, CMADM #### [facility] [address] [place] [address] Dr. Otilio Rich ABNER 56 ng/mL Normal 16-96 [facility] Comment on above: Performed By: #### B CASSIE, CMADM #### [facility] [address] [place] [address] Dr. Otilio Rich CBC AUTO DIFFon 05-26-2022 BASO # 0.0 103/ul Normal 0.0-0.1 [facility] Comment on above: Performed By: #### P SAD #### [facility] [address] [place] [address] Dr. Otilio Rich Basophils/100 WBC (Bld) 0.3 % Normal 0.2-2.0 [facility] Comment on above: Performed By: #### P SAD #### [facility] [address] [place] [address] Dr. Otilio Rich EO # 0.4 103/ul Normal 0.0-0.7 [facility] Comment on above: Performed By: #### P SAD #### [facility] [address] [place] [address] Dr. Otilio Rich Eosinophils/100 WBC (Bld) 4.2 % Normal 0.9-7.0 [facility] Comment on above: Performed By: #### P SAD #### [facility] [address] [place] [address] Dr. Otilio Rich Erythrocyte distribution width (RBC) [Ratio] 11.9 % Normal 11.0-15.0 [facility] Comment on above: Performed By: #### P SAD #### [facility] [address] [place] [address] Dr. Otilio Rich Hematocrit (Bld) [Volume fraction] 37.3 % Critically low 42.0-54.0 [facility] Comment on above: Performed By: #### P SAD #### [facility] [address] [place] [address] Dr. Otilio Rich Hemoglobin (Bld) [Mass/Vol] 13.1 g/dL Critically low 14.0-18.0 [facility] Comment on above: Performed By: #### P SAD #### [facility] [address] [address] [address] Otilio Rich IG # 0.03 10e3/ul Normal 0.00-0.03 [facility] Comment on above: Performed By: #### P SAD #### [facility] [address] [place] [address] Dr. Otilio Rich IG % 0.3 % Normal 0.0-0.5 [facility] Comment on above: Performed By: #### P SAD #### [facility] [address] [place] [address] Dr. Otilio Rich LYMPH # 2.6 103/ul Normal 1.2-3.8 [facility] Comment on above: Performed By: #### P SAD #### [facility] [address] [place] [address] Dr. Otilio Rich Lymphocytes/100 WBC (Bld) 25.9 % Normal 20.5-60.0 [facility] Comment on above: Performed By: #### P SAD #### [facility] [address] [place] [address] Dr. Otilio Rich MANUAL DIFF REQ NO Normal [facility] Comment on above: Performed By: #### P SAD #### [facility] [address] [place] [address] Dr. Otilio Rich MCH (RBC) [Entitic mass] 31.6 pg Normal 25.9-34.0 [facility] Comment on above: Performed By: #### P SAD #### [facility] [address] [place] [address] Dr. Otilio Rich MCHC (RBC) [Mass/Vol] 35.1 g/dL Normal 29.9-35.2 [facility] Comment on above: Performed By: #### P SAD #### [facility] [address] [address] [address] Otilio Rich MCV (RBC) [Entitic vol] 89.9 fL Normal 80.0-94.0 [facility] Comment on above: Performed By: #### P SAD #### [facility] [address] [address] [address] Otilio Rich MONO # 1.0 103/ul Critically high 0.3-0.8 [facility] Comment on above: Performed By: #### P SAD #### [facility] [address] [address] [address] Otilio Rich Monocytes/100 WBC (Bld) 10.4 % Normal 1.7-12.0 [facility] Comment on above: Performed By: #### P SAD #### [facility] [address] [address] [address] Otilio Rich NEUT # 5.8 103/ul Normal 1.4-6.5 [facility] Comment on above: Performed By: #### P SAD #### [facility] [address] [address] [address] Otilio Rich Neutrophils/100 WBC (Bld) 58.9 % Normal 43.0-75.0 [facility] Comment on above: Performed By: #### P SAD #### [facility] [address] [address] [address] Otilio Rich Platelet mean volume (Bld) [Entitic vol] 10.2 fL Normal 9.5-13.5 [facility] Comment on above: Performed By: #### P SAD #### [facility] [address] [address] [address] Otilio Rich PLT 185 103/ul Normal 150-450 [facility] Comment on above: Performed By: #### P SAD #### [facility] [address] [address] [address] Otilio Rich RBC 4.15 106/ul Critically low 4.70-6.10 [facility] Comment on above: Performed By: #### P SAD #### [facility] [address] [place], [place] [address] Dr. Otilio Rich WBC 9.8 103/ul Normal 4.0-11.0 [facility] Comment on above: Performed By: #### P SAD #### [facility] [address] [place] [address] [id number] [address] Otilio Rich CTA CHEST WO W [...] RAVEN BENDER Date: 2022-05-26 06:14 Normal [facility] Covid-19 PCR (CVDTB)on 04-30 SARS-CoV-2 (COVID-19) RNA MARCY+probe Ql (Unsp spec) Not detected Normal NOT DETECTED [facility] Comment on above: Result Comment: When [...] for this test is supported by the [employer]er of Health and Human Service's declaration that [...] used). Performed By: #### C VDTBH #### [facility] [address] [place] [address] Dr. Otilio Rich D-DIMERon 05-26-2022 D-DIMER 1.05 mg/L FEU Critically high <=0.59 [facility] Comment on above: Performed By: #### P SAD #### [facility] [address] [place] [address] Dr. Otilio Rich D-DIMER COMMENTS SEE BELOW Normal [facility] Comment on above: Result Comment: Incr eases [...] hospitalization. Performed By: #### P SAD #### [facility] [address] [place] [address] Dr. Otilio Rich GLYCOHEMOGLOBIN A1Con 2022 ADA RECOMMENDATION SEE BELOW Normal [facility] Comment on above: Result Comment: ADA RECOMMENDED LIMIT 4.0 - 6.0 ADA THERAPEUTIC TARGET < 7.0 ACTION SUGGESTED > 7.0 Performed By: #### A 1C #### [facility] [address] [address] [address] Otilio Rich Glucose [Mass/Vol] 111 mg/dL Normal [facility] Comment on above: Performed By: #### A 1C #### [facility] [address] [address] [address] Otilio Rich HbA1c (Bld) [Mass fraction] 5.5 % Normal 4.5-6.2 [facility] Comment on above: Performed By: #### A 1C #### [facility] [address] [place] [address] Dr. Otilio Rich LIPID PROFILEon 05-26-2022 CHOL-HDL RATIO NORM SEE BELOW Normal [facility] Comment on above: Result Comment: 3.3 - 4.4 LOW RISK 4.4 - 7.1 AVERAGE RISK 7.1 - 11.0 MODERATE RISK >11.0 HIGH RISK Performed By: #### L IPID #### [facility] [address] [place] [address] Dr. Otilio Rich Cholesterol [Mass/Vol] 187 mg/dL Normal <=200 [facility] Comment on above: Performed By: #### L IPID #### [facility] [address] [place] [address] Dr. Otliio Rich Cholesterol in HDL [Mass/Vol] 49 mg/dL Normal 40-60 [facility] Comment on above: Performed By: #### L IPID #### [facility] [address] [place] [address] Dr. Otilio Rich Cholesterol in LDL [Mass/Vol] 116.2 mg/dL Normal [facility] Comment on above: Performed By: #### L IPID #### [facility] [address] [place] [address] Dr. Otilio Rich Cholesterol.total/C holesterol in HDL [Mass ratio] 3.8 {ratio} Normal [facility] Comment on above: Performed By: #### L IPID #### [facility] [address] [place] [address] Dr. Otilio Rich HDL NORMAL > or = 60 mg/dl - LO W CARDIOVASCULAR RISK <40 mg/dl - HIGH CARDIOVASCULAR RISK Normal [facility] Comment on above: Performed By: #### L IPID #### [facility] [address] [address] [address] Otilio Rich LDL CALC NORMAL SEE BELOW Normal [facility] Comment on above: Result Comment: <100 mg/dl OPTIMAL 100 - 129 mg/dl NEAR OR ABOVE OPTIMAL 130 - 159 mg/dl BORDERLINE HIGH 160 - 189 mg/dl HIGH >190 mg/dl VERY HIGH Performed By: #### L IPID #### [facility] [address] [address] [address] Otilio Rich Triglyceride [Mass/Vol] 109 mg/dL Normal <=150 [facility] Comment on above: Performed By: #### L IPID #### [facility] [address] [address] [address] Otilio Rich VLDL CALC 21.8 mg/dL Normal [facility] Comment on above: Performed By: #### L IPID #### [facility] [address] [address] [address] Otilio Rich PROF CHEM 8 (BAS METB)on Anion gap [Moles/Vol] 10.3 mmol/L Normal [facility] Comment on above: Performed By: #### B CASSIE, CORIDM #### [facility] [address] [address] [address] Otilio Rich Calcium [Mass/Vol] 10.5 mg/dL Critically high 8.5-10.1 T [facility] Comment on above: Performed By: #### B CASSIE, CMADM #### [facility] [address] [address] [address] Otilio Rich Chloride [Moles/Vol] 101 mmol/L Normal 98-107 [facility] Comment on above: Performed By: #### B CASSIE, CMADM #### [facility] [address] [address] [address] Otilio Rich CO2 [Moles/Vol] 29.6 mmol/L Normal 21.0-32.0 [facility] Comment on above: Performed By: #### B MP, CMADM #### [facility] [address] [address] [address] Otilio Rich Creatinine [Mass/Vol] 0.76 mg/dL Normal 0.70-1.30 [facility] Comment on above: Performed By: #### B MP, CMADM #### [facility] [address] [address] [address] Otilio Rich EGFR-AF SENEGALESE >60 Normal >=60 [facility] Comment on above: Performed By: #### B MP, CMADM #### [facility] [address] [address] [address] Otilio Rich EGFR-NON AF SENEGALESE >60 Normal >=60 [facility] Comment on above: Performed By: #### B MP, CMADM #### [facility] [address] [address] [address] Otilio Rich Glucose [Mass/Vol] 111 mg/dL Critically high 74-106 [facility] Comment on above: Performed By: #### B CASSIE, CMADM #### [facility] [address] [address] [address] Otilio Rich Potassium [Moles/Vol] 3.9 mmol/L Normal 3.5-5.1 [facility] Comment on above: Performed By: #### B CASSIE, CMADM #### [facility] [address] [address] [address] Otilio Rich Sodium [Moles/Vol] 137 mmol/L Normal 136-145 [facility] Comment on above: Performed By: #### B MP, CMADM #### [facility] [address] [address] [address] Otilio Rich Urea nitrogen [Mass/Vol] 14.0 mg/dL Normal 7.0-18.0 [facility] Comment on above: Performed By: #### B MP, CMADM #### [facility] [address] [address] [address] Otilio Rich Urea nitrogen/Creatinine [Mass ratio] 18.4 mg/mg Normal [facility] Comment on above: Performed By: #### B MP, CMADM #### [facility] [address] [place], [place] [address] Dr. Otilio Rich TROPONIN, HIGH SENSITIVITYon 05-26-2022 HSTROP 5.4 pg/mL Normal 4.0-76.1 [facility] Comment on above: Result Comment: CUT- OFF POINTS HAVE BEEN ESTABLISHED BASED ON THE FOURTH UNIVERSAL DEFINITIONS OF MYOCARDIAL INFARCTION. THE UPPER REFERENCE LIMIT (URL) OF TROPONIN, DEFINED THE 99TH PERCENTILE OF cTnI DISTRIBUTION IN A REFERENCE POPULATION, HAS BEEN CONFIRMED THE DECISION THRESHOLD FOR ND DIAGNOSIS. Performed By: #### P SAD #### [facility] [address] [place], [place] [address] Dr. Otilio Rich XR CHEST 1 Von [...] by: RAVEN BENDER Date: 2022-05-26 05:00 Normal [facility] Vital Signs Date Time Vital Sign Value Performing Clinician Facility 02-24-2024 10:10 Body height 182.9 cm Santiago Wheatley MD Work Phone: [facility] 02-24-2024 10:10040 Body mass index (BMI) [Ratio] 23.06 kg/m2 Santiago Wheatley MD Work Phone: [facility] 02-24-2024 10:10040 Body temperature 97.11 [degF] Santiago Wheatley MD Work Phone: [facility] 02-24-2024 10:10-0400 Body weight 77.11 kg Santiago Wheatley MD Work Phone: [facility] 02-24-2024 10:10-0400 Diastolic blood pressure 68 mm[Hg] Santiago Wheatley MD Work Phone: [facility] 02-24-2024 10:10-0400 Heart rate 59 /min Santiago Wheatley MD Work Phone: [facility] 02-24-2024 10:10-0400 Respiratory rate 18 /min Santiago Wheatley MD Work Phone: [facility] 02-24-2024 10:10-0400 SaO2% (BldA) [Mass fraction] 97 % Santiago Wheatley MD Work Phone: [facility] 02-24-2024 10:10-0400 Systolic blood pressure 140 mm[Hg] Santiago Wheatley MD Work Phone: [facility] 12-20-2023 09:36-0400 Blood Pressure Location Felix COLIN [facility] 12-20-2023 09:36-0400 Body temperature 98.6 [degF] Felix COLIN [facility] 12-20-2023 09:36-0400 Diastolic blood pressure 72 mm[Hg] Felix COLIN [facility] 12-20-2023 09:36-0400 Heart rate 65 /min Felix COLIN [facility] 12-20-2023 09:36-0400 Respiratory rate 16 /min Felix COLIN [facility] 12-20-2023 09:36-0400 Systolic blood pressure 135 mm[Hg] Felix COLIN [facility] 12-18-2023 10:55-0400 Body height 182.9 cm Santiago Wheatley MD Work Phone: [facility] 12-18-2023 10:55-0400 Body mass index (BMI) [Ratio] 22.51 kg/m2 Santiago Wheatley MD Work Phone: [facility] 12-18-2023 10:55-0400 Body temperature 96.49 [degF] Santiago Wheatley MD Work Phone: [facility] 12-18-2023 10:55-0400 Body weight 75.3 kg Santiago Wheatley MD Work Phone: [facility] 12-18-2023 10:55-0400 Diastolic blood pressure 78 mm[Hg] Santiago Wheatley MD Work Phone: [facility] 12-18-2023 10:55-0400 Heart rate 54 /min Santiago Wheatley MD Work Phone: [facility] Comment on above: 97% O2 12-18-2023 10:55-0400 Systolic blood pressure 144 mm[Hg] Santiago Wheatley MD Work Phone: [facility] 07-01-2023 09:56-0500 Blood Pressure Location Felix COLIN [facility] 07-01-2023 09:56-0500 Body temperature 98.24 [degF] Felix COLIN [facility] 07-01-2023 09:56-0500 Diastolic blood pressure 78 mm[Hg] Felix COLIN [facility] 07-01-2023 09:56-0500 Heart rate 69 /min Felix COLIN [facility] 07-01-2023 09:56-0500 Respiratory rate 16 /min Felix COLIN [facility] 07-01-2023 09:56-0500 Systolic blood pressure 132 mm[Hg] Felix COLIN [facility] 12-28-2022 12:13-0400 Blood Pressure Location Felix COLIN [facility] 12-28-2022 12:13-0400 Body temperature 97.7 [degF] Felix COLIN [facility] 12-28-2022 12:13-0400 Diastolic blood pressure 71 mm[Hg] Felix COLIN [facility] 12-28-2022 12:13-0400 Heart rate 65 /min Felix COLIN [facility] 12-28-2022 12:13-0400 Respiratory rate 16 /min Felix COLIN [facility] 12-28-2022 12:13-0400 Systolic blood pressure 135 mm[Hg] Felix COLIN [facility] 06-04-2022 14:06-0500 Blood Pressure Location Felix COLIN [facility] 06-04-2022 14:06-0500 Diastolic blood pressure 62 mm[Hg] Felix COLIN [facility] 06-04-2022 14:06-0500 Heart rate 61 /min Felix COLIN [facility] 06-04-2022 14:06-0500 Respiratory rate 16 /min Felix COLIN [facility] 06-04-2022 14:06-0500 Systolic blood pressure 128 mm[Hg] Felix COLIN [facility] 12-04-2021 10:00-0400 Blood Pressure Location Felix COLIN [facility] 12-04-2021 10:00-0400 Diastolic blood pressure 76 mm[Hg] Felix COLIN [facility] 12-04-2021 10:00-0400 Heart rate 72 /min Felix COLIN [facility] 12-04-2021 10:00-0400 Respiratory rate 16 /min Felix COLIN [facility] 12-04-2021 10:00-0400 Systolic blood pressure 139 mm[Hg] Felix COLIN [facility] Encounters Encounter Date Encounter Type Care Provider Facility Start: 06-08-2024 ambulatory Felix COLIN Facili ty:[facility] Start: 02-26-2024 End: 02-26-2024 Clinisync Result Encounter Santiago Wheatley MD Work Phone: [facility] Unsolicited Start: 02-26-2024 End: 02-26-2024 Clinisync Result Encounter Santiago Wheatley MD Work Phone: [facility] Unsolic[facility] Start: 02-24-2024 End: 02-24-2024 Bamboo flowsheet Santiago Wheatley MD Work Phone: [facility] Start: 02-24-2024 End: 02-24-2024 Bamboo flowsheet Santiago Wheatley MD Work Phone: [facility] Start: 02-24-2024 End: 02-24-2024 Patient encounter procedure Santiago Wheatley MD Work Phone: [facility] Work Phone: Start: 02-24-2024 End: 02-24-2024 Postop follow up visit related to original px Santiago Wheatley MD Work Phone: [facility] Comment on above: Medicare annual well ness visit, subsequent (Primary Dx); Mixed hyperlipidemia (CMS/HCC); Encounter for long-term (current) use of medications; Essential hypertension, benign (CMS/HCC); Adult hypothyroidism (CMS/HCC) Start: 02-24-2024 End: 02-24-2024 ambulatory SANTIAGO WHEATLEY Not Available Start: 12-20-2023 End: 12-20-2023 ambulatory Felix COLIN Facility:[facility] Start: 12-20-2023 End: 12-20-2023 Patient encounter procedure Felix COLIN [facility] Start: 12-18-2023 End: 12-18-2023 Bamboo flowsheet Santiago Wheatley MD Work Phone: [facility] Start: 12-18-2023 End: 12-18-2023 Bamboo flowsheet Santiago Wheatley MD Work Phone: [facility] Start: 12-18-2023 End: 12-18-2023 Office outpatient visit 15 minutes Santiago Wheatley MD Work Phone: [facility] Comment on above: Other chest pain (Pr imary Dx); Paroxysmal atrial fibrillation (CMS/HCC) Start: 12-18-2023 End: 12-18-2023 ambulatory SANTIAGO WHEATLEY Not Available Start: 09-26-2023 End: 09-26-2023 ambulatory SANTIAGO WHEATLEY Not Available Start: 07-01-2023 End: 07-01-2023 ambulatory Felix COLIN Facility:[facility] Start: 07-01-2023 End: 07-01-2023 Patient encounter procedure Felix COLIN [facility] Start: 12-28-2022 End: 12-28-2022 ambulatory Felix COLIN Facility:[facility] Start: 12-28-2022 End: 12-28-2022 Patient encounter procedure Felix COLIN [facility] Start: 07-02-2022 End: 07-02-[address] FELIX COLIN . Facility:[facility] Start: 06-21-2022 End: 06-22-[address] FELIX COLIN . Facility:[facility] Start: 06-11-2022 End: 06-11-2022 Patient encounter procedure Felix COLIN [facility] Start: 06-04-2022 End: 06-04-2022 Patient encounter procedure Felix COLIN [facility] Start: 05-26-2022 End: 05-28-[address] SANTIAGO WHEATLEY Facility:[facility] Start: 05-24-2022 End: 05-25-[address] FELIX COLIN . Facility:[facility] Start: 12-04-2021 End: 12-04-2021 Patient encounter procedure Felix COLIN [facility] Start: 11-28-2021 End: 11-29-[address] FELIX COLIN . Facility:[facility] Procedures Date Procedure Procedure Detail Performing Clinician Start: 02-26-2024 ALL CBC WITH AUTO DIFF Santiago Wheatley MD Work Phone: Start: 05-24-[address] SANTIAGO DILLON Comment on above: Performed By: #### P SAD #### [facility] [address] [place] [address] Dr. Otilio Rich Start: 11-28-[address] SANTIAGO DILLON Comment on above: Performed By: #### P SAD #### [facility] [address] [place] [address] Dr. Otilio Rich Start: 11-11-2017 Transrectal biopsy o f prostate using ultrasound guidance Felix COLIN Start: 04-29-2002 Implantation of radioactive seed into prostate Felix COLIN Colonoscopy Felixchano COLIN Plan of Treatment Date Care Activity Detail Author Start: 08-24-2024 End: 08-24-2024 Patient encounter procedure 08/24/2024 10:00 AM EDT Office Visit [facility] [address] [place] [address] Santiago Wheatley MD [address] [place] [id number] [facility] Start: 03-31-2024 End: 03-31-2024 Patient encounter procedure 03/31/2024 9:00 AM EST Office Visit [facility] [address] [place] [address] Santiago Wheatley MD [address] [place] [phone] [facility] Start: 02-24-2024 End: 02-23-2025 Basic metabolic 1998 panel - Serum or Plasma Basic metabolic panel Lab Routine Essential hypertension, benign (CMS/HCC) Expected: 02/24/2024 (Approximate), Expires: 02/23/[address] [facility] Work Phone: Comment on above: Expected: 02/24/2024 (Approximate), Expires: 02/23/2025 Start: 02-24-2024 End: 02-23-2025 CBC W Auto Differential panel - Blood CBC and differential Lab Routine Encounter for long-term (current) use of medications Expected: 02/24/2024 (Approximate), Expires: 02/23/[address] [facility] Comment on above: Expected: 02/24/2024 (Approximate), Expires: 02/23/2025 Start: 02-24-2024 End: 02-23-2025 Hepatic function 2000 panel - Serum or Plasma Hepatic function panel Lab Routine Encounter for long-term (current) use of medications Expected: 02/24/2024 (Approximate), Expires: 02/23/[address] [facility] Comment on above: Expected: 02/24/2024 (Approximate), Expires: 02/23/2025 Start: 02-24-2024 End: 02-23-2025 Lipid 1996 panel - Serum or Plasma Lipid panel Lab Routine Mixed hyperlipidemia (CMS/HCC) Expected: 02/24/2024 (Approximate), Expires: 02/23/[address] [facility] Comment on above: Expected: 02/24/2024 (Approximate), Expires: 02/23/2025 Start: 02-24-2024 End: 02-23-2025 Thyrotropin [Units/volume] in Serum or Plasma TSH Lab Routine Adult hypothyroidism (CMS/HCC) Expected: 02/24/2024 (Approximate), Expires: 02/23/[address] [facility] Comment on above: Expected: 02/24/2024 (Approximate), Expires: 02/23/2025 Start: 02-24-2024 End: 02-23-2025 Thyroxine (T4) free [Mass/volume] in Serum or Plasma T4, free Lab Routine Adult hypothyroidism (CMS/HCC) Expected: 02/24/2024 (Approximate), Expires: 02/23/[address] [facility] Comment on above: Expected: 02/24/2024 (Approximate), Expires: 02/23/2025 Start: 02-24-2024 End: 02-24-2024 Patient encounter procedure [facility] Comment on above: Arrived Start: 12-29-2023 Influenza vaccination Influenza Vacc ine (#1) [facility] Start: 12-18-2023 End: 12-18-2023 Patient encounter procedure 12/18/2023 10:45 AM EDT Office Visit [facility] [address] [place] [phone] Santiago Wheatley MD [address] [place] [address] Arrived [facility] Comment on above: Arrived Start: 12-27-2017 Pneumococcal Vaccine : 65+ Years (2 of 2 - PPSV23 or PCV20) Pneumococcal Vaccine: 65+ Years (2 of 2 - PPSV23 or PCV20) [facility] Start: 1935 Medicare Annual Wellness (AWV) Medicare Annual Wellness (AWV) [facility] Immunizations Immunization Date Immunization Notes Care Provider Fa cility 02-11-2024 influenza virus vaccine, unspecified formulation Santiago Wheatley MD Work Phone: [facility] 02-12-2023 influenza virus vaccine, unspecified formulation Santiago Wheatley MD Work Phone: [facility] 02-20-2022 influenza virus vaccine, unspecified formulation Felix COLIN [facility] 02-20-2022 SARS-CoV-2 (COVID-19 ) [id number] Felix COLIN [facility] 08-19-2021 SARS-CoV-2 (COVID-19 ) mRNA-1273 vaccine Felix COLIN [facility] 02-21-2021 influenza virus vaccine, unspecified formulation Felix COLIN [facility] 01-24-2021 SARS-CoV-2 (COVID-19 ) mRNA BNT-162b2 vax Felix COLIN [facility] 06-15-2020 SARS-CoV-2 (COVID-19 ) mRNA BNT-162b2 vax [employer] [facility] 05-23-2020 SARS-CoV-2 (COVID-19 ) mRNA BNT-162b2 vax Felix [employer] [facility] 04-29-2020 SARS-CoV-2 (COVID-19 ) mRNA BNT-162b2 vax [employer] [facility] Comment on above: Result Comment: 3 sh ots but does not know the dates 02-02-2020 influenza virus vaccine, unspecified formulation [employer] [facility] 02-10-2019 influenza virus vaccine, unspecified formulation [employer] [facility] 02-11-2018 influenza virus vaccine, unspecified formulation [employer] [facility] 09-20-2017 tetanus toxoid, redu mike diphtheria toxoid, and acellular pertussis vaccine, adsorbed [employer] [facility] 02-19-2017 influenza virus vaccine, unspecified formulation [employer] [facility] 12-27-2016 pneumococcal conjuga te vaccine, 13 valent [employer] [facility] 02-07-2016 influenza virus vaccine, unspecified formulation [employer] [facility] 02-22-2015 influenza virus vaccine, unspecified formulation [employer] [facility] 02-04-2013 influenza virus vaccine, unspecified formulation Felix BRANDIN [facility] 02-08-2010 influenza, whole Felix KIM PORRAS [facility] Payers Date Payer Category Payer Medicare [employer] [place] [id number] 2022-Present [address] [place] [address] [id number] 2022 Medicare (Managed Care) [facility] MEDIC[facility] [id number] 1959 Medicare [id number] 1959 Medicare [id number] 1959 Medicare [id number] 1937 Unknown [id number]. 1937 Unknown [id number] 1937 Unknown [id number] [id number]. 1937 Unknown [id number] [id number]. 1937 Unknown [id number] 2..[id number]. 1937 Unknown [id number] [id number]. 727 1937 Unknown [id number] [id number]. 727 1937 Unknown [id number] [id number]. 727 1937 Unknown [id number] [id number]. 727 1937 Unknown [id number] [id number]. 1259 1937 Unknown [id number] [id number]. 1259 1937 Unknown [id number]. 1259 Social History Date Type Detail Facility Start: 12-04-2021 End: 09-26-2023 Tobacco smoking status Never smoked tobacco (finding) [facility] Start: 09-26-2023 End: 12-18-2023 Sex Assigned At Male [facility] Tobacco smoking status Never [facility] Start: 09-26-2023 Tobacco use and exposure Smokeless tobacco non-user [facility] Start: 12-18-2023 End: 02-24-2024 Alcoholic beverage intake Lifetime non-drinker (finding) [facility] Start: 09-26-2023 End: 12-18-2023 History of Social function [facility] Start: 1935 Sex assigned at Not on file [facility] Functional Status Date Assessment Result Facility 12-20-2023 Functional Status N/A [facility] 07-01-2023 Functional Status N/A [facility] 12-28-2022 Functional Status N/A [facility] 06-04-2022 Functional Status N/A [facility] 12-04-2021 Functional Status N/A [facility] Clinical Notes 12-04-2021 to 02-24-2024 Santiago Wheatley MD - 02/24/2024 10:27 AM Bipin Wheatley MD - 02/24/2024 10:00 AM Bipin Wheatley MD - 12/18/2023 11:36 AM Bipin Wheatley MD - 12/18/2023 11:36 AM EDT Note Date & Type Note [...] Hepatic function panel documented in this encounter [facility] 12-20-2023 Hospital Discharge instructions Patient Education 12/20/2023 [...] advanced cancer. Where to find more information [employer]: www.cancer.org National Cancer [place]: www.cancer.gov Contact a health care provider if: [...] provider. Document Revised: 07/27/2021 Document Reviewed: 07/27/2021 [employer] Patient Education 2022 varinode. Follow Up Care 07/01/2023 10:50:23 With:BRANDIN LESLIE, Felix Burt, URL Address: [facility] [address] [place] [phone] When: Unknown [facility] 12-20-2023 Note Patient Education Oncology Hormone Suppression [...] cancer. Where to find more information ? [employer]: www.cancer.org ? National Cancer [place]: www.cancer.gov Contact a health care provider if: [...] speech. These symptom (more content not included)... [facility] 12-18-2023 History of Present illness Narrative Associated Problem(s): Other chest pain No further pain and normal stress test April 2022. Monitor. Associated Problem(s): Paroxysmal atrial fibrillation (CMS/HCC) Currently in afib but rate controlled. Will review Holter when available. Refer to cardiology. Images from the original note were not included. Subjective Patient ID: Tiffanie Wells is a 88 y.o. male who presents for Hospital Follow-up (12/05 [facility] ER AFIB, CHEST PRESSURE, SOB/). Hospital follow up from 12/07-12/08 for chest pain. Patient developed tightness in chest and discomfort. Admitted and CE negative. During hospitalization had episode of afib then converted on own. History of afib and on metoprolol and Eliquis. Feels well since home. No further chest pain. Resumed activity and walks several days a week. Not lightheaded and denies palpitations. Review of Systems Constitutional: Negative for fatigue. [...] to light. Cardiovascular: Rate and Rhythm: Normal rate. Rhythm irregular. Heart sounds: No murmur heard. No friction rub. No gallop. Pulmonary: Breath sounds: Normal breath sounds. No wheezing, rhonchi or rales. Abdominal: General: Bowel sounds are normal. There is no distension. Palpations: Abdomen is soft. Tenderness: There is no abdominal tenderness. There is no guarding or rebound. Musculoskeletal: Left lower leg: No edema. Neurological: Mental Status: He is alert. Assessment/Plan Problem List Items Addressed This Visit Paroxysmal atrial fibrillation (CMS/HCC) Currently in afib but rate controlled. Will review Holter when available. Refer to cardiology. Relevant Orders Ambulatory referral to Cardiology Other chest pain - Primary No further pain and normal stress test April 2022. Monitor. documented in this encounter [facility] 07-01-2023 Hospital Discharge instructions Patient Education 07/01/2023 [...] under a microscope. This is called the Winkelman score and the total score can range from 6 10, indicating how likely it is that the cancer will spread (metastasize) to other parts of the body. The higher the score, the greater the likelihood that the cancer will spread. Timothy 6 or lower: This indicates that the cancer cells look similar to normal prostate cells (well differentiated). Winkelman 7: This indicates that the cancer cells look somewhat similar to normal prostate cells (moderately differentiated). Winkelman 8, 9, or 10: This indicates that [...] stress of having cancer. General instructions Take fiup-wtl-swyucbw and prescription medicines only as told by your health care provider. If you have to go to the hospital, notify your cancer specialist (oncologist). Keep all follow-up visits. This is important. Where to find more information [employer] [employer]: www.cancer.org [place] [employer]: www.cancer.net National Cancer [place]: www.cancer.gov Contact a health care provider if: [...] provider. Document Revised: 07/12/2021 Document Reviewed: 07/12/2021 [employer] Patient Education 2022 varinode. Follow Up Care 12/28/2022 13:08:18 With:BRANDIN LESLIE, Felix Burt, URL Address: [facility] [address] , [place] [address]- [phone] When:Within 6 Month(s) Comments:6 mo fu with Emir HWANG [facility] 12-28-2022 Hospital Discharge instructions Patient Education [...] urethra. Follow these instructions at home: Take dpoi-mjx-iziweow and prescription medicines only as told by [...] provider. Document Revised: 11/01/2021 Document Reviewed: 11/01/2021 [employer] Patient Education 2022 varinode. Follow Up Care 06/11/2022 10:38:13 With:BRANDIN LESLIE, Felix Burt, URL Address: [facility] [address] , [place] [address]- When:Within 6 Month(s) Comments:gaby Field and JAIDEN [facility] 06-11-2022 Hospital Discharge instructions Patient Education 06/11/2022 [...] urethra. Follow these instructions at home: Take rrjb-lcu-hscaifg and prescription medicines only as told by [...] 04/15/2006 Document Revised: 03/10/2019 Document Reviewed: 05/20/2017 [employer] Patient Education 2019 varinode. Follow Up Care 06/04/2022 15:22:48 With:BRANDIN LESLIE, RACHID Gunderson Address: [facility] [address] [place] [address]- When: Unknown [facility] [place] 06-04-2022 Hospital Discharge instructions Patient Education 06/04/2022 [...] including vitamins, herbs, eye drops, creams, and ounf-igf-ikhjbpo medicines. Any problems you or family members [...] 2006 Document Revised: 03/28/2018 Document Reviewed: 04/24/2017 [employer] Patient Education 2020 varinode. Follow Up Care 12/04/2021 11:01:41 With:BRANDIN LESLIE, Felix Burt, URL Address: [facility] [address] [place] [address]- [phone] When: Unknown [facility] [place] 12-04-2021 Hospital Discharge instructions Patient Education 12/04/2021 [...] urethra. Follow these instructions at home: Take snuu-epb-mwldqmo and prescription medicines only as told by [...] 04/15/2006 Document Revised: 03/10/2019 Document Reviewed: 05/20/2017 [employer] Patient Education 2020 varinode. Follow Up Care 06/05/2021 10:59:07 With:Felix COLIN MD, URL Address: [facility] [address] [place] [address]- [phone] When:Within 6 Month(s) [facility] Evaluation + Plan note Future Appointments Appointment Date:05/25/2022 09:45:00 AM Scheduled Provider:Felix COLIN MD Location:[facility] Appointment Type:URO Office Visit Diagnostic Tests PendingPSA Total 12/04/21 [facility] Evaluation + Plan note Future Appointments Appointment Date:06/11/2022 09:30:00 AM Scheduled Provider:Felix COLIN MD Location:[facility] Appointment Type:URO Office Visit Diagnostic Tests PendingCreatinine 06/04/22Urine Cytology ([facility]) 06/04/22 [facility] Evaluation + Plan note Future Appointments Appointment Date:12/17/2022 10:45:00 AM Scheduled Provider:Felix COLIN MD Location:[facility] Appointment Type:URO Office Visit Diagnostic Tests PendingPSA Total 06/11/22 [facility] Evaluation + Plan note Future Appointments Appointment Date:07/12/2023 08:30:00 AM Scheduled Provider:Felix COLIN MD Location:[facility] Appointment Type:URO Office Visit Diagnostic Tests PendingPSA Total 12/28/22 [facility] Evaluation + Plan note Future Appointments Appointment Date:12/20/2023 09:30:00 AM Scheduled Provider:Felix COLIN MD Location:[facility] Appointment Type:URO Office Visit Diagnostic Tests PendingPSA Total 07/01/23 [facility] Evaluation + Plan note Future Appointments Appointment Date:06/08/2024 08:45:00 AM Scheduled Provider:Felix COLIN MD Location:[facility] Appointment Type:URO Office Visit Diagnostic Tests PendingPSA Total 12/20/23 [facility] Evaluation note Diagnosis Essential hypertension, benign [...] Unspecified hypothyroidism [facility] Diagnosis Other chest pain- Primary Paroxysmal atrial fibrillation (CMS/HCC) Atrial fibrillation [facility] Narrative No data available for this section [facility] progress note No data available for this section [facility] reason for referral (narrative)* Consultation (Routine) - Pending Review Specialty Diagnoses / Procedures Referred By Contac t Referred To Contact Cardiology Diagnoses Paroxysmal atrial fibrillation (CMS/HCC) Procedures [place] OFFICE/OUTPATIENT NEW HIGH MDM 60 MINUTES Santiago Wheatley MD [address] [place] [address] Nadira Tucker MD [address] [place] [address] Referral ID Status Reason Start Date Expiration Date Visits Requested Visits Authorized [id number] Pending Review Specialty Services Required 12/18/2023 06/15/2024 1 1 [facility] Healthcare Summary Purpose Family History No Family History Records FoundNo Family History Records Found No data available for this section No data available for this section No Family History Records FoundNo Family History Records Found Advance Directives No Advanced Directives Records FoundNo Advanced Directives Records FoundNo Advanced Directives Records FoundNo Advanced Directives Records Found Additional Source Comments Care Team (unrecognized sect ion and content) Senior Interactive Producer Relationship Specialty Start Date End Date Santiago Wheatley MD [address] [place] [address] PCP - General Family Medicine 09/26/23 Senior Interactive Producer Relationship Specialty Start Date End Date Santiago Wheatley MD [address] [place] [address] PCP - General Family Medicine 09/26/23 Senior Interactive Producer Relationship Specialty Start Date End Date Santigao hWeatley MD [address] [place] [address] PCP - General Family Medicine 09/26/23 Senior Interactive Producer Relationship Specialty Start Date End Date Santiago Wheatley MD [address] [place] [address] PCP - General Family Medicine 09/26/23 Senior Interactive Producer Relationship Specialty Start Date End Date Santiago Wheatley MD [address] [place] [address] PCP - General Family Medicine 09/26/23 (unrecognized sect ion and content) No Status Records FoundNo Status Records FoundNo Status Records FoundNo Status Records Found INFORMATION SOURCE (unrecogn ized section and content) DATE CREATED AUTHOR 06/08/2022 [facility] DATE CREATED AUTHOR AUTHOR'S ORGANIZ ATION 07/04/2022 [facility] DATE CREATED AUTHOR AUTHOR'S ORGANIZ ATION 12/22/2023 [facility] DATE CREATED AUTHOR AUTHOR'S ORGANIZ ATION 02/24/2024 [facility] EPIC Reason for Visit (unrecogniz ed section and content) Reason Comments Medicare Annual Wellness Visit Subsequen t wellness Reason Comments Hospital Follow-up 12/05 [facility] ER AFIB, CH EST PRESSURE, SOB FOR RECORDS PERTAINING TO PATIENTS WHO ARE [...] BE BASED ON THE PRIMARY CLINICAL RECORDS. [employer] provides no warranty or guarantee of the accuracy or completeness of information in this document.
[2024-06-01 10:34] LABS: Prostate Specific Antigen Dx 0.18 ng/mL (<=4.00)
== END 2024-06-01 08:24 | disposition home or self-care (01) ==
LOC: LAB 08:24
PROVIDERS: PCP Family Medicine; Visit Provider Urology
DX: C61 Malignant neoplasm of prostate (principal)
CPT/HCPCS: 36415; 84153

== ENCOUNTER 2024-11-16 08:35 | Outpatient (OUT) | payer MEDICARE, SELFPAY ==
[2024-11-16 10:23] LABS: Prostate Specific Antigen Dx <0.13 ng/mL (<=4.00)
== END 2024-11-16 08:36 | disposition home or self-care (01) ==
LOC: LAB 08:36
PROVIDERS: PCP Family Medicine; Visit Provider Urology
DX: C61 Malignant neoplasm of prostate (principal)
CPT/HCPCS: 36415; 84153